=== PATIENT | female | born 1940 | race Caucasian/White ===

== ENCOUNTER → 2016-07-09 | Outpatient (CLI) | payer MEDICARE, BC ==
--- NOTE | 2016-07-09 15:18 | US ---
EXAMINATION TYPE: US kidneys/renal and bladder DATE OF EXAM: 07/09/2016 2:23 PM COMPARISON: Bladder US 08/21/2014 CLINICAL HISTORY: 76 year-old female recurrent UTIs. TECHNIQUE: Multiple sonographic images of the kidneys and bladder were obtained. FINDINGS: Right Kidney: 11.6 x 6.3 x 4.3cm without hydronephrosis. Left Kidney: 10.7 x 4.8 x 5.5cm without hydronephrosis. Initial partial distention of the bladder limits its evaluation. Both ureteral jets are visualized. Post Void Residual Volume: 9.3ml, within normal limits. Multiple shadowing calculi are incidentally noted within the gallbladder. IMPRESSION: 1. No hydronephrosis. 2. Both ureteral jets are visualized. No sonographic evidence for urinary retention. 3. Incidental cholelithiasis.
== END | disposition home or self-care (01) ==
LOC: RADUSWWP 13:23
PROVIDERS: ATTEND Urology
DX: K80.20 Calculus of gallbladder without cholecystitis without obstruction (principal); N39.0 Urinary tract infection, site not specified
CPT/HCPCS: 76770

== ENCOUNTER → 2016-07-13 | Outpatient (CLI) | payer MEDICARE, BC ==
--- NOTE | 2016-07-13 14:25 | MM ---
Reason for exam: additional evaluation requested from prior study. Last mammogram was performed 1 year ago. History: Patient is postmenopausal. Family history of breast cancer in 2 paternal cousins. Took estrogen for 17 years 4 months beginning at age 49. Physical Findings: Nurse did not find any significant physical abnormalities on exam. MG 3D Diag Mammo W/Cad AZEB Bilateral CC and MLO view(s) were taken. Prior study comparison: July 09, 2015, bilateral MG 3d screening mammo w/cad. June 24, 2010, bilateral digital screening mammogram. Finding: There are typically benign round, diffuse/scattered calcifications in both breasts. No significant changes in finding since July 09, 2015 and June 24, 2010. These results were verbally communicated with the patient and result sheet given to the patient on 07/13/16. ASSESSMENT: Benign, BI-RAD 2 RECOMMENDATION: Routine screening mammogram of both breasts in 1 year.
== END | disposition home or self-care (01) ==
LOC: RADMAMWWP 13:32
PROVIDERS: ATTEND Obstetrics & Gynecology
DX: R92.8 Other abnormal and inconclusive findings on diagnostic imaging of breast (principal)
CPT/HCPCS: G0204; G0279

== ENCOUNTER → 2017-08-04 | Outpatient (CLI) | payer MEDICARE, BC ==
--- NOTE | 2017-08-05 10:21 | CT ---
EXAMINATION TYPE: CT abdomen pelvis wo/w con DATE OF EXAM: 08/04/2017 COMPARISON: Generalized abdominal pain INDICATION: Patient complains of bilateral flank pain. DLP: 2084.6 mGycm, Automated exposure control for dose reduction was used. CONTRAST: 80 mL of Visipaque 320. Study performed with Oral Contrast TECHNIQUE: Axial images were obtained from above the diaphragm to the pubic rami in the axial plane a t 5 mm thick sections. Reconstructed images are reviewed on the computer in the coronal plane. FINDINGS: Limited CT sections are obtained the lung bases. The lung bases are clear. Coronary artery calcific ation is present. Vascular calcification in the descending thoracic aorta is present. CT ABDOMEN: Liver: Normal Spleen: Normal Pancreas: Normal Adrenal glands: The adrenal glands are normal. Gallbladder: Cholelithiasis is present. Kidneys: No masses are evident. No hydronephrosis is present. No cysts are present. Delayed images were obtained through the kidneys, which remain unremarkable. Aorta: Vascular calcification is within the aorta. Inferior vena cava: Normal. CT PELVIS: Multiple phleboliths are within the pelvis. Suspicious distal ureteral stones are not iden tified. Loops of bowel within the abdomen and pelvis are normal. There are loops of bowel which are incom pletely distended or lack oral contrast limiting their evaluation. Appendix: Normal as visualized. Visualization is somewhat limited. No suspicious inflammatory changes are identified. No suspicious dilated tubular structures are evident. Urinary bladder: Normal. Genitourinary structures: Uterus and ovaries are not identified. Osseous structures: No suspicious lytic or sclerotic lesions. Sacroiliac joint degenerative changes a re present. Some scoliosis within the lumbar spine. Degenerative disc changes are present L5-S1 and T 12-L1. IMPRESSIONS: 1. Cholelithiasis.
== END | disposition home or self-care (01) ==
LOC: RADCTMAIN 15:22
PROVIDERS: ATTEND Urology
DX: K80.20 Calculus of gallbladder without cholecystitis without obstruction (principal)
CPT/HCPCS: 82565; 84520; 74178; 36415; Q9967

== ENCOUNTER → 2018-05-03 | Outpatient (CLI) | payer MEDICARE, BC ==
--- NOTE | 2018-05-03 12:09 | FL ---
EXAMINATION TYPE: FL barium swallow w video DATE OF EXAM: 05/03/2018 MODIFIED SWALLOW / DEGLUTITION STUDY CLINICAL HISTORY: Dysphagia. Difficulty swallowing liquids.T17.928A food ins resp tract per order. TECHNIQUE: Deglutition study is performed utilizing thin liquid barium, honey and nectar thick liqui d barium, barium thick applesauce, and barium coated cracker. A total of 1.19 minutes of fluoroscopic time was utilized during procedure. Serial spot images are saved to PACS. COMPARISON: None. FINDINGS: The oral and pharyngeal phases show satisfactory initiation and propagation with all modali ties tested. Normal mastication is seen with solid modalities tested. There is straightening of cerv ical spine with grade 1 retrolisthesis of C4 on C5. There is mild to moderate disc space narrowing an d spurring C4-C5 and C5-C6 levels incidentally seen. There is no evidence of penetration or aspiratio n with any modality tested. No significant pharyngeal residue was appreciated. IMPRESSION: No penetration or aspiration. Please refer to speech therapist notes for further details if necessary.
== END | disposition home or self-care (01) ==
LOC: RADFLMAIN 11:27
PROVIDERS: ATTEND Family Medicine
DX: T17.928A Food in respiratory tract, part unspecified causing other injury, initial encounter (principal)
CPT/HCPCS: 74230

== ENCOUNTER → 2018-05-06 | Outpatient (CLI) | payer MEDICARE, BC ==
--- NOTE | 2018-05-06 15:04 | US ---
EXAMINATION TYPE: US kidneys/renal and bladder DATE OF EXAM: 05/06/2018 COMPARISON: 07/09/2016 CLINICAL HISTORY: R33.9 Retention of Urine. EXAM MEASUREMENTS: Right Kidney: 10.9 x 4.4 x 6.0 cm Left Kidney: 10.8 x 5.3 x 6.3 cm Post Void Residual Volume: empties bladder Right Kidney: No hydronephrosis or masses seen Left Kidney: No hydronephrosis or masses seen Bladder: 169 ml Bilateral Jets seen: no Normal Post Void Residual: yes IMPRESSION: 1. Normal renal ultrasound.
== END | disposition home or self-care (01) ==
LOC: RADUSWWP 14:28
PROVIDERS: ATTEND Internal Medicine Cardiovascular Disease
DX: R33.9 Retention of urine, unspecified (principal)
CPT/HCPCS: 76770

== ENCOUNTER → 2018-06-02 | Outpatient (CLI) | payer MEDICARE, BC ==
--- NOTE | 2018-06-02 18:31 | BD ---
EXAMINATION TYPE: Axial Bone Density DATE OF EXAM: 06/02/2018 COMPARISON:2004 CLINICAL HISTORY: 78-year-old female post menopausal symptoms Height: 4'11 Weight: 189 FRAX RISK QUESTIONS: History of Fracture in Adulthood: y Secondary Osteoporosis: RISK FACTORS HISTORY OF: Postmenopausal woman: y MEDICATIONS: Thyroid Medications: Which medication: Levothyroxine How Lon years Additional Medications: blood pressure, cholesterol, heart Additional History: EXAM MEASUREMENTS: Bone mineral densitometry was performed using the [facility]. Bone mineral density as measured about the Lumbar spine is: ----- L1-L4(G/cm2): 1.343 T Score Values are as follows: ----- L2: 1.2 ----- L3: 1.5 ----- L4: 1.3 ----- L1-L4: 1.4 Bone mineral density has: Decreased -5.2% since study of: 06/25/2005 Bone mineral density about the R hip (g/cm2): 0.999 Bone mineral density about the L hip (g/cm2): 0.984 T Score values are as follows: -----R Neck: -0.3 -----L Neck: -0.4 -----R Total: 0.6 -----L Total: 0.1 Bone mineral density has: Decreased -7.0% since study of: 06/25/2005 IMPRESSION: Normal (Values between +1 and -1 indicate normal bone mass). Consider repeating this study in 5 year s or sooner if there is some new clinical indication. NOTE: T-SCORE=SD OF THE YOUNG ADULT MEAN.
--- NOTE | 2018-06-03 14:28 | MM ---
Reason for exam: screening (asymptomatic). Last mammogram was performed 1 year and 11 months ago. History: Patient is postmenopausal. Family history of breast cancer in 2 paternal cousins. Took estrogen for 17 years 4 months beginning at age 49. Physical Findings: A clinical breast exam by your physician is recommended on an annual basis and results should be correlated with mammographic findings. MG 3D Screening Mammo W/Cad Bilateral CC and MLO view(s) were taken. Prior study comparison: July 13, 2016, bilateral MG 3d diag mammo w/cad AZEB. July 09, 2015, bilateral MG 3d screening mammo w/cad. Finding: There are heterogeneous, grouped/clustered calcifications in the upper outer quadrant, middle position of the left breast, increased in heterogeneity. New finding since July 13, 2016 and July 09, 2015. ASSESSMENT: Incomplete: need additional imaging evaluation, BI-RAD 0 RECOMMENDATION: Special view mammogram of the left breast. [facility] will attempt to contact patient to return for supplemental views.
== END | disposition home or self-care (01) ==
LOC: RADMAMWWP 14:57
PROVIDERS: ATTEND Obstetrics & Gynecology
DX: Z12.31 Encounter for screening mammogram for malignant neoplasm of breast (principal); Z13.820 Encounter for screening for osteoporosis; Z80.3 Family history of malignant neoplasm of breast; N95.1 Menopausal and female climacteric states
CPT/HCPCS: 77063; 77067; 77080

== ENCOUNTER → 2018-06-24 | Outpatient (CLI) | payer MEDICARE, BC ==
--- NOTE | 2018-06-24 14:03 | MM ---
Reason for exam: additional evaluation requested from abnormal screening. Last mammogram was performed 1 month ago. History: Patient is postmenopausal. Family history of breast cancer in 2 paternal cousins. Took estrogen for 17 years 4 months beginning at age 49. Physical Findings: Nurse did not find any significant physical abnormalities on exam. MG 3D Work Up W/Cad LT CC with magnification, ML with magnification, and ML view(s) were taken of the left breast. Prior study comparison: June 02, 2018, bilateral MG 3d screening mammo w/cad. July 13, 2016, bilateral MG 3d diag mammo w/cad AZEB. There are increased number of grouped, round calcifications in the left upper outer quadrant 5cm from nipple. This finding is changed when compared with previous exams. These results were verbally communicated with the patient and result sheet given to the patient on 06/24/18. ASSESSMENT: Suspicious, BI-RAD 4 RECOMMENDATION: Stereotactic core biopsy of the left breast. Called Dr. Brady with mammographic findings and has scheduled an appointment for the patient for 07/07/17 at 11:[address] Lindo. Biopsy scheduled for 07/12/17 at 8:00. PRELIMINARY REPORT CALLED AND FAXED TO DR. LINDO ON 06/24/18.
== END | disposition home or self-care (01) ==
LOC: RADMAMWWP 09:32
PROVIDERS: ATTEND Obstetrics & Gynecology
DX: R92.8 Other abnormal and inconclusive findings on diagnostic imaging of breast (principal)
CPT/HCPCS: 77065; G0279; 77061

== ENCOUNTER → 2018-07-07 | Outpatient (CLI) | payer MEDICARE, BC ==
[2018-07-07 11:32] VITALS: BP 133/77; PULSE 90; RESP 18; TEMP 96.2; BMI 37.0
--- NOTE | 2018-07-07 11:51 | P.GSHP ---
History of Present Illness H&P Date: 07/07/18 Chief Complaint: abnormal mammogram of the left breast Cecy is a 78 year old white female who had a recent mammogram on 06-02-18 after which a left breast diagnostic mammogram was performed. This mammogram revealed that there were increased number of groups round calcifications in the upper outer quadrant 5 cm from the nipple. A stereotactic core biopsy was recommended. The patient is soft does not feel anything in her breast. She is not complaining of any nipple discharge or skin changes. She states that she had open heart surgery approximately 8 years ago and since that time the left breast has been larger in size than the right breast. Additionally she has had some soreness in the area of the left breast since that time. The patient does not give any history of trauma to her breast or any history of infection in the breast. Family history: 1. 2 paternal cousins with breast cancer 2. Mother colon, ovarian, and melanoma Hormonal History: menarche: 13 : 3, 3 children, breast fed: none, first child at 21 Menopause: hysterectomy in 's, did not take ovaries at that time, they were removed at 52 BCP: none hormones: 15 years Past Surgical History 1. 3 C-Sections 2. hysterctomy and appy 3. oophrectomy 4. diverticulitis/colon resection 5. CABG 6. cardiac cath Past Medical History: 1. high cholesterol 2. aspirin and plavix 3. CAD 4. HTN 5. sleep apnea 6. thyroid disorder 7. high lipids 8. diverticulitis 9. arthritis 10. DDD Social History: smoke: none alcohol: wine/twice a month drugs: none - Constitutional Constitutional: Denies chills, Denies fever - EENT Eyes: denies blurred vision, denies pain Ears: deny: decreased hearing, tinnitus Ears, nose, mouth and throat: Denies headache, Denies sore throat - Breasts Breasts: bilateral: as per HPI - Cardiovascular Comment: CABG Cardiovascular: Reports high blood pressure - Respiratory Respiratory: Denies cough, Denies 7 - Gastrointestinal Comment: diverticular disease - Genitourinary (Female) Comment: UTI Genitourinary: Reports kidney stones, Reports urge incontinence - Menstruation Menstruation: Reports post hysterectomy, Reports postmenopausal - Musculoskeletal Comment: arthritis - Integumentary Integumentary: Denies pruritus, Denies rash - Neurological Neurological: Denies numbness, Denies weakness - Psychiatric Psychiatric: Denies anxiety, Denies depression - Endocrine Comment: hypothyroid - Hematologic/Lymphatic Comment: aspirin/plavix - Allergic/Immunologic Allergic/Immunologic: Reports seasonal allergies Past Medical History Past Medical History: Coronary Artery Disease (CAD), Hyperlipidemia, Hypertension, Mitral Valve Prolapse (MVP), Sleep Apnea/CPAP/BIPAP, Thyroid Disorder Additional Past Medical History / Comment(s): diverticulitis, ddd, arthritis, UTI'S, KIDNEY STONES,INCONT OF URINE, ARTHIRITS,MIGRAINEs. History of Any Multi-Drug Resistant Organisms: None Reported Past Surgical History: Appendectomy, Bowel Resection, Section, Coronary Bypass/CABG, Heart Catheterization, Hysterectomy Additional Past Surgical History / Comment(s): .BOWEL RESECTION D/T DIVERTICULITIS, QUAD BYPASS Past Psychological History: No Psychological Hx Reported Smoking Status: Never smoker Past Alcohol Use History: Occasional Past Drug Use History: None Reported Medications and Allergies Home Medications Medication Instructions Recorded Confirmed Type Clopidogrel [Plavix] 75 mg PO DIRECTED 01/16/14 07/04/18 History Levothyroxine Sodium [Synthroid] 112 mcg PO DAILY 01/16/14 07/04/18 History Metoprolol Tartrate [Lopressor] 25 mg PO BID 01/16/14 07/04/18 History Rosuvastatin [Crestor] 5 - 10 mg PO DIRECTED 01/16/14 07/04/18 History Aspirin 81 mg PO DAILY 08/02/15 07/04/18 History Ciprofloxacin HCl [Cipro] 500 mg PO BID 07/04/18 07/04/18 History Ergocalciferol [Vitamin D2 1 each PO WEEKLY 07/04/18 07/04/18 History (DRISDOL)] Lisinopril [Zestril] 10 mg PO DAILY 07/04/18 07/04/18 History Trimethoprim 100 mg PO DAILY 07/04/18 07/04/18 History Allergies Allergy/AdvReac Type Severity Reaction Status Date / Time Sulfa (Sulfonamide Allergy Unknown Verified 08/02/15 14:50 Antibiotics) amoxicillin [From Augmentin] AdvReac Nausea Verified 07/04/18 12:34 clavulanic acid AdvReac Nausea Verified 07/04/18 12:34 [From Augmentin] Surgical - Exam BMI 37.1 - General well developed, well nourished, no distress - Eyes normal ocular movement - ENT normal pinna, normal nares, no hearing loss - Neck no masses, trachea midline - Respiratory normal respiratory effort, clear to auscultation - Cardiovascular Rhythm: regular Heart Sounds: normal: S1, S2 - Abdomen Abdomen: soft - Integumentary normal turger - Neurologic no disoriented, no combative - Musculoskeletal normal gait, normal posture - Psychiatric oriented to time, oriented to person, oriented to place, speech is normal, memory intact Rest examination: Right breast: Multi-positional exam no dominant masses or nodules of concern Right axilla: No adenopathy of concern Left breast: Multi-positional exam no dominant masses or nodules of concern Left axilla: No adenopathy of concern Results mammogram results reviewed Assessment and Plan Assessment: Impression: 1. high cholesterol 2. aspirin and plavix 3. CAD 4. HTN 5. sleep apnea 6. thyroid disorder 7. high lipids 8. diverticulitis 9. arthritis 10. DDD 11. Mammographic abnormality left breast Plan: 1. Stereotactic core biopsy left breast after stopping aspirin and Plavix for 1 week 2. Medical management of medical conditions Benefits of the procedure reviewed. The patient is scheduled for stereotactic core biopsy in the near future. CC: Olnea Brady Dr. Dre Plan: . Plan: 1. Stereotactic core biopsy left breast after stopping aspirin and Plavix for 1 week 2. Medical management of medical conditions
== END ==
LOC: WWCWWP 11:07
PROVIDERS: ATTEND Surgery
DX: Z53.9 Procedure and treatment not carried out, unspecified reason (principal)

== ENCOUNTER → 2018-07-22 | Day surgery (SDC) | payer MEDICARE, BC ==
[2018-07-22 07:28] VITALS: RESP 16
--- NOTE | 2018-07-22 09:04 | P.OP ---
Date of Procedure: 07/22/18 Preoperative Diagnosis: Mammographic abnormality left breast, increasing group calcifications left upper outer quadrant 5 cm from the nipple Postoperative Diagnosis: same Procedure(s) Performed: Left breast stereotactic core biopsy Anesthesia: local Surgeon: Shayy Lindo Estimated Blood Loss (ml): 1 Pathology: other (Breast tissue) Condition: stable Disposition: same day Indications for Procedure: Cecy is a 78-year-old white female who presented with a mammographic abnormality in her left breast for stereotactic core biopsy Operative Findings: Microcalcifications left breast Description of Procedure: Cecy is a 78-year-old white female who was noted to have an increasing number of grouped, round calcifications in the upper outer quadrant of the left breast 5 cm from the nipple on a May 2018 mammogram. She was recommended to undergo stereotactic core biopsy. Risk and benefits of the procedure were discussed with the patient. The patient chose to undergo the procedure. The patient was brought into the stereotactic core room. She was positioned on the low rad table and radiograph of the breast was obtained. The approach to target the lesion was a lateral to medial approach. The area of concern was identified. Stereo pairs were obtained and the lesion was clearly visualized. The breast was prepped using Betadine. 20 mL of 1% lidocaine were used to anesthetize the breast. A 9-gauge vacuum assisted rotating needle was inserted to the correct target. Pre-and postfire stereo images were obtained. The needle was noted to be in the correct location. 12 core biopsies were obtained. Radiograph of the specimen revealed the area of concern had been sampled as evidenced by microcalcifications noted in the specimen. A top hat secure jeronimo marker was placed. This was noted to be in the correct location. The specimen was sent to pathology. The patient tolerated the procedure in stable condition with no immediate post procedure complications.
[2018-07-22 09:17] VITALS: BP 124/82; PULSE 94; TEMP 98.1
--- NOTE | 2018-07-25 07:41 | MM ---
Stereotactic core biopsy left breast. HISTORY: Microcalcifications. The calcifications in question within the left breast were targeted by the undersigned. The examination was performed by the surgeon. Specimen radiograph demonstrates numerous calcifications within the specimen submitted. Post procedural mammogram demonstrates appropriate deployment of radiopaque clip marker. The patient tolerated the procedure well and left the department in stable condition. Pathology results are pending. IMPRESSION: Successful stereotactic core biopsy left breast with pathology results pending. Pathology Results: Benign LEFT BREAST, STEREOTACTIC CORE BIOPSY: Proliferative fibrocystic changes including florid usual type ductal hyperplasia, columnar cell hyperplasia, calcifications and fibrosis. Recommendation Follow up mammogram of the left breast in 6 months. LEONIED
== END ==
LOC: RADMAMWWP 07:02
PROVIDERS: ATTEND Surgery
DX: N60.92 Unspecified benign mammary dysplasia of left breast (principal); N60.32 Fibrosclerosis of left breast; R92.1 Mammographic calcification found on diagnostic imaging of breast; Z88.0 Allergy status to penicillin; Z88.2 Allergy status to sulfonamides
CPT/HCPCS: 88305; 19081; A4648; J2001

== ENCOUNTER → 2018-07-28 | Outpatient (CLI) | payer MEDICARE, BC ==
--- NOTE | 2018-07-28 12:59 | P.PN ---
Progress Note - Text Progress Note Date: 07/28/18 Cecy is a 78-year-old white female status post left breast stereotactic core biopsy on 120 [id number]. Pathology was benign. It revealed proliferative fibrocystic changes including florid usual type ductal hyperplasia, columnar cell hyperplasia, and calcifications and fibrosis. The patient has no complaints at this time. She did develop some mild ecchymosis following the procedure. Physical exam: Examination of the left breast reveals mild ecchymosis at the site of the core biopsy No evidence of infection or hematoma Impression: 1. Fibrocystic changes of the breast 2. Benign stereotactic core biopsy, this was concordant with the radiographic findings Plan: 1. Left breast mammogram in 6 months time with physician exam at that time CC: Dre
[2018-07-28 13:14] VITALS: BP 109/71; PULSE 100; RESP 20; TEMP 98.3; BMI 38.3
== END | disposition home or self-care (01) ==
LOC: WWCWWP 12:43
PROVIDERS: ATTEND Surgery
DX: Z53.9 Procedure and treatment not carried out, unspecified reason (principal)

== ENCOUNTER 2018-11-24 13:48 | Inpatient (IN) | payer MEDICARE, BC ==
[2018-11-24] MEDS ORDERED: SODIUM CHLORIDE 0.9% 1,000 ML IV STA (15:29)
[2018-11-24 16:14] LABS: Basophils % (A) 0 %; Eosinophils # (A) 0.1 k/uL (0-0.7); Eosinophils % (A) 1 %; HCT 43.7 % (34.0-46.0); HGB 13.9 gm/dL (11.4-16.0); Lymphocytes # (A) 2.4 k/uL (1.0-4.8); Lymphocytes % (A) 24 %; MCH 29.7 pg (25.0-35.0); MCHC 31.9 g/dL (31.0-37.0); MCV 93.3 fL (80.0-100.0); Mean Platelet Volume 7.1; Monocytes # (A) 0.6 k/uL (0-1.0); Monocytes % (A) 6 %; Neutrophils # (A) 6.7 k/uL (1.3-7.7); Neutrophils % (A) 66 %; Platelet Count 267 k/uL (150-450); RBC 4.69 m/uL (3.80-5.40); RDW 13.6 % (11.5-15.5); WBC 10.1 k/uL (3.8-10.6)
[2018-11-24 16:17] LABS: Appearance,Urine Clear (Clear); Bilirubin,Urine Negative (Negative); Blood,Urine Negative (Negative); Color,Urine Yellow; Glucose,Urine (UA) Negative (Negative); Ketones,Urine Negative (Negative); Leukocyte Esterase,Urine Negative (Negative); Nitrite,Urine Negative (Negative); Protein,Urine Negative (Negative); Specific Gravity,Urine 1.015 (1.001-1.035); Urobilinogen,Urine <2.0 mg/dL (<2.0)
[2018-11-24 16:22] LABS: Albumin 4.1 g/dL (3.5-5.0); Calcium 9.5 mg/dL (8.4-10.2); Potassium 4.6 mmol/L (3.5-5.1); Total Bilirubin 0.6 mg/dL (0.2-1.3); Total Protein 6.6 g/dL (6.3-8.2)
--- NOTE | 2018-11-24 16:31 | ED ---
Abdominal Pain HPI - General Source: patient, RN notes reviewed Mode of arrival: ambulatory Limitations: no limitations <Felix Santiago - Last Filed: 11/24/18 17:59> <Rodrigue Colmenares - Last Filed: 11/24/18 18:13> - General Chief Complaint: Abdominal Pain Stated Complaint: R lower abd pain Time Seen by Provider: 11/24/18 15:28 - History of Present Illness Initial Comments: This a 78-year-old female presented emergency Department with chief complaint of right lower quadrant abdominal pain. Patient states that she's been having some worsening pain last week or so. Patient states that she was seen at urgent care and was placed on antibiotics for possible diverticulitis. She has had a resection from diverticulitis. Patient states that she is on day 5 of medication in symptoms or worsening along with diarrhea. Patient reports no fevers or chills denies any dysuria hematuria urinalysis has been clear at [facility]. Patient denies any rectal bleeding and denies any melena. Patient denies chest pain, shortness breath, headache or dizziness. (Felix Santiago) - Related Data Home Medications Medication Instructions Recorded Confirmed Levothyroxine Sodium [Synthroid] 112 mcg PO DAILY 01/16/14 11/24/18 Metoprolol Tartrate [Lopressor] 25 mg PO BID 01/16/14 11/24/18 Aspirin 81 mg PO DAILY 08/02/15 11/24/18 Ergocalciferol [Vitamin D2 1 each PO TU 07/04/18 07/28/18 (DRISDOL)] Lisinopril [Zestril] 10 mg PO DAILY 07/04/18 11/24/18 Trimethoprim 100 mg PO DAILY 07/04/18 11/24/18 Ciprofloxacin HCl [Cipro] 500 mg PO DAILY 11/24/18 11/24/18 Clopidogrel [Plavix] 75 mg PO Q48H 11/24/18 11/24/18 Estradiol Cream [Estrace Cream 1 applic TOPICAL MOWEFR 11/24/18 11/24/18 0.01%] Nystatin/Triamcin Cream [Mycolog 1 applic TOPICAL TUTH PRN 11/24/18 11/24/18 100,000-0.1 Unit/gm-% Cream] Rosuvastatin [Crestor] 10 mg PO DAILY 11/24/18 11/24/18 metroNIDAZOLE [Flagyl] 500 mg PO DAILY 11/24/18 11/24/18 Allergies Allergy/AdvReac Type Severity Reaction Status Date / Time Sulfa (Sulfonamide Allergy Unknown Verified 11/24/18 16:06 Antibiotics) amoxicillin [From Augmentin] AdvReac Nausea Verified 11/24/18 16:06 clavulanic acid AdvReac Nausea Verified 11/24/18 16:06 [From Augmentin] Review of Systems ROS Other: All systems not noted in ROS Statement are negative. <Felix Santiago - Last Filed: 11/24/18 17:59> ROS Other: All systems not noted in ROS Statement are negative. <Rodrigue Colmenares - Last Filed: 11/24/18 18:13> ROS Statement: Those systems with pertinent positive or pertinent negative responses have been documented in the HPI. Past Medical History Past Medical History: Coronary Artery Disease (CAD), Hyperlipidemia, Hypertension, Mitral Valve Prolapse (MVP), Sleep Apnea/CPAP/BIPAP, Thyroid Disorder Additional Past Medical History / Comment(s): diverticulitis, ddd, arthritis, U TI'S, KIDNEY STONES,INCONT OF URINE, ARTHIRITS,MIGRAINEs. History of Any Multi-Drug Resistant Organisms: None Reported Past Surgical History: Appendectomy, Bowel Resection, Breast Surgery, Section, Coronary Bypass/CABG, Heart Catheterization, Hysterectomy Additional Past Surgical History / Comment(s): BOWEL RESECTION D/T DIVERTICULITIS, QUAD BYPASS Past Anesthesia/Blood Transfusion Reactions: No Reported Reaction Past Psychological History: No Psychological Hx Reported Smoking Status: Never smoker Past Alcohol Use History: Occasional Past Drug Use History: None Reported <Felix Santiago - Last Filed: 11/24/18 17:59> General Exam Limitations: no limitations General appearance: alert, in no apparent distress Head exam: Present: atraumatic, normocephalic, normal inspection Neck exam: Present: normal inspection. Absent: tenderness, meningismus, lymphadenopathy Respiratory exam: Present: normal lung sounds bilaterally. Absent: respiratory distress, wheezes, rales, rhonchi, stridor Cardiovascular Exam: Present: regular rate, normal rhythm, normal heart sounds. Absent: systolic murmur, diastolic murmur, rubs, gallop, clicks GI/Abdominal exam: Present: soft, tenderness (Mild to moderate right lower quadrant), normal bowel sounds. Absent: distended, guarding, rebound, rigid Back exam: Absent: CVA tenderness (R), CVA tenderness (L) Skin exam: Present: warm, dry, intact, normal color. Absent: rash <Felix Santiago - Last Filed: 11/24/18 17:59> Course Vital Signs 11/24/18 14:57 Temperature 98.1 F Pulse Rate 86 Respiratory 18 Rate Blood Pressure 129/82 O2 Sat by Pulse 96 Oximetry Medical Decision Making - Lab Data Result diagrams: 11/24/18 15:55 11/24/18 15:55 <Felix Santiago - Last Filed: 11/24/18 17:59> - Lab Data Result diagrams: 11/24/18 15:55 11/24/18 15:55 <Rodrigue Colmenares - Last Filed: 11/24/18 18:13> - Medical Decision Making 78-year-old female presented for lower abdominal pain CT shows evidence of diver ticulitis. Patient has been on treatment for last 5 days and discussed outpatient treatment and not tolerating intake at this time. Patient will be admitted for IV antibiotics. Patient we started on Zosyn. Patient has a listed ALLERGY to Augmentin but only causes nausea. (Felix Santiago) Patient reevaluated and reexamined by myself, Dr. Colmenares. I do agree with the findings. This includes diagnostic interpretation and treatment plan. Case was discussed in detail with Dr. Miguel, who will admit for Dr. Erickson. (Rodrigue Colmenares) - Lab Data Lab Results 11/24/18 11/24/18 11/24/18 Range/Units 15:55 15:55 15:55 WBC 10.1 (3.8-10.6) k/uL RBC 4.69 (3.80-5.40) m/uL Hgb 13.9 (11.4-16.0) gm/dL Hct 43.7 (34.0-46.0) % MCV 93.3 (80.0-100.0) fL MCH 29.7 (25.0-35.0) pg MCHC 31.9 (31.0-37.0) g/dL RDW 13.6 (11.5-15.5) % Plt Count 267 (150-450) k/uL Neutrophils % 66 % Lymphocytes % 24 % Monocytes % 6 % Eosinophils % 1 % Basophils % 0 % Neutrophils # 6.7 (1.3-7.7) k/uL Lymphocytes # 2.4 (1.0-4.8) k/uL Monocytes # 0.6 (0-1.0) k/uL Eosinophils # 0.1 (0-0.7) k/uL Basophils # 0.0 (0-0.2) k/uL Sodium 139 (137-145) mmol/L Potassium 4.6 (3.5-5.1) mmol/L Chloride 105 (98-107) mmol/L Carbon Dioxide 28 (22-30) mmol/L Anion Gap 6 mmol/L BUN 18 H (7-17) mg/dL Creatinine 0.81 (0.52-1.04) mg/dL Est GFR (CKD-EPI)AfAm 82 (>60 ml/min/1.73 sqM) Est GFR (CKD-EPI)NonAf 71 (>60 ml/min/1.73 sqM) Glucose 101 H (74-99) mg/dL Plasma Lactic Acid Vasyl 0.9 (0.7-2.0) mmol/L Calcium 9.5 (8.4-10.2) mg/dL Total Bilirubin 0.6 (0.2-1.3) mg/dL AST 71 H (14-36) U/L ALT 57 H (9-52) U/L Alkaline Phosphatase 52 (38-126) U/L Total Protein 6.6 (6.3-8.2) g/dL Albumin 4.1 (3.5-5.0) g/dL Amylase 37 (30-110) U/L Lipase 125 (23-300) U/L Urine Color Urine Appearance (Clear) Urine pH (5.0-8.0) Ur Specific Buford (1.001-1.035) Urine Protein (Negative) Urine Glucose (UA) (Negative) Urine Ketones (Negative) Urine Blood (Negative) Urine Nitrite (Negative) Urine Bilirubin (Negative) Urine Urobilinogen (<2.0) mg/dL Ur Leukocyte Esterase (Negative) 11/24/18 Range/Units 15:55 WBC (3.8-10.6) k/uL RBC (3.80-5.40) m/uL Hgb (11.4-16.0) gm/dL Hct (34.0-46.0) % MCV (80.0-100.0) fL MCH (25.0-35.0) pg MCHC (31.0-37.0) g/dL RDW (11.5-15.5) % Plt Count (150-450) k/uL Neutrophils % % Lymphocytes % % Monocytes % % Eosinophils % % Basophils % % Neutrophils # (1.3-7.7) k/uL Lymphocytes # (1.0-4.8) k/uL Monocytes # (0-1.0) k/uL Eosinophils # (0-0.7) k/uL Basophils # (0-0.2) k/uL Sodium (137-145) mmol/L Potassium (3.5-5.1) mmol/L Chloride (98-107) mmol/L Carbon Dioxide (22-30) mmol/L Anion Gap mmol/L BUN (7-17) mg/dL Creatinine (0.52-1.04) mg/dL Est GFR (CKD-EPI)AfAm (>60 ml/min/1.73 sqM) Est GFR (CKD-EPI)NonAf (>60 ml/min/1.73 sqM) Glucose (74-99) mg/dL Plasma Lactic Acid Vasyl (0.7-2.0) mmol/L Calcium (8.4-10.2) mg/dL Total Bilirubin (0.2-1.3) mg/dL AST (14-36) U/L ALT (9-52) U/L Alkaline Phosphatase (38-126) U/L Total Protein (6.3-8.2) g/dL Albumin (3.5-5.0) g/dL Amylase (30-110) U/L Lipase (23-300) U/L Urine Color Yellow Urine Appearance Clear (Clear) Urine pH 6.0 (5.0-8.0) Ur Specific Buford 1.015 (1.001-1.035) Urine Protein Negative (Negative) Urine Glucose (UA) Negative (Negative) Urine Ketones Negative (Negative) Urine Blood Negative (Negative) Urine Nitrite Negative (Negative) Urine Bilirubin Negative (Negative) Urine Urobilinogen <2.0 (<2.0) mg/dL Ur Leukocyte Esterase Negative (Negative) Disposition <Felix Santiago - Last Filed: 11/24/18 17:59> <Rodrigue Colmenares - Last Filed: 11/24/18 18:13> Clinical Impression: Diverticulitis, Failure of outpatient treatment Disposition: ADMITTED IP TO THIS [facility] Condition: Fair Referrals: Vidal Erickson MD [Primary Care Provider] - 1-2 days
--- NOTE | 2018-11-24 17:29 | CT ---
EXAMINATION TYPE: CT abdomen pelvis w con DATE OF EXAM: 11/24/2018 COMPARISON: August 04, 2017 HISTORY: RLQ pain with nausea CT DLP: 1170.7 mGycm Automated exposure control for dose reduction was used. TECHNIQUE: Helical acquisition of images was performed from the lung bases through the pelvis. CONTRAST: Performed without Oral Contrast and with IV Contrast, patient injected with 100 mL of Isovue 370. FINDINGS: Lung bases are clear. There is no pleural effusion. Heart size is normal. There is no pericardial eff usion. Abdominal aorta is atheromatous. Lung bases are clear of consolidation. Liver spleen stomach appear normal. There is no evidence of pancreatic mass. The bile ducts are not d ilated. There are numerous calcified gallstones. Gallbladder size is normal. There is no adrenal mass. Kidneys show satisfactory contrast opacification. There is no hydronephrosi s. Ureters are not dilated. There is no retroperitoneal adenopathy. Abdominal aorta is atheromatous. There is small umbilical hernia that contains fat. There are numerous phleboliths in the pelvis. Blad arturo distends smoothly. There is no inguinal hernia. There is no sign of a pelvic mass. There is a mild degenerative first-degree L5-S1 spondylolisthesis. There is no lumbar compression fra cture. I see no bony destructive process. There is hysterectomy. There is 2 mm calculus lower pole le ft kidney. There is no ascites. There is no sign of free air. There are a few sigmoid diverticula. There is very minimal fat stranding around the mid sigmoid colon. IMPRESSION: MINIMAL INFLAMMATORY CHANGES IN THE MID SIGMOID COLON ARE CONSISTENT WITH MILD DIVERTICULITIS THAT IS A CHANGE COMPARED TO OLD EXAM. NONOBSTRUCTING LEFT RENAL CALCULUS. GALLSTONES.
[2018-11-24] MEDS ORDERED: PIPERACILLIN-TAZOBACTAM 3.375 GM in SODIUM CHLORIDE 0.9% 100 ML IVPB STA (17:58)
[2018-11-24] MEDS ORDERED: NALOXONE 0.4 MG/ML 1 ML VIAL IV PRN (18:00)
[2018-11-24] MEDS ORDERED: HYDROcodone/APAP 5-325MG 1 EACH TAB PO PRN (18:00)
[2018-11-24] MEDS ORDERED: ONDANSETRON 4 MG/2 ML VIAL IVP PRN (18:00)
[2018-11-24] MEDS ORDERED: MORPHINE SULFATE 4 MG/ML SYRINGE IV PRN (18:00)
[2018-11-24 20:07] VITALS: BMI 38.5
[2018-11-24] MEDS: ACETAMINOPHEN TAB 325 MG TAB PO PRN (20:38)
[2018-11-24] MEDS: LISINOPRIL 10 MG TAB PO SCH (21:42)
[2018-11-24] MEDS: ATORVASTATIN 10 MG TAB PO SCH (21:42)
[2018-11-24] MEDS: METOPROLOL TARTRATE 25 MG TAB PO SCH (21:42)
[2018-11-24] MEDS: SODIUM CHLORIDE 0.9% 1,000 ML IV SCH (21:50)
[2018-11-25] MEDS: PIPERACILLIN-TAZOBACTAM 3.375 GM in SODIUM CHLORIDE 0.9% 100 ML IVPB SCH ×3 (02:08→16:10)
[2018-11-25] MEDS: LEVOTHYROXINE 100 MCG TAB PO SCH (06:26)
[2018-11-25] MEDS: METOPROLOL TARTRATE 25 MG TAB PO SCH ×2 (08:56→20:42)
[2018-11-25] MEDS ORDERED: ASPIRIN 81 MG PO SCH ×2 (09:00→21:00)
[2018-11-25] MEDS ORDERED: LEVOTHYROXINE 50 MCG TAB PO SCH (09:00)
[2018-11-25] MEDS ORDERED: CLOPIDOGREL 75 MG TAB PO SCH (09:00)
[2018-11-25] MEDS: SODIUM CHLORIDE 0.9% 1,000 ML IV SCH ×2 (11:13→20:45)
--- NOTE | 2018-11-25 11:38 | P.GSCN ---
<Tamica Doe - Last Filed: 11/25/18 11:36> History of Present Illness Consult date: 11/25/18 Reason for Consult: Diverticulitis Requesting physician: Felix Santiago History of present illness: CHIEF COMPLAINT: Diverticulitis HISTORY OF PRESENT ILLNESS: 78-year-old female was admitted to hospital secondary to diverticulitis. General surgery was consulted for further evaluation. Patient reports she has been having right lower quadrant abdominal pain for a couple weeks. She went to urgent care on , 11/17/2018 and was prescribed Flagyl and Cipro for possible diverticulitis. Patient states she took about 4 or 5 days of the medication but she ended up with severe diarrhea and stopped taking it. She reports last dose of antibiotics was on Wednesday morning. She continued to have abdominal pain and presented to the ER for further evaluation. Patient states her last colonoscopy was in November [address] Seay at [facility]. Patient does not remember the results but believes it was negative. Her pain has improved this morning. She continues to right mild right lower quadrant/suprapubic pain. She denies nausea or vomiting. Tolerating clear liquid diet. Reports soft bowel movement last night. PAST MEDICAL HISTORY: See list. PAST SURGICAL HISTORY: See list. SOCIAL HISTORY: No illicit drug use. REVIEW OF SYSTEMS: CONSTITUTIONAL: Denies fever or chills. HEENT: Denies blurred vision, vision changes, or eye pain. Denies hemoptysis CARDIOVASCULAR: Denies chest pain or pressure. RESPIRATORY: No shortness of breath. GASTROINTESTINAL: Refer to HPI for pertinent findings HEMATOLOGIC: Denies bleeding disorders. GENITOURINARY: Denies any blood in urine. SKIN: Denies pruitis. Denies rash. PHYSICAL EXAM: VITAL SIGNS: Reviewed. GENERAL: Well-developed in no acute distress. HEENT: No sclera icterus. Extraocular movements grossly intact. Moist buccal mucosa. Head is atraumatic, normocephalic. ABDOMEN: Soft. Nondistended. Tenderness to right lower quadrant extending into pubic region. NEUROLOGIC: Alert and oriented. Cranial nerves II through XII grossly intact. LABORATORY DATA: WBC 10.1 on admission. Hemoglobin 13.9. AST 71. ALT 57. IMAGING: CT abdomen and pelvis: Minimal inflammatory changes and intermittent sigmoid colon are consistent with mild diverticulitis is a change compared to old exam. Nonobstructing left renal cultures. Gallstones. ASSESSMENT: 1. Diverticulitis 2. History of bowel resection secondary to diverticulitis PLAN: 1. Advance diet to full liquid 2. Continue antibiotics 3. Further recommendations pending evaluation by Dr. Seay Nurse practitioner note has been reviewed by physician. Signing provider agrees with the documented findings, assessment, and plan of care. Past Medical History Past Medical History: Coronary Artery Disease (CAD), Hyperlipidemia, Hypertension, Mitral Valve Prolapse (MVP), Sleep Apnea/CPAP/BIPAP, Thyroid Disorder Additional Past Medical History / Comment(s): diverticulitis, ddd, arthritis, UTI'S, KIDNEY STONES,INCONT OF URINE, ARTHIRITS,MIGRAINEs. History of Any Multi-Drug Resistant Organisms: None Reported Past Surgical History: Appendectomy, Bowel Resection, Breast Surgery, Section, Coronary Bypass/CABG, Heart Catheterization, Hysterectomy Additional Past Surgical History / Comment(s): BOWEL RESECTION D/T DIVERTICULITIS, QUAD BYPASS, Breast biopsy Past Anesthesia/Blood Transfusion Reactions: No Reported Reaction Past Psychological History: No Psychological Hx Reported Smoking Status: Never smoker Past Alcohol Use History: Occasional Past Drug Use History: None Reported - Past Family History Father Family Medical History: Hypertension Additional Family Medical History / Comment(s): Atherosclerosis Mother Family Medical History: Cancer Additional Family Medical History / Comment(s): ovarian cancer Medications and Allergies Home Medications Medication Instructions Recorded Confirmed Type Levothyroxine Sodium [Synthroid] 110 mcg PO DAILY 01/16/14 11/24/18 History Metoprolol Tartrate [Lopressor] 25 mg PO BID 01/16/14 11/24/18 History Aspirin 81 mg PO DAILY 08/02/15 11/24/18 History Ergocalciferol [Vitamin D2 1 each PO TU 07/04/18 11/24/18 History (EUFEMIA)] Lisinopril [Zestril] 10 mg PO DAILY 07/04/18 11/24/18 History Trimethoprim 100 mg PO DAILY 07/04/18 11/24/18 History Ciprofloxacin HCl [Cipro] 500 mg PO DAILY 11/24/18 11/24/18 History Clopidogrel [Plavix] 75 mg PO Q48H 11/24/18 11/24/18 History Estradiol Cream [Estrace Cream 1 applic TOPICAL MOWEFR 11/24/18 11/24/18 History 0.01%] Nystatin/Triamcin Cream [Mycolog 1 applic TOPICAL TUTH PRN 11/24/18 11/24/18 History 100,000-0.1 Unit/gm-% Cream] Rosuvastatin [Crestor] 5 mg PO DAILY 11/24/18 11/24/18 History metroNIDAZOLE [Flagyl] 500 mg PO DAILY 11/24/18 11/24/18 History Allergies Allergy/AdvReac Type Severity Reaction Status Date / Time Sulfa (Sulfonamide Allergy Unknown Verified 11/24/18 16:06 Antibiotics) amoxicillin [From Augmentin] AdvReac Nausea Verified 11/24/18 16:06 clavulanic acid AdvReac Nausea Verified 11/24/18 16:06 [From Augmentin] Surgical - Exam Vital Signs Temp Pulse Resp BP Pulse Ox 98.1 F 86 18 129/82 96 11/24/18 14:57 11/24/18 14:57 11/24/18 14:57 11/24/18 14:57 11/24/18 14:57 Results - Labs 11/24/18 15:55 11/24/18 15:55 Abnormal Lab Results - Last 24 Hours (Table) 11/24/18 Range/Units 15:55 BUN 18 H (7-17) mg/dL Glucose 101 H (74-99) mg/dL AST 71 H (14-36) U/L ALT 57 H (9-52) U/L Diabetes panel 11/24/18 Range/Units 15:55 Sodium 139 (137-145) mmol/L Potassium 4.6 (3.5-5.1) mmol/L Chloride 105 (98-107) mmol/L Carbon Dioxide 28 (22-30) mmol/L BUN 18 H (7-17) mg/dL Creatinine 0.81 (0.52-1.04) mg/dL Glucose 101 H (74-99) mg/dL Calcium 9.5 (8.4-10.2) mg/dL AST 71 H (14-36) U/L ALT 57 H (9-52) U/L Alkaline Phosphatase 52 (38-126) U/L Total Protein 6.6 (6.3-8.2) g/dL Albumin 4.1 (3.5-5.0) g/dL Calcium panel 11/24/18 Range/Units 15:55 Calcium 9.5 (8.4-10.2) mg/dL Albumin 4.1 (3.5-5.0) g/dL Pituitary panel 11/24/18 Range/Units 15:55 Sodium 139 (137-145) mmol/L Potassium 4.6 (3.5-5.1) mmol/L Chloride 105 (98-107) mmol/L Carbon Dioxide 28 (22-30) mmol/L BUN 18 H (7-17) mg/dL Creatinine 0.81 (0.52-1.04) mg/dL Glucose 101 H (74-99) mg/dL Calcium 9.5 (8.4-10.2) mg/dL Adrenal panel 11/24/18 Range/Units 15:55 Sodium 139 (137-145) mmol/L Potassium 4.6 (3.5-5.1) mmol/L Chloride 105 (98-107) mmol/L Carbon Dioxide 28 (22-30) mmol/L BUN 18 H (7-17) mg/dL Creatinine 0.81 (0.52-1.04) mg/dL Glucose 101 H (74-99) mg/dL Calcium 9.5 (8.4-10.2) mg/dL Total Bilirubin 0.6 (0.2-1.3) mg/dL AST 71 H (14-36) U/L ALT 57 H (9-52) U/L Alkaline Phosphatase 52 (38-126) U/L Total Protein 6.6 (6.3-8.2) g/dL Albumin 4.1 (3.5-5.0) g/dL <Josh Seay - Last Filed: 11/25/18 14:03> History of Present Illness History of present illness: As above. Patient with right lower quadrant pain. Some left lower quadrant pain as well however. Was being treated as an outpatient for possible diverticulitis with Cipro and Flagyl. Doing better currently. CAT scan reviewed. Will advance diet for breakfast tomorrow. Prescription for Augmentin left upon discharge. Patient states she had an upset stomach with Augmentin in the past however is tolerating Zosyn fine. If she develops recurrent GI complaints with Augmentin post-discharge she will resume her Cipro. Surgical - Exam Vital Signs Temp Pulse Resp BP Pulse Ox 98.1 F 86 18 129/82 96 05/30/19 14:57 11/24/18 14:57 11/24/18 14:57 11/24/18 14:57 11/24/18 14:57 Results - Labs 11/24/18 15:55 11/24/18 15:55 Abnormal Lab Results - Last 24 Hours (Table) 11/24/18 Range/Units 15:55 BUN 18 H (7-17) mg/dL Glucose 101 H (74-99) mg/dL AST 71 H (14-36) U/L ALT 57 H (9-52) U/L Diabetes panel 11/24/18 Range/Units 15:55 Sodium 139 (137-145) mmol/L Potassium 4.6 (3.5-5.1) mmol/L Chloride 105 (98-107) mmol/L Carbon Dioxide 28 (22-30) mmol/L BUN 18 H (7-17) mg/dL Creatinine 0.81 (0.52-1.04) mg/dL Glucose 101 H (74-99) mg/dL Calcium 9.5 (8.4-10.2) mg/dL AST 71 H (14-36) U/L ALT 57 H (9-52) U/L Alkaline Phosphatase 52 (38-126) U/L Total Protein 6.6 (6.3-8.2) g/dL Albumin 4.1 (3.5-5.0) g/dL Calcium panel 11/24/18 Range/Units 15:55 Calcium 9.5 (8.4-10.2) mg/dL Albumin 4.1 (3.5-5.0) g/dL Pituitary panel 11/24/18 Range/Units 15:55 Sodium 139 (137-145) mmol/L Potassium 4.6 (3.5-5.1) mmol/L Chloride 105 (98-107) mmol/L Carbon Dioxide 28 (22-30) mmol/L BUN 18 H (7-17) mg/dL Creatinine 0.81 (0.52-1.04) mg/dL Glucose 101 H (74-99) mg/dL Calcium 9.5 (8.4-10.2) mg/dL Adrenal panel 11/24/18 Range/Units 15:55 Sodium 139 (137-145) mmol/L Potassium 4.6 (3.5-5.1) mmol/L Chloride 105 (98-107) mmol/L Carbon Dioxide 28 (22-30) mmol/L BUN 18 H (7-17) mg/dL Creatinine 0.81 (0.52-1.04) mg/dL Glucose 101 H (74-99) mg/dL Calcium 9.5 (8.4-10.2) mg/dL Total Bilirubin 0.6 (0.2-1.3) mg/dL AST 71 H (14-36) U/L ALT 57 H (9-52) U/L Alkaline Phosphatase 52 (38-126) U/L Total Protein 6.6 (6.3-8.2) g/dL Albumin 4.1 (3.5-5.0) g/dL
--- NOTE | 2018-11-25 12:36 | HP ---
HISTORY AND PHYSICAL DATE OF ADMISSION: 11/24/2018. DATE OF SERVICE: 11/25/2018. PRESENTING COMPLAINT: Abdominal pain. HISTORY OF PRESENTING COMPLAINT: A very pleasant 78-year-old patient who follows with Dr. Erickson. Chronic stable medical conditions include coronary artery disease, hypertension, hyperlipidemia, obstructive sleep apnea, hypothyroid, kidney stones, incontinence of urine, arthritis. The patient for close to 6 weeks has been having slight right lower abdominal pain present on and off and often she will forget about it. About 1 week ago she had an increased bout of right lower quadrant pain, rather severe. Could not even sleep and had a bout of diarrhea, that actually got better. She did go and see her family doctor. She was put on Flagyl and ciprofloxacin. Now for last 6 day, patient has been having 2 or 3 bowel movements a day, somewhat mushy, no blood. Patient has had some cold sweats. Hence patient presented to the ER. CT scan showed some sigmoid diverticulitis. Patient was then put on antibiotics and admitted for the same. It may be noted that the patient had some bowel resection for diverticulitis at [facility] in the past. REVIEW OF SYSTEMS: CONSTITUTIONAL: Tired. HEENT: None. RESPIRATORY: None. CARDIOVASCULAR: None. GASTROINTESTINAL: As above. GENITOURINARY: None. MUSCULOSKELETAL: Arthritic pain in joints. DERMATOLOGICAL; None. HEMATOLOGICAL: None. LYMPHATIC: None. PSYCHIATRY: None. NEUROLOGICAL; None. PAST MEDICAL HISTORY: Coronary artery disease with bypass, hypertension hyperlipidemia, mitral valve prolapse, obstructive sleep apnea uses CPAP, hypothyroid, diverticulitis, arthritis, kidney stones, urine incontinence. PAST SURGICAL HISTORY: Appendectomy, coronary bypass, bowel resection due to diverticulitis, quadruple bypass, breast biopsy. SOCIAL HISTORY: No smoking, alcohol occasionally, . FAMILY HISTORY: Hypertension, atherosclerosis. HOME MEDICATIONS: 1. Synthroid 110 mcg a day. 2. Crestor 5 mg p.o. daily. 3. Vitamin D2 on Tuesdays. 4. Flagyl 500 mg p.o. daily. 5. Bactrim 100 mg p.o. daily. 6. Trimethoprim. 7. Nystatin. 8. Triamcinolone cream. 9. Mycolog. 10.Lopressor 25 b.i.d. 11.Zestril 10 mg p.o. daily. 12.Estrace cream topical Wednesday, Wednesday, and Wednesday. 13.Plavix 75 mg every 48 hours. 14.Cipro 500 mg p.o. daily. 15.Aspirin 81 mg p.o. daily. ALLERGIES: To SULFUR, AUGMENTIN. No true allergies. PHYSICAL EXAMINATION: Temperature 98, pulse 80, respiratory 18, blood pressure 137/84, pulse ox 98% on room air. GENERAL APPEARANCE: Well-built, BMI 38.6. Lying in bed, not in distress. EYES: Pupils equal, conjunctivae normal. HEENT: External appearance of nose and ears normal, oral cavity normal. NECK: JVD not raised. Mass not palpable. RESPIRATORY: Effort normal. LUNGS: Clear. CARDIOVASCULAR: First and second sounds are normal, no edema. ABDOMEN: Right lower quadrant tenderness. No guarding or rigidity. Liver and spleen not palpable. LYMPHATIC: No lymph nodes palpable in the neck or axilla. PSYCHIATRY: Alert and oriented x3. Mood and affect normal. NEUROLOGICAL: Pupils equal. Cranial nerves grossly intact. Power and sensation grossly intact. INVESTIGATIONS: White count 10.1, hemoglobin 13.9, potassium 4.6, BUN 18, creatinine 0.81. UA negative. CT scan of the abdomen and pelvis, numerous calcified gallstones, calculi in the left upper pole of the left kidney. Some inflammatory changes in the big sigmoid colon suggestive of mild diverticulitis. ASSESSMENT: 1. This is a patient who presented with acute diverticulitis as evidenced by the CT scan finding and clinical history, though no other history. Patient had the cold sweats at home. He probably needs a more dedicated antibiotic regimen. Patient has had a prior surgery done for diverticulitis at [facility]. 2. Coronary artery disease with prior history of bypass. 3. Hyperlipidemia. 4. Essential hypertension. 5. Obstructive sleep apnea, uses CPAP. 6. Hypothyroidism. 7. Primary osteoarthritis. 8. Chronic urinary stress incontinence. 9. Left kidney stone asymptomatic. PLAN: The patient is currently on IV Zosyn, IV fluids. Home medications are resumed. Will give Lovenox for DVT prophylaxis. Await input from Surgery. Care was discussed with the patient in detail. Questions were answered. The patient will need a colonoscopy down the road. The patient is started on clear liquids. MMODL / IJN: [id number] /
[2018-11-25] MEDS: ENOXAPARIN 40 MG/0.4 ML SYRINGE SQ SCH (14:44)
[2018-11-25] MEDS: LISINOPRIL 10 MG TAB PO SCH (20:41)
[2018-11-25] MEDS: ATORVASTATIN 10 MG TAB PO SCH (20:41)
[2018-11-25] MEDS: ACETAMINOPHEN TAB 325 MG TAB PO PRN (20:59)
[2018-11-25] MEDS ORDERED: ATORVASTATIN 10 MG TAB PO SCH (21:00)
[2018-11-26] MEDS: PIPERACILLIN-TAZOBACTAM 3.375 GM in SODIUM CHLORIDE 0.9% 100 ML IVPB SCH ×2 (00:12→07:59)
[2018-11-26] MEDS ORDERED: ASPIRIN 81 MG PO SCH ×3 (07:13→21:00)
[2018-11-26] MEDS: LEVOTHYROXINE 100 MCG TAB PO SCH (07:19)
[2018-11-26] MEDS: METOPROLOL TARTRATE 25 MG TAB PO SCH (08:00)
[2018-11-26] MEDS: ENOXAPARIN 40 MG/0.4 ML SYRINGE SQ SCH (08:03)
[2018-11-26] MEDS: ACETAMINOPHEN TAB 325 MG TAB PO PRN (08:11)
[2018-11-26 09:45] VITALS: TEMP 98.1
--- NOTE | 2018-11-26 11:48 | P.PN ---
Subjective Progress Note Date: 11/26/18 CHIEF COMPLAINT: Subacute diverticulitis HISTORY OF PRESENT ILLNESS: The patient is a 78-year-old female admitted yesterday for failed outpatient sigmoid diverticulitis. CT of the abdomen and pelvis demonstrated mild sigmoid diverticulitis including additional findings of gallstones and kidney stones. She reports feeling much better today. She reports pre-existing right groin discomfort. She is tolerating diet and once attending a sandwich. ROS: No reports of nausea and vomiting. No fevers or chills. No new chest pain. No productive sputum PHYSICAL EXAM: VITAL SIGNS: Reviewed CONSTITUTIONAL: Well developed and in no acute distress. EYES: Conjuctivae without sclera icterus. Extraocular movements grossly intact. HEAD, EARS, NOSE, THROAT: Moist buccal mucosa. Head is atraumatic, normocephalic. Hears conversational speech. No nasal drainage. NECK: Supple. No thyroidomegaly. RESPIRATORY: Non-labored respirations and equal bilateral excursions. CARDIOVASCULAR: Palpable 2+ radial pulses. Regular rate. Regular rhythm. ABDOMEN: No peritonitis. Soft. Protuberant MUSCULOSKELETAL: No gross deformity of the lower extremities noted. No clubbing. No cyanosis. SKIN: Good skin turgor. Well perfused. NEUROLOGIC: Cranial nerves I through XII grossly intact. No focal or l ateralizing signs. PSYCH: Appropriate affect. Alert and oriented to person, place and time. CLINCAL LABS: White blood cell count normal STUDIES: CT of the abdomen and pelvis independent review demonstrated independent gallstones. Separately pockets of diverticulitis and mild inflammation confirmed along the sigmoid colon. REPORTS: Radiology reports also reviewed demonstrating a left kidney stone. ASSESSMENT: 1. Failed outpatient sigmoid diverticulitis PLAN: 1. AItold her to continue with a liquid diet as she had failed outpatient sigmoid diverticulitis at least for 2 days. 2. Follow-up with Dr. Seay as outpatient. 3. She has concerns for colonic malignancy at which point outpatient colonoscopy may be performed 4. She has met with the dietitian regarding diverticulitis diet 5. Patient cleared from a surgical standpoint for discharge Objective - Vital Signs Vital signs: Vital Signs Temp 98.1 F 11/26/18 08:46 Pulse 87 11/26/18 08:03 Resp 18 11/26/18 08:03 BP 144/79 11/26/18 08:03 Pulse Ox 94 L 11/26/18 08:03 Intake & Output 11/25/18 11/26/18 11/26/18 18:59 06:59 18:59 Intake Total 480 1200 Balance 480 1200 Intake: Oral 480 1200 Other: # Voids 3 3 # Bowel Movements 1 - Labs CBC & Chem 7: 11/24/18 15:55 11/24/18 15:55 Labs: Microbiology - Last 24 Hours (Table) 11/24/18 18:40 Blood Culture - Preliminary Blood No Growth after 24 hours Assessment and Plan (1) Gallstones Current Visit: Yes Status: Acute Code(s): K80.20 - CALCULUS OF GALLBLADDER W/O CHOLECYSTITIS W/O OBSTRUCTION SNOMED Code(s): 239435441 (2) Kidney stones Current Visit: Yes Status: Acute Code(s): N20.0 - CALCULUS OF KIDNEY SNOMED Code(s): 78219445 (3) Morbid obesity due to excess calories Current Visit: Yes Status: Acute Code(s): E66.01 - MORBID (SEVERE) OBESITY DUE TO EXCESS CALORIES SNOMED Code(s): 392072125 (4) BMI 38.0-38.9,adult Current Visit: Yes Status: Acute Code(s): Z68.38 - BODY MASS INDEX (BMI) 38.0-38.9, ADULT SNOMED Code(s): 927683830 (5) Diverticulitis Current Visit: Yes Status: Acute Code(s): K57.92 - DVTRCLI OF INTEST, PART UNSP, W/O PERF OR ABSCESS W/O BLEED SNOMED Code(s): 833438244 (6) Failure of outpatient treatment Current Visit: Yes Status: Acute Code(s): Z78.9 - OTHER SPECIFIED HEALTH STATUS SNOMED Code(s): 064741485
[2018-11-26 12:25] VITALS: BP 148/82; PULSE 81; RESP 16
[2018-11-26] MEDS: SODIUM CHLORIDE 0.9% 1,000 ML IV SCH (12:28)
--- NOTE | 2018-11-26 23:43 | DS ---
DISCHARGE SUMMARY DATE OF ADMISSION: 11/24/2018 DATE OF DISCHARGE: November 26, 2018. FINAL DIAGNOSES: 1. Acute sigmoid diverticulitis. Having failed outpatient treatment. 2. Coronary artery disease, prior history of coronary artery bypass. 3. Hyperlipidemia. 4. Essential hypertension. 5. Obstructive sleep apnea uses CPAP. 6. Hypothyroidism. 7. Primary osteoarthritis. 8. Chronic urinary stress incontinence. 9. Left kidney stone, asymptomatic. CONSULTATION: Dr. Seay/Dr. Herzog from General Surgery. HOSPITAL COURSE: This patient had prior history of diverticulitis with bowel resection at the [facility], presented with having failed outpatient treatment for diverticulitis. CT scan of the abdomen and pelvis did not show any abscess. The patient is treated with antibiotics, some bowel rest, doing much better by the time of discharge. The patient being sent home on antibiotics. The patient has no true allergy to Augmentin. Care was discussed at length with the patient. Also discussed the diet. PHYSICAL EXAMINATION: Temperature 98.1. Pulse 81. Respiratory rate 16, blood pressure 140/82, pulse ox 97% on room air. ABDOMEN: Soft, nontender. INVESTIGATIONS: White count 10.1. DISCHARGE MEDICATIONS: 1. Synthroid 110 mcg a day. 2. Lopressor 25 mg b.i.d. 3. Aspirin 81 mg a day. 4. Vitamin D2 1 tab on Wednesday. 5. Zestril 10 mg a day. 6. Plavix 75 mg every 48 hours. 7. Estrace cream 0.01% topical Wednesday, Wednesday and Wednesday. 8. Mycolog topical Wednesday and p.r.n. 9. Crestor 5 mg a day. 10.Tylenol 650 mg q.6h p.r.n. 11.Augmentin 875 1 tablet p.o. q.12 hours 20 tablets. DIET: Soft, bland. FOLLOWUP: Dr. Seay in 1 week, follow up with Dr. Erickson in 3 days. Discussion and discharge planning more than [address] Erickson. ITZEL / PRABHU: [id number] /
== END 2018-11-26 13:51 | disposition home or self-care (01) | DRG 392 ==
LOC: EC 13:48 → 6PED 18:12
PROVIDERS: ADMIT Hospitalist; ATTEND Hospitalist
DX: K57.32 Diverticulitis of large intestine without perforation or abscess without bleeding (principal); E66.01 Morbid (severe) obesity due to excess calories; I34.1 Nonrheumatic mitral (valve) prolapse; E03.9 Hypothyroidism, unspecified; E78.5 Hyperlipidemia, unspecified; G47.33 Obstructive sleep apnea (adult) (pediatric); I10 Essential (primary) hypertension; I25.10 Atherosclerotic heart disease of native coronary artery without angina pectoris; K80.20 Calculus of gallbladder without cholecystitis without obstruction; M19.91 Primary osteoarthritis, unspecified site; N20.0 Calculus of kidney; N39.3 Stress incontinence (female) (male); G43.909 Migraine, unspecified, not intractable, without status migrainosus; Z68.38 Body mass index [BMI] 38.0-38.9, adult; Z79.82 Long term (current) use of aspirin; Z79.890 Hormone replacement therapy; Z79.899 Other long term (current) drug therapy; Z79.02 Long term (current) use of antithrombotics/antiplatelets; Z88.0 Allergy status to penicillin; Z88.2 Allergy status to sulfonamides; Z87.442 Personal history of urinary calculi; Z90.49 Acquired absence of other specified parts of digestive tract; Z90.710 Acquired absence of both cervix and uterus; Z95.1 Presence of aortocoronary bypass graft; Z87.440 Personal history of urinary (tract) infections; Z80.41 Family history of malignant neoplasm of ovary; Z82.49 Family history of ischemic heart disease and other diseases of the circulatory system
CPT/HCPCS: 36415; 74177; 80053; 81003; 82150; 83605; 83690; 85025; 87040; 96360; 99285

== ENCOUNTER → 2019-01-24 | Outpatient (CLI) | payer MEDICARE, BC ==
--- NOTE | 2019-01-25 10:21 | MM ---
Reason for exam: additional evaluation requested from prior study. Last mammogram was performed 7 months ago. History: Patient is postmenopausal. Family history of breast cancer in 2 paternal cousins. Benign MG stereo VAD BX LT of the left breast, July 22, 2018. Took estrogen for 17 years 4 months beginning at age 49. Physical Findings: Nurse did not find any significant physical abnormalities on exam. (nurse mj). MG 3D Diag Mammo W/Cad LT CC and MLO view(s) were taken of the left breast. Prior study comparison: June 24, 2018, left breast MG 3d work up w/cad LT. June 02, 2018, bilateral MG 3d screening mammo w/cad. The breast tissue is heterogeneously dense. This may lower the sensitivity of mammography. There are benign-appearing calcification in the left breast. No suspicious abnormality. There is a left breast biopsy marker noted. No significant new finding when compared with prior studies. ASSESSMENT: Benign, BI-RAD 2 RECOMMENDATION: Routine screening mammogram of the left breast in 1 year. Patient was given the results on 01/24/19.
== END | disposition home or self-care (01) ==
LOC: RADMAMWWP 13:00
PROVIDERS: ATTEND Surgery
DX: R92.8 Other abnormal and inconclusive findings on diagnostic imaging of breast (principal)
CPT/HCPCS: 77065; G0279; 77061

== ENCOUNTER → 2019-03-16 | Outpatient (CLI) | payer MEDICARE, BC ==
[2019-03-16 13:42] VITALS: BP 151/78; PULSE 65; RESP 18; TEMP 97.7; BMI 37.5
--- NOTE | 2019-03-16 14:11 | P.PN ---
Dena Sam is a 79 year old white female status post a stero tactic left breast biopsy on 07 22 18. Pathology was benign. Her last bilateral mammogram was on 06-02-18, nolesion of concern was noted in the right breast. She had a repeat left breast mammogram on 01-24-19, this was BI-RAD 2. The patient does not feel any masses or lumps in her breasts. She does however fill of the left breast is more swollen than the right breast. She first noted asymmetry of her breast about 8 years ago following open heart surgery. She does have discomfort of the left breast. The pain is not cyclical. She drinks diet Pepsi at least 24 oz. She eats chocolate on occasion. She does not smoke and is not exposed to secondhand smoke. Family history: 1. 2 paternal cousins with breast cancer 2. Mother colon, ovarian, and melanoma Hormonal History: menarche: 13 : 3, 3 children, breast fed: none, first child at 21 Menopause: hysterectomy in 's, did not take ovaries at that time, they were removed at 52 BCP: none hormones: 15 years Past Surgical History 1. 3 C-Sections 2. hysterctomy and appy 3. oophrectomy 4. diverticulitis/colon resection 5. CABG 6. cardiac cath Past Medical History: 1. high cholesterol 2. aspirin and plavix 3. CAD 4. HTN 5. sleep apnea 6. thyroid disorder 7. high lipids 8. diverticulitis 9. arthritis 10. DDD Social History: smoke: none alcohol: wine/twice a month drugs: none - Constitutional Constitutional: Denies chills, Denies fever - EENT Eyes: denies blurred vision, denies pain Ears: deny: decreased hearing, tinnitus Ears, nose, mouth and throat: Denies headache, Denies sore throat - Breasts Breasts: bilateral: as per HPI - Cardiovascular Comment: CABG Cardiovascular: Reports high blood pressure - Respiratory Respiratory: Denies cough, Denies 7 - Gastrointestinal Comment: diverticular disease - Genitourinary (Female) Comment: UTI Genitourinary: Reports kidney stones, Reports urge incontinence - Menstruation Menstruation: Reports post hysterectomy, Reports postmenopausal - Musculoskeletal Comment: arthritis - Integumentary Integumentary: Denies pruritus, Denies rash - Neurological Neurological: Denies numbness, Denies weakness - Psychiatric Psychiatric: Denies anxiety, Denies depression - Endocrine Comment: hypothyroid - Hematologic/Lymphatic Comment: aspirin/plavix - Allergic/Immunologic Allergic/Immunologic: Reports seasonal allergies Past Medical History Past Medical History: Coronary Artery Disease (CAD), Hyperlipidemia, Hypertension, Mitral Valve Prolapse (MVP), Sleep Apnea/CPAP/BIPAP, Thyroid Disorder Additional Past Medical History / Comment(s): diverticulitis, ddd, arthritis, UTI'S, KIDNEY STONES,INCONT OF URINE, ARTHIRITS,MIGRAINEs. History of Any Multi-Drug Resistant Organisms: None Reported Past Surgical History: Appendectomy, Bowel Resection, Section, Coronary Bypass/CABG, Heart Catheterization, Hysterectomy Additional Past Surgical History / Comment(s): .BOWEL RESECTION D/T DIVERTICULITIS, QUAD BYPASS Past Psychological History: No Psychological Hx Reported Smoking Status: Never smoker Past Alcohol Use History: Occasional Past Drug Use History: None Reported Objective - Vital Signs Vital signs: Vital Signs Temp 97.7 F 03/16/19 13:36 Pulse 65 03/16/19 13:36 Resp 18 03/16/19 13:36 BP 151/78 03/16/19 13:36 Pulse Ox 94 L 03/16/19 13:36 Intake & Output 03/15/19 03/16/19 03/16/19 18:59 06:59 18:59 Weight 87.09 kg - Exam BMI 37.5 - Constitutional General appearance: Present: obese - EENT Eyes: Present: EOMI ENT: Present: hearing grossly normal - Neck Neck: Present: normal ROM - Respiratory Respiratory: bilateral: CTA - Cardiovascular Rhythm: regular Heart sounds: normal: S1, S2 - Gastrointestinal General gastrointestinal: Present: soft - Integumentary Integumentary: Present: normal turgor - Musculoskeletal Musculoskeletal: Present: gait normal - Psychiatric Psychiatric: Present: A&O x's 3, appropriate affect, intact judgment & insight - Additional findings Additional findings: breast exam: Right breast: Multi-positional exam fibrocystic changes, no dominant masses or nodules of concern, slightly smaller than left side, mild tender to palpation Right axilla: No adenopathy of concern Left breast: Multi-positional exam the cystic breast changes, no dominant masses or nodules of concern, mild tender to palpation throughout the breast Left axilla: No adenopathy of concern Assessment and Plan Assessment: Impression: 1. high cholesterol 2. aspirin and plavix 3. CAD 4. HTN 5. sleep apnea 6. thyroid disorder 7. high lipids 8. diverticulitis 9. arthritis 10. 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 Stop caffiene 2. medical managment of medical problems 3. bilateral mammogram May 2019 I do not find anything of concern regarding the possible malignancy in either breast. I would recommend that the patient stop her caffeine intake secondary to the mastodynia. She understands this and she will attempt to do so. Patient will follow-up in May for bilateral mammogram back on schedule. I will see her at that time. CC: Dre, DR. Brady, Dr. Campoverde
== END | disposition home or self-care (01) ==
LOC: WWCWWP 13:17
PROVIDERS: ATTEND Surgery
DX: Z53.9 Procedure and treatment not carried out, unspecified reason (principal)

== ENCOUNTER → 2019-06-06 | Outpatient (CLI) | payer MEDICARE, BC ==
--- NOTE | 2019-06-07 12:37 | MM ---
Reason for exam: additional evaluation requested from prior study. Last mammogram was performed 4 months ago. History: Patient is postmenopausal. Family history of breast cancer in 2 paternal cousins. Benign MG stereo VAD BX LT of the left breast, July 22, 2018. Took estrogen for 17 years 4 months beginning at age 49. Physical Findings: Nurse did not find any significant physical abnormalities on exam. MG 3D Diag Mammo W/Cad AZEB Bilateral CC and MLO view(s) were taken. Prior study comparison: January 24, 2019, left breast MG 3d diag mammo w/cad LT. June 24, 2018, left breast MG 3d work up w/cad LT. There are scattered fibroglandular densities. Benign appearing bilateral calcifications. Previous mammotome biopsy in the left breast. No significant new findings when compared with previous films. These results were verbally communicated with the patient and result sheet given to the patient on 06/06/19. ASSESSMENT: Benign, BI-RAD 2 RECOMMENDATION: Routine screening mammogram of both breasts in 1 year.
== END | disposition home or self-care (01) ==
LOC: RADMAMWWP 10:49
PROVIDERS: ATTEND Surgery
DX: R92.8 Other abnormal and inconclusive findings on diagnostic imaging of breast (principal)
CPT/HCPCS: 77066; G0279; 77062

== ENCOUNTER → 2019-06-08 | Outpatient (CLI) | payer MEDICARE, BC ==
--- NOTE | 2019-06-08 15:26 | CONS ---
CONSULTATION DATE OF SERVICE: 06/08/2019 A 79-year-old lady who has been [facility] for obstructive sleep apnea-hypopnea syndrome. HISTORY OF PRESENT ILLNESS/SLEEP-WAKE EVALUATION: Patient has history of obstructive sleep apnea for more than 10 years. Last titration done in 2016. She continued to use her CPAP equipment every night. Her sleep schedule from 9:10 pm until 8 - 9:00 am. She still may wake up several times with nocturia at night, but according to patient, it may be related to the amount of water which she drinks before going to bed. If she used machine she does not snore. She does have problem with falling asleep, although she has TV set in bedroom. No history of hypnagogic hallucinations, sleep paralysis or cataplexy. Lafe Sleepiness Scale in increased to 11. The patient may take up to 4 naps a day. I checked CPAP unit. CPAP pressure is 10 cm of water. The machine does not have information about apnea-hypopnea index. PAST MEDICAL HISTORY: Positive for coronary artery disease, hyperlipidemia, hypertension, hypothyroidism, sinusitis. PAST SURGICAL HISTORY: CABG, resection of the colon for diverticulitis. MEDICATIONS: Levothyroxine, Plavix, metoprolol, Crestor, lisinopril, baby aspirin, metoprolol. FAMILY HISTORY: Hypertension, heart problems, hyperlipidemia, stroke, snoring, cancer. REVIEW OF SYSTEMS: Some awakenings from sleep with nocturia, sometimes sleepiness during the day. PHYSICAL EXAM: Patient in no distress. BP 126/73, HR 83, RR 20, height 4, 11, weight 195.2, body mass index 39.3, temperature 98.5, oxygen saturation at room air 95%. OROPHARYNX: Extremely low soft palate, Mallampati 4. Some restriction of nasal breathing. HEART: S1, S2. Extrasystoles. ABDOMEN: Obese. NECK: Supple, no JVD. Thyroid is not palpable. LUNGS: Clear to percussion and to auscultation. Good air exchange. No wheezing or rhonchi. EXTREMITIES: No clubbing or cyanosis. 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 Cranial nerves 2 to 7 intact. There is no fasciculation or atrophy. noted. No focal deficits observed. SOCIAL HISTORY: Negative for smoking. Alcohol consumption, 1 glass of wine up to 3 times per week. IMPRESSION: 1. Obstructive sleep apnea-hypopnea syndrome for many years, extremely low position of soft palate wide neck 18 inches in circumference. Obstructive sleep apnea-hypopnea syndrome. The patient continued to use her CPAP equipment, CPAP unit does not have information about apnea-hypopnea index. 2. Obesity, body mass index 39.3. 3. Coronary artery disease, status post coronary artery bypass grafting. 4. Asthma. 5. Hypertension. 6. Hyperlipidemia. 7. Hypothyroidism. 8. History of sinusitis. 9. Status post colon resection for diverticulitis. PLAN: 1. Prescription for new CPAP unit. The patient's unit is old and creates some noise during the night. 2. Patient will continue to use CPAP equipment every night for the whole night. 3. Followup visit to check apnea-hypopnea index while the patient is using her CPAP. 4. Losing weight. 5. No driving if feeling sleepiness. Thank you very much for allowing me to participate in the management of your patient. Sincerely, Jose Campbell MD, PhD, FAASM Diplomat of [place] [employer] [place] [employer] [facility] [place] MMODL / IJN: [id number] /
== END | disposition home or self-care (01) ==
LOC: SLEEP 13:32
PROVIDERS: ATTEND Internal Medicine
DX: G47.33 Obstructive sleep apnea (adult) (pediatric) (principal); I10 Essential (primary) hypertension; E78.5 Hyperlipidemia, unspecified; E03.9 Hypothyroidism, unspecified; E66.9 Obesity, unspecified; J45.909 Unspecified asthma, uncomplicated; Z68.39 Body mass index [BMI] 39.0-39.9, adult; Z90.49 Acquired absence of other specified parts of digestive tract; Z99.89 Dependence on other enabling machines and devices; Z95.1 Presence of aortocoronary bypass graft; Z79.01 Long term (current) use of anticoagulants; Z79.82 Long term (current) use of aspirin; Z79.890 Hormone replacement therapy

== ENCOUNTER 2019-07-13 13:47 | Observation (INO) | payer MEDICARE, BC ==
[2019-07-13] MEDS ORDERED: SODIUM CHLORIDE 0.9% 500 ML 500 ML IV STA (14:09)
[2019-07-13 14:27] LABS: Basophils # (A) 0.1 k/uL (0-0.2); Basophils % (A) 1 %; Eosinophils # (A) 0.2 k/uL (0-0.7); Eosinophils % (A) 2 %; HCT 46.4 % (34.0-46.0); HGB 15.3 gm/dL (11.4-16.0); Lymphocytes # (A) 2.1 k/uL (1.0-4.8); Lymphocytes % (A) 25 %; MCHC 32.9 g/dL (31.0-37.0); MCV 94.3 fL (80.0-100.0); Mean Platelet Volume 7.7; Monocytes # (A) 0.6 k/uL (0-1.0); Monocytes % (A) 7 %; Neutrophils # (A) 5.2 k/uL (1.3-7.7); Neutrophils % (A) 62 %; Platelet Count 254 k/uL (150-450); RBC 4.92 m/uL (3.80-5.40); RDW 13.3 % (11.5-15.5); WBC 8.4 k/uL (3.8-10.6)
[2019-07-13 14:40] LABS: INR 0.9 (<1.2); Prothrombin Time 9.7 sec (9.0-12.0)
--- NOTE | 2019-07-13 14:42 | XR ---
EXAMINATION TYPE: XR chest 2V DATE OF EXAM: 07/13/2019 COMPARISON: 11/29/2014 HISTORY: 79-year-old female with confusion, altered mental status, chest pain TECHNIQUE: PA and lateral views FINDINGS: Median sternotomy wires. Heart upper limits of normal in size. Similar elongation/ectasia of the thor acic aorta and mild interstitial prominence has a chronic appearance. No consolidation or pleural eff usion. IMPRESSION: 1. Stable ectasia/tortuosity of the thoracic aorta. 2. Chronic changes. No acute process seen.
[2019-07-13 14:48] LABS: Albumin 4.2 g/dL (3.5-5.0); Calcium 9.6 mg/dL (8.4-10.2); Potassium 4.7 mmol/L (3.5-5.1); Total Bilirubin 0.6 mg/dL (0.2-1.3); Total Protein 7.1 g/dL (6.3-8.2)
--- NOTE | 2019-07-13 14:50 | ED ---
General Adult HPI - General Chief complaint: Neuro Symptoms/Deficit Stated complaint: Chest pain, shoulder pain Time Seen by Provider: 07/13/19 14:03 Source: patient, RN notes reviewed, old records reviewed Mode of arrival: wheelchair Limitations: no limitations - History of Present Illness Initial comments: 79-year-old female presenting for evaluation of right shoulder pain and arm pain, mild headache. And right leg numbness. Patient's numbness in her right leg began at approximately 9 PM yesterday evening. This lasted for 3 hours. She did not seek medical attention at this time. Approximately one hour prior to arrival today she developed right shoulder pain and right arm pain and a mild right-sided headache. She denies numbness or tingling or weakness to the right arm. Denies central chest pain. Denies dyspnea. She has some nausea. No abdominal pain. Patient has history of coronary artery disease status post CABG she is currently on aspirin and Plavix. No history of TIA or CVA - Related Data Home Medications Medication Instructions Recorded Confirmed Metoprolol Tartrate [Lopressor] 25 mg PO BID 01/16/14 07/13/19 Aspirin 81 mg PO HS 08/02/15 07/13/19 Ergocalciferol [Vitamin D2 1 cap PO TU 07/04/18 07/13/19 (DRISDOL)] Lisinopril [Zestril] 5 mg PO HS 07/04/18 07/13/19 Clopidogrel [Plavix] 75 mg PO Q48H 11/24/18 07/13/19 Rosuvastatin [Crestor] 5 mg PO Q48H 11/24/18 07/13/19 Levothyroxine Sodium [Synthroid] 100 mcg PO DAILY 07/13/19 07/13/19 Rosuvastatin [Crestor] 10 mg PO Q48H 07/13/19 07/13/19 Trimethoprim 100 mg PO HS 07/13/19 07/13/19 Allergies Allergy/AdvReac Type Severity Reaction Status Date / Time Sulfa (Sulfonamide Allergy Unknown Verified 07/13/19 14:31 Antibiotics) amoxicillin [From Augmentin] AdvReac Nausea Verified 07/13/19 14:31 clavulanic acid AdvReac Nausea Verified 07/13/19 14:31 [From Augmentin] Review of Systems ROS Statement: Those systems with pertinent positive or pertinent negative responses have been documented in the HPI. ROS Other: All systems not noted in ROS Statement are negative. Past Medical History Past Medical History: Coronary Artery Disease (CAD), Hyperlipidemia, Hypertension, Mitral Valve Prolapse (MVP), Sleep Apnea/CPAP/BIPAP, Thyroid Disorder Additional Past Medical History / Comment(s): diverticulitis, ddd, arthritis, UTI'S, KIDNEY STONES,INCONT OF URINE, ARTHIRITS,MIGRAINEs. History of Any Multi-Drug Resistant Organisms: None Reported Past Surgical History: Appendectomy, Bowel Resection, Breast Surgery, Section, Coronary Bypass/CABG, Heart Catheterization, Hysterectomy Additional Past Surgical History / Comment(s): BOWEL RESECTION D/T DIVERTICULITIS, QUAD BYPASS, Breast biopsy Past Anesthesia/Blood Transfusion Reactions: No Reported Reaction Past Psychological History: No Psychological Hx Reported Smoking Status: Never smoker Past Alcohol Use History: Occasional Past Drug Use History: None Reported - Past Family History Father Family Medical History: Hypertension Additional Family Medical History / Comment(s): Atherosclerosis Mother Family Medical History: Cancer Additional Family Medical History / Comment(s): ovarian cancer General Exam Limitations: no limitations General appearance: alert, in no apparent distress Head exam: Present: atraumatic, normocephalic Eye exam: Present: normal appearance, PERRL ENT exam: Present: normal exam Neck exam: Present: normal inspection. Absent: tenderness, meningismus Respiratory exam: Present: normal lung sounds bilaterally. Absent: respiratory distress, wheezes, rales Cardiovascular Exam: Present: regular rate, irregular rhythm GI/Abdominal exam: Present: soft. Absent: distended, tenderness, guarding, rebound Extremities exam: Present: other (Bilateral radial pulses are 2+ and symmetric) Neurological exam: Present: alert, oriented X3, CN II-XII intact. Absent: motor sensory deficit (NIH of 0) Psychiatric exam: Present: normal affect, normal mood Skin exam: Present: warm, dry, intact. Absent: cyanosis, diaphoretic Course Vital Signs 07/13/19 13:48 Temperature 98.3 F Pulse Rate 71 Respiratory 16 Rate Blood Pressure 179/79 O2 Sat by Pulse 95 Oximetry EKG Findings - EKG Comments: EKG Findings:: EKG: Sinus rhythm with occasional PVC, T-wave inversion in the inferior leads as well as the precordial leads V3, and V4. No ST segment elevation. Rate of 75, TX interval 190, QRS duration 100, QTC 453. T-wave inversion is new compared to previous EKG in 2015 in the precordial leads. Medical Decision Making - Medical Decision Making 79-year-old female presenting with right shoulder pain, nontraumatic. Second complaint of right leg numbness which was yesterday and resolved. Patient is presenting with concern for right shoulder pain and right arm pain as her previous [place] years ago was associated with shoulder pain and arm pain. No central chest pain. She is on aspirin and Plavix. Her right leg numbness had resolved prior to arrival. She receives a workup both for chest pain and for TIA. Head CT is performed which is negative for intracranial hemorrhage or mass effect. Chest x-ray shows a stable ectasia of the aorta, no acute process. She has normal CBC, normal CMP, initial troponin is negative. Her EKG shows some T- wave inversion which appears new compared to old EKG. Patient will be kept for both evaluation of an anginal equivalent, serial troponins and telemetry and for TIA with right lower extremity numbness which is resolved. Both cardiology and neurology will be placed on consult. Case discussed with Dr. Brown - Lab Data Result diagrams: 07/13/19 14:07 07/13/19 14:07 Lab Results 07/13/19 07/13/19 07/13/19 Range/Units 14:07 14:07 14:07 WBC 8.4 (3.8-10.6) k/uL RBC 4.92 (3.80-5.40) m/uL Hgb 15.3 (11.4-16.0) gm/dL Hct 46.4 H (34.0-46.0) % MCV 94.3 (80.0-100.0) fL MCH 31.0 (25.0-35.0) pg MCHC 32.9 (31.0-37.0) g/dL RDW 13.3 (11.5-15.5) % Plt Count 254 (150-450) k/uL Neutrophils % 62 % Lymphocytes % 25 % Monocytes % 7 % Eosinophils % 2 % Basophils % 1 % Neutrophils # 5.2 (1.3-7.7) k/uL Lymphocytes # 2.1 (1.0-4.8) k/uL Monocytes # 0.6 (0-1.0) k/uL Eosinophils # 0.2 (0-0.7) k/uL Basophils # 0.1 (0-0.2) k/uL PT 9.7 (9.0-12.0) sec INR 0.9 (<1.2) APTT 23.0 (22.0-30.0) sec Sodium 139 (137-145) mmol/L Potassium 4.7 (3.5-5.1) mmol/L Chloride 108 H (98-107) mmol/L Carbon Dioxide 24 (22-30) mmol/L Anion Gap 7 mmol/L BUN 18 H (7-17) mg/dL Creatinine 1.01 (0.52-1.04) mg/dL Est GFR (CKD-EPI)AfAm 62 (>60 ml/min/1.73 sqM) Est GFR (CKD-EPI)NonAf 54 (>60 ml/min/1.73 sqM) Glucose 105 H (74-99) mg/dL Calcium 9.6 (8.4-10.2) mg/dL Total Bilirubin 0.6 (0.2-1.3) mg/dL AST 29 (14-36) U/L ALT 22 (4-34) U/L Alkaline Phosphatase 62 (38-126) U/L Troponin I (0.000-0.034) ng/mL Total Protein 7.1 (6.3-8.2) g/dL Albumin 4.2 (3.5-5.0) g/dL 07/13/19 Range/Units 14:07 WBC (3.8-10.6) k/uL RBC (3.80-5.40) m/uL Hgb (11.4-16.0) gm/dL Hct (34.0-46.0) % MCV (80.0-100.0) fL MCH (25.0-35.0) pg MCHC (31.0-37.0) g/dL RDW (11.5-15.5) % Plt Count (150-450) k/uL Neutrophils % % Lymphocytes % % Monocytes % % Eosinophils % % Basophils % % Neutrophils # (1.3-7.7) k/uL Lymphocytes # (1.0-4.8) k/uL Monocytes # (0-1.0) k/uL Eosinophils # (0-0.7) k/uL Basophils # (0-0.2) k/uL PT (9.0-12.0) sec INR (<1.2) APTT (22.0-30.0) sec Sodium (137-145) mmol/L Potassium (3.5-5.1) mmol/L Chloride (98-107) mmol/L Carbon Dioxide (22-30) mmol/L Anion Gap mmol/L BUN (7-17) mg/dL Creatinine (0.52-1.04) mg/dL Est GFR (CKD-EPI)AfAm (>60 ml/min/1.73 sqM) Est GFR (CKD-EPI)NonAf (>60 ml/min/1.73 sqM) Glucose (74-99) mg/dL Calcium (8.4-10.2) mg/dL Total Bilirubin (0.2-1.3) mg/dL AST (14-36) U/L ALT (4-34) U/L Alkaline Phosphatase (38-126) U/L Troponin I <0.012 (0.000-0.034) ng/mL Total Protein (6.3-8.2) g/dL Albumin (3.5-5.0) g/dL Disposition Clinical Impression: Transient cerebral ischemia Disposition: ADMITTED IP TO THIS [facility] Condition: Stable Is patient prescribed a controlled substance at d/c from ED?: No Referrals: Vidal Erickson MD [Primary Care Provider] - 1-2 days Decision to Admit Reason: Admit from EC Decision Date: 07/13/19 Decision Time: 16:15
--- NOTE | 2019-07-13 15:43 | CT ---
EXAMINATION TYPE: CT brain wo con DATE OF EXAM: 07/13/2019 COMPARISON: None HISTORY: right upper extremity weakness and pain, headache, nausea CT DLP: 995.8 mGycm Automated exposure control for dose reduction was used. FINDINGS: Extensive intracranial atherosclerotic changes . No midline shift mass effect or acute hemorrhage. Intraorbital structures are symmetric. Craniocervical junction maintained. Ventricular system is compatible with the patient's age. Calvarium intact. IMPRESSION: NO EVIDENCE OF ACUTE HEMORRHAGE OR MASS EFFECT. IF THERE IS CONCERN FOR ACUTE ISCHEMIA CORRELATE WITH MRI.
[2019-07-13] MEDS ORDERED: ASPIRIN 325 MG TAB PO STA (15:53)
[2019-07-13] MEDS: SODIUM CHLORIDE 0.9% 1,000 ML IV SCH (17:01)
[2019-07-13 19:01] VITALS: RESP 18
--- NOTE | 2019-07-13 19:53 | US ---
EXAMINATION TYPE: US carotid duplex BILAT DATE OF EXAM: 07/13/2019 COMPARISON: NONE CLINICAL HISTORY: Stenosis. Chest pain EXAM MEASUREMENTS: RIGHT: Peak Systolic Velocity (PSV) cm/sec ----- Right CCA: 75.1 ----- Right ICA: 75.1 ----- Right ECA: 52.7 ICA/CCA ratio: 1.0 RIGHT: End Diastole cm/sec ----- Right CCA: 21.0 ----- Right ICA: 19.9 ----- Right ECA: 0.0 LEFT: Peak Systolic Velocity (PSV) cm/sec ----- Left CCA: 58.7 ----- Left ICA: 71.5 ----- Left ECA: 75.1 ICA/CCA ratio: 1.2 LEFT: End Diastole cm/sec ----- Left CCA: 12.4 ----- Left ICA: 22.7 ----- Left ECA: 5.6 VERTEBRALS (direction of flow): Right Vertebral: Antegrade Left Vertebral: Antegrade Rhythm: Normal IMPRESSION: NO ELEVATED VELOCITIES; NO SIGNIFICANT STENOSIS.
[2019-07-13] MEDS ORDERED: ATORVASTATIN 20 MG TAB PO SCH (20:45)
[2019-07-13] MEDS ORDERED: LISINOPRIL 10 MG TAB PO SCH (21:00)
[2019-07-13] MEDS ORDERED: ASPIRIN 81 MG PO SCH (21:00)
[2019-07-13] MEDS ORDERED: TRIMETHOPRIM 100 MG TAB PO SCH (21:00)
[2019-07-13] MEDS: METOPROLOL TARTRATE 25 MG TAB PO SCH (22:07)
[2019-07-14 03:30] LABS: Cholesterol 153 mg/dL (<200); HDL Cholesterol 36 mg/dL (40-60); LDL Cholesterol,Calculated 76 mg/dL (0-99); Triglycerides 207 mg/dL (<150)
[2019-07-14] MEDS ORDERED: LEVOTHYROXINE 100 MCG TAB PO SCH (06:30)
[2019-07-14] MEDS: SODIUM CHLORIDE 0.9% 1,000 ML IV SCH (07:10)
[2019-07-14] MEDS: METOPROLOL TARTRATE 25 MG TAB PO SCH (08:21)
[2019-07-14] MEDS ORDERED: CLOPIDOGREL 75 MG TAB PO SCH (09:00)
--- NOTE | 2019-07-14 12:01 | ECHOF ---
Referral Reason:Thrombus MEASUREMENTS -------- HEIGHT: 149.9 cm WEIGHT: 86.2 kg BP: 149/75 RVIDd: 2.6 cm (< 3.3) IVSd: 1.6 cm (0.6 - 1.1) LVIDd: 4.1 cm (3.9 - 5.3) LVPWd: 1.7 cm (0.6 - 1.1) IVSs: 2.4 cm LVIDs: 2.2 cm LVPWs: 2.1 cm LAESV Index (A-L): 19.91 ml/m Ao Diam: 3.4 cm (2.0 - 3.7) AV Cusp: 1.5 cm (1.5 - 2.6) MV E Deep: 0.48 m/s MV DecT: 245 ms MV A Deep: 0.89 m/s MV E/A Ratio: 0.54 AR PHT: 696 ms RAP: 5.00 mmHg RVSP: 21.94 mmHg FINDINGS -------- Sinus rhythm with extra systolic beats. This was a technically adequate study. The left ventricular size is normal. There is moderate concentric left ventricular hypertrophy. O verall left ventricular systolic function is normal with, an EF between 55 - 60 %. The diastolic fi lling pattern is normal for the age of the patient 10.77. Septal wall motion is delayed and consist ent with prior cardiac surgery. The right ventricle is normal in size. Normal LA size by volume 22+/-6 ml/m2. The right atrial size is normal. Interatrial and interventricular septum intact. There is mild aortic valve sclerosis. There is [id number] aortic regurgitation. There is no evidence of aortic stenosis. Mild mitral annular calcification present. Mild mitral regurgitation is present. Mild tricuspid regurgitation present. There is no evidence of pulmonary hypertension. The right v entricular systolic pressure, as measured by Doppler, is 21.94mmHg. There is no pulmonic regurgitation present. The aortic root size is normal. IVC Not well visulized. There is no pericardial effusion. CONCLUSIONS -------- 1. Sinus rhythm with extra systolic beats. 2. This was a technically adequate study. 3. The left ventricular size is normal. 4. There is moderate concentric left ventricular hypertrophy. 5. Overall left ventricular systolic function is normal with, an EF between 55 - 60 %. 6. The diastolic filling pattern is normal for the age of the patient 10.77 7. Septal wall motion is delayed and consistent with prior cardiac surgery. 8. The right ventricle is normal in size. 9. Normal LA size by volume 22+/-6 ml/m2. 10. The right atrial size is normal. 11. Interatrial and interventricular septum intact. 12. There is mild aortic valve sclerosis. 13. There is [id number] aortic regurgitation. 14. There is no evidence of aortic stenosis. 15. Mild mitral annular calcification present. 16. Mild mitral regurgitation is present. 17. Mild tricuspid regurgitation present. 18. There is no evidence of pulmonary hypertension. 19. The right ventricular systolic pressure, as measured by Doppler, is 21.94mmHg. 20. There is no pulmonic regurgitation present. 21. The aortic root size is normal. 22. IVC Not well visulized. 23. There is no pericardial effusion. ZONE MANAGER: Stephanie Sanchez RDCS
--- NOTE | 2019-07-14 13:20 | CONS ---
CONSULTATION Cecy Hurd is a 79-year-old lady with a history of hypertension, CAD, status post bypass surgery and hyperlipidemia. She came into the hospital with very nondescript symptoms. She apparently on June 07 had a stress test through her PCP and was told that her stress test was completely normal. She is scheduled to see Dr. Ching whom she sees on a regular basis, but apparently she had to cancel her appointment. She has history of prior bypass surgery. Recent stress test that was negative within the last 5 weeks. She came in with right shoulder pain and then she had a left arm pain and then she had pain from the right hip to the right ankle. Quality of pain seems musculoskeletal, not suggestive of angina. Her troponin levels are unremarkable. She is resting comfortably without symptoms. On the chart, there is a mention about a TIA, but patient's symptoms or clinical picture does not suggest TIA at all. She has no focal symptoms. She has no tingling or numbness. She has no weakness on any side. She has no visual issues. Her symptoms are musculoskeletal with arm pain, shoulder discomfort, right lower extremity discomfort. Her carotid Doppler is unremarkable. She also had an echocardiogram that was performed yesterday, which revealed normal left ventricular size and systolic function with some atypical septal motion. No significant abnormality on the Doppler exam and no pulmonary hypertension. Her laboratory data are also unremarkable and troponins are normal. Cholesterol is good. PAST MEDICAL HISTORY: 1. History of CAD prior bypass surgery performed in [facility] several years ago. She sees Dr. Ching here as an outpatient. 2. Hypertension. 3. Hyperlipidemia. PHYSICAL EXAMINATION: On examination, blood pressure is 130/70, pulse rate is 68 per minute regular. HEENT: Unremarkable. Fundus was not examined by me. NECK: Supple. No JVD. I do not hear a carotid bruit. There is no thyromegaly. HEART: Exam reveals S1, S2 heard normally in all areas without a rub, murmur or gallop. LUNGS: Are clear. ABDOMEN: Is soft, nontender. LOWER EXTREMITIES: Reveal normal pulses. No edema. CENTRAL NERVOUS SYSTEM: Is normal. EKG revealed a sinus mechanism, precordial, nonspecific ST-T changes and isolated PVCs. LABORATORY DATA: Laboratory data revealed unremarkable electrolytes and unremarkable troponins. IMPRESSION: 1. Atypical chest pain in a patient with known stable coronary artery disease. 2. Hypertension. 3. Hyperlipidemia. 4. No evidence clinically to suggest transient ischemic attack or cerebrovascular accident. RECOMMENDATIONS: I am recommending that we increase activity and she can be discharged from a cardiac standpoint and follow up with her primary care physician and also more importantly an appointment with Dr. Ching within the next 7 to 10 days. I discussed my thoughts in detail with the patient. Thank you very much for the consult. ITZEL / PRABHU: [id number] /
--- NOTE | 2019-07-14 15:03 | P.CNNES ---
History of Present Illness Consult date: 07/14/19 Requesting physician: Vineet Mack Reason for Consult: TIA History of Present Illness: Patient is a 79-year-old female with history of hypertension, CAD, came with very non-specific symptomatology. Patient states that 2 days ago she was feeling funny sensation in her shoulder shoulders bilaterally, almost like how she was feeling before she underwent bypass surgery 8-9 years ago. She ignored it. 2 nights ago, she noticed pain in the right leg from foot all the way to the buttock was hurting really bad, couldn't sleep and was tossing and turning. It lasted for 4 hours and then went away. Yesterday in the morning she was feeling better and doing regular work. At night she noticed some pain in the right frontal parietal region that extended to the right side of her neck shoulder and right arm. The pain lasted for only "a few seconds" and then went away. She had some mild dull headache on the right frontal parietal region, that lasted for some time. She got concerned and decided to come to the ER. Patient denies any slurred speech facial droop focal weakness, focal numbness tingling. She did feel slightly nauseous but no vomiting. When she arrived, her blood pressure was 179/79 with pulse rate 71 and patient was afebrile. Her blood pressure is now normal. She feels fine at this time. Patient states she has history of hypertension but no diabetes. She denies tobacco use. Drinks alcohol very occasionally. Patient does take aspirin 81 mg daily and Plavix 75 mg every other day. 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 Chest x-ray showed stable ectasia/tortuosity of the thoracic aorta. Chronic changes. No acute process. CT head showed no acute process. No hemorrhage or mass effect. Carotid Doppler showed no significant stenosis. Antegrade flow in both vertebral arteries. 2-D echo showed sinus rhythm with extra systolic beat. Moderate concentric LVH. EF 55-60%. Septal wall motion is delayed inconsistent with her cardiac surgery. Normal left atrial size. Interatrial and interventricular septum intact. Patient's cholesterol is 153, LDL 76, HDL 36 and triglycerides 207. Liver panel normal Review of Systems As above, otherwise completely unremarkable. Past Medical History Past Medical History: Coronary Artery Disease (CAD), Hyperlipidemia, Hypertension, Mitral Valve Prolapse (MVP), Sleep Apnea/CPAP/BIPAP, Thyroid Disorder Additional Past Medical History / Comment(s): diverticulitis, ddd, arthritis, UTI'S, KIDNEY STONES,INCONT OF URINE, ARTHIRITS,MIGRAINEs. History of Any Multi-Drug Resistant Organisms: None Reported Past Surgical History: Appendectomy, Bowel Resection, Breast Surgery, Section, Coronary Bypass/CABG, Heart Catheterization, Hysterectomy Additional Past Surgical History / Comment(s): BOWEL RESECTION D/T DIVERTICULITIS, QUAD BYPASS, Breast biopsy Past Anesthesia/Blood Transfusion Reactions: No Reported Reaction Past Psychological History: No Psychological Hx Reported Smoking Status: Never smoker Past Alcohol Use History: Occasional Past Drug Use History: None Reported - Past Family History Father Family Medical History: Hypertension Additional Family Medical History / Comment(s): Atherosclerosis Mother Family Medical History: Cancer Additional Family Medical History / Comment(s): ovarian cancer Medications and Allergies Home Medications Medication Instructions Recorded Confirmed Type Metoprolol Tartrate [Lopressor] 25 mg PO BID 01/16/14 07/13/19 History Aspirin 81 mg PO HS 08/02/15 07/13/19 History Ergocalciferol [Vitamin D2 1 cap PO TU 07/04/18 07/13/19 History (DRISDOL)] Lisinopril [Zestril] 5 mg PO HS 07/04/18 07/13/19 History Clopidogrel [Plavix] 75 mg PO Q48H 11/24/18 07/13/19 History Rosuvastatin [Crestor] 5 mg PO Q48H 11/24/18 07/13/19 History Levothyroxine Sodium [Synthroid] 100 mcg PO DAILY 07/13/19 07/13/19 History Rosuvastatin [Crestor] 10 mg PO Q48H 07/13/19 07/13/19 History Trimethoprim 100 mg PO HS 07/13/19 07/13/19 History Allergies Allergy/AdvReac Type Severity Reaction Status Date / Time Sulfa (Sulfonamide Allergy Unknown Verified 07/13/19 14:31 Antibiotics) amoxicillin [From Augmentin] AdvReac Nausea Verified 07/13/19 14:31 clavulanic acid AdvReac Nausea Verified 07/13/19 14:31 [From Augmentin] Physical Examination - Vital Signs Vital Signs: Vital Signs Temp Pulse Pulse Resp BP BP Pulse Ox 07/14/19 11:30 97.7 F 69 18 147/78 94 L 07/14/19 08:10 98.1 F 73 18 120/71 92 L 07/14/19 04:00 98.1 F 68 18 131/59 95 07/14/19 00:00 98.2 F 74 18 149/67 96 07/13/19 20:00 97.4 F L 75 18 124/68 94 L 07/13/19 17:50 97.7 F 74 18 174/77 96 07/13/19 17:15 98.2 F 70 16 168/70 98 07/13/19 16:16 98.2 F 70 16 178/78 98 Intake and Output 07/13/19 07/14/19 07/14/19 22:59 06:59 14:59 Intake Total 1680 Balance 1680 Intake: Intake, IV Titration 600 Amount Sodium Chloride 0.9% 1, 600 000 ml @ 75 mls/hr IV . [id number] [facility] Rx#:[id number] Oral 1080 Other: Voiding Method Toilet Toilet # Voids 2 1 Weight 89.267 kg 88.5 kg On examination patient is an elderly female, in no distress. Patient is alert and awake oriented to time place and person. Speech and language fu nctions are normal. Attention and concentration fund of knowledge is adequate. On cranial nerve examination pupils are round and reactive to light, visual quinteros are full on confrontation, extraocular muscles are intact with no nystagmus. Face is symmetric and tongue protrudes the midline. Palatal elevation and sensation normal. Hearing normal. On muscle strength testing there is no pronator drift and strength is completely normal in arms and legs distally and proximally. Reflexes are 2+ and plantars downgoing. Sensory to touch is equal with no neglect. No ataxia for [id number] testing. Tone and bulk of muscles normal. Gait normal. There is no carotid bruit or murmur peripheral pulses present. No peripheral edema. Results - Laboratory Findings CBC and BMP: 07/13/19 14:07 07/13/19 14:07 Abnormal Lab Findings: Abnormal Labs 07/13/19 07/13/19 07/14/19 14:07 14:07 02:41 Hct 46.4 H Chloride 108 H BUN 18 H Glucose 105 H Triglycerides 207 H HDL Cholesterol 36 L Assessment and Plan Assessment: * 79-year-old female admitted with transient pains involving different parts of the body. She had pain in the right leg that lasted for 4 hours and then resolved. She had transient pain involving right side of her head, neck and the right arm, that lasted for "few seconds" and then resolved. She did have some residual headache in the right frontal parietal region afterwards. Her computed tomography scan of the head and current neurological examination is normal. Her symptoms do not suggest TIA with lack of any numbness tingling or focal weakness. She had significantly elevated blood pressure on arrival, which may be the cause of headache. All workup is negative including carotid Doppler and 2-D echo. Patient does not have any atrial fibrillation. * Hypertension * Coronary artery disease. Plan: * No further workup indicated. * Optimize control of blood pressure. * Continue aspirin, Plavix and statins, as per her product lister/shrimp pond laborer. * Neurologically clear for discharge. * Cardiology also has seen the patient and cleared for discharge.
[2019-07-14 16:10] VITALS: BP 148/78; PULSE 71; TEMP 98.1
[2019-07-14] MEDS ORDERED: ATORVASTATIN 10 MG TAB PO SCH (21:00)
--- NOTE | 2019-07-15 23:57 | P.HPIM ---
History of Present Illness H&P Date: 07/14/19 Chief Complaint: Pain in different sites History of presenting complaint: This is a pleasant 79-year-old patient of Dr. Erickson. Chronic stable medical conditions include hypertension, hyperlipidemia, obstructive sleep apnea uses CPAP, hypothyroid, osteoarthritis, stress incontinence, kidney stones, coronary artery disease with bypass. Patient been having problems with her renters to home. Rents out property. 4 patient not been feeling too well. Sometimes achiness in both the shoulders sometimes pain in the right leg at different points. No precordial pain. Minimal shortness of breath. Patient has put on about 4 or 5 pounds during the holidays. Feeling rather stressed out with all the things happening with her renters. Does get neck pain. Admitted to rule out a cardiac cause. Review of systems: GEN.: None EYES: None HEENT: None NECK: None RESPIRATORY: None CARDIOVASCULAR: Has above GASTROINTESTINAL: None GENITOURINARY: Incontinence MUSCULOSKELETAL: Joint pains LYMPHATICS: None HEMATOLOGICAL: None PSYCHIATRY: Anxious NEUROLOGICAL: None Past medical history to include: Coronary artery disease with bypass, hypertension, hyperlipidemia, obstructive sleep apnea uses CPAP, hypothyroid, diverticulitis, arthritis, kidney stones, urinary incontinence Social history: Does not smoke. Alcohol occasionally. . Physical examination: VITAL SIGNS: 96.3, 71, 16, 179/79, 95% room air upon presentation GENERAL: BMI 39.4, sitting up slightly anxious. EYES: Pupils equal. Conjunctiva normal. HEENT: External appearance of nose and ears normal, oral cavity grossly normal. NECK: JVD not raised; masses not palpable. HEART: First and second heart sounds are normal; no edema. LUNGS: Respiratory rate normal; clear to auscultation. ABDOMEN: Soft, nontender, liver spleen not palpable, no masses palpable. PSYCH: [Alert and oriented x3; mood and affect anxious. NEUROLOGICAL: Cranial nerves grossly intact; no facial asymmetry, power and sensation grossly intact. LYMPHATICS: No lymph nodes palpable in the axilla and neck INVESTIGATIONS, reviewed in the clinical context: White count 8.4 hemoglobin 50.3 kg to 54 progression 4.7 creatinine 1.01 Troponin I 3 negative LDL 76 EKG tracing-sinus rhythm, PVC some T-wave changes Checks x-ray film personally reviewed by me-some unfolding of the aorta, lung quinteros clear 2-D echo-EF 55-60%, moderate concentric LVH Assessment: -Patient been having problems with her renters somewhat anxious with pains in different places. Pain some does of the shoulders sometimes of the legs at different places at different times. Not a very cardiac sounding pattern though the patient has underlying coronary artery disease -Essential hypertension uncontrolled on presentation -Hyperlipidemia -Obstructive sleep apnea uses CPAP -Hypothyroid -Primary osteoarthritis -Urinary stress incontinence -Asymptomatic kidney stone -Coronary artery disease and history of bypass Plan: Neurology and cardiology consulted. Home medications resumed. Care was discussed with the patient. Doubt this to be cardiac presentation though given history to rule out the same. Could be psychosomatic. Past Medical History Past Medical History: Coronary Artery Disease (CAD), Hyperlipidemia, Hypertension, Mitral Valve Prolapse (MVP), Sleep Apnea/CPAP/BIPAP, Thyroid Disorder Additional Past Medical History / Comment(s): diverticulitis, ddd, arthritis, UTI'S, KIDNEY STONES,INCONT OF URINE, ARTHIRITS,MIGRAINEs. History of Any Multi-Drug Resistant Organisms: None Reported Past Surgical History: Appendectomy, Bowel Resection, Breast Surgery, Section, Coronary Bypass/CABG, Heart Catheterization, Hysterectomy Additional Past Surgical History / Comment(s): BOWEL RESECTION D/T DIVERTICULITIS, QUAD BYPASS, Breast biopsy Past Anesthesia/Blood Transfusion Reactions: No Reported Reaction Past Psychological History: No Psychological Hx Reported Smoking Status: Never smoker Past Alcohol Use History: Occasional Past Drug Use History: None Reported - Past Family History Father Family Medical History: Hypertension Additional Family Medical History / Comment(s): Atherosclerosis Mother Family Medical History: Cancer Additional Family Medical History / Comment(s): ovarian cancer Medications and Allergies Home Medications Medication Instructions Recorded Confirmed Type Metoprolol Tartrate [Lopressor] 25 mg PO BID 01/16/14 07/13/19 History Aspirin 81 mg PO HS 08/02/15 07/13/19 History Ergocalciferol [Vitamin D2 1 cap PO TU 07/04/18 07/13/19 History (DRISDOL)] Lisinopril [Zestril] 5 mg PO HS 07/04/18 07/13/19 History Clopidogrel [Plavix] 75 mg PO Q48H 11/24/18 07/13/19 History Rosuvastatin [Crestor] 5 mg PO Q48H 11/24/18 07/13/19 History Levothyroxine Sodium [Synthroid] 100 mcg PO DAILY 07/13/19 07/13/19 History Rosuvastatin [Crestor] 10 mg PO Q48H 07/13/19 07/13/19 History Trimethoprim 100 mg PO HS 07/13/19 07/13/19 History Allergies Allergy/AdvReac Type Severity Reaction Status Date / Time Sulfa (Sulfonamide Allergy Unknown Verified 07/13/19 14:31 Antibiotics) amoxicillin [From Augmentin] AdvReac Nausea Verified 07/13/19 14:31 clavulanic acid AdvReac Nausea Verified 07/13/19 14:31 [From Augmentin] Physical Exam Vitals: Vital Signs Temp Pulse Pulse Resp BP BP Pulse Ox 07/14/19 08:10 98.1 F 73 18 120/71 92 L 07/14/19 04:00 98.1 F 68 18 131/59 95 07/14/19 00:00 98.2 F 74 18 149/67 96 07/13/19 20:00 97.4 F L 75 18 124/68 94 L 07/13/19 17:50 97.7 F 74 18 174/77 96 07/13/19 17:15 98.2 F 70 16 168/70 98 07/13/19 16:16 98.2 F 70 16 178/78 98 07/13/19 13:48 98.3 F 71 16 179/79 95 Intake and Output 07/13/19 07/14/19 07/14/19 22:59 06:59 14:59 Intake Total 1440 Balance 1440 Intake: Intake, IV Titration 600 Amount Sodium Chloride 0.9% 1, 600 000 ml @ 75 mls/hr IV . [id number] [facility] Rx#:[id number] Oral 840 Other: Voiding Method Toilet Toilet # Voids 2 1 Weight 89.267 kg 88.5 kg Results CBC & Chem 7: 07/13/19 14:07 07/14/19 17:43 Labs: Abnormal Lab Results - Last 24 Hours (Table) 07/13/19 07/13/19 07/14/19 Range/Units 14:07 14:07 02:41 Hct 46.4 H (34.0-46.0) % Chloride 108 H (98-107) mmol/L BUN 18 H (7-17) mg/dL Glucose 105 H (74-99) mg/dL Triglycerides 207 H (<150) mg/dL HDL Cholesterol 36 L (40-60) mg/dL Thrombosis Risk Factor Assmnt - Choose All That Apply Any of the Below Risk Factors Present?: No Other Risk Factors: Yes Each Risk Factor Represents 3 Points: Age 75 years or older Other congenital or acquired thrombophilia - If yes, enter type in comment: No Thrombosis Risk Factor Assessment Total Risk Factor Score: 3 Thrombosis Risk Factor Assessment Level: Moderate Risk
--- NOTE | 2019-07-16 | P.DS ---
Providers Date of admission: 07/13/19 16:09 Expected date of discharge: 07/14/19 Attending physician: Anselmo Brown Consults: 07/13/19 16:09 Consult Physician Routine Consulting Provider: Eddie Fenton Consult Reason/Comments: TIA Do you want consulting provider notified?: Yes Consult Physician Routine Consulting Provider: Luis Mcdonald Consult Reason/Comments: CP Do you want consulting provider notified?: Yes Primary care physician: Vidal Erickson [facility] Course: Chief Complaint: Pain in different sites History of presenting complaint: This is a pleasant 79-year-old patient of Dr. Erickson. Chronic stable medical conditions include hypertension, hyperlipidemia, obstructive sleep apnea uses CPAP, hypothyroid, osteoarthritis, stress incontinence, kidney stones, coronary artery disease with bypass. Patient been having problems with her renters to home. Rents out property. 4 patient not been feeling too well. Sometimes achiness in both the shoulders sometimes pain in the right leg at different points. No precordial pain. Minimal shortness of breath. Patient has put on about 4 or 5 pounds during the holidays. Feeling rather stressed out with all the things happening with her renters. Does get neck pain. Admitted to rule out a cardiac cause. Seen by both neurology and oncology. Not felt to be cardiac. Possibly psychosomatic from undergoing social stressors. Care was discussed length with the patient. Also discussed weight loss. Consultation: Dr. Tiffanie Vizcarra from neurology Dr. RHONDA Butler from cardiology Physical examination: VITAL SIGNS: 98.1, 71, 18, 148/78, 95% room air GENERAL: Slightly anxious. EYES: Pupils equal. Conjunctiva normal. HEENT: External appearance of nose and ears normal, oral cavity grossly normal. NECK: JVD not raised; masses not palpable. HEART: First and second heart sounds are normal; no edema. LUNGS: Respiratory rate normal; clear to auscultation. ABDOMEN: Soft, nontender, liver spleen not palpable, no masses palpable. PSYCH: [Alert and oriented x3; mood and affect anxious. INVESTIGATIONS, reviewed in the clinical context: White count 8.4 hemoglobin 50.3 kg to 54 progression 4.7 creatinine 1.01 Troponin I 3 negative LDL 76 EKG tracing-sinus rhythm, PVC some T-wave changes Checks x-ray film personally reviewed by me-some unfolding of the aorta, lung quinteros clear 2-D echo-EF 55-60%, moderate concentric LVH Carotid Doppler-unremarkable Assessment: -Probably musculoskeletal pain and/or psychosomatic pain. -Essential hypertension -Hyperlipidemia -Obstructive sleep apnea uses CPAP -Hypothyroid -Primary osteoarthritis -Urinary stress incontinence -Asymptomatic kidney stone -Coronary artery disease and history of bypass Disposition: Home Patient Condition at Discharge: Stable Plan - Discharge Summary Discharge Rx Participant: Yes New Discharge Prescriptions: Continue Metoprolol Tartrate [Lopressor] 25 mg PO BID Aspirin 81 mg PO HS Lisinopril [Zestril] 5 mg PO HS Ergocalciferol [Vitamin D2 (DRISDOL)] 1 cap PO TU Rosuvastatin [Crestor] 5 mg PO Q48H Clopidogrel [Plavix] 75 mg PO Q48H Rosuvastatin [Crestor] 10 mg PO Q48H Levothyroxine Sodium [Synthroid] 100 mcg PO DAILY Trimethoprim 100 mg PO HS Discharge Medication List Metoprolol Tartrate [Lopressor] 25 mg PO BID 01/16/14 [History] Aspirin 81 mg PO HS 08/02/15 [History] Ergocalciferol [Vitamin D2 (DRISDOL)] 1 cap PO TU 07/04/18 [History] Lisinopril [Zestril] 5 mg PO HS 07/04/18 [History] Clopidogrel [Plavix] 75 mg PO Q48H 11/24/18 [History] Rosuvastatin [Crestor] 5 mg PO Q48H 11/24/18 [History] Levothyroxine Sodium [Synthroid] 100 mcg PO DAILY 07/13/19 [History] Rosuvastatin [Crestor] 10 mg PO Q48H 07/13/19 [History] Trimethoprim 100 mg PO HS 07/13/19 [History] Follow up Appointment(s)/Referral(s): Vidal Erickson MD [Primary Care Provider] - 1-2 days (Please call and make a follow up appointment during normal business hours.) Christo Ching MD [STAFF PHYSICIAN] - 1 Week (Please make appointment in the week of the .) Discharge Disposition: HOME SELF-CARE
[2019-07-18] MEDS ORDERED: ERGOCALCIFEROL 50,000 UNIT CAP PO SCH (09:00)
== END 2019-07-14 18:43 | disposition home or self-care (01) ==
LOC: EC 13:47 → 3SCARD 16:09
PROVIDERS: ADMIT Hospitalist; ATTEND Hospitalist
DX: R07.89 Other chest pain (principal); R51 Headache; M79.601 Pain in right arm; M25.511 Pain in right shoulder; R20.0 Anesthesia of skin; I25.10 Atherosclerotic heart disease of native coronary artery without angina pectoris; Z95.1 Presence of aortocoronary bypass graft; E78.5 Hyperlipidemia, unspecified; I10 Essential (primary) hypertension; I34.1 Nonrheumatic mitral (valve) prolapse; G47.33 Obstructive sleep apnea (adult) (pediatric); Z99.89 Dependence on other enabling machines and devices; E03.9 Hypothyroidism, unspecified; Z87.19 Personal history of other diseases of the digestive system; M19.90 Unspecified osteoarthritis, unspecified site; N39.3 Stress incontinence (female) (male); Z87.442 Personal history of urinary calculi; Z90.49 Acquired absence of other specified parts of digestive tract; Z90.710 Acquired absence of both cervix and uterus; Z79.82 Long term (current) use of aspirin; Z79.02 Long term (current) use of antithrombotics/antiplatelets; Z79.890 Hormone replacement therapy; Z79.899 Other long term (current) drug therapy; Z88.0 Allergy status to penicillin; Z88.2 Allergy status to sulfonamides; Z88.8 Allergy status to other drugs, medicaments and biological substances; Z80.41 Family history of malignant neoplasm of ovary; Z82.49 Family history of ischemic heart disease and other diseases of the circulatory system
CPT/HCPCS: 96361 ×2; 93005 ×2; 96360; 99285; 36415; 93306; 97162; 97166; 92523; 80061; 80053; 84132; 84484 ×2; 85025; 85610; 85730; 71046; 93880; 70450; G0378 ×2

== ENCOUNTER 2020-03-24 03:37 | Observation (INO) | payer MEDICARE, BC ==
[2020-03-24] MEDS ORDERED: RX INFO: IV CONTRAST WAS GIVEN 1 EACH MISC MISCELLANE PRN (03:47)
--- NOTE | 2020-03-24 03:54 | ED ---
General Adult HPI - General Chief complaint: Chest Pain Stated complaint: CHEST PAIN Time Seen by Provider: 03/24/20 03:45 Source: patient Mode of arrival: ambulatory Limitations: no limitations - History of Present Illness Initial comments: Cecy is a pleasant 80-year-old female known history of CAD, status post CABG in the past. Patient presents the ER today for evaluation of chest pain. Patient reports she began having pain in her upper back and then pain radiating throughout her chest. She denies any diaphoresis, lightheadedness or shortness of breath. She reports that this is similar to previous cardiac etiology of chest pain as when she presented needing a CABG she had only actually pain in her back. Patient denies any recent illness, fevers, chills, nausea, vomiting. She's had no cough or shortness of breath. No known contacts with anyone his, 19. - Related Data Home Medications Medication Instructions Recorded Confirmed Metoprolol Tartrate [Lopressor] 25 mg PO BID 01/16/14 07/13/19 Aspirin 81 mg PO HS 08/02/15 07/13/19 Ergocalciferol [Vitamin D2 1 cap PO TU 07/04/18 07/13/19 (DRISDOL)] lisinopriL [Zestril] 5 mg PO HS 07/04/18 07/13/19 Clopidogrel [Plavix] 75 mg PO Q48H 11/24/18 07/13/19 Rosuvastatin [Crestor] 5 mg PO Q48H 11/24/18 07/13/19 Levothyroxine Sodium [Synthroid] 100 mcg PO DAILY 07/13/19 07/13/19 Rosuvastatin [Crestor] 10 mg PO Q48H 07/13/19 07/13/19 Trimethoprim 100 mg PO HS 07/13/19 07/13/19 Allergies Allergy/AdvReac Type Severity Reaction Status Date / Time Sulfa (Sulfonamide Allergy Unknown Verified 03/24/20 03:42 Antibiotics) amoxicillin [From Augmentin] AdvReac Nausea Verified 03/24/20 03:42 clavulanic acid AdvReac Nausea Verified 03/24/20 03:42 [From Augmentin] Review of Systems ROS Statement: Those systems with pertinent positive or pertinent negative responses have been documented in the HPI. ROS Other: All systems not noted in ROS Statement are negative. Past Medical History Past Medical History: Coronary Artery Disease (CAD), Hyperlipidemia, Hypertension, Mitral Valve Prolapse (MVP), Sleep Apnea/CPAP/BIPAP, Thyroid Disorder Additional Past Medical History / Comment(s): diverticulitis, ddd, arthritis, UTI'S, KIDNEY STONES,INCONT OF URINE, ARTHIRITS,MIGRAINEs. History of Any Multi-Drug Resistant Organisms: None Reported Past Surgical History: Appendectomy, Bowel Resection, Breast Surgery, Section, Coronary Bypass/CABG, Heart Catheterization, Hysterectomy Additional Past Surgical History / Comment(s): BOWEL RESECTION D/T DIVERTICULITIS, QUAD BYPASS, Breast biopsy Past Anesthesia/Blood Transfusion Reactions: No Reported Reaction Past Psychological History: No Psychological Hx Reported Smoking Status: Never smoker Past Alcohol Use History: Occasional Past Drug Use History: None Reported - Past Family History Father Family Medical History: Hypertension Additional Family Medical History / Comment(s): Atherosclerosis Mother Family Medical History: Cancer Additional Family Medical History / Comment(s): ovarian cancer General Exam - General Exam Comments Initial Comments: Physical Exam GENERAL: Patient is well-developed and well-nourished. Patient is nontoxic and well- hydrated and is in no distress. HENT: Normocephalic, Atraumatic. EYES: PERRL, EOMI PULMONARY: Unlabored respirations. No audible rales rhonchi or wheezing was noted. CARDIOVASCULAR: There is a regular rate and rhythm without any murmurs gallops or rubs. Well healed midsternal scar ABDOMEN: Soft and nontender with normal bowel sounds. SKIN: Skin is clear with no lesions or rashes and otherwise unremarkable. : Deferred NEUROLOGIC: Patient is alert and oriented x3. Moving all extremities spontaneously MUSCULOSKELETAL: Normal extremities with adequate strength and full range of motion. No lower extremity swelling or edema. No calf tenderness. PSYCHIATRIC: Normal psychiatric evaluation. Limitations: no limitations Course Vital Signs 03/24/20 03/24/20 03/24/20 03:39 04:55 06:34 Temperature 97.6 F Pulse Rate 82 79 75 Respiratory 18 18 18 Rate Blood Pressure 156/89 129/65 127/70 O2 Sat by Pulse 98 96 97 Oximetry Medical Decision Making - Medical Decision Making Patient was seen and evaluated history is obtained from the patient and at bedside 80-year-old female known coronary artery disease presenting with chest pain which she reports is similar to previous episodes of acute coronary syndrome Labs and imaging were ordered Patient's chest pain improved significantly with nitro Labs are relatively unremarkable other some evidence of dehydration troponin is not elevated however patient's history is concerning for acute coronary syndrome given that she has chest pain relieved by nitro Computed tomography scan incidentally identifies the 4cm ascending aortic aneurysm Results were discussed with the patient who reports her chest pain is returning, nitro paste was ordered Patient will be admitted for evaluation by cardiology and routine consult to cardiothoracic surgery for discuss singed of management of her aortic aneurysm She was chest pain-free at time of admission - Lab Data Result diagrams: 03/24/20 03:59 03/24/20 03:59 Lab Results 03/24/20 03/24/20 03/24/20 Range/Units 03:59 03:59 03:59 WBC 7.7 (3.8-10.6) k/uL RBC 4.78 (3.80-5.40) m/uL Hgb 14.6 (11.4-16.0) gm/dL Hct 44.6 (34.0-46.0) % MCV 93.3 (80.0-100.0) fL MCH 30.4 (25.0-35.0) pg MCHC 32.6 (31.0-37.0) g/dL RDW 13.0 (11.5-15.5) % Plt Count 245 (150-450) k/uL Neutrophils % 51 % Lymphocytes % 34 % Monocytes % 9 % Eosinophils % 2 % Basophils % 1 % Neutrophils # 3.9 (1.3-7.7) k/uL Lymphocytes # 2.7 (1.0-4.8) k/uL Monocytes # 0.7 (0-1.0) k/uL Eosinophils # 0.2 (0-0.7) k/uL Basophils # 0.1 (0-0.2) k/uL PT 9.6 (9.0-12.0) sec INR 0.9 (<1.2) APTT 22.7 (22.0-30.0) sec Sodium 139 (137-145) mmol/L Potassium 4.2 (3.5-5.1) mmol/L Chloride 107 (98-107) mmol/L Carbon Dioxide 25 (22-30) mmol/L Anion Gap 7 mmol/L BUN 24 H (7-17) mg/dL Creatinine 1.05 H (0.52-1.04) mg/dL Est GFR (CKD-EPI)AfAm 59 (>60 ml/min/1.73 sqM) Est GFR (CKD-EPI)NonAf 51 (>60 ml/min/1.73 sqM) Glucose 113 H (74-99) mg/dL Calcium 9.4 (8.4-10.2) mg/dL Magnesium 2.2 (1.6-2.3) mg/dL Total Bilirubin 0.4 (0.2-1.3) mg/dL AST 34 (14-36) U/L ALT 30 (4-34) U/L Alkaline Phosphatase 50 (38-126) U/L Troponin I (0.000-0.034) ng/mL Total Protein 6.6 (6.3-8.2) g/dL Albumin 4.2 (3.5-5.0) g/dL Lipase 183 (23-300) U/L 03/24/20 Range/Units 03:59 WBC (3.8-10.6) k/uL RBC (3.80-5.40) m/uL Hgb (11.4-16.0) gm/dL Hct (34.0-46.0) % MCV (80.0-100.0) fL MCH (25.0-35.0) pg MCHC (31.0-37.0) g/dL RDW (11.5-15.5) % Plt Count (150-450) k/uL Neutrophils % % Lymphocytes % % Monocytes % % Eosinophils % % Basophils % % Neutrophils # (1.3-7.7) k/uL Lymphocytes # (1.0-4.8) k/uL Monocytes # (0-1.0) k/uL Eosinophils # (0-0.7) k/uL Basophils # (0-0.2) k/uL PT (9.0-12.0) sec INR (<1.2) APTT (22.0-30.0) sec Sodium (137-145) mmol/L Potassium (3.5-5.1) mmol/L Chloride (98-107) mmol/L Carbon Dioxide (22-30) mmol/L Anion Gap mmol/L BUN (7-17) mg/dL Creatinine (0.52-1.04) mg/dL Est GFR (CKD-EPI)AfAm (>60 ml/min/1.73 sqM) Est GFR (CKD-EPI)NonAf (>60 ml/min/1.73 sqM) Glucose (74-99) mg/dL Calcium (8.4-10.2) mg/dL Magnesium (1.6-2.3) mg/dL Total Bilirubin (0.2-1.3) mg/dL AST (14-36) U/L ALT (4-34) U/L Alkaline Phosphatase (38-126) U/L Troponin I <0.012 (0.000-0.034) ng/mL Total Protein (6.3-8.2) g/dL Albumin (3.5-5.0) g/dL Lipase (23-300) U/L - EKG Data EKG Comments: EKG was obtained due to complaint of chest pain, EKG was obtained at 3:40 AM, rate is 86 rhythm is sinus with frequent PVCs, normal axis, normal intervals, MO 190, QRS 92, QTc is [address] elevations or depressions no evidence of acute ischemia or infarction. Disposition Clinical Impression: Chest pain, Ascending aortic aneurysm Disposition: ADMITTED IP TO THIS HOSP Condition: Stable Is patient prescribed a controlled substance at d/c from ED?: No
[2020-03-24] MEDS ORDERED: NITROGLYCERIN SL TABS 0.4 MG TAB SUBLINGUAL PRN ×3 (04:02→05:15)
[2020-03-24 04:08] LABS: Basophils # (A) 0.1 k/uL (0-0.2); Basophils % (A) 1 %; Eosinophils # (A) 0.2 k/uL (0-0.7); Eosinophils % (A) 2 %; HCT 44.6 % (34.0-46.0); HGB 14.6 gm/dL (11.4-16.0); Lymphocytes # (A) 2.7 k/uL (1.0-4.8); Lymphocytes % (A) 34 %; MCH 30.4 pg (25.0-35.0); MCHC 32.6 g/dL (31.0-37.0); MCV 93.3 fL (80.0-100.0); Mean Platelet Volume 7.8; Monocytes # (A) 0.7 k/uL (0-1.0); Monocytes % (A) 9 %; Neutrophils # (A) 3.9 k/uL (1.3-7.7); Neutrophils % (A) 51 %; Platelet Count 245 k/uL (150-450); RBC 4.78 m/uL (3.80-5.40); WBC 7.7 k/uL (3.8-10.6)
[2020-03-24 04:20] LABS: Albumin 4.2 g/dL (3.5-5.0); Calcium 9.4 mg/dL (8.4-10.2); INR 0.9 (<1.2); Magnesium 2.2 mg/dL (1.6-2.3); Partial Thromboplastin Time 22.7 sec (22.0-30.0); Potassium 4.2 mmol/L (3.5-5.1); Prothrombin Time 9.6 sec (9.0-12.0); Total Bilirubin 0.4 mg/dL (0.2-1.3); Total Protein 6.6 g/dL (6.3-8.2)
[2020-03-24] MEDS ORDERED: SODIUM CHLORIDE 0.9% 1,000 ML IV STA (04:55)
--- NOTE | 2020-03-24 05:00 | CT ---
EXAMINATION TYPE: CT angio thor/abd pel aorta DATE OF EXAM: 03/24/2020 COMPARISON: None HISTORY: pain CT DLP: 1478.2 mGycm Automated exposure control for dose reduction was used. CONTRAST: Performed with IV Contrast, patient injected with 80 mL of Isovue 370. Images were obtained from the thoracic inlet to the floor the pelvis without and subsequently with IV contrast. There are 3-D post processed images. The lungs are clear of consolidation. There is minimal scarring and subsegmental atelectasis at the [place] bases. There is no pleural effusion. Heart is normal. There is no pericardial effusion. There is dense coronary artery calcification. There is 4 cm aneurysm of the ascending aorta. There is no dissection. There is some mild plaque form ation on the posterior wall of the descending thoracic aorta. There are no hilar masses. There is no mediastinal adenopathy. There is patency of the celiac artery and superior mesenteric artery. There is bilateral patency of t he renal arteries. There is bilateral arterial flow in the iliac and femoral arteries. There are calc ified gallstones. Liver spleen stomach pancreas both kidneys adrenal glands appear normal. The bile ducts are not dilat ed. There is no hydronephrosis. There is no retroperitoneal adenopathy. There is hysterectomy. There is no pelvic mass. There are sigmoid diverticula. There is apparent prev ious surgery at the sigmoid colon. I see no sign of diverticulitis. There is no mesenteric edema. There is no ascites or free air. There is no bowel obstruction. Thoracic and lumbar spine appear intact. There are sternal wires. The bony pelvis appears intact. Hip joints appear normal. Appendix is not seen. There is no sign of thickened appendix. There is variable plaque formation in the abdominal aorta without hemodynamic stenosis. There is no a bdominal aortic aneurysm or dissection. There is 2 mm calculus lower pole left kidney. IMPRESSION: 4 cm aneurysm of the ascending aorta. No evidence of arterial dissection. Atherosclerotic vascular di sease. No evidence of hemodynamic stenosis. Cholelithiasis. Nonobstructing left renal calculus.
[2020-03-24] MEDS ORDERED: NITROGLYCERIN OINT 1 INCH/GM PACKET TOPICAL STA (06:02)
--- NOTE | 2020-03-24 09:35 | P.CRDCN ---
History of Present Illness Consult date: 03/24/20 Chief complaint: Chest pain History of present illness: This is a very pleasant 80-year-old female patient who sees Dr. 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 The patient was in her usual state of health until last night when she was at home and started experiencing discomfort mainly in the mid back. She took aspirin with improvement of the pain. About half an hour later she developed another episode of pain in the back as well. It was associated with nausea and sweating and because of that she decided to come to the emergency department. Now she stated have very mild pain in her back but no pain in the chest or the neck or the arms or the shoulders. The first set of troponin came in to be unremarkable. The EKG showed sinus rhythm without any significant ST or T-wave abnormalities. She underwent a computed tomography scan of the chest and that showed evidence off aortic aneurysm only at 4 cm but no evidence of dissection seen. The patient did not have any stress test within the last year according to her. No heart catheterization also within the last year or so. When she was seen and examined this morning she seems very comfortable. Examined the back did not reveal any reproducible pain in the back. Past Medical History Past Medical History: Coronary Artery Disease (CAD), Hyperlipidemia, Hypertension, Mitral Valve Prolapse (MVP), Sleep Apnea/CPAP/BIPAP, Thyroid Disorder Additional Past Medical History / Comment(s): diverticulitis, ddd, arthritis, UTI'S, KIDNEY STONES,INCONT OF URINE, arthritis,MIGRAINEs. History of Any Multi-Drug Resistant Organisms: None Reported Past Surgical History: Appendectomy, Bowel Resection, Breast Surgery, Section, Coronary Bypass/CABG, Heart Catheterization, Hysterectomy Additional Past Surgical History / Comment(s): BOWEL RESECTION D/T DIVERTICULITIS, QUAD BYPASS, Breast biopsy, 7 exploratory abd sx. Past Anesthesia/Blood Transfusion Reactions: No Reported Reaction Past Psychological History: Depression Smoking Status: Never smoker Past Alcohol Use History: Occasional Past Drug Use History: None Reported - Past Family History Father Family Medical History: Hypertension Additional Family Medical History / Comment(s): Atherosclerosis Mother Family Medical History: Cancer Additional Family Medical History / Comment(s): ovarian cancer Medications and Allergies Home Medications Medication Instructions Recorded Confirmed Type Metoprolol Tartrate [Lopressor] 25 mg PO BID 01/16/14 07/13/19 History Aspirin 81 mg PO 08/02/15 07/13/19 History Ergocalciferol [Vitamin D2 1 cap PO TU 07/04/18 07/13/19 History (DRISDOL)] lisinopriL [Zestril] 5 mg PO 07/04/18 07/13/19 History Clopidogrel [Plavix] 75 mg PO Q48H 11/24/18 07/13/19 History Rosuvastatin [Crestor] 5 mg PO Q48H 11/24/18 07/13/19 History Levothyroxine Sodium [Synthroid] 100 mcg PO DAILY 07/13/19 07/13/19 History Rosuvastatin [Crestor] 10 mg PO Q48H 07/13/19 07/13/19 History Trimethoprim 100 mg PO 07/13/19 07/13/19 History Allergies Allergy/AdvReac Type Severity Reaction Status Date / Time Sulfa (Sulfonamide Allergy Unknown Verified 03/24/20 03:42 Antibiotics) amoxicillin [From Augmentin] AdvReac Nausea Verified 03/24/20 03:42 clavulanic acid AdvReac Nausea Verified 03/24/20 03:42 [From Augmentin] Physical Exam Vitals: Vital Signs Temp Pulse Pulse Resp BP BP Pulse Ox 03/24/20 08:42 77 18 03/24/20 07:05 98.1 F 77 18 150/73 99 03/24/20 06:34 75 18 127/70 97 03/24/20 04:55 79 18 129/65 96 03/24/20 03:39 97.6 F 82 18 156/89 98 Intake and Output 03/23/20 03/24/20 03/24/20 22:59 06:59 14:59 Other: Voiding Method Toilet # Voids 1 Weight 87.543 kg 87.543 kg - Constitutional General appearance: no acute distress - Respiratory Respiratory: bilateral: CTA - Cardiovascular Rhythm: regular Heart sounds: normal: S1, S2 Results 03/24/20 03:59 03/24/20 03:59 Cardiac Enzymes 03/24/20 03/24/20 Range/Units 03:59 03:59 AST 34 (14-36) U/L Troponin I <0.012 (0.000-0.034) ng/mL Coagulation 03/24/20 Range/Units 03:59 PT 9.6 (9.0-12.0) sec APTT 22.7 (22.0-30.0) sec CBC 03/24/20 Range/Units 03:59 WBC 7.7 (3.8-10.6) k/uL RBC 4.78 (3.80-5.40) m/uL Hgb 14.6 (11.4-16.0) gm/dL Hct 44.6 (34.0-46.0) % Plt Count 245 (150-450) k/uL Comprehensive Metabolic Panel 03/24/20 Range/Units 03:59 Sodium 139 (137-145) mmol/L Potassium 4.2 (3.5-5.1) mmol/L Chloride 107 (98-107) mmol/L Carbon Dioxide 25 (22-30) mmol/L BUN 24 H (7-17) mg/dL Creatinine 1.05 H (0.52-1.04) mg/dL Glucose 113 H (74-99) mg/dL Calcium 9.4 (8.4-10.2) mg/dL AST 34 (14-36) U/L ALT 30 (4-34) U/L Alkaline Phosphatase 50 (38-126) U/L Total Protein 6.6 (6.3-8.2) g/dL Albumin 4.2 (3.5-5.0) g/dL Current Medications Generic Name Dose Route Start Last Admin Trade Name Freq PRN Reason Stop Dose Admin Aspirin 325 mg 03/25/20 09:00 Aspirin 325 Mg Tab PO DAILY GEORGES Miscellaneous Information 1 each 03/24/20 03:47 Rx Info: Iv Contrast Was Given 1 Each Misc MISCELLANE 03/26/20 03:47 DAILY PRN Per Protocol Intake and Output 03/23/20 03/24/20 03/24/20 22:59 06:59 14:59 Other: Voiding Method Toilet # Voids 1 Weight 87.543 kg 87.543 kg Patient Weight 03/25/20 06:59 Weight 87.543 kg 03/24/20 03:59 03/24/20 03:59 Assessment and Plan Assessment: Assessment #1 back pain #2 coronary artery disease and status post CABG #3 hypertension #4 dyslipidemia Plan #1 rule out acute coronary event. #2 follow-up on the serial cardiac enzymes #3 obtain the previous medical records from the office including the last stress test or echocardiogram #4 further recommendation to follow that
--- NOTE | 2020-03-24 10:55 | P.GSCN ---
History of Present Illness Consult date: 03/24/20 Reason for Consult: Ascending aneurysm measured 4 cm by radiology Requesting physician: Evelia Zavala History of present illness: This is a 80-year-old female patient who follows on an outpatient basis with Dr. Erickson for primary care and Dr. Ching for cardiology. She has a previous medical history of coronary artery disease status post four-vessel CABG in 2008 at the [facility], hypertension, hyperlipidemia, mitral valve prolapse, obstructive sleep apnea with home CPAP use, hypothyroid, never smoker, and significant family history of coronary artery disease with multiple family members having had open heart surgery. Last night she began having back pain between her shoulder blades which she attributed to muscle ache from sitting on the couch watching TV. She got up and went to bed, however her pain persisted and eventually radiated around to the front associated with nausea. She does state it was partially relieved with sublingual nitroglycerin and aspirin. She does state that she has had this type of pain before and was concerned and subsequently reported to [facility] emergency room. Her vital signs were and have remained stable, and she is oxygenating well on room air. White blood cell count 7.7, hemoglobin 14.6, BUN 24, creatinine 1.05, troponins negative 2. EKG demonstrated normal sinus rhythm with heart rate 86 bpm without ischemic changes. CTA of the thorax, abdomen, pelvis was completed which demonstrated a 4 cm ascending aortic aneurysm without dissection per radiologist read. Due to these findings the patient was admitted for evaluation and treatment with consultation placed to cardiology as well as cardiothoracic surgery or treatment recommendations. Of note the patient was admitted here in June of this year, transthoracic echocardiogram was completed at that time demonstrating normal left ventricular size and function with EF 55-60%, mild to moderate aortic regurgitation, no aortic stenosis, mild mitral regurgitation with mild MAC, mild tricuspid regurgitation with no pulmonary hypertension, and normal aortic root size. Review of Systems Review systems was completed and was negative except as noted - Cardiovascular Reports as per HPI, Reports chest pain - Gastrointestinal Reports as per HPI, Reports nausea Past Medical History Past Medical History: Coronary Artery Disease (CAD), Chest Pain / Angina, Hyp erlipidemia, Hypertension, Mitral Valve Prolapse (MVP), Sleep Apnea/CPAP/BIPAP, Thyroid Disorder Additional Past Medical History / Comment(s): diverticulitis, ddd, arthritis, UTI'S, KIDNEY STONES,INCONT OF URINE, arthritis,MIGRAINEs. History of Any Multi-Drug Resistant Organisms: None Reported Past Surgical History: Appendectomy, Bowel Resection, Breast Surgery, Section, Coronary Bypass/CABG, Heart Catheterization, Hysterectomy Additional Past Surgical History / Comment(s): BOWEL RESECTION D/T DIVERTICULITIS, QUAD BYPASS in 2009 at [facility], Breast biopsy, 7 exploratory abd sx. Past Anesthesia/Blood Transfusion Reactions: No Reported Reaction Past Psychological History: Depression Smoking Status: Never smoker Past Alcohol Use History: Occasional Past Drug Use History: None Reported - Past Family History Father Family Medical History: Coronary Artery Disease (CAD), Hyperlipidemia, Hyp ertension Additional Family Medical History / Comment(s): Atherosclerosis Mother Family Medical History: Cancer, Coronary Artery Disease (CAD), Myocardial Infarction (HI) Additional Family Medical History / Comment(s): ovarian cancer Brother(s) Family Medical History: Coronary Artery Disease (CAD) Additional Family Medical History / Comment(s): Brother had CABG; grandmother had ascending aortic aneurysm Medications and Allergies Home Medications Medication Instructions Recorded Confirmed Type Metoprolol Tartrate [Lopressor] 25 mg PO BID 01/16/14 03/24/20 History Aspirin 81 mg PO BID 08/02/15 03/24/20 History Ergocalciferol [Vitamin D2 1 cap PO 07/04/18 03/24/20 History (DRISDOL)] lisinopriL [Zestril] 5 mg PO HS 07/04/18 03/24/20 History Rosuvastatin [Crestor] 5 mg PO Q48H 11/24/18 03/24/20 History Levothyroxine Sodium [Synth[facility]] [facility] 07/13/19 03/24/20 History Rosuvastatin [Crestor] 10 mg PO Q48H 07/13/19 03/24/20 History Acetaminophen [Tylenol] 325 mg PO DAILY PRN 03/24/20 03/24/20 History Fenofibrate Nanocrystallized 145 mg PO 03/24/20 03/24/20 History [Fenofibrate] Levothyroxine Sodium [Synthroid] 50 mcg PO TU 03/24/20 03/24/20 History Methenamine Hippurate [Hiprex] 1 tab PO DAILY 03/24/20 03/24/20 History Multivitamins, Thera [Multivitamin 1 tab PO DAILY 03/24/20 03/24/20 History (formulary)] Allergies Allergy/AdvReac Type Severity Reaction Status Date / Time Sulfa (Sulfonamide Allergy Unknown Verified 03/24/20 10:05 Antibiotics) amoxicillin [From Augmentin] AdvReac Nausea Verified 03/24/20 10:05 clavulanic acid AdvReac Nausea Verified 03/24/20 10:05 [From Augmentin] Surgical - Exam Vital Signs Temp Pulse Resp BP Pulse Ox 97.6 F 82 18 156/89 98 03/24/20 03:39 03/24/20 03:39 03/24/20 03:39 03/24/20 03:39 03/24/20 03:39 - General well developed, well nourished, no distress, no pain - Eyes PERRL, normal ocular movement - ENT no hearing loss - Neck no masses, no bruits, trachea midline - Respiratory Lungs sounds diminished bilaterally. Respirations even, nonlabored. Currently on room air with oxygen saturation in the high 90s. No chest wall deformities. No clubbing or cyanosis present. - Cardiovascular S1, S2 present. Regular rate and rhythm, sinus rhythm on telemetry. Sternum stable. Palpable peripheral pulses bilaterally. No edema present. No calf pain or tenderness noted. - Abdomen Abdomen: soft, non tender, bowel sounds - Genitourinary Deferred - Rectum Deferred - Integumentary Well-healed anterior chest wall surgical incision no rash, no growths - Neurologic normal coordination, normal sensation - Musculoskeletal normal posture - Psychiatric oriented to time, oriented to person, oriented to place, speech is normal, memory intact Results - Labs 03/24/20 03:59 03/24/20 03:59 Abnormal Lab Results - Last 24 Hours (Table) 03/24/20 Range/Units 03:59 BUN 24 H (7-17) mg/dL Creatinine 1.05 H (0.52-1.04) mg/dL Glucose 113 H (74-99) mg/dL Diabetes panel 03/24/20 Range/Units 03:59 Sodium 139 (137-145) mmol/L Potassium 4.2 (3.5-5.1) mmol/L Chloride 107 (98-107) mmol/L Carbon Dioxide 25 (22-30) mmol/L BUN 24 H (7-17) mg/dL Creatinine 1.05 H (0.52-1.04) mg/dL Glucose 113 H (74-99) mg/dL Calcium 9.4 (8.4-10.2) mg/dL AST 34 (14-36) U/L ALT 30 (4-34) U/L Alkaline Phosphatase 50 (38-126) U/L Total Protein 6.6 (6.3-8.2) g/dL Albumin 4.2 (3.5-5.0) g/dL Calcium panel 03/24/20 Range/Units 03:59 Calcium 9.4 (8.4-10.2) mg/dL Albumin 4.2 (3.5-5.0) g/dL Pituitary panel 03/24/20 Range/Units 03:59 Sodium 139 (137-145) mmol/L Potassium 4.2 (3.5-5.1) mmol/L Chloride 107 (98-107) mmol/L Carbon Dioxide 25 (22-30) mmol/L BUN 24 H (7-17) mg/dL Creatinine 1.05 H (0.52-1.04) mg/dL Glucose 113 H (74-99) mg/dL Calcium 9.4 (8.4-10.2) mg/dL Adrenal panel 03/24/20 Range/Units 03:59 Sodium 139 (137-145) mmol/L Potassium 4.2 (3.5-5.1) mmol/L Chloride 107 (98-107) mmol/L Carbon Dioxide 25 (22-30) mmol/L BUN 24 H (7-17) mg/dL Creatinine 1.05 H (0.52-1.04) mg/dL Glucose 113 H (74-99) mg/dL Calcium 9.4 (8.4-10.2) mg/dL Total Bilirubin 0.4 (0.2-1.3) mg/dL AST 34 (14-36) U/L ALT 30 (4-34) U/L Alkaline Phosphatase 50 (38-126) U/L Total Protein 6.6 (6.3-8.2) g/dL Albumin 4.2 (3.5-5.0) g/dL - Imaging CT scan - chest: report reviewed, image reviewed EKG: image reviewed Assessment and Plan Assessment: 1. Back/chest pain, 4 cm ascending aortic aneurysm without dissection per radiology read on thoracic CT 2. History of coronary artery disease status post four-vessel CABG in 2000 and [facility] 3. Hypertension 4. Hyperlipidemia 5. Obstructive sleep apnea with home CPAP use 6. Hypothyroid 7. Never smoker 8. Significant family history of coronary artery disease Plan: The patient was seen and examined at the bedside. A chart/diagnostics were reviewed. The patient appears quite comfortable at this time. The case was reviewed in detail with Dr. Morrison. No surgical intervention is warranted at this time. Recommend tight blood pressure control. Continue to follow with serial echocardiograms and CAT scans to monitor for increase in size in the thoracic aorta and/or signs of dissection. Medical management of other comorbidities per primary care service, cardiology. Thank you for this consult. Please call us with any further questions Time with Patient: Greater than 30
[2020-03-24] MEDS: SODIUM CHLORIDE 0.9% 1,000 ML IV SCH (11:00)
[2020-03-24] MEDS ORDERED: REGADENOSON 0.4 MG/5 ML SYRINGE IV ONE (12:46)
[2020-03-24] MEDS ORDERED: AMINOPHYLLINE 500 MG/20 ML VIAL IV PRN (12:46)
[2020-03-24] MEDS ORDERED: CAFFEINE CITRATE 60 MG/3 ML VIAL IV PRN (12:46)
--- NOTE | 2020-03-24 13:21 | XR ---
EXAMINATION TYPE: XR chest 1V portable DATE OF EXAM: 03/24/2020 COMPARISON: 07/13/2019 INDICATION: Chest pain TECHNIQUE: Single frontal view of the chest is obtained. FINDINGS: The heart size is normal. The pulmonary vasculature is normal. The lungs are clear. IMPRESSION: 1. No acute pulmonary process.
[2020-03-24] MEDS ORDERED: ACETAMINOPHEN TAB 325 MG TAB PO PRN (13:36)
[2020-03-24] MEDS ORDERED: TEMAZEPAM 15 MG CAP PO PRN (13:37)
[2020-03-24] MEDS ORDERED: HYDROcodone/APAP 5-325MG 1 EACH TAB PO PRN (13:37)
[2020-03-24] MEDS ORDERED: ALPRAZolam 0.25 MG TAB PO PRN (13:37)
[2020-03-24] MEDS ORDERED: HYDROmorphone 0.5 MG/0.5 ML SYRINGE IVP PRN (13:37)
[2020-03-24 14:23] LABS: Appearance,Urine Clear (Clear); Bilirubin,Urine Negative (Negative); Blood,Urine Negative (Negative); Color,Urine Light Yellow; Glucose,Urine (UA) Negative (Negative); Ketones,Urine Negative (Negative); Leukocyte Esterase,Urine Trace (Negative); Nitrite,Urine Negative (Negative); Protein,Urine Negative (Negative); RBC,Urine 3 /hpf (0-5); Squamous Epithelial Cell,Urine <1 /hpf (0-4); Urobilinogen,Urine <2.0 mg/dL (<2.0); WBC,Urine 2 /hpf (0-5)
[2020-03-24] MEDS: METHENAMINE HIPPURATE 1 GM PO SCH (14:32)
[2020-03-24] MEDS: PANTOPRAZOLE 40 MG/10 ML VIAL IVP SCH ×2 (14:39→21:27)
[2020-03-24] MEDS: LEVOTHYROXINE 100 MCG TAB PO SCH (14:40)
[2020-03-24 14:50] VITALS: RESP 16
--- NOTE | 2020-03-24 15:44 | HP ---
HISTORY AND PHYSICAL DATE OF SERVICE: 03/24/2020 CHIEF COMPLAINT: Chest and back pain. HISTORY OF PRESENT ILLNESS: This is a 80-year-old woman with a past history of CAD, CABG done at the [facility], history of hypertension, hyperlipidemia, mitral valve prolapse, history of sleep apnea, hypothyroidism, being followed by Dr. Erickson in the outpatient setting. She had chest pain that started while the patient was sleeping. The pain initially started in the upper back which is radiating to the front of the chest and was sharp in character, mild to moderate intensity, which was persisting, not associated with any shortness of breath, any palpitations, diaphoresis. No other radiation of the pain. Patient came to [facility] and initial EKG was normal. Troponins are normal. CT scan of the chest showed a 4 cm aneurysm of the ascending aorta and some cholelithiasis and nonobstructing renal calculus also noted. Cardiology and cardiothoracic surgery evaluation is in progress. Medical Office Professional Instructor is monitoring with serial troponins. Cardiothoracic surgery recommended no other intervention at this time. There is no history of fever, rigors, chills at this time. PAST MEDICAL: History of coronary artery disease, CABG, hypertension, hyperlipidemia, mitral valve prolapse, history of appendectomy, bowel resection, breast surgery. MEDICATIONS PRIOR TO ADMISSION: Multivitamins 1 p.o. daily, Tylenol, Hiprex, Synthroid, fenofibrate, Crestor, Zestril, Lopressor, vitamin D2, aspirin. Doses reviewed. ALLERGIES: SULFA, AMOXICILLIN, FAMILY HISTORY: History of CAD, hypertension, hyperlipidemia, atherosclerosis. SOCIAL HISTORY: No history of smoking. No history of alcohol. REVIEW OF SYSTEMS: ENT: No diminished vision or hearing. CARDIOVASCULAR: As mentioned earlier. RESPIRATORY: As mentioned earlier. GI: No nausea or vomiting. : No dysuria. NERVOUS SYSTEM: No numbness or weakness. ALLERGY/IMMUNOLOGY: No asthma or hayfever. MUSCULOSKELETAL: As mentioned earlier. HEMATOLOGY: No history of anemia. ENDOCRINE: No history of diabetes or hypothyroidism. CONSTITUTIONAL: As mentioned earlier. DERMATOLOGY: Negative. RHEUMATOLOGY: Negative. PSYCHIATRY: As mentioned earlier. PHYSICAL EXAMINATION: GENERAL: Patient is alert and oriented times three. VITAL SIGNS: Pulse 77, blood pressure 150/73, respirations 18, temperature 98.1, pulse ox 99% on room air HEENT: Conjunctivae normal. Oral mucosa moist. NECK: No jugular venous distention. No carotid bruits. No lymph node enlargement. RESPIRATORY: Breath sounds diminished at the bases. No rhonchi, no crackles. HEART: S1 and S2, muffled. ABDOMEN: Soft, no tenderness. No masses palpable. EXTREMITIES: No edema, no swelling. NERVOUS: Higher functions as mentioned earlier. Moves all four limbs. No focal motor or sensory deficits. LYMPHATICS: No lymph nodes in the neck or axillae. SKIN: No rashes. JOINTS: No active deforming arthropathy. LABS: CBC within normal limits. Sodium 139, potassium 4.2, creatinine is 1.05, glucose 113. ASSESSMENT: 1. Chest pain, possible unstable angina. 2. A 4 cm ascending aortic aneurysm without any dissection. 3. Increased creatinine with possible mild acute renal failure. 4. Increased random blood sugar. 5. History of coronary artery disease and coronary artery bypass graft. 6. Hypertension. 7. Hyperlipidemia. 8. History of mitral valve prolapse. 9. History of sleep apnea. 10.Hypothyroidism. 11.History of degenerative joint disease. 12.History of nephrolithiasis. 13.History of migraine. 14.History of bowel resection. 15.History of depression. 16.Obesity with body mass index of 39. RECOMMENDATIONS AND DISCUSSION: In this 80-year-old woman who presented with multiple complex medical issues, we will monitor the patient closely. Continue the current management, continue symptomatic treatment. Rule out myocardial infarction. As mentioned earlier, ascending aortic aneurysm to be followed up in the outpatient setting per Cardiothoracic Surgery. We will closely follow with Cardiology. Resume the home medications. Prognosis guarded because of multiple medical problems. A stress test, as well as echocardiogram and stress echo has been ordered. Further recommendations to follow. MMODL / IJN: [id number] / MTDD
[2020-03-24] MEDS ORDERED: ATORVASTATIN 20 MG TAB PO SCH (21:00)
[2020-03-24] MEDS ORDERED: lisinopriL 5 MG TAB PO SCH (21:00)
[2020-03-24] MEDS ORDERED: FENOFIBRATE 160 MG TAB PO SCH (21:00)
[2020-03-24] MEDS: METOPROLOL TARTRATE 25 MG TAB PO SCH (21:22)
[2020-03-24 21:23] LABS: Glucose,Whole Blood 148 mg/dL (75-99)
[2020-03-25] MEDS: SODIUM CHLORIDE 0.9% 1,000 ML IV SCH (01:06)
[2020-03-25] MEDS: LEVOTHYROXINE 100 MCG TAB PO SCH (06:13)
[2020-03-25 06:24] LABS: Appearance,Urine Clear (Clear); Bilirubin,Urine Negative (Negative); Blood,Urine Negative (Negative); Color,Urine Light Yellow; Glucose,Urine (UA) Negative (Negative); Ketones,Urine Negative (Negative); Leukocyte Esterase,Urine Negative (Negative); Nitrite,Urine Negative (Negative); Protein,Urine Negative (Negative); Specific Gravity,Urine 1.007 (1.001-1.035); Urobilinogen,Urine <2.0 mg/dL (<2.0)
[2020-03-25] MEDS ORDERED: CAFFEINE CITRATE 60 MG/3 ML VIAL IV PRN (07:00)
[2020-03-25] MEDS ORDERED: REGADENOSON 0.4 MG/5 ML SYRINGE IV ONE (07:00)
[2020-03-25] MEDS ORDERED: AMINOPHYLLINE 500 MG/20 ML VIAL IV PRN (07:00)
[2020-03-25 08:05] VITALS: BP 159/78; PULSE 77; TEMP 97.7
[2020-03-25] MEDS: PANTOPRAZOLE 40 MG/10 ML VIAL IVP SCH (08:27)
[2020-03-25] MEDS: METOPROLOL TARTRATE 25 MG TAB PO SCH (08:27)
[2020-03-25 08:38] LABS: Basophils # (A) 0.1 k/uL (0-0.2); Basophils % (A) 1 %; Eosinophils # (A) 0.1 k/uL (0-0.7); Eosinophils % (A) 2 %; HGB 13.7 gm/dL (11.4-16.0); Lymphocytes % (A) 32 %; MCH 29.5 pg (25.0-35.0); MCHC 31.3 g/dL (31.0-37.0); MCV 94.5 fL (80.0-100.0); Mean Platelet Volume 8.3; Monocytes # (A) 0.5 k/uL (0-1.0); Monocytes % (A) 8 %; Neutrophils # (A) 3.4 k/uL (1.3-7.7); Neutrophils % (A) 55 %; Platelet Count 224 k/uL (150-450); RBC 4.65 m/uL (3.80-5.40); RDW 13.3 % (11.5-15.5); WBC 6.2 k/uL (3.8-10.6)
[2020-03-25 09:00] LABS: Calcium 9.2 mg/dL (8.4-10.2); Potassium 4.4 mmol/L (3.5-5.1)
[2020-03-25] MEDS ORDERED: ASPIRIN 325 MG TAB PO SCH (09:00)
[2020-03-25] MEDS ORDERED: MULTIVITAMINS, THERA 1 EACH TAB PO SCH (09:00)
--- NOTE | 2020-03-25 10:13 | NM ---
EXAMINATION TYPE: NM stress lexiscan cardiolite DATE OF EXAM: 03/25/2020 COMPARISON: Prior nuclear medicine cardiac stress study January 17, 2014 HISTORY: History of hypertension, hypercholesterolemia, and family history of heart attack along with prior 4 vessel CABG procedure presents with chest pressure and pain. TECHNIQUE: After the intravenous administration of 10.6 mCi Tc 99m Sestamibi - Cardiolite resting SP ECT images acquired 55 minutes post injection. The patient received 0.4mg Lexiscan, 26.6 mCi Tc 99m Sestamibi - Stress images obtained [address] injection FINDINGS: Review of stress and rest SPECT images demonstrates no distinct perfusion abnormality. Gated analysi s shows normal wall motion with an estimated left ventricular ejection fraction of 62 %. IMPRESSION: No scintigraphic evidence for reversible ischemia. No significant change from prior.
--- NOTE | 2020-03-25 10:44 | P.PN ---
Subjective This is a pleasant 80-year-old female past medical history significant for coronary artery disease status post bypass grafting, hypertension and dyslipidemia. She follows in the office with Dr. Ching. She is seen and examined resting comfortably in no acute distress. She has no further symptoms of chest discomfort. She denies shortness of breath, dizziness or palpitations. Blood pressure 159/78 heart rate 77 afebrile maintaining oxygen saturation on room air. Laboratory data reviewed, CBC unremarkable, cardiac enzymes negative 3, sodium 139, potassium 4.4, creatinine 1.01, LDL 81 and HDL 41. Currently maintained on aspirin 325 mg daily, atorvastatin 20 mg every other day and 10 mg every other day, fenofibrate 160 mg at bedtime, lisinopril 5 mg daily and Lopressor 25 mg twice a day. GENERAL: Well-appearing, well-nourished and in no acute distress. NECK: Supple without JVD or thyromegaly. LUNGS: Breath sounds clear to auscultation bilaterally. Respiration equal and unlabored. No wheezes, rales or rhonchi. HEART: Regular rate and rhythm without murmurs, rubs or gallops. S1 and S2 heard. EXTREMITIES: Normal range of motion, no edema. No clubbing or cyanosis. Peripheral pulses intact. ASSESSMENT Back pain, atypical for angina. History of coronary artery disease status post bypass grafting Hypertension Dyslipidemia PLAN Lexiscan stress test this morning that was negative for reversibility. Decrease aspirin to 81 mg daily. Stable for discharge from a cardiac perspective, follow-up with Dr. Dr. Johanna luis in the office in 2 weeks. Nurse Practitioner note has been reviewed, I agree with a documented findings and plan of care. Patient was seen and examined. Objective - Vital Signs Vital signs: Vital Signs Temp 97.7 F 03/25/20 08:05 Pulse 77 03/25/20 08:05 Resp 16 03/25/20 08:05 BP 159/78 03/25/20 08:05 Pulse Ox 96 03/25/20 08:05 Intake & Output 03/24/20 03/25/20 03/25/20 18:59 06:59 18:59 Intake Total 422 275 Output Total 450 Balance 422 -175 Weight 87.543 kg 87.54 kg Intake: Oral 422 275 Output: Urine 450 Other: Voiding Method Toilet Toilet # Voids 4 1 - Labs CBC & Chem 7: 03/25/20 08:07 03/25/20 08:07 Labs: Abnormal Lab Results - Last 24 Hours (Table) 03/24/20 03/24/20 03/25/20 Range/Units 13:48 21:21 08:07 Chloride 109 H (98-107) mmol/L BUN 18 H (7-17) mg/dL Glucose 123 H (74-99) mg/dL POC Glucose (mg/dL) 148 H (75-99) mg/dL Ur Leukocyte Esterase Trace H (Negative)
--- NOTE | 2020-03-25 11:35 | EST ---
EXERCISE STRESS AGE: 80 SEX: F HT: 4 ft. 11 in. WT: 192 PROTOCOL: Lexiscan STAGE: N/A DURATION OF EXERCISE: N/A HEART RATE REST: 77 BLOOD PRESSURE REST: 170/86 MAXIMUM HEART RATE ACHIEVED: 97 MAXIMUM BLOOD PRESSURE: 170/86 85% MPHR: 121 100% MPHR: 142 METS: N/A INDICATIONS: Chest pain. CLINICAL INFORMATION: INDICATION: Coronary artery disease. Baseline EKG shows sinus rhythm, normal axis, normal intervals. Patient was given intravenous Lexiscan as per protocol. Did not have chest pain or diagnostic ST-segment depression. CONCLUSION: 1. Negative stress test by EKG criteria. 2. Cardiolite portion of the stress test will be reported separately. MMODL / IJN: [id number] /
[2020-03-25] MEDS: METHENAMINE HIPPURATE 1 GM PO SCH (11:45)
[2020-03-25] MEDS ORDERED: PANTOPRAZOLE 40 MG TABLET PO SCH (17:30)
--- NOTE | 2020-03-25 18:00 | ECHOF ---
Referral Reason:chest pain MEASUREMENTS -------- HEIGHT: 129.5 cm WEIGHT: 87.5 kg BP: IVSd: 1.3 cm (0.6 - 1.1) LVIDd: 3.7 cm (3.9 - 5.3) LVPWd: 1.4 cm (0.6 - 1.1) IVSs: 2.4 cm LVIDs: 2.0 cm LVPWs: 1.6 cm Ao Diam: 2.8 cm (2.0 - 3.7) AV Cusp: 1.6 cm (1.5 - 2.6) LA Diam: 2.9 cm (2.7 - 3.8) MV EXCURSION: 13.189 mm (> 18.000) MV EF SLOPE: 88 mm/s (70 - 150) EPSS: 0.5 cm MV E Deep: 0.69 m/s MV DecT: 203 ms MV A Deep: 0.72 m/s MV E/A Ratio: 0.96 AR PHT: 720 ms RAP: 5.00 mmHg RVSP: 9.84 mmHg FINDINGS -------- This was a technically adequate study. The left ventricular size is normal. There is moderate concentric left ventricular hypertrophy. O verall left ventricular systolic function is normal with, an EF between 55 - 60 %. The right ventricle is normal in size. The left atrial size is normal. The right atrial size is normal. Aortic valve is trileaflet and is mildly thickened. There is mild aortic regurgitation. The mitral valve is normal. The mitral valve leaflets are mildly thickened. There is trace mitral regurgitation. The tricuspid valve appears structurally normal. Trace tricuspid regurgitation present. Right mary tricular systolic pressure is normal at < 35 mmHg. There is no pulmonic regurgitation present. The aortic root size is normal. Normal inferior vena cava with normal inspiratory collapse consistent with estimated right atrial pre ssure of 5 mmHg. There is no pericardial effusion. CONCLUSIONS -------- 1. The left ventricular size is normal. 2. There is moderate concentric left ventricular hypertrophy. 3. Overall left ventricular systolic function is normal with, an EF between 55 - 60 %. 4. Aortic valve is trileaflet and is mildly thickened. 5. There is mild aortic regurgitation. 6. The mitral valve leaflets are mildly thickened. 7. There is trace mitral regurgitation. 8. Trace tricuspid regurgitation present. 9. There is no pericardial effusion. CNC MECHANIC: Kate Ayala RDCS
[2020-03-25] MEDS ORDERED: ATORVASTATIN 10 MG TAB PO SCH (21:00)
[2020-03-26] MEDS ORDERED: LEVOTHYROXINE 50 MCG TAB PO SCH (06:30)
[2020-03-26] MEDS ORDERED: ERGOCALCIFEROL 50,000 UNIT CAP PO SCH (09:00)
[2020-03-26] MEDS ORDERED: ASPIRIN 81 MG PO SCH (09:00)
--- NOTE | 2020-03-26 09:44 | DS ---
DISCHARGE SUMMARY DATE OF SERVICE: 03/25/2020 FINAL DIAGNOSES: 1. Back and chest pain possibly musculoskeletal with negative stress test. 2. 4 cm ascending aortic aneurysm without any dissection. 3. Increased creatinine with possible mild acute renal failure, improved. 4. Increased random blood sugar. 5. History of coronary artery disease, coronary artery bypass grafting. 6. Hypertension. 7. Hyperlipidemia. 8. History of mitral valve prolapse. 9. History of sleep apnea. 10.History of hypothyroidism. 11.History of degenerative joint disease. 12.History of nephrolithiasis. 13.History of migraine. 14.History of bowel resection. 15.History of depression. 16.Obesity with body mass index of 39. DISCHARGE DISPOSITION: The patient being discharged in stable condition with guarded prognosis. HISTORY OF PRESENT ILLNESS: This 80-year-old woman with past medical history of multiple medical problems being followed by Dr. Erickson in the outpatient setting, was admitted with chest pain. Myocardial infarction ruled out. CT scan showed 4 cm ascending aortic aneurysm with no dissection. Seen by Cardiothoracic Surgery. Recommend outpatient followup. Otherwise the patient also had a Lexiscan stress test per Cardiology, which was negative. The patient is being discharged in stable condition. Guarded prognosis. On exam, vitals are stable. Cardiovascular S1, S2. Abdomen soft. Nervous system: No focal deficits. Hemoglobin stable at 13.7. DISCHARGE ADVICE AND MEDICATION: 1. Diet is cardiac diet. 2. Activity limited until followup. 3. Follow up with Dr. Erickson in 2-3 days. 4. Follow up with Cardiology as recommended. DISCHARGE MEDICATIONS: 1. Aspirin 81 mg p.o. b.i.d. 2. Crestor 5 mg q.48 hours. 3. Crestor 10 mg q.48 hours. 4. Fenofibrate 140 mg q.h.s. 5. Hiprex 1 tablet p.o. daily. 6. Lopressor 25 mg p.o. b.i.d. 7. Multivitamins 1 p.o. daily. 8. Synthroid 100 mcg p.o. and 50 mcg as before. 9. Tylenol p.r.n. 10.Vitamin D2 1 capsule Wednesday. 11.Zestril 5 mg q.h.s. Once again the patient discharged in stable condition. Guarded prognosis. MMODL / IJN: [id number] /
== END 2020-03-25 15:30 ==
LOC: EC 03:37 → 3NCARDOBS 05:23
PROVIDERS: ADMIT Internal Medicine; ATTEND Internal Medicine
DX: R07.89 Other chest pain (principal); M54.6 Pain in thoracic spine; I71.2 Thoracic aortic aneurysm, without rupture; I25.10 Atherosclerotic heart disease of native coronary artery without angina pectoris; E86.0 Dehydration; I10 Essential (primary) hypertension; E78.5 Hyperlipidemia, unspecified; I49.3 Ventricular premature depolarization; I08.3 Combined rheumatic disorders of mitral, aortic and tricuspid valves; R61 Generalized hyperhidrosis; R11.0 Nausea; R79.89 Other specified abnormal findings of blood chemistry; R73.09 Other abnormal glucose; K80.20 Calculus of gallbladder without cholecystitis without obstruction; N20.0 Calculus of kidney; M19.90 Unspecified osteoarthritis, unspecified site; G43.909 Migraine, unspecified, not intractable, without status migrainosus; F32.9 Major depressive disorder, single episode, unspecified; G47.33 Obstructive sleep apnea (adult) (pediatric); Z99.89 Dependence on other enabling machines and devices; E03.9 Hypothyroidism, unspecified; Z68.39 Body mass index [BMI] 39.0-39.9, adult; E66.9 Obesity, unspecified; Z95.1 Presence of aortocoronary bypass graft; Z79.82 Long term (current) use of aspirin; Z79.890 Hormone replacement therapy; Z79.02 Long term (current) use of antithrombotics/antiplatelets; Z79.899 Other long term (current) drug therapy; Z88.0 Allergy status to penicillin; Z88.2 Allergy status to sulfonamides; Z87.442 Personal history of urinary calculi; Z87.440 Personal history of urinary (tract) infections; Z87.19 Personal history of other diseases of the digestive system; Z90.710 Acquired absence of both cervix and uterus; Z90.49 Acquired absence of other specified parts of digestive tract; Z82.49 Family history of ischemic heart disease and other diseases of the circulatory system; Z80.41 Family history of malignant neoplasm of ovary
CPT/HCPCS: 93005 ×2; 96361; 96374; 96376 ×2; 99285; 36415; 93017; 93306; 85379; 80061; 80053; 80048; 82150; 83690; 83735; 84484; 85025 ×2; 85610; 85730; 81003; 81001; 71045; 71275; 74174; 78452; G0378 ×2; A9500; J2785; C9113 ×2; Q9967

== ENCOUNTER → 2020-05-15 | Outpatient (CLI) | payer MEDICARE, BC ==
--- NOTE | 2020-05-15 11:05 | SFUN ---
SLEEP CENTER FOLLOW UP NOTE DATE OF SERVICE: 05/15/2020 A 80-year-old lady who has been followed in the Sleep Center for treatment of obstructive sleep apnea-hypopnea syndrome. Patient continues to use her CPAP equipment every night. Sometimes feel sleepiness during the day. [place] Sleepiness Scale is 4. I checked her CPAP unit, pressure is 10 cm of water and this is a new unit since I saw patient last time 1 year ago. Usage is 30/30 nights and 24/30 nights for more than 4 hours with average usage 5.8 hours per night. Leak is 24 L/minute. Apnea-hypopnea index only 0.7, which is absolutely perfect. MEDICATIONS: Metoprolol 25 mg twice a day, levothyroxine 100 mcg once a day, lisinopril 5 mg once a day, Tricor 145 mg once a day, a baby aspirin 81 mg once a day, Crestor, patient does not remember the dose. PHYSICAL EXAM: Patient in no distress, BP 133/82, HR 98, RR 16, height 4, 11-1/2, weight 192, BMI 38.7, temperature 98.0, oxygen saturation at room air 95%. OROPHARYNX: Extremely low position of soft palate. Mallampati 4. ABDOMEN: Obese. NECK: Supple, no JVD. Thyroid is not palpable. LUNGS: Clear to percussion and to auscultation. Good air exchange. No wheezing or rhonchi. HEART: S1, S2 regular. No murmurs, gallops, or rubs. EXTREMITIES: No clubbing or cyanosis. WIRER HELPER: Awake, alert, and oriented X3. Cranial nerves 2 to 7 intact. There is no fasciculation or atrophy. noted. No focal deficits observed. IMPRESSION: 1. Obstructive sleep apnea-hypopnea syndrome. Patient demonstrated great compliance with treatment benefitting from treatment. 2. Obesity, BMI 38.7. 3. Coronary artery disease, status post coronary artery bypass grafting. 4. Asthma. 5. Hypertension. 6. Hyperlipidemia. 7. Hypothyroidism. 8. History of sinusitis. 9. Status post colon resection for diverticulitis. PLAN: 1. Patient will continue to use PAP equipment every night for the whole night. 2. Sleep hygiene with regular time in bed for at least 7-1/2 to 8 hours. 3. Precautions related to driving. No driving if feeling sleepiness. 4. I will maintain all necessary prescription for PAP supplies including mask, tube, filters. 5. Watching weight. 6. No driving if feeling sleepiness. 7. Follow-up visit in 6 months or earlier if patient has any problems. Thank you very much for allowing me to participate in management of your patient. Sincerely, Jose Campbell MD, PhD, FAASM Diplomat of [employer] [employer] [facility] [place] MMODL / ROSEMARIEN: [id number] /
== END | disposition home or self-care (01) ==
LOC: SLEEP 10:09
PROVIDERS: ATTEND Internal Medicine
DX: G47.33 Obstructive sleep apnea (adult) (pediatric) (principal); I10 Essential (primary) hypertension; E78.5 Hyperlipidemia, unspecified; E03.9 Hypothyroidism, unspecified; J45.909 Unspecified asthma, uncomplicated; I25.10 Atherosclerotic heart disease of native coronary artery without angina pectoris; E66.9 Obesity, unspecified; Z68.38 Body mass index [BMI] 38.0-38.9, adult; Z99.89 Dependence on other enabling machines and devices; Z87.19 Personal history of other diseases of the digestive system; Z87.898 Personal history of other specified conditions; Z98.890 Other specified postprocedural states; Z79.890 Hormone replacement therapy; Z79.899 Other long term (current) drug therapy; Z79.82 Long term (current) use of aspirin; Z95.1 Presence of aortocoronary bypass graft

== ENCOUNTER → 2021-03-01 | Outpatient (CLI) | payer MEDICARE, BC ==
--- NOTE | 2021-03-03 09:10 | US ---
EXAMINATION TYPE: US duplex aorta DATE OF EXAM: 03/01/2021 COMPARISON: CTA 03/24/20 CLINICAL HISTORY: R09.89 Abdominal bruit. EXAM MEASUREMENTS: Abdominal Aorta: Proximal: 2.6 x 2.4 cm Mid: 2.2 x 2.0 cm Distal: 1.9 x 1.6 cm Bifurcation: rt = 1.2 x 0.7 cm lt = 1.0 x 0.7 cm Atherosclerotic changes seen. No evidence of AAA IMPRESSION: 1. Aorta tapers normally throughout its visualized course. Plaquing is present. No aneurysmal dilatat ion is evident
== END | disposition home or self-care (01) ==
LOC: RADUSWWP 08:23
PROVIDERS: ATTEND Internal Medicine Cardiovascular Disease
DX: I70.0 Atherosclerosis of aorta (principal)
CPT/HCPCS: 93979

== ENCOUNTER → 2021-03-10 | Outpatient (CLI) | payer MEDICARE, BC ==
--- NOTE | 2021-03-12 09:29 | MM ---
Reason for exam: screening (asymptomatic). Last mammogram was performed 1 year and 9 months ago. History: Patient is postmenopausal. Family history of breast cancer in 2 paternal cousins. Benign MG stereo VAD BX LT of the left breast, July 22, 2018. Took hormonal contraceptives for 5 years. Took estrogen for 17 years 4 months beginning at age 49. Physical Findings: A clinical breast exam by your physician is recommended on an annual basis and results should be correlated with mammographic findings. MG 3D Screening Mammo W/Cad Bilateral CC and MLO view(s) were taken. Prior study comparison: June 06, 2019, bilateral MG 3d diag mammo w/cad AZEB. January 24, 2019, left breast MG 3d diag mammo w/cad LT. June 02, 2018, bilateral MG 3d screening mammo w/cad. July 13, 2016, bilateral MG 3d diag mammo w/cad AZEB. There are scattered fibroglandular densities. Benign secretory calcifications. No significant changes when compared with prior studies. ASSESSMENT: Benign, BI-RAD 2 RECOMMENDATION: Routine screening mammogram of both breasts in 1 year.
== END | disposition home or self-care (01) ==
LOC: RADMAMWWP 15:42
PROVIDERS: ATTEND Obstetrics & Gynecology
DX: Z12.31 Encounter for screening mammogram for malignant neoplasm of breast (principal); Z78.0 Asymptomatic menopausal state; Z80.3 Family history of malignant neoplasm of breast
CPT/HCPCS: 77063; 77067

== ENCOUNTER → 2021-04-11 | Outpatient (CLI) | payer MEDICARE, BC ==
[2021-04-11 15:25] LABS: Appearance,Urine Clear (Clear); Bilirubin,Urine Negative (Negative); Blood,Urine Negative (Negative); Color,Urine Yellow; Glucose,Urine (UA) Negative (Negative); Ketones,Urine Negative (Negative); Leukocyte Esterase,Urine Moderate (Negative); Mucus,Urine Rare /hpf; Nitrite,Urine Negative (Negative); PH, Urine 5.5 (5.0-8.0); Protein,Urine Negative (Negative); RBC,Urine 1 /hpf (0-5); Specific Gravity,Urine 1.027 (1.001-1.035); Squamous Epithelial Cell,Urine 1 /hpf (0-4); Urobilinogen,Urine <2.0 mg/dL (<2.0); WBC,Urine 8 /hpf (0-5)
[2021-04-11 19:36] LABS: Basophils # (A) 0.04 X 10*3/uL (0.00-0.10); Basophils % (A) 0.6 %; Eosinophils # (A) 0.09 X 10*3/uL (0.04-0.35); Eosinophils % (A) 1.3 %; HCT 43.1 % (37.2-46.3); HGB 13.8 g/dL (12.0-15.0); Lymphocytes # (A) 2.37 X 10*3/uL (0.90-5.00); Lymphocytes % (A) 33.1 %; MCH 30.5 pg (27.0-32.0); MCV 95.4 fL (80.0-97.0); Mean Platelet Volume 10.9 fL (9.5-12.2); Monocytes # (A) 0.82 X 10*3/uL (0.20-1.00); Monocytes % (A) 11.5 %; Neutrophils # (A) 3.83 X 10*3/uL (1.80-7.70); Neutrophils % (A) 53.4 %; Platelet Count 297 X 10*3/uL (140-440); RBC 4.52 X 10*6/uL (4.10-5.20); RDW 13.9 % (11.5-14.5); WBC 7.16 X 10*3/uL (4.50-10.00)
[2021-04-11 20:27] LABS: African American GFR (CKD) 49.8 (60.0-200.0); Albumin 4.3 g/dL (3.8-4.9); Albumin/Globulin Ratio 1.95 (1.60-3.17); Anion Gap 12.3 mmol/L (4.00-12.00); BUN/Creat Ratio 23.17 Ratio (12.00-20.00); Blood Urea Nitrogen 27.8 mg/dL (9.0-27.0); Calcium 9.8 mg/dL (8.7-10.3); Carbon Dioxide 23.7 mmol/L (21.6-31.8); Globulin 2.2 g/dL (1.6-3.3); Magnesium 2.1 mg/dL (1.5-2.4); Non-African American GFR(CKD) 42.9 (60.0-200.0); Phosphorus 3.7 mg/dL (2.4-5.1); Potassium 4.3 mmol/L (3.5-5.5); Total Bilirubin 0.3 mg/dL (0.30-1.20); Total Protein 6.5 g/dL (6.2-8.2); Uric Acid 4.1 mg/dL (2.9-7.7)
== END | disposition home or self-care (01) ==
LOC: LABWHC1 14:11
PROVIDERS: ATTEND Internal Medicine
DX: N18.30 Chronic kidney disease, stage 3 unspecified (principal); D64.9 Anemia, unspecified; N39.0 Urinary tract infection, site not specified; N25.81 Secondary hyperparathyroidism of renal origin; E55.9 Vitamin D deficiency, unspecified; M10.9 Gout, unspecified
CPT/HCPCS: 36415; 80053; 81001; 82306; 83735; 83970; 84100; 84550; 85025

== ENCOUNTER → 2021-04-15 | Outpatient (CLI) | payer MEDICARE, BC ==
[2021-04-15 14:10] LABS: HCT 43.2 % (34.0-46.0); HGB 13.9 gm/dL (11.4-16.0); MCH 31.6 pg (25.0-35.0); MCHC 32.1 g/dL (31.0-37.0); MCV 98.5 fL (80.0-100.0); Mean Platelet Volume 7.9; Platelet Count 302 k/uL (150-450); RBC 4.39 m/uL (3.80-5.40); RDW 13.3 % (11.5-15.5); WBC 8.4 k/uL (3.8-10.6)
[2021-04-15 14:48] LABS: Appearance,Urine Clear (Clear); Bilirubin,Urine Negative (Negative); Blood,Urine Negative (Negative); Color,Urine Light Yellow; Glucose,Urine (UA) Negative (Negative); Ketones,Urine Negative (Negative); Leukocyte Esterase,Urine Negative (Negative); Nitrite,Urine Negative (Negative); Protein,Urine Negative (Negative); Specific Gravity,Urine 1.007 (1.001-1.035); Urobilinogen,Urine <2.0 mg/dL (<2.0)
--- NOTE | 2021-04-15 15:53 | US ---
EXAMINATION TYPE: US kidneys/renal and bladder DATE OF EXAM: 04/15/2021 COMPARISON: None CLINICAL HISTORY: 81-year-old female N18.30 Chronic kidney disease, stage 3 unspecified. TECHNIQUE: Multiple sonographic images of the kidneys and bladder are obtained. FINDINGS: EXAM MEASUREMENTS: Right Kidney: 11.8 x 4.5 x 6.0 cm Left Kidney: 10.5 x 5.4 x 5.2 cm No hydronephrosis on either side. Bladder: wnl Bilateral Jets seen: Yes IMPRESSION: No hydronephrosis.
== END | disposition home or self-care (01) ==
LOC: RADUSWWP 12:57
PROVIDERS: ATTEND Family Medicine
DX: N18.30 Chronic kidney disease, stage 3 unspecified (principal)
CPT/HCPCS: 76770; 81003; 84100; 85027

== ENCOUNTER 2021-07-09 14:42 | Inpatient (IN) | payer MEDICARE, BC ==
[2021-07-09 16:24] LABS: Basophils % (A) 0 %; Eosinophils # (A) 0.1 k/uL (0-0.7); Eosinophils % (A) 2 %; HCT 42.7 % (34.0-46.0); HGB 14.2 gm/dL (11.4-16.0); Lymphocytes # (A) 2.2 k/uL (1.0-4.8); Lymphocytes % (A) 29 %; MCH 31.9 pg (25.0-35.0); MCHC 33.3 g/dL (31.0-37.0); Monocytes # (A) 0.5 k/uL (0-1.0); Monocytes % (A) 7 %; Neutrophils # (A) 4.6 k/uL (1.3-7.7); Neutrophils % (A) 60 %; Platelet Count 254 k/uL (150-450); RBC 4.45 m/uL (3.80-5.40); RDW 14.1 % (11.5-15.5); WBC 7.6 k/uL (3.8-10.6)
[2021-07-09 16:35] LABS: Albumin 4.1 g/dL (3.5-5.0); Calcium 9.9 mg/dL (8.4-10.2); Magnesium 2.1 mg/dL (1.6-2.3); Potassium 4.6 mmol/L (3.5-5.1); Total Bilirubin 0.9 mg/dL (0.2-1.3)
[2021-07-09 16:46] LABS: Partial Thromboplastin Time 22.5 sec (22.0-30.0); Prothrombin Time 10.2 sec (9.0-12.0)
--- NOTE | 2021-07-09 17:19 | ED ---
SOB HPI - General Chief Complaint: Shortness of Breath Stated Complaint: possible blood clot Time Seen by Provider: 07/09/21 14:55 Source: patient Mode of arrival: wheelchair Limitations: no limitations - History of Present Illness Initial Comments: Patient is a 81-year-old female past history of coronary artery disease status post bypass, hypertension, hyperlipidemia who presents to the emergency department with reported shortness of breath. States that she has been short of breath with exertion for the past several days. She saw Dr. Erickson on Wednesday and had some laboratory tests completed. He placed her on several inhalers. She come to the pick him up from the pharmacy however they cost close to $400. Today she went to Dr. Small office who is her resort keeper out of [facility]. She had a nuclear stress test performed. They did receive a call while she was in the office that her d-dimer came back elevated. She wanted to come to our facility. Dr. Ochoa did call and inform us that she was on her way. Stated her d-dimer from Wednesday was 2500. He provides his phone number as [phone]. The patients denies chest pain. No fevers, chills or cough. Does admit to cold exposure around [facility] however her testing was negative. She is vaccinated. She does feel as if she has some right lower extremity swelling. No history of DVT or PE. She is not on any blood thinners. Denies any recent travel, recent surgeries. No history of peptic ulcer disease or hemorrhagic stroke. No other alleviating, precipitating or modifying factors - Related Data Home Medications Medication Instructions Recorded Confirmed Aspirin 81 mg PO BID 08/02/15 07/09/21 Rosuvastatin [Crestor] 5 mg PO Q48H 11/24/18 07/09/21 Levothyroxine Sodium [Synthroid] 100 mcg PO DAILY 07/13/19 07/09/21 Rosuvastatin [Crestor] 10 mg PO Q48H 07/13/19 07/09/21 Fenofibrate Nanocrystallized 145 mg PO DAILY 03/24/20 07/09/21 [Fenofibrate] Ergocalciferol (Vitamin D2) 1,250 mcg PO TU 07/09/21 07/09/21 [Drisdol (50,000 Iu)] Metoprolol Succinate (ER) [Toprol 50 mg PO DAILY 07/09/21 07/09/21 Xl] lisinopriL [Zestril] 5 mg PO HS 07/09/21 07/09/21 Previous Rx's Medication Instructions Recorded Apixaban [Eliquis Starter Pack 5 - 10 mg PO DIRECTED 30 Days 07/11/21 (for VTE)] #1 each Allergies Allergy/AdvReac Type Severity Reaction Status Date / Time Sulfa (Sulfonamide Allergy Unknown Verified 07/09/21 16:42 Antibiotics) amoxicillin [From Augmentin] AdvReac Nausea Verified 07/09/21 16:42 clavulanic acid AdvReac Nausea Verified 07/09/21 16:42 [From Augmentin] Review of Systems ROS Statement: Those systems with pertinent positive or pertinent negative responses have been documented in the HPI. ROS Other: All systems not noted in ROS Statement are negative. Past Medical History Past Medical History: Coronary Artery Disease (CAD), Chest Pain / Angina, Hyperlipidemia, Hypertension, Mitral Valve Prolapse (MVP), Sleep Apnea/CPAP/BIPAP, Thyroid Disorder Additional Past Medical History / Comment(s): diverticulitis, ddd, arthritis, UTI'S, KIDNEY STONES,INCONT OF URINE, arthritis,MIGRAINEs. History of Any Multi-Drug Resistant Organisms: None Reported Past Surgical History: Appendectomy, Bowel Resection, Breast Surgery, Section, Coronary Bypass/CABG, Heart Catheterization, Hysterectomy Additional Past Surgical History / Comment(s): BOWEL RESECTION D/T DIVERTICULITIS, QUAD BYPASS in 2008 at [facility], Breast biopsy, 7 exploratory abd sx. Past Anesthesia/Blood Transfusion Reactions: No Reported Reaction Past Psychological History: Depression Smoking Status: Never smoker Past Alcohol Use History: Occasional Past Drug Use History: None Reported - Past Family History Father Family Medical History: Coronary Artery Disease (CAD), Hyperlipidemia, Hypertension Additional Family Medical History / Comment(s): Atherosclerosis Mother Family Medical History: Cancer, Coronary Artery Disease (CAD), Myocardial Infarction (ND) Additional Family Medical History / Comment(s): ovarian cancer Brother(s) Family Medical History: Coronary Artery Disease (CAD) Additional Family Medical History / Comment(s): Brother had CABG; grandmother had ascending aortic aneurysm General Exam Limitations: no limitations General appearance: alert, in no apparent distress Head exam: Present: atraumatic, normocephalic, normal inspection Eye exam: Present: normal appearance, PERRL, EOMI. Absent: scleral icterus, conjunctival injection, periorbital swelling ENT exam: Present: normal exam, mucous membranes moist Neck exam: Present: normal inspection. Absent: tenderness, meningismus, lymphadenopathy Respiratory exam: Present: normal lung sounds bilaterally. Absent: respiratory distress, wheezes, rales, rhonchi, stridor Cardiovascular Exam: Present: regular rate, normal rhythm, normal heart sounds. Absent: systolic murmur, diastolic murmur, rubs, gallop, clicks GI/Abdominal exam: Present: soft, normal bowel sounds. Absent: distended, tenderness, guarding, rebound, rigid Extremities exam: Present: normal inspection, full ROM, normal capillary refill. Absent: tenderness, pedal edema, joint swelling, calf tenderness Back exam: Present: normal inspection Neurological exam: Present: alert, oriented X3, CN II-XII intact Psychiatric exam: Present: normal affect, normal mood Skin exam: Present: warm, dry, intact, normal color. Absent: rash Course Vital Signs 07/09/21 07/09/21 07/09/21 14:54 16:23 17:21 Temperature 97.6 F Pulse Rate 90 82 Respiratory 8 L 19 20 Rate Blood Pressure 152/77 O2 Sat by Pulse 92 L 93 L Oximetry 07/09/21 07/09/21 19:03 22:00 Temperature Pulse Rate 76 81 Respiratory 19 20 Rate Blood Pressure 150/79 155/92 O2 Sat by Pulse 92 L 94 L Oximetry - Reevaluation(s) Reevaluation #1: Spoke with Dr. Delcid who is on for PERT team 07/09/21 17:44 Medical Decision Making - Medical Decision Making Arrival patient is placed into room 2. A thorough history and physical exam was performed. 12-lead EKG is obtained. Laboratory studies were conducted. Patient does saturate 94% without increased work of breathing on room air. There and heart rate are stable. Laboratory studies are conducted and I did receive the laboratory studies are completed on Wednesday. D-dimer elevated at 4.4. Troponin is negative. BNP 306. Covid not detected. Patient sent for CT of the chest which demonstrates acute bilateral PE with moderate to large clot burden. Concern for right heart strain. No pleural effusion. Diffuse mild to moderate opacity with mosaic attenuation. Findings may relate small airway disease or evolving pulmonary infarcts. Superimposed infiltrate cannot be excluded. Patient has no contra indications to heparinization. I did seek with Dr. Rodriguez who admits the patient. Echo and lower extremity Dopplers are ordered. I did call and speak with Dr. Delcid who agrees with the treatment plan. Patient remained in hemodynamically stable condition awaiting a bed on the floor - Lab Data Result diagrams: 07/11/21 08:16 07/11/21 08:16 Lab Results 07/09/21 07/09/21 07/09/21 Range/Units 16:19 16:19 16:19 WBC 7.6 (3.8-10.6) k/uL RBC 4.45 (3.80-5.40) m/uL Hgb 14.2 (11.4-16.0) gm/dL Hct 42.7 (34.0-46.0) % MCV 96.0 (80.0-100.0) fL MCH 31.9 (25.0-35.0) pg MCHC 33.3 (31.0-37.0) g/dL RDW 14.1 (11.5-15.5) % Plt Count 254 (150-450) k/uL MPV 8.0 Neutrophils % 60 % Lymphocytes % 29 % Monocytes % 7 % Eosinophils % 2 % Basophils % 0 % Neutrophils # 4.6 (1.3-7.7) k/uL Lymphocytes # 2.2 (1.0-4.8) k/uL Monocytes # 0.5 (0-1.0) k/uL Eosinophils # 0.1 (0-0.7) k/uL Basophils # 0.0 (0-0.2) k/uL PT 10.2 (9.0-12.0) sec INR 1.0 (<1.2) APTT 22.5 (22.0-30.0) sec D-Dimer 4.41 H (<0.60) mg/L FEU Sodium 139 (137-145) mmol/L Potassium 4.6 (3.5-5.1) mmol/L Chloride 107 (98-107) mmol/L Carbon Dioxide 22 (22-30) mmol/L Anion Gap 10 mmol/L BUN 27 H (7-17) mg/dL Creatinine 0.94 (0.52-1.04) mg/dL Est GFR (CKD-EPI)AfAm 67 (>60 ml/min/1.73 sqM) Est GFR (CKD-EPI)NonAf 58 (>60 ml/min/1.73 sqM) Glucose 155 H (74-99) mg/dL Plasma Lactic Acid Vasyl (0.7-2.0) mmol/L Calcium 9.9 (8.4-10.2) mg/dL Magnesium 2.1 (1.6-2.3) mg/dL Total Bilirubin 0.9 (0.2-1.3) mg/dL AST 36 (14-36) U/L ALT 18 (4-34) U/L Alkaline Phosphatase 26 L (38-126) U/L Troponin I (0.000-0.034) ng/mL NT-Pro-B Natriuret Pep pg/mL Total Protein 7.0 (6.3-8.2) g/dL Albumin 4.1 (3.5-5.0) g/dL Coronavirus (PCR) (Not Detectd) 07/09/21 07/09/21 07/09/21 Range/Units 16:19 16:19 16:19 WBC (3.8-10.6) k/uL RBC (3.80-5.40) m/uL Hgb (11.4-16.0) gm/dL Hct (34.0-46.0) % MCV (80.0-100.0) fL MCH (25.0-35.0) pg MCHC (31.0-37.0) g/dL RDW (11.5-15.5) % Plt Count (150-450) k/uL MPV Neutrophils % % Lymphocytes % % Monocytes % % Eosinophils % % Basophils % % Neutrophils # (1.3-7.7) k/uL Lymphocytes # (1.0-4.8) k/uL Monocytes # (0-1.0) k/uL Eosinophils # (0-0.7) k/uL Basophils # (0-0.2) k/uL PT (9.0-12.0) sec INR (<1.2) APTT (22.0-30.0) sec D-Dimer (<0.60) mg/L FEU Sodium (137-145) mmol/L Potassium (3.5-5.1) mmol/L Chloride (98-107) mmol/L Carbon Dioxide (22-30) mmol/L Anion Gap mmol/L BUN (7-17) mg/dL Creatinine (0.52-1.04) mg/dL Est GFR (CKD-EPI)AfAm (>60 ml/min/1.73 sqM) Est GFR (CKD-EPI)NonAf (>60 ml/min/1.73 sqM) Glucose (74-99) mg/dL Plasma Lactic Acid Vasyl 1.0 (0.7-2.0) mmol/L Calcium (8.4-10.2) mg/dL Magnesium (1.6-2.3) mg/dL Total Bilirubin (0.2-1.3) mg/dL AST (14-36) U/L ALT (4-34) U/L Alkaline Phosphatase (38-126) U/L Troponin I <0.012 (0.000-0.034) ng/mL NT-Pro-B Natriuret Pep 306 pg/mL Total Protein (6.3-8.2) g/dL Albumin (3.5-5.0) g/dL Coronavirus (PCR) (Not Detectd) 07/09/21 Range/Units 16:47 WBC (3.8-10.6) k/uL RBC (3.80-5.40) m/uL Hgb (11.4-16.0) gm/dL Hct (34.0-46.0) % MCV (80.0-100.0) fL MCH (25.0-35.0) pg MCHC (31.0-37.0) g/dL RDW (11.5-15.5) % Plt Count (150-450) k/uL MPV Neutrophils % % Lymphocytes % % Monocytes % % Eosinophils % % Basophils % % Neutrophils # (1.3-7.7) k/uL Lymphocytes # (1.0-4.8) k/uL Monocytes # (0-1.0) k/uL Eosinophils # (0-0.7) k/uL Basophils # (0-0.2) k/uL PT (9.0-12.0) sec INR (<1.2) APTT (22.0-30.0) sec D-Dimer (<0.60) mg/L FEU Sodium (137-145) mmol/L Potassium (3.5-5.1) mmol/L Chloride (98-107) mmol/L Carbon Dioxide (22-30) mmol/L Anion Gap mmol/L BUN (7-17) mg/dL Creatinine (0.52-1.04) mg/dL Est GFR (CKD-EPI)AfAm (>60 ml/min/1.73 sqM) Est GFR (CKD-EPI)NonAf (>60 ml/min/1.73 sqM) Glucose (74-99) mg/dL Plasma Lactic Acid Vasyl (0.7-2.0) mmol/L Calcium (8.4-10.2) mg/dL Magnesium (1.6-2.3) mg/dL Total Bilirubin (0.2-1.3) mg/dL AST (14-36) U/L ALT (4-34) U/L Alkaline Phosphatase (38-126) U/L Troponin I (0.000-0.034) ng/mL NT-Pro-B Natriuret Pep pg/mL Total Protein (6.3-8.2) g/dL Albumin (3.5-5.0) g/dL Coronavirus (PCR) Not Detected (Not Detectd) - EKG Data EKG Comments: EKG demonstrates a sinus rhythm with frequent PVCs. Rate of 88. WI interval 200. QRS 90. QTC of 496. No acute ST segment elevations or depressions Critical Care Time Critical Care Time: Yes Critical Care Time: 35 minutes Disposition Clinical Impression: Acute respiratory insufficiency, Bilateral pulmonary embolism Disposition: ADMITTED IP TO THIS [facility] Condition: Stable Is patient prescribed a controlled substance at d/c from ED?: No Decision to Admit Reason: Admit from EC Decision Date: 07/09/21 Decision Time: 17:45
[2021-07-09] MEDS ORDERED: HEPARIN SODIUM 1,000 UN/ML (10ML VL) IV ONE (17:21)
[2021-07-09] MEDS ORDERED: HEPARIN SODIUM 1,000 UN/ML (10ML VL) IV PRN (17:21)
--- NOTE | 2021-07-09 17:22 | CT ---
EXAMINATION TYPE: CT chest angio for PE DATE OF EXAM: 07/09/2021 COMPARISON: 03/24/2020. HISTORY: Shortness of breath and elevated d-dimer. CT DLP: 432.3 mGycm Automated exposure control for dose reduction was used. CONTRAST: CT Chest for pulmonary embolism performed with with IV Contrast, patient injected with 80 mL of Isovu e 370. FINDINGS: LUNGS: There is bilateral diffuse mild hazy opacity with mosaic attenuation pattern. There is no pl eural effusion or pneumothorax seen. The tracheobronchial tree is patent. MEDIASTINUM: There is satisfactory enhancement of the pulmonary artery and its branches. There are se veral filling defects within the pulmonary arteries throughout the lungs bilaterally consistent with emboli. The emboli are most pronounced of the right greater than left lower lobe lobar, segmental and subsegmental branches with less pronounced mild to moderate involvement elsewhere. There are no grea ter than 1 cm hilar or mediastinal lymph nodes. No pericardial effusion is seen. There is moderate thoracic aorta and coronary atherosclerotic disease. There is mild flattening of the heart interven tricular septum. OTHER: No additional significant abnormality is seen. Cholelithiasis without acute cholecystitis. IMPRESSION: Acute bilateral PE with moderate to large clot burden and concern for right heart strain. Diffuse mild to moderate opacity with mosaic attenuation pattern. Findings may relate to small airway or vessel disease or evolving pulmonary infarcts. Superimposed infiltrates cannot be excluded. Findings were reported to caring ED physician by me at time of dictation.
[2021-07-09] MEDS ORDERED: NALOXONE 0.4 MG/ML 1 ML VIAL IV PRN (17:45)
[2021-07-09] MEDS: HEPARIN SOD,PORK IN 0.45% NACL 25,000 UNIT in 0.45% NACL 1 250ML.BAG IV SCH (17:48)
--- NOTE | 2021-07-09 18:34 | US ---
EXAMINATION TYPE: US venous doppler duplex LE DATE OF EXAM: 07/09/2021 6:21 PM COMPARISON: NONE CLINICAL HISTORY: pe. PE. Patient on heparin. SIDE PERFORMED: Bilateral TECHNIQUE: The lower extremity deep venous system is examined utilizing real time linear array sonog ponce with graded compression, doppler sonography and color-flow sonography. VESSELS IMAGED: Common Femoral Vein Deep Femoral Vein Greater Saphenous Vein * Femoral Vein Popliteal Vein Small Saphenous Vein * Proximal Calf Veins (* superficial vessels) Right Leg: No evidence of DVT in veins imaged at this time. Left Leg: No evidence of DVT in veins imaged at this time. IMPRESSION: No DVT of the bilateral lower extremity.
--- NOTE | 2021-07-09 18:56 | HP ---
HISTORY AND PHYSICAL CHIEF COMPLAINTS: Shortness of breath and pulmonary embolism. HISTORY OF PRESENT ILLNESS: The 81-year-old woman with a past medical history of multiple medical problems, including CAD, history of hypertension, hyperlipidemia, history of mitral valve prolapse, history of sleep apnea, history of appendectomy, history of bowel resection, history of breast surgery, history of CAD, CABG, being followed by Dr. Erickson in the outpatient setting, apparently had a stress test done today this morning as part of the cardiac workup by a compressor operator adjuster elsewhere. The patient also had evaluation in the ER in the outpatient setting, and D-dimer was elevated. Patient was asked to come to the hospital and the patient was found to have D-of dimer 4.41. CT angio showed bilateral acute pulmonary embolism. Patient was admitted for further evaluation and treatment. Patient was complaining of right leg pain. The patient apparently had taken two doses of Pfizer vaccine as well as a booster, but patient was exposed to some COVID-19 before . There is no history of recent exposure. There is no history of any fever, rigor or chills at this time. The CT angio of the chest, reviewed personally by me, showed evidence of bilateral PE with moderate to large clot burden with concern of right heart strain. Vascular Surgery has been consulted. Two-D echo has been ordered. Diffuse mild to moderate opacity was also noted, suggestive of pulmonary infarct or super added infiltrates and pneumonia. COVID-19 is also a possibility. PAST MEDICAL HISTORY: History of recent stress test showing CAD, chest pain, hypertension, hyperlipidemia, mitral valve prolapse, sleep apnea. HOME MEDICATIONS: Reviewed. They include Zestril, vitamin D2, Crestor, aspirin, Toprol-XL, Synthroid, fenofibrate. Doses are reviewed. ALLERGIES: SULFA, AMOXICILLIN, CLAVI_ FAMILY HISTORY: History of CAD, history of hypertension, hyperlipidemia, history of atherosclerosis. SOCIAL HISTORY: No history of smoking. Occasional alcohol intake. REVIEW OF SYSTEMS: ENT: Diminished hearing. Diminished vision. CARDIOVASCULAR SYSTEM: As mentioned earlier. RESPIRATORY SYSTEM: As mentioned earlier. GI: No nausea, vomiting, diarrhea. : No dysuria. NERVOUS SYSTEM: No numbness, weakness. ALLERGY/IMMUNOLOGY: No asthma or hay fever. MUSCULOSKELETAL: As mentioned earlier. HEMATOLOGY/ONCOLOGY: No history of anemia. ENDOCRINE: No history of diabetes or hypothyroidism. CONSTITUTIONAL: As mentioned earlier. DERMATOLOGY: As mentioned earlier. RHEUMATOLOGY: As mentioned earlier. PSYCHIATRY: As mentioned earlier. PHYSICAL EXAMINATION: Patient is alert, oriented x3. Pulse is 90, blood pressure 152/77, respiration 10, temperature 97.6, pulse ox 93% on room air. HEENT: Conjunctivae normal. NECK: No jugular venous distention. CARDIOVASCULAR: S1, S2 muffled. RESPIRATION: Breath sounds diminished at the bases. No rhonchi. No crackles. ABDOMEN: Soft, nontender. No mass palpable. LEGS: Minimal pain and tenderness of the right ankle present. NERVOUS SYSTEM: Higher functions as mentioned earlier. Moves all 4 limbs. No focal motor or sensory deficit. LYMPHATICS: No lymph node palpable in neck, axillae or groin. SKIN: No ulcer, rash, bleeding. JOINTS: No active deforming arthropathy. LABS: CBC within normal limits. D-dimer is 4.41. BUN is 27. COVID rapid test is negative. ASSESSMENT: 1. Acute bilateral pulmonary embolism with possible mild right heart strain. 2. Rule out super added infiltrates, pneumonia, COVID-19 or pulmonary infarcts. 3. Elevated D-dimer is 4.4. 4. Elevated random glucose. 5. History of coronary artery disease. 6. Hypertension. 7. Hyperlipidemia. 8. History of mitral valve prolapse. 9. Sleep apnea. 10.Hypothyroid. 11.Appendectomy. 12.History of bowel resection. 13.History of coronary artery disease, coronary artery bypass grafting. 14.History of depression. 15.FULL CODE. 16.Shortness of breath for evaluation. RECOMMENDATIONS AND DISCUSSION: In this 81-year-old woman who presented with multiple complex medical issues, we will monitor the patient closely. Recommend to continue current medications, continue symptomatic treatment. Continue IV heparin. Pulmonology and Vascular Surgery have been consulted. I would also recommend ultrasound of the legs. I would also recommend hematology/oncology evaluation. COVID-19 PCR also will be sent. Home medications to be resumed when they are reconciled in the computer. Otherwise, prognosis is guarded because of multiple complex medical issues, which I discussed at length with the patient and her at the bedside. A copy of this dictation is being forwarded to Dr. Erickson, who is the primary physician. MMMARIOLAL / ROSEMARIEN: [id number] / [facility]
[2021-07-09 19:30] LABS: Appearance,Urine Clear (Clear); Bilirubin,Urine Negative (Negative); Blood,Urine Negative (Negative); Color,Urine Yellow; Glucose,Urine (UA) Negative (Negative); Ketones,Urine Negative (Negative); Leukocyte Esterase,Urine Trace (Negative); Nitrite,Urine Negative (Negative); Protein,Urine Negative (Negative); RBC,Urine 1 /hpf (0-5); Squamous Epithelial Cell,Urine <1 /hpf (0-4); Urobilinogen,Urine <2.0 mg/dL (<2.0); WBC,Urine 2 /hpf (0-5)
[2021-07-09] MEDS: ASPIRIN 81 MG PO SCH (22:18)
[2021-07-09] MEDS: lisinopriL 5 MG TAB PO SCH (22:19)
[2021-07-09] MEDS: ATORVASTATIN 20 MG TAB PO SCH (22:19)
[2021-07-10 00:37] LABS: Prothrombin Time 10.8 sec (9.0-12.0)
[2021-07-10 00:40] LABS: Partial Thromboplastin Time >200.0 sec (22.0-30.0)
[2021-07-10] MEDS: LEVOTHYROXINE 100 MCG TAB PO SCH (06:17)
[2021-07-10 08:22] LABS: Basophils % (A) 1 %; Eosinophils # (A) 0.2 k/uL (0-0.7); Eosinophils % (A) 3 %; Lymphocytes # (A) 2.6 k/uL (1.0-4.8); Lymphocytes % (A) 38 %; MCH 31.4 pg (25.0-35.0); MCHC 31.1 g/dL (31.0-37.0); MCV 100.9 fL (80.0-100.0); Macrocytosis Slight; Monocytes # (A) 0.5 k/uL (0-1.0); Monocytes % (A) 8 %; Neutrophils # (A) 3.1 k/uL (1.3-7.7); Neutrophils % (A) 47 %; Platelet Count 256 k/uL (150-450); RBC 4.46 m/uL (3.80-5.40); RDW 14.1 % (11.5-15.5); WBC 6.7 k/uL (3.8-10.6)
[2021-07-10] MEDS: METOPROLOL SUCCINATE (ER) 50 MG TAB.ER.24H PO SCH (08:53)
[2021-07-10] MEDS: FENOFIBRATE 160 MG TAB PO SCH (08:53)
[2021-07-10] MEDS: ASPIRIN 81 MG PO SCH ×2 (08:53→19:26)
[2021-07-10 09:45] LABS: Calcium 9.1 mg/dL (8.4-10.2); Potassium 4.1 mmol/L (3.5-5.1)
--- NOTE | 2021-07-10 10:43 | ECHOF ---
Referral Reason:bilateral pe, heart strain MEASUREMENTS -------- HEIGHT: 149.9 cm WEIGHT: 85.7 kg BP: IVSd: 1.5 cm (0.6 - 1.1) LVIDd: 3.8 cm (3.9 - 5.3) LVPWd: 1.3 cm (0.6 - 1.1) IVSs: 1.6 cm LVIDs: 2.4 cm LVPWs: 1.9 cm LAESV Index (A-L): 26.48 ml/m Ao Diam: 3.2 cm (2.0 - 3.7) AV Cusp: 1.4 cm (1.5 - 2.6) LA Diam: 3.8 cm (2.7 - 3.8) MV E Deep: 0.67 m/s MV DecT: 144 ms MV A Deep: 0.92 m/s MV E/A Ratio: 0.73 AR PHT: 491 ms RAP: 5.00 mmHg RVSP: 32.66 mmHg FINDINGS -------- Sinus rhythm. This was a technically adequate study. The left ventricular size is normal. There is moderate concentric left ventricular hypertrophy. O verall left ventricular systolic function is normal with, an EF between 55 - 60 %. The right ventricle is normal in size. Normal LA size by volume 22+/-6 ml/m2. The right atrial size is normal. Interatrial and interventricular septum intact. The aortic valve is trileaflet and appears structurally normal. There is mild aortic regurgitation. There is no evidence of aortic stenosis. Mild mitral regurgitation is present. Mild tricuspid regurgitation present. There is no evidence of pulmonary hypertension. The right v entricular systolic pressure, as measured by Doppler, is 32.66mmHg. The aortic root size is normal. IVC Not well visulized. There is no pericardial effusion. CONCLUSIONS -------- 1. The left ventricular size is normal. 2. There is moderate concentric left ventricular hypertrophy. 3. Overall left ventricular systolic function is normal with, an EF between 55 - 60 %. 4. There is mild aortic regurgitation. 5. Mild mitral regurgitation is present. 6. Mild tricuspid regurgitation present. SHIPPING LEAD PERSON: Stephanie Sanchez [facility]
[2021-07-10] MEDS: HEPARIN SOD,PORK IN 0.45% NACL 25,000 UNIT in 0.45% NACL 1 250ML.BAG IV SCH ×2 (10:47→14:29)
--- NOTE | 2021-07-10 11:57 | P.GSCN ---
History of Present Illness Consult date: 07/10/21 Reason for Consult: Bilateral pulmonary emboli Requesting physician: Mya Reyes History of present illness: This is 81-year-old female who presented to the emergency department with complaints of shortness of breath and apparently the patient a bit short of breath for the last several days and had seen her primary care physician who had put her on inhalers. Yesterday she went to Dr. Campoverde community development aide office [facility] where she had a nuclear stress test performed. While in the office should get a call back that her d-dimer was elevated. Patient however did not want to be admitted in that area and the patient requested to [facility] ER. Patient had a CT angiogram of the chest showing acute bilateral pulmonary emboli with moderate to large clot burden and concern for right heart strain. Vascular surgery was consulted for the above- mentioned. She also had a venous duplex of the bilateral lower extremities which was negative for DVT. She denies any previous history of VT or pulmonary embolism. Denies any recent travel. CTA also showed diffuse mild to moderate obesity with mosaic attenuation pattern. Needs may relate to small airway or vessel disease or evolving pulmonary infarcts. Superimposed infiltrates cannot be excluded. Her Jones virus PCR was negative. Troponins were normal. States she's feeling about the same she is on 2 L of nasal cannula saturations are between 91 and 94%. Review of Systems A 14 point review systems was completed all pertinent positives and negatives as stated in the HPI. Past Medical History Past Medical History: Coronary Artery Disease (CAD), Chest Pain / Angina, Hyperlipidemia, Hypertension, Mitral Valve Prolapse (MVP), Sleep Apnea/CPAP/BIPAP, Thyroid Disorder Additional Past Medical History / Comment(s): diverticulitis, ddd, arthritis, UTI'S, KIDNEY STONES,INCONT OF URINE, arthritis,MIGRAINEs. History of Any Multi-Drug Resistant Organisms: None Reported Past Surgical History: Appendectomy, Bowel Resection, Breast Surgery, Section, Coronary Bypass/CABG, Heart Catheterization, Hysterectomy Additional Past Surgical History / Comment(s): BOWEL RESECTION D/T DIVERTICULITIS, QUAD BYPASS in 2008 at [facility], Breast biopsy, 7 exploratory abd sx. Past Anesthesia/Blood Transfusion Reactions: No Reported Reaction Past Psychological History: Depression Smoking Status: Never smoker Past Alcohol Use History: Occasional Past Drug Use History: None Reported - Past Family History Father Family Medical History: Coronary Artery Disease (CAD), Hyperlipidemia, Hypertension Additional Family Medical History / Comment(s): Atherosclerosis Mother Family Medical History: Cancer, Coronary Artery Disease (CAD), Myocardial Infarction (DC) Additional Family Medical History / Comment(s): ovarian cancer Brother(s) Family Medical History: Coronary Artery Disease (CAD) Additional Family Medical History / Comment(s): Brother had CABG; grandmother had ascending aortic aneurysm Medications and Allergies Home Medications Medication Instructions Recorded Confirmed Type Aspirin 81 mg PO BID 08/02/15 07/09/21 History Rosuvastatin [Crestor] 5 mg PO Q48H 11/24/18 07/09/21 History Levothyroxine Sodium [Synthroid] 100 mcg PO DAILY 07/13/19 07/09/21 History Rosuvastatin [Crestor] 10 mg PO Q48H 07/13/19 07/09/21 History Fenofibrate Nanocrystallized 145 mg PO DAILY 03/24/20 07/09/21 History [Fenofibrate] Ergocalciferol (Vitamin D2) 1,250 mcg PO TU 07/09/21 07/09/21 History [Drisdol (50,000 Iu)] Metoprolol Succinate (ER) [Toprol 50 mg PO DAILY 07/09/21 07/09/21 History Xl] lisinopriL [Zestril] 5 mg PO HS 07/09/21 07/09/21 History Allergies Allergy/AdvReac Type Severity Reaction Status Date / Time Sulfa (Sulfonamide Allergy Unknown Verified 07/09/21 16:42 Antibiotics) amoxicillin [From Augmentin] AdvReac Nausea Verified 07/09/21 16:42 clavulanic acid AdvReac Nausea Verified 07/09/21 16:42 [From Augmentin] Surgical - Exam Vital Signs Temp Pulse Resp BP Pulse Ox 97.6 F 90 8 L 152/77 92 L 07/09/21 14:54 07/09/21 14:54 07/09/21 14:54 07/09/21 14:54 07/09/21 14:54 General appearance: The patient is alert, oriented, appears in no acute distress. Obese. HET: Head is normocephalic and atraumatic. Neck: Supple without lymphadenopathy. Trachea midline. Heart: S1 S2. Regular rate and rhythm. Lungs: Normal chest expansion, with equal airway entry. No crackles or wheezes are heard. Abdomen: Soft, obese, nontender, nondistended. Extremities: Normal skin color and turgor. No cyanosis, rash, ulceration, clubbing, or edema. Neurological: No focal deficits. Alert and oriented 3. Results - Labs 07/10/21 07:43 07/10/21 07:43 Abnormal Lab Results - Last 24 Hours (Table) 07/09/21 07/09/21 07/09/21 Range/Units 16:19 16:19 19:14 MCV (80.0-100.0) fL APTT (22.0-30.0) sec D-Dimer 4.41 H (<0.60) mg/L FEU BUN 27 H (7-17) mg/dL Glucose 155 H (74-99) mg/dL Alkaline Phosphatase 26 L (38-126) U/L Ur Specific [place] 1.050 H (1.001-1.035) Ur Leukocyte Esterase Trace H (Negative) 07/09/21 07/10/21 Range/Units 23:41 07:43 MCV 100.9 H (80.0-100.0) fL APTT >200.0 H* (22.0-30.0) sec D-Dimer (<0.60) mg/L FEU BUN (7-17) mg/dL Glucose (74-99) mg/dL Alkaline Phosphatase (38-126) U/L Ur Specific [place] (1.001-1.035) Ur Leukocyte Esterase (Negative) Diabetes panel 07/09/21 Range/Units 16:19 Sodium 139 (137-145) mmol/L Potassium 4.6 (3.5-5.1) mmol/L Chloride 107 (98-107) mmol/L Carbon Dioxide 22 (22-30) mmol/L BUN 27 H (7-17) mg/dL Creatinine 0.94 (0.52-1.04) mg/dL Glucose 155 H (74-99) mg/dL Calcium 9.9 (8.4-10.2) mg/dL AST 36 (14-36) U/L ALT 18 (4-34) U/L Alkaline Phosphatase 26 L (38-126) U/L Total Protein 7.0 (6.3-8.2) g/dL Albumin 4.1 (3.5-5.0) g/dL Calcium panel 07/09/21 Range/Units 16:19 Calcium 9.9 (8.4-10.2) mg/dL Albumin 4.1 (3.5-5.0) g/dL Pituitary panel 07/09/21 Range/Units 16:19 Sodium 139 (137-145) mmol/L Potassium 4.6 (3.5-5.1) mmol/L Chloride 107 (98-107) mmol/L Carbon Dioxide 22 (22-30) mmol/L BUN 27 H (7-17) mg/dL Creatinine 0.94 (0.52-1.04) mg/dL Glucose 155 H (74-99) mg/dL Calcium 9.9 (8.4-10.2) mg/dL Adrenal panel 07/09/21 Range/Units 16:19 Sodium 139 (137-145) mmol/L Potassium 4.6 (3.5-5.1) mmol/L Chloride 107 (98-107) mmol/L Carbon Dioxide 22 (22-30) mmol/L BUN 27 H (7-17) mg/dL Creatinine 0.94 (0.52-1.04) mg/dL Glucose 155 H (74-99) mg/dL Calcium 9.9 (8.4-10.2) mg/dL Total Bilirubin 0.9 (0.2-1.3) mg/dL AST 36 (14-36) U/L ALT 18 (4-34) U/L Alkaline Phosphatase 26 L (38-126) U/L Total Protein 7.0 (6.3-8.2) g/dL Albumin 4.1 (3.5-5.0) g/dL - Imaging Comments: Echo cardiogram 1 left ventricle size normal moderate concentric left ventricular hypertrophy, EF between 55 and 60%, mild aortic regurgitation, mild mitral regurgitation, mild tricuspid regurgitation, right ventricle normal in size. RVSP 32.66 CT scan - chest: report reviewed Assessment and Plan Assessment: 1. Bilateral pulmonary emboli no evidence of right heart strain 2. History of coronary artery disease status post bypass 3. History of hypertension 4. History of hyperlipidemia Plan: 1. CT angiogram reviewed by vascular surgeon which appear to have no signs of right heart strain 2. Echocardiogram confirms normal rate ventricle size, no evidence of right heart strain 3. Patient may be transitioned to oral anticoagulation agent of your choice 4. There is no indication for any vascular surgical intervention Thank you for this consultation, and allowing us take part in the plan of care of your patient during his hospital stay. The impression and plan of care has been dictated as directed. Dr. Heller I performed a history and examination of this patient, discussed the same with the dictator. I agree with the dictator's note ,documented as a scribe. Any additional findings or plans will be noted.
--- NOTE | 2021-07-10 12:11 | P.CONS ---
History of Present Illness - Reason for Consult Consult date: 07/10/21 PE Requesting physician: Radha Rodriguez - Chief Complaint SOB - History of Present Illness Mr. Hurd is a very pleasant lady we have been asked to see for recommendations for acute PE. She denies personal or family history of blood disorders or clotting, no recent surgery, Hx of miscarriage, recent hospitalizations, hormonal therapy. She did have shingles about 6-8 weeks ago, she had a 3-4 [address] ride about 2 weeks ago. She has been following with Dr. Lamb for fr equent, recurrent UTI. She has noted increase in fatigue for about 6mo. No sweats, unintentional wt loss, new pain, acute changes in bowel habits. She has Hx of CVD, stents, frequent ER visits for chest/extremity pains. She is on asa and plavix. She has CKD stage III. HTN, hyperlipidemia, diverticulosis-no recent episodes of diverticulitis. Review of Systems 10 point ROS is neg except as stated in HPI Past Medical History Past Medical History: Coronary Artery Disease (CAD), Chest Pain / Angina, Hyperlipidemia, Hypertension, Mitral Valve Prolapse (MVP), Sleep Apnea/CPAP/BIPAP, Thyroid Disorder Additional Past Medical History / Comment(s): diverticulitis, ddd, arthritis, UTI'S, KIDNEY STONES,INCONT OF URINE, arthritis,MIGRAINEs. History of Any Multi-Drug Resistant Organisms: None Reported Past Surgical History: Appendectomy, Bowel Resection, Breast Surgery, Section, Coronary Bypass/CABG, Heart Catheterization, Hysterectomy Additional Past Surgical History / Comment(s): BOWEL RESECTION D/T DIVERTICULITIS, QUAD BYPASS in 2008 at [facility], Breast biopsy, 7 exploratory abd sx. Past Anesthesia/Blood Transfusion Reactions: No Reported Reaction Past Psychological History: Depression Smoking Status: Never smoker Past Alcohol Use History: Occasional Past Drug Use History: None Reported - Past Family History Father Family Medical History: Coronary Artery Disease (CAD), Hyperlipidemia, Hypertension Additional Family Medical History / Comment(s): Atherosclerosis Mother Family Medical History: Cancer, Coronary Artery Disease (CAD), Myocardial Infarction (OR) Additional Family Medical History / Comment(s): ovarian cancer Brother(s) Family Medical History: Coronary Artery Disease (CAD) Additional Family Medical History / Comment(s): Brother had CABG; grandmother had ascending aortic aneurysm Medications and Allergies Home Medications Medication Instructions Recorded Confirmed Type Aspirin 81 mg PO BID 08/02/15 07/09/21 History Rosuvastatin [Crestor] 5 mg PO Q48H 11/24/18 07/09/21 History Levothyroxine Sodium [Synthroid] 100 mcg PO DAILY 07/13/19 07/09/21 History Rosuvastatin [Crestor] 10 mg PO Q48H 07/13/19 07/09/21 History Fenofibrate Nanocrystallized 145 mg PO DAILY 03/24/20 07/09/21 History [Fenofibrate] Ergocalciferol (Vitamin D2) 1,250 mcg PO TU 07/09/21 07/09/21 History [Drisdol (50,000 Iu)] Metoprolol Succinate (ER) [Toprol 50 mg PO DAILY 07/09/21 07/09/21 History Xl] lisinopriL [Zestril] 5 mg PO HS 07/09/21 07/09/21 History Allergies Allergy/AdvReac Type Severity Reaction Status Date / Time Sulfa (Sulfonamide Allergy Unknown Verified 07/09/21 16:42 Antibiotics) amoxicillin [From Augmentin] AdvReac Nausea Verified 07/09/21 16:42 clavulanic acid AdvReac Nausea Verified 07/09/21 16:42 [From Augmentin] Physical Exam Vitals: Vital Signs Temp Pulse Pulse Resp BP BP Pulse Ox 07/10/21 11:32 64 16 106/64 94 L 07/10/21 08:46 98.1 F 77 16 123/79 91 L 07/10/21 04:00 97.6 F 93 18 137/78 93 L 07/09/21 22:00 81 20 155/92 94 L 07/09/21 19:03 76 19 150/79 92 L 07/09/21 17:21 20 07/09/21 16:23 82 19 93 L 07/09/21 14:54 97.6 F 90 8 L 152/77 92 L Intake and Output 07/09/21 07/10/21 07/10/21 22:59 06:59 14:59 Intake Total 108.017 83.369 Output Total 300 Balance 108.017 -216.631 Intake: Intake, IV Titration 108.017 83.369 Amount Heparin Sod,Pork in 0.45% 108.017 83.369 NaCl 25,000 unit In 0.45 % NaCl 1 250ml.bag @ 18 UNITS/KG/HR 15.431 mls/hr IV .[id number] [facility] Rx#: [id number] Output: Urine 300 Other: Voiding Method Bedside Commode Bedside Commode # Voids 1 Weight 85.729 kg - Constitutional General appearance: cooperative, no acute distress, obese - EENT Eyes: anicteric sclerae, EOMI ENT: hearing grossly normal, normal oropharynx - Neck Neck: no lymphadenopathy - Respiratory Respiratory: bilateral: CTA - Cardiovascular Rhythm: regular Heart sounds: normal: S1, S2 Abnormal Heart Sounds: no systolic murmur, no diastolic murmur, no rub, no S3 Gallop, no S4 Gallop, no click, no other foot Peripheral Edema: bilateral: Trace - Gastrointestinal General gastrointestinal: no absent bowel sounds, no decreased bowel sounds, no distended, no hepatomegaly, no hyperactive bowel sounds, normal bowel sounds, no organomegaly, no rigid, no scaphoid, soft, no splenomegaly, no tenderness, no umbilical hernia, no ventral hernia - Integumentary Integumentary: normal - Neurologic Neurologic: CNII-XII intact - Musculoskeletal Musculoskeletal: strength equal bilaterally - Psychiatric Psychiatric: A&O x's 3, appropriate affect, intact judgment & insight Results CBC & Chem 7: 07/10/21 07:43 07/10/21 07:43 Labs: Abnormal Lab Results - Last 24 Hours (Table) 07/09/21 07/09/21 07/09/21 Range/Units 16:19 16:19 19:14 MCV (80.0-100.0) fL APTT (22.0-30.0) sec D-Dimer 4.41 H (<0.60) mg/L FEU Chloride (98-107) mmol/L BUN 27 H (7-17) mg/dL Glucose 155 H (74-99) mg/dL Alkaline Phosphatase 26 L (38-126) U/L Ur Specific [place] 1.050 H (1.001-1.035) Ur Leukocyte Esterase Trace H (Negative) 07/09/21 07/10/21 07/10/21 Range/Units 23:41 07:43 07:43 MCV 100.9 H (80.0-100.0) fL APTT >200.0 H* (22.0-30.0) sec D-Dimer (<0.60) mg/L FEU Chloride 110 H (98-107) mmol/L BUN 22 H (7-17) mg/dL Glucose 124 H (74-99) mg/dL Alkaline Phosphatase (38-126) U/L Ur Specific [place] (1.001-1.035) Ur Leukocyte Esterase (Negative) 07/10/21 Range/Units 07:43 MCV (80.0-100.0) fL APTT 92.8 H (22.0-30.0) sec D-Dimer (<0.60) mg/L FEU Chloride (98-107) mmol/L BUN (7-17) mg/dL Glucose (74-99) mg/dL Alkaline Phosphatase (38-126) U/L Ur Specific [place] (1.001-1.035) Ur Leukocyte Esterase (Negative) CT scan - chest: report reviewed Venous US: report reviewed Assessment and Plan (1) Bilateral pulmonary embolism Narrative/Plan: Acute PE, weak pre-existing/provoking factors so, will qualify as an unprovoked PE. Baseline doppler of BLE neg for DVT. Pt is current on age related cancer screens-colonoscopy in the last 5 years, mammogram in the last year. DOAC ok for anticoagulation. Will send RX and Case Mgmt will verify copay. Please keep on heparin drip for today. Will order hypercoaguable work up outpt Based on pt PMH-diverticulosis, apnea, CAD lifetime anticoagulation would be reasonable as long as pt does have any significant SE. Reviewed pt med list on admit-do not see plavix, only aspirin. Will ask Nursing to verify. Current Visit: Yes Status: Acute Priority: High Code(s): I26.99 - OTHER PULMONARY EMBOLISM WITHOUT ACUTE COR PULMONALE SNOMED Code(s): 32903281 Plan: attests: I have seen and examined pt, performed H&P, developed impression and plan of care. Discussed with dictator. Agree with dictation, documented as a scribe.
--- NOTE | 2021-07-10 15:22 | PN ---
PROGRESS NOTE DATE OF SERVICE: 07/10/2021 This 81-year-old woman who was admitted with acute pulmonary embolism and possible is being closely monitored at this time. The patient has significant shortness of breath. Multiple consultants are following the patient closely including vascular surgery and as well as Hematology/Oncology. A 2D echo with Doppler showed in the left ventricle with ejection fraction about 55 to 60% and mild valvular abnormalities also noted. 32.66. Dimensions are not available. The patient is on IV heparin. Past medical history reviewed. REVIEW OF SYSTEMS: Cardiovascular: No angina or palpitations. Respiration: As mentioned earlier. GI as mentioned earlier. : No dysuria. Nervous system: No numbness. No weakness. CURRENT MEDICATIONS: Are reviewed and include: Aspirin. Lipitor, vitamin D2, Lofibra, heparin. Dose and other medications reviewed. PHYSICAL EXAMINATION: Alert and oriented times. Pulse 93, blood pressure 137/78, respiration 18, temperature 97.2, pulse ox 98% on 3 L. HEENT: Conjunctivae normal. Neck: No JVD. Cardiovascular: S1, S2, muffled. RESPIRATORY: Diminished breath sounds at the bases. A few scattered rhonchi and crackles. Abdomen: Soft, nontender. Nervous system: No focal deficits. LABS: D-dimer is 4.41. Other labs are noted. Venous Doppler evidence of DVT. ASSESSMENT: 1. Acute bilateral pulmonary embolism with no evidence of any right heart strain per 2D echo. 2. Rule out supra added infiltrates and pneumonia of Covid 19 or pulmonary infarcts. 3. Elevated D-dimer 4.4. 4. Elevated random glucose. 5. History of coronary artery disease. 6. Hypertension. 7. Hyperlipidemia. 8. History of mitral valve prolapse. 9. History of sleep apnea. 10.Hypothyroidism. 11.Appendectomy. 12.History of bowel resection. 13.History of coronary artery disease, coronary artery bypass grafting. 14.History of depression. 15.Shortness of breath for evaluation. 16.FULL CODE. RECOMMENDATIONS AND DISCUSSION: Recommend to continue current medications, management and symptomatic treatment. Continue the IV heparin. Continue the rest of medications. Otherwise, closely follow with multiple consultants. Prognosis guarded because of multiple complex medical issues. Covid 19 [place] system PCR is negative. Further recommendations to follow. MMODL / IJN: [id number] / [facility]
[2021-07-10] MEDS: lisinopriL 5 MG TAB PO SCH (19:26)
[2021-07-10] MEDS: ATORVASTATIN 10 MG TAB PO SCH (19:26)
[2021-07-11] MEDS: MELATONIN 5 MG TABLET PO SCH ×2 (00:38→19:24)
[2021-07-11] MEDS: LEVOTHYROXINE 100 MCG TAB PO SCH (06:17)
[2021-07-11 08:28] LABS: Basophils # (A) 0.1 k/uL (0-0.2); Basophils % (A) 1 %; Eosinophils # (A) 0.3 k/uL (0-0.7); Eosinophils % (A) 3 %; HGB 14.9 gm/dL (11.4-16.0); Lymphocytes % (A) 40 %; MCH 31.6 pg (25.0-35.0); MCHC 31.8 g/dL (31.0-37.0); MCV 99.5 fL (80.0-100.0); Mean Platelet Volume 8.1; Monocytes # (A) 0.4 k/uL (0-1.0); Monocytes % (A) 5 %; Neutrophils # (A) 3.5 k/uL (1.3-7.7); Neutrophils % (A) 47 %; Platelet Count 273 k/uL (150-450); RBC 4.72 m/uL (3.80-5.40); RDW 14.2 % (11.5-15.5); WBC 7.5 k/uL (3.8-10.6)
[2021-07-11 08:41] LABS: Calcium 9.5 mg/dL (8.4-10.2); Potassium 4.3 mmol/L (3.5-5.1)
[2021-07-11] MEDS: METOPROLOL SUCCINATE (ER) 50 MG TAB.ER.24H PO SCH (08:49)
[2021-07-11] MEDS: ASPIRIN 81 MG PO SCH ×2 (08:49→19:24)
[2021-07-11] MEDS: FENOFIBRATE 160 MG TAB PO SCH (08:50)
--- NOTE | 2021-07-11 11:27 | P.PN ---
Subjective Progress Note Date: 07/11/21 Patient is seen and examined sitting up in bed. She states her breathing has improved. She's no longer requiring any oxygen. Hematology is on consult and recommended keeping heparin drip until today and will transition to oral DOAC. Patient denies any chest pain no acute changes through the night. She did state that she had her Pfizer COVID-19 booster 05/25/2021. Objective - Vital Signs Vital signs: Vital Signs Temp 98.1 F 07/11/21 04:00 Pulse 82 07/11/21 04:00 Resp 16 07/11/21 04:00 BP 146/76 07/11/21 04:00 Pulse Ox 92 L 07/11/21 04:00 Intake & Output 07/10/21 07/11/21 07/11/21 18:59 06:59 18:59 Intake Total 126.746 240 240 Output Total 540 Balance -413.254 240 240 Intake: Intake, IV Titration 126.746 Amount Heparin Sod,Pork in 0.45% 126.746 NaCl 25,000 unit In 0.45 % NaCl 1 250ml.bag @ 18 UNITS/KG/HR 15.431 mls/hr IV .[id number] [facility] Rx#: [id number] Oral 240 240 Output: Urine 540 Other: Voiding Method Bedside Commode Bedside Commode - Exam General appearance: The patient is alert, oriented, appears in no acute distress. HET: Head is normocephalic and atraumatic. Neck: Supple without lymphadenopathy. Trachea midline. Heart: S1 S2. Regular rate and rhythm. Lungs: Clear to auscultation. No crackles or wheezes are heard. Abdomen: Soft, nontender, nondistended. Extremities: Normal skin color and turgor. No cyanosis, rash, ulceration, clubbing, or edema. Neurological: No focal deficits. Alert and oriented 3. - Labs CBC & Chem 7: 07/11/21 08:16 07/11/21 08:16 Labs: Abnormal Lab Results - Last 24 Hours (Table) 07/10/21 07/11/21 07/11/21 Range/Units 16:32 08:16 08:16 Hct 47.0 H (34.0-46.0) % APTT 50.5 H (22.0-30.0) sec BUN 23 H (7-17) mg/dL Creatinine 1.10 H (0.52-1.04) mg/dL Glucose 154 H (74-99) mg/dL Assessment and Plan Assessment: 1. Bilateral pulmonary emboli no evidence of right heart strain 2. History of coronary artery disease status post bypass 3. History of hypertension 4. History of hyperlipidemia Plan: 1. CT angiogram reviewed by vascular surgeon which appear to have no signs of right heart strain 2. Echocardiogram confirms normal right ventricle size, no evidence of right heart strain 3. Patient may be transitioned to oral anticoagulation agent of your choice 4. There is no indication for any vascular surgical intervention Thank you for this consultation, vascular surgery will sign off. The impression and plan of care has been dictated as directed. Dr. Delcid I performed a history and examination of this patient, discussed the same with the dictator. I agree with the dictator's note ,documented as a scribe. Any additional findings or plans will be noted.
[2021-07-11] MEDS: HEPARIN SOD,PORK IN 0.45% NACL 25,000 UNIT in 0.45% NACL 1 250ML.BAG IV SCH (14:43)
--- NOTE | 2021-07-11 14:48 | P.PN ---
Subjective Progress Note Date: 07/11/21 Principal diagnosis: Acute PE DOAC at discharge. Discussed plan with patient and her questions have been answered. Objective - Vital Signs Vital signs: Vital Signs Temp 97.8 F 07/11/21 11:15 Pulse 78 07/11/21 11:15 Resp 14 07/11/21 11:15 BP 122/69 07/11/21 11:15 Pulse Ox 94 L 07/11/21 11:15 Intake & Output 07/10/21 07/11/21 07/11/21 18:59 06:59 18:59 Intake Total 126.746 240 720 Output Total 540 Balance -413.254 240 720 Intake: Intake, IV Titration 126.746 Amount Heparin Sod,Pork in 0.45% 126.746 NaCl 25,000 unit In 0.45 % NaCl 1 250ml.bag @ 18 UNITS/KG/HR 15.431 mls/hr IV .[id number] [facility] Rx#: [id number] Oral 240 720 Output: Urine 540 Other: Voiding Method Bedside Commode Bedside Commode Bedside Commode - Exam - Constitutional General appearance: cooperative, no acute distress, obese - EENT Eyes: anicteric sclerae, EOMI ENT: hearing grossly normal, normal oropharynx - Neck Neck: no lymphadenopathy - Respiratory Respiratory: bilateral: CTA - Cardiovascular Rhythm: regular Heart sounds: normal: S1, S2 Abnormal Heart Sounds: no systolic murmur, no diastolic murmur, no rub, no S3 Gallop, no S4 Gallop, no click, no other foot Peripheral Edema: bilateral: Trace - Gastrointestinal General gastrointestinal: no absent bowel sounds, no decreased bowel sounds, no distended, no hepatomegaly, no hyperactive bowel sounds, normal bowel sounds, no organomegaly, no rigid, no scaphoid, soft, no splenomegaly, no tenderness, no umbilical hernia, no ventral hernia - Integumentary Integumentary: normal - Neurologic Neurologic: CNII-XII intact - Musculoskeletal Musculoskeletal: strength equal bilaterally - Psychiatric Psychiatric: A&O x's 3, appropriate affect, intact judgment & i - Labs CBC & Chem 7: 07/11/21 08:16 07/11/21 08:16 Labs: Abnormal Lab Results - Last 24 Hours (Table) 07/10/21 07/11/21 07/11/21 Range/Units 16:32 08:16 08:16 Hct 47.0 H (34.0-46.0) % APTT 50.5 H (22.0-30.0) sec BUN 23 H (7-17) mg/dL Creatinine 1.10 H (0.52-1.04) mg/dL Glucose 154 H (74-99) mg/dL 07/11/21 Range/Units 10:16 Hct (34.0-46.0) % APTT 50.9 H (22.0-30.0) sec BUN (7-17) mg/dL Creatinine (0.52-1.04) mg/dL Glucose (74-99) mg/dL Assessment and Plan Plan: T scan - chest: report reviewed Venous US: report reviewed Assessment and Plan (1) Bilateral pulmonary embolism Narrative/Plan: - Acute PE, weak pre-existing/provoking factors so, will qualify as an unprovo ked PE. - Baseline doppler of BLE neg for DVT. - Pt is current on age related cancer screens-colonoscopy in the last 5 years, mammogram in the last year. Plan DOAC ok for anticoagulation. Will order hypercoaguable work up outpt Based on pt's risk factors: PMH-diverticulosis, apnea, CAD lifetime anticoagulation would be reasonable as long as pt does have any significant SE. Current Visit: Yes Status: Acute Priority: High Code(s): I26.99 - OTHER PULMONARY EMBOLISM WITHOUT ACUTE COR PULMONALE SNOMED Code(s): 80373768 Plan: attests: I have seen and examined pt, performed H&P, developed impression and plan of care. Discussed with dictator. Agree with dictation, documented as a scribe.
[2021-07-11] MEDS: lisinopriL 5 MG TAB PO SCH (19:24)
[2021-07-11] MEDS: ATORVASTATIN 20 MG TAB PO SCH (19:24)
[2021-07-12] MEDS: LEVOTHYROXINE 100 MCG TAB PO SCH (06:14)
--- NOTE | 2021-07-12 06:31 | P.PN ---
Subjective Progress Note Date: 07/11/21 This is a 81 year old female who was recently admitted for acute pulmonary embolism and is being closely monitored. Pulmonary and hematology along with vascular surgery following. Patient is continued on IV heparin and will continue given the extent of the PE. Will consult case management to verify coverage of oral anticoagulant as patient will need to transition to oral on discharge. Patient having some weakness and encouraged increased activity and will have PT evaluate the patient. Patient denies any chest pain and patient is afebrile at this time. Labs: WBC is 7.5, hemoglobin is 14.9, platelets are 273, sodium is 139, potassium is 4.3 BUN is 23, creatinine is 1.10, calcium is 9.5 Review of systems: Constitutional: No reports of fatigue, fever, or chills Cardiovascular: No reports of chest pain or palpitations Respiratory: No reports of worsening shortness of breath GI: No reports of nausea, vomiting, or diarrhea : No reports of dysuria or retention Neurovascular: no reports of generalized weakness All medications have been reviewed Active Medications Aspirin (Aspirin 81 Mg) 81 mg PO BID [facility] Last Admin: 07/11/21 19:24 Dose: 81 mg Documented by: Atorvastatin Calcium (Atorvastatin 20 Mg Tab) 20 mg PO Q48H [facility] Last Admin: 07/11/21 19:24 Dose: 20 mg Documented by: Atorvastatin Calcium (Atorvastatin 10 Mg Tab) 10 mg PO Q48H [facility] Last Admin: 07/10/21 19:26 Dose: 10 mg Documented by: Ergocalciferol (Ergocalciferol 1,250 Mcg (50,000 Iu) Capsule) 1,250 mcg PO [facility] Fenofibrate (Fenofibrate 160 Mg Tab) 160 mg PO DAILY [facility] Last Admin: 07/11/21 08:50 Dose: 160 mg Documented by: Heparin Sodium (Porcine) (Heparin Sodium 1,000 Un/Ml (10ml Vl)) 0 unit IV PER PROTOCOL PRN; Protocol PRN Reason: Low PTT Heparin Sodium/Sodium Chloride (25,000 unit/ Sodium Chloride) 250 mls @ 15.431 mls/hr IV .[id number] [facility]; Protocol Last Admin: 07/11/21 14:43 Dose: 12 units/kg/hr, 10.287 mls/hr Documented by: Levothyroxine Sodium (Levothyroxine 100 Mcg Tab) 100 mcg PO 0630 [facility] Last Admin: 07/11/21 06:17 Dose: 100 mcg Documented by: Lisinopril (Lisinopril 5 Mg Tab) 5 mg PO HS [facility] Last Admin: 07/11/21 19:24 Dose: 5 mg Documented by: Melatonin (Melatonin 5 Mg Tablet) 5 mg PO HS [facility] Last Admin: 07/11/21 19:24 Dose: 5 mg Documented by: Metoprolol Succinate (Metoprolol Succinate (Er) 50 Mg Tab.Er.24h) 50 mg PO DAILY [facility] Last Admin: 07/11/21 08:49 Dose: 50 mg Documented by: Naloxone HCl (Naloxone 0.4 Mg/Ml 1 Ml Vial) 0.2 mg IV Q2M PRN PRN Reason: Opioid Reversal Physical Exam: Gen: This is a 81-year-old female who is awake, alert and oriented 3, well- developed, well-nourished, obese. Temp is 97.8 F, pulse is 78, respirations are 14, blood pressure is 122/69 oxygen saturation is 94% on room air HEENT: Head is atraumatic, normocephalic. Pupils equal, round. Sclerae is anicteric. NECK: Supple. No JVD. No lymphadenopathy. No thyromegaly. LUNGS: Breath sounds diminished with some mild scattered rhonchi noted . No intercostal retractions. HEART: S1, S2 are muffled ABDOMEN: Soft. obese. Bowel sounds are present. No masses. No tenderness. EXTREMITIES: No pedal edema. No calf tenderness. NEUROLOGICAL: Patient is awake, alert and oriented 3, no focal deficits . Assessment: Acute bilateral pulmonary embolism with no evidence of any right heart strain per 2D echo rule out supra added infiltrates and pneumonia of Covid 19 or pulmonary infarcts HIstory of coronary artery disease, cabg Elevated d dimer of 4.4 Elevated random glucose hypertension hyperlipidemia history of mitral valve prolapse History of sleep apnea hypothyroidism Appendectomy History of bowel resection History of depression Shortness of breath for evaluation Full code Plan: Recommend to continue with current medications, management and symptomatic treatment. Cardiology and pulmonary following. Patient is continued on IV heparin and will continue. Patient is covered for Eliquis and will initiate on discharge. Encouraged increased activity as tolerated. Patient states she feels weak and will have PT evaluate the patient. Will repeat am labs and continue to monitor closely. Due to multiple complex medical issues, prognosis is guarded. Objective - Vital Signs Vital signs: Vital Signs Temp 97.8 F 07/11/21 11:15 Pulse 78 07/11/21 11:15 Resp 14 07/11/21 11:15 BP 122/69 07/11/21 11:15 Pulse Ox 94 L 07/11/21 11:15 Intake & Output 07/10/21 07/11/21 07/11/21 18:59 06:59 18:59 Intake Total 126.746 240 720 Output Total 540 Balance -413.254 240 720 Intake: Intake, IV Titration 126.746 Amount Heparin Sod,Pork in 0.45% 126.746 NaCl 25,000 unit In 0.45 % NaCl 1 250ml.bag @ 18 UNITS/KG/HR 15.431 mls/hr IV .[id number] [facility] Rx#: [id number] Oral 240 720 Output: Urine 540 Other: Voiding Method Bedside Commode Bedside Commode Bedside Commode - Labs CBC & Chem 7: 07/11/21 08:16 07/11/21 08:16 Labs: Abnormal Lab Results - Last 24 Hours (Table) 07/10/21 07/11/21 07/11/21 Range/Units 16:32 08:16 08:16 Hct 47.0 H (34.0-46.0) % APTT 50.5 H (22.0-30.0) sec BUN 23 H (7-17) mg/dL Creatinine 1.10 H (0.52-1.04) mg/dL Glucose 154 H (74-99) mg/dL 07/11/21 Range/Units 10:16 Hct (34.0-46.0) % APTT 50.9 H (22.0-30.0) sec BUN (7-17) mg/dL Creatinine (0.52-1.04) mg/dL Glucose (74-99) mg/dL
[2021-07-12] MEDS: ASPIRIN 81 MG PO SCH ×2 (07:51→20:16)
[2021-07-12] MEDS: FENOFIBRATE 160 MG TAB PO SCH (07:51)
[2021-07-12] MEDS: METOPROLOL SUCCINATE (ER) 50 MG TAB.ER.24H PO SCH (07:51)
[2021-07-12 08:17] LABS: Basophils # (A) 0.1 k/uL (0-0.2); Basophils % (A) 1 %; Eosinophils # (A) 0.3 k/uL (0-0.7); Eosinophils % (A) 3 %; HCT 48.6 % (34.0-46.0); HGB 15.2 gm/dL (11.4-16.0); Lymphocytes # (A) 3.2 k/uL (1.0-4.8); Lymphocytes % (A) 38 %; MCH 31.7 pg (25.0-35.0); MCHC 31.3 g/dL (31.0-37.0); MCV 101.3 fL (80.0-100.0); Macrocytosis Slight; Mean Platelet Volume 7.9; Monocytes # (A) 0.5 k/uL (0-1.0); Monocytes % (A) 6 %; Neutrophils % (A) 49 %; Platelet Count 258 k/uL (150-450); WBC 8.2 k/uL (3.8-10.6)
[2021-07-12 08:44] LABS: Calcium 9.9 mg/dL (8.4-10.2); Potassium 4.1 mmol/L (3.5-5.1)
[2021-07-12] MEDS: HEPARIN SOD,PORK IN 0.45% NACL 25,000 UNIT in 0.45% NACL 1 250ML.BAG IV SCH (15:30)
--- NOTE | 2021-07-12 18:39 | PN ---
PROGRESS NOTE DATE OF SERVICE: 07/12/2021 This 81-year-old woman was admitted with acute bilateral pulmonary embolisms, is being closely monitored. The patient is on IV heparin. No chest pain. No palpitations. No fever. PHYSICAL EXAMINATION: Alert and oriented. Pulse 85, blood pressure 151/56, respirations 16, temperature 98.1, pulse ox 98% on room air. HEENT: Conjunctivae normal. Oral mucosa moist. NECK: No jugular venous distention. No lymph node enlargement. CARDIOVASCULAR: S1, S2, muffled. No S3, no S4, RESPIRATORY: Diminished breath sounds at the bases. A few scattered rhonchi. ABDOMEN: Soft, nontender. LEGS: No edema, no swelling. NERVOUS SYSTEM: No focal deficits. LABS: BUN and creatinine are 21 and ( ). Other labs are noted. Covid-19 is negative. ASSESSMENT: 1. Acute bilateral pulmonary embolism with possibility of ( ). No evidence of any right heart strain per 2D echo, on IV heparin. 2. Superadded infiltrate or pneumonia or Covid-19 pulmonary infarcts. 3. History of CAD/CABG. 4. Elevated D-dimer at 4.4. 5. Elevated random glucose. 6. Hypertension. 7. Hyperlipidemia. 8. History of mitral valve prolapse. 9. History of sleep apnea. 10.Hypothyroidism. 11.Appendectomy. 12.History of bowel resection. 13.History of depression. 14.Shortness of breath for evaluation. 15.FULL CODE. RECOMMENDATIONS: Recommend to continue current medications, continue to monitor, continue symptomatic treatment. Otherwise, at this time recommend repeat D-dimer and repeat labs in the morning and also a repeat chest x-ray. Prognosis guarded because of multiple complex medical issues. Further recommendations to follow. MMODL / IJN: [id number] /
[2021-07-12] MEDS: MELATONIN 5 MG TABLET PO SCH (20:16)
[2021-07-12] MEDS: lisinopriL 5 MG TAB PO SCH (20:16)
[2021-07-12] MEDS: ATORVASTATIN 10 MG TAB PO SCH (20:16)
[2021-07-13] MEDS: LEVOTHYROXINE 100 MCG TAB PO SCH (05:35)
[2021-07-13] MEDS: HEPARIN SOD,PORK IN 0.45% NACL 25,000 UNIT in 0.45% NACL 1 250ML.BAG IV SCH ×2 (05:36→20:05)
--- NOTE | 2021-07-13 08:03 | XR ---
EXAMINATION TYPE: XR chest 1V portable DATE OF EXAM: 07/13/2021 COMPARISON: 03/24/2020 HISTORY: Difficulty breathing TECHNIQUE: Single frontal view of the chest is obtained. FINDINGS: There is no focal air space opacity, pleural effusion, or pneumothorax seen. The cardiac silhouette size is within normal limits. The osseous structures are intact. Prior CABG surgery. IMPRESSION: No acute process. Postsurgical changes of CABG surgery.
[2021-07-13] MEDS: FENOFIBRATE 160 MG TAB PO SCH (08:15)
[2021-07-13] MEDS: METOPROLOL SUCCINATE (ER) 50 MG TAB.ER.24H PO SCH (08:15)
[2021-07-13] MEDS: ASPIRIN 81 MG PO SCH ×2 (08:16→20:03)
[2021-07-13 09:24] LABS: Calcium 9.5 mg/dL (8.4-10.2); Potassium 4.4 mmol/L (3.5-5.1)
[2021-07-13 09:35] LABS: Partial Thromboplastin Time 48.5 sec (22.0-30.0)
[2021-07-13 09:43] LABS: Basophils % (A) 1 %; Eosinophils # (A) 0.2 k/uL (0-0.7); Eosinophils % (A) 3 %; HCT 45.9 % (34.0-46.0); HGB 14.4 gm/dL (11.4-16.0); Hypochromasia Moderate; Lymphocytes # (A) 2.3 k/uL (1.0-4.8); Lymphocytes % (A) 34 %; MCH 32.2 pg (25.0-35.0); MCHC 31.3 g/dL (31.0-37.0); MCV 102.7 fL (80.0-100.0); Macrocytosis Slight; Mean Platelet Volume 8.1; Monocytes # (A) 0.3 k/uL (0-1.0); Monocytes % (A) 5 %; Neutrophils # (A) 3.7 k/uL (1.3-7.7); Neutrophils % (A) 54 %; Platelet Count 227 k/uL (150-450); RBC 4.48 m/uL (3.80-5.40); RDW 14.2 % (11.5-15.5); WBC 6.7 k/uL (3.8-10.6)
--- NOTE | 2021-07-13 17:43 | PN ---
PROGRESS NOTE DATE OF SERVICE: 07/13/2021 This 81-year-old woman who was admitted with acute bilateral pulmonary embolism is being closely monitored. Patient is on IV heparin. Patient is able to ambulate without much hypoxia at this time. No chest pain. No palpitations. No fever. PHYSICAL EXAMINATION: Alert and oriented x3. Pulse 75, blood pressure 117/49, respirations 16, temperature 97.6, pulse ox 98% on room air. HEENT: Conjunctivae normal. NECK: No jugular venous distention. CARDIOVASCULAR: S1, S2 muffled. RESPIRATION: Breath sounds diminished at the bases. A few scattered rhonchi. ABDOMEN: Soft. NERVOUS SYSTEM: No focal deficit. LAB STUDIES: D-dimer 3.87. COVID-19 testing was negative twice ASSESSMENT: 1. _with acute bilateral pulmonary embolism. No evidence of any right ventricular strain per 2D echo on IV heparin. 2. Heparin monitoring. 3. Superadded infiltrative pneumonia COVID-19 with possible pulmonary infarcts. 4. History of coronary artery disease, coronary artery bypass grafting. 5. Elevated D-dimer at 4.4. 6. Elevated random glucose. 7. COVID-19 test negative x2. 8. Hypertension. 9. Hyperlipidemia. 10.History of mitral valve prolapse. 11.Sleep apnea. 12.Hypothyroidism. 13.History of appendectomy. 14.History of bowel resection. 15.History of depression. 16.Shortness of breath for evaluation. 17.FULL CODE. RECOMMENDATIONS AND DISCUSSION: In this 81-year-old woman who presented with multiple complex medical issues, we will monitor the patient closely, continue the IV heparin. I would also recommend room-air pulse ox after ambulation to evaluate for hypoxia. Otherwise, COVID-19 is negative twice; very unlikely to be any interstitial process associated with COVID-19. Possibility of pulmonary infarct to be considered. The patient had a chest x-ray which showed no acute process. Will continue to monitor. Repeat labs will be ordered tomorrow. The patient is stable. Patient could be going home on [facility] outpatient. As mentioned earlier, we will perform room-air pulse ox after ambulation tomorrow morning. MMODL / IJN: [id number] / MTDD
[2021-07-13] MEDS: ATORVASTATIN 20 MG TAB PO SCH (20:03)
[2021-07-13] MEDS: lisinopriL 5 MG TAB PO SCH (20:03)
[2021-07-13] MEDS: MELATONIN 5 MG TABLET PO SCH (20:04)
[2021-07-14] MEDS: HEPARIN SOD,PORK IN 0.45% NACL 25,000 UNIT in 0.45% NACL 1 250ML.BAG IV SCH (05:04)
[2021-07-14] MEDS: LEVOTHYROXINE 100 MCG TAB PO SCH (06:02)
[2021-07-14] MEDS: ASPIRIN 81 MG PO SCH (09:27)
[2021-07-14] MEDS: FENOFIBRATE 160 MG TAB PO SCH (09:27)
[2021-07-14] MEDS: METOPROLOL SUCCINATE (ER) 50 MG TAB.ER.24H PO SCH (09:27)
[2021-07-14 10:01] LABS: Basophils % (A) 1 %; Eosinophils # (A) 0.1 k/uL (0-0.7); Eosinophils % (A) 2 %; HCT 43.8 % (34.0-46.0); HGB 13.8 gm/dL (11.4-16.0); Lymphocytes # (A) 2.1 k/uL (1.0-4.8); Lymphocytes % (A) 28 %; MCH 31.6 pg (25.0-35.0); MCHC 31.6 g/dL (31.0-37.0); Macrocytosis Slight; Monocytes # (A) 0.5 k/uL (0-1.0); Monocytes % (A) 6 %; Neutrophils # (A) 4.6 k/uL (1.3-7.7); Neutrophils % (A) 61 %; Platelet Count 276 k/uL (150-450); RBC 4.38 m/uL (3.80-5.40); RDW 14.3 % (11.5-15.5); WBC 7.6 k/uL (3.8-10.6)
[2021-07-14 10:22] LABS: Calcium 9.6 mg/dL (8.4-10.2)
[2021-07-14 10:47] VITALS: RESP 16; TEMP 96.8
[2021-07-14] MEDS ORDERED: APIXABAN 5 MG TAB PO SCH (12:30)
[2021-07-14 14:39] VITALS: BP 122/56; PULSE 85
--- NOTE | 2021-07-14 16:09 | P.PN ---
Subjective Progress Note Date: 07/14/21 Principal diagnosis: PE In f/u no c/o, cont on heparin, no bleeding, she is going to be getting up with PT today and see how her breathing is doing, no swelling in the legs. She is going to start eliquis Objective - Vital Signs Vital signs: Vital Signs Temp 96.8 F L 07/14/21 08:00 Pulse 85 07/14/21 14:00 Resp 16 07/14/21 14:00 BP 122/56 07/14/21 12:00 Pulse Ox 96 07/14/21 12:00 Intake & Output 07/13/21 07/14/21 07/14/21 18:59 06:59 18:59 Intake Total 840 241.402 580 Balance 840 241.402 580 Intake: Intake, IV Titration 241.402 Amount Heparin Sod,Pork in 0.45% 241.402 NaCl 25,000 unit In 0.45 % NaCl 1 250ml.bag @ 18 UNITS/KG/HR 15.431 mls/hr IV .[id number] [facility] Rx#: [id number] Oral 840 580 Other: Voiding Method Toilet Toilet Toilet # Voids 2 2 1 # Bowel Movements 0 - Constitutional General appearance: Present: average body habitus, cooperative, no acute distress - EENT Eyes: Present: anicteric sclerae, EOMI ENT: Present: hearing grossly normal, normal oropharynx - Respiratory Details: resp even and unlabored - Peripheral edema foot Peripheral Edema: bilateral: Trace - Neurologic Neurologic: Present: CNII-XII intact - Musculoskeletal Musculoskeletal: Present: strength equal bilaterally - Psychiatric Psychiatric: Present: A&O x's 3, appropriate affect, intact judgment & insight - Labs CBC & Chem 7: 07/14/21 09:39 07/14/21 09:39 Labs: Abnormal Lab Results - Last 24 Hours (Table) 07/14/21 07/14/21 Range/Units 09:39 09:39 APTT 47.3 H (22.0-30.0) sec Sodium 135 L (137-145) mmol/L BUN 29 H (7-17) mg/dL Creatinine 1.07 H (0.52-1.04) mg/dL Glucose 205 H (74-99) mg/dL Assessment and Plan (1) Bilateral pulmonary embolism Narrative/Plan: Acute PE, weak pre-existing/provoking factors so, will qualify as an unprovoked PE. Baseline doppler of BLE neg for DVT. Pt is current on age related cancer screens-colonoscopy in the last 5 years, mammogram in the last year. DOAC ok for anticoagulation. Pt starting eliquis. Hypercoaguable work up outpt. Pt states she is leaving for [place] soon after DC. She gave me her zip code. Will refer her to a Hemoatologist down there, send notes. They will call her for appt. She can f/u here when she returns in November- appt in chart. Based on pt PMH-diverticulosis, apnea, CAD lifetime anticoagulation would be reasonable as long as pt does have any significant SE. Status: Acute Priority: High Code(s): I26.99 - OTHER PULMONARY EMBOLISM WITHOUT ACUTE COR PULMONALE SNOMED Code(s): 78515983
[2021-07-15] MEDS ORDERED: ERGOCALCIFEROL 1,250 MCG (50,000 IU) CAPSULE PO SCH (09:00)
--- NOTE | 2021-07-16 06:19 | P.DS ---
Providers Date of admission: 07/09/21 17:48 Expected date of discharge: 07/14/21 Attending physician: Radha Rodriguez Consults: 07/09/21 17:47 Consult Physician Urgent Consulting Provider: Vel Delcid Consult Reason/Comments: acute bilateral pe Do you want consulting provider notified?: Yes 07/09/21 17:55 Consult Physician Routine Consulting Provider: Darrion Finn Consult Reason/Comments: pe Do you want consulting provider notified?: Yes Primary care physician: Vidal Erickson Hospital Course: Final Diagnosis Acute bilateral pulmonary embolism with no evidence of any right heart strain per 2D echo rule out supra added infiltrates and pneumonia of Covid 19 or pulmonary infarcts History of coronary artery disease, cabg Elevated d dimer of 4.4 Elevated random glucose hypertension hyperlipidemia history of mitral valve prolapse History of sleep apnea hypothyroidism Appendectomy History of bowel resection History of depression Shortness of breath for evaluation Full code Discharge disposition Patient is being discharged in a stable condition with guarded prognosis to home. Patient will follow-up with Dr. Erickson in the outpatient setting upon discharge. Patient is to follow up with hematology outpatient. Recommend repeat labs in 2-3 days. Patient to continue with eliquis 10mg bid for one week and then 5mg bid thereafter. Total time taken is greater than 35 minutes. Hospital Course This is a 81 year old female who was recently admitted for acute pulmonary embolism and is being closely monitored. Pulmonary and hematology along with vascular surgery following. Patient is continued on IV heparin and will continue given the extent of the PE. Will consult case management to verify coverage of oral anticoagulant as patient will need to transition to oral on discharge. Patient having some weakness and encouraged increased activity and will have PT evaluate the patient. Patient denies any chest pain and patient is afebrile at this time. 07/14/2021 Patient being arranged for eliquis in the outpatient setting. Verification of coverage done and patient has some deductible to meet and then will be less than 50$ per month which patient is agreeable. Patient will follow with hematology in 3-6 months outpatient. Currently no reports of chest pain, shortness of breath, or palpitations. Patient is afebrile. No reports of nausea or vomiting and patient is tolerating diet. Patient will be discharged home today. Physical Exam: Gen: This is a 81-year-old female, alert and oriented 3. HEENT: Head is atraumatic, normocephalic. Pupils equal, round. Sclerae is anicteric. NECK: Supple. No JVD. No lymphadenopathy. No thyromegaly. LUNGS: Diminished breath sounds bilaterally with no wheezing or rhonchi noted. No intercostal retractions. HEART: S1, S2 are muffled ABDOMEN: Soft. Bowel sounds are present. No masses. No tenderness. EXTREMITIES: No pedal edema. No calf tenderness. NEUROLOGICAL: Patient is awake, alert and oriented 3, no focal deficit noted Please refer to medication reconciliation sheet for a list of medications. Patient Condition at Discharge: Stable Plan - Discharge Summary Discharge Rx Participant: Yes New Discharge Prescriptions: New Apixaban [Eliquis Starter Pack (for VTE)] 5 - 10 mg PO DIRECTED 30 Days #1 each Continue Aspirin 81 mg PO BID Rosuvastatin [Crestor] 5 mg PO Q48H Rosuvastatin [Crestor] 10 mg PO Q48H Levothyroxine Sodium [Synthroid] 100 mcg PO DAILY Fenofibrate Nanocrystallized [Fenofibrate] 145 mg PO DAILY lisinopriL [Zestril] 5 mg PO HS Metoprolol Succinate (ER) [Toprol XL] 50 mg PO DAILY Ergocalciferol (Vitamin D2) [Drisdol (50,000 Iu)] 1,250 mcg PO Discharge Medication List Aspirin 81 mg PO BID 08/02/15 [History] Rosuvastatin [Crestor] 5 mg PO Q48H 11/24/18 [History] Levothyroxine Sodium [Synthroid] 100 mcg PO DAILY 07/13/19 [History] Rosuvastatin [Crestor] 10 mg PO Q48H 07/13/19 [History] Fenofibrate Nanocrystallized [Fenofibrate] 145 mg PO DAILY 03/24/20 [History] Ergocalciferol (Vitamin D2) [Drisdol (50,000 Iu)] 1,250 mcg PO TU 07/09/21 [History] Metoprolol Succinate (ER) [Toprol XL] 50 mg PO DAILY 07/09/21 [History] lisinopriL [Zestril] 5 mg PO HS 07/09/21 [History] Apixaban [Eliquis Starter Pack (for VTE)] 5 - 10 mg PO DIRECTED 30 Days #1 each 07/11/21 [Rx] Follow up Appointment(s)/Referral(s): Darrion Finn MD [STAFF PHYSICIAN] - 12/18/21 11:15 am (Pt going to [facility]. Will refer her to Call Center Coordinator there. They will call her for appt) Vidal Erickson MD [Primary Care Provider] - 1-2 days Ambulatory/Diagnostic Orders: Complete Blood Count w/diff [LAB.AMB] Time Frame: 3 Days, Location: None Selected Patient Instructions/Handouts: Pulmonary Embolism (DC), Safe Use of Anticoagulants (DC) Activity/Diet/Wound Care/Special Instructions: Eliquis filled at [facility] - free 30day coupon applied. Activity Limited until follow-up Follow-up with primary care provider on discharge Follow-up with your welder assistant outpatient on discharge Follow-up with pulmonary outpatient Continue taking medications as prescribed Recommend repeat labs of CBC and BMP in 2-3 days Continue current diet Continue with Eliquis 10 grams twice daily for 1 week and then titrate the dose down to 5 mg twice daily thereafter Discharge Disposition: HOME SELF-CARE
== END 2021-07-14 15:21 | disposition home or self-care (01) | DRG 176 ==
LOC: EC 14:42 → 3SCARD 17:48
PROVIDERS: ADMIT Hospitalist; ATTEND Hospitalist
DX: I26.99 Other pulmonary embolism without acute cor pulmonale (principal); E03.9 Hypothyroidism, unspecified; E78.5 Hyperlipidemia, unspecified; I12.9 Hypertensive chronic kidney disease with stage 1 through stage 4 chronic kidney disease, or unspecified chronic kidney disease; I25.10 Atherosclerotic heart disease of native coronary artery without angina pectoris; I34.1 Nonrheumatic mitral (valve) prolapse; K57.90 Diverticulosis of intestine, part unspecified, without perforation or abscess without bleeding; N18.30 Chronic kidney disease, stage 3 unspecified; G47.30 Sleep apnea, unspecified; Z20.822 Contact with and (suspected) exposure to COVID-19; Z95.1 Presence of aortocoronary bypass graft; Z79.02 Long term (current) use of antithrombotics/antiplatelets; Z79.82 Long term (current) use of aspirin; Z79.890 Hormone replacement therapy; Z87.440 Personal history of urinary (tract) infections; Z87.442 Personal history of urinary calculi; Z90.49 Acquired absence of other specified parts of digestive tract; Z90.710 Acquired absence of both cervix and uterus; Z80.41 Family history of malignant neoplasm of ovary; Z82.49 Family history of ischemic heart disease and other diseases of the circulatory system
CPT/HCPCS: 36415; 71045; 71275; 80048; 80053; 81001; 83605; 83735; 83880; 84484; 85025; 85379; 85610; 85730; 87635; 93005; 93306; 93970; 96374; 99291

== ENCOUNTER → 2022-03-11 | Outpatient (CLI) | payer MEDICARE, BC ==
--- NOTE | 2022-03-13 18:51 | MM ---
Reason for Exam: Screening (asymptomatic). Last screening mammogram was performed 12 month(s) ago. Patient History: Menarche at age 13. First Full-Term at age 21. Left ovary removed at age 56. Right ovary removed at age 56. Hysterectomy at age 38. Postmenopausal. Estrogen, starting at age 49 for 17 years, 4 months. Patient used Hormonal Contraceptives for 5 years. 07/22/2018, Benign Core Biopsy on the left side. Paternal cousin had breast cancer. Paternal cousin had breast cancer. Risk Values: Amy 5 year model risk: 1.5%. NCI Lifetime model risk: 2.4%. Prior Study Comparison: 01/24/2019 Left Diagnostic Mammogram, [facility]. 06/06/2019 Bilateral Diagnostic Mammogram, [facility]. 03/10/2021 Bilateral Screening Mammogram, [facility]. Tissue Density: There are scattered fibroglandular densities. Findings: Analyzed By CAD. There is no suspicious group of microcalcifications or new suspicious mass in either breast. Overall Assessment: Negative, BI-RAD 1 Management: Screening Mammogram of both breasts in 1 year. A clinical breast exam by your physician is recommended on an annual basis and results should be correlated with mammographic findings. Electronically signed and approved by: Vineet Zhou DO
== END | disposition home or self-care (01) ==
LOC: RADMAMWWP 13:42
PROVIDERS: ATTEND Obstetrics & Gynecology
DX: Z12.31 Encounter for screening mammogram for malignant neoplasm of breast (principal); Z78.0 Asymptomatic menopausal state; Z80.3 Family history of malignant neoplasm of breast
CPT/HCPCS: 77063; 77067

== ENCOUNTER → 2022-04-03 | Outpatient (CLI) | payer MEDICARE, BC ==
--- NOTE | 2022-04-06 11:29 | CT ---
CT CHEST FOR PULMONARY EMBOLISM. EXAMINATION TYPE: CT angio chest DATE OF EXAM: 04/06/2022 INDICATION: PE, known thoracic aneurysm CT DLP: 944 mGycm, Automated exposure control for dose reduction was used. CONTRAST: Patient injected with 80ml mL of Isovue 370. COMPARISON: 07/09/2021 TECHNIQUE: CT of the chest is performed on a spiral scan at 2 mm thick sections. Study is performed with intravenous contrast timed for evaluation for pulmonary embolism. This will limit additional po rtions of the evaluation. 3-D MIP images reconstructed by the technologist are reviewed on the compu ter in the coronal and sagittal planes. 3-D reconstructed images through the aorta are performed by t he technologist on a separate computer. FINDINGS: No persistent filling defects are evident to suggest an acute pulmonary embolism. No residual pulmona ry emboli are identified. No mediastinal or hilar adenopathy enlarged by CT criteria is evident. The ascending aorta diameter at the level of the main pulmonary artery is 4.0 cm. The main pulmonary artery diameter at the bifur cation is 2.6 cm. Coronary artery calcification is present. There is a 1.1 cm pleural plaque in the posterior right midlung. Series 9 image 71. There is a puncta te nodule measuring 0.4 cm in the posterior right midlung. Series 9 image 86. Additional nodules in t he posterior lateral right lung measuring 0.3 cm. Series 9 image 90. Medial left lung base nodule is present measuring 0.4 cm. Series 9 image 95. Others better aeration of the lung quinteros compared to th e prior study. This may make visualization of these nodules more apparent than on the comparison. Limited CT section through the upper abdomen are unremarkable. IMPRESSIONS: 1. Scattered small nodules follow-up exam in 6 months is recommended. 2. Ascending thoracic aortic aneurysm 4.0 cm, stable from comparison.
== END | disposition home or self-care (01) ==
LOC: RADCTMAIN 10:35
PROVIDERS: ATTEND Internal Medicine Cardiovascular Disease
DX: Z53.9 Procedure and treatment not carried out, unspecified reason (principal)

== ENCOUNTER → 2022-04-08 | Outpatient (CLI) | payer MEDICARE, BC ==
--- NOTE | 2022-04-09 07:13 | CA ---
Transthoracic Echo Report Name: Cecy Hurd Age: 82 Gender: F : 1940 Exam Date: 04/08/2022 13:57 Exam Location: [facility] Ht (in): 52 Wt (lb): 182 Ordering Physician: Christopher Campoverde DO Attending/Referring Phys: [id number], Gilles Kitchen Helper Alexandria Villalobos, RD Procedure CPT: Indications: I25.10 heart disease Cardiac Hx: Technical Quality: Contrast 1: Total Dose (mL): Contrast 2: Total Dose (mL): MEASUREMENTS (Male / Female) Normal Values 2D ECHO LV Diastolic Diameter PLAX 4.5 cm 4.2 - 5.9 / 3.9 - 5.3 cm LV Systolic Diameter PLAX 2.7 cm IVS Diastolic Thickness 1.1 cm 0.6 - 1.0 / 0.6 - 0.9 cm LVPW Diastolic Thickness 1.5 cm 0.6 - 1.0 / 0.6 - 0.9 cm LV Relative Wall Thickness 0.6 LA Systolic Diameter LX 3.8 cm 3.0 - 4.0 / 2.7 - 3.8 cm LA Volume 39.2 cm??? 18 - 58 / 22 - 52 cm??? M-MODE Aortic Root Diameter MM 3.2 cm LA Systolic Diameter MM 3.1 cm LA Ao Ratio MM 1.0 MV E Point Septal Separation 0.5 cm AV Cusp Separation MM 1.0 cm DOPPLER MV Area PHT 4.7 cm??? Mitral E Point Velocity 67.8 cm/s Mitral A Point Velocity 70.9 cm/s Mitral E to A Ratio 1.0 MV Deceleration Time 161.1 ms FINDINGS Left Ventricle Left ventricular ejection fraction is estimated at 50-55 %. Mildly increased left ventricular wall thickness. Right Ventricle Normal right ventricular size and function. Right Atrium Normal right atrial size. Left Atrium Normal left atrial size. Mitral Valve Structurally normal mitral valve. Mild mitral regurgitation. Aortic Valve Trileaflet aortic valve. Mild aortic sclerosis Tricuspid Valve Structurally normal tricuspid valve. Pulmonic Valve Structurally normal pulmonic valve. Pericardium Normal pericardium. Aorta Normal size aortic root and proximal ascending aorta. CONCLUSIONS Left ventricular ejection fraction 50-55% Mild increased left ventricular wall thickness Mild mitral regurgitation Mild aortic sclerosis No pericardial effusion Previewed by: Dr. Sid Ogden DO (Electronically Signed) Final Date: 09 April 2022 07:12
== END | disposition home or self-care (01) ==
LOC: RADECHMAIN 13:34
PROVIDERS: ATTEND Internal Medicine Cardiovascular Disease
DX: I08.0 Rheumatic disorders of both mitral and aortic valves (principal); I25.10 Atherosclerotic heart disease of native coronary artery without angina pectoris
CPT/HCPCS: 93306

== ENCOUNTER → 2023-03-16 | Outpatient (CLI) | payer MEDICARE, BC ==
--- NOTE | 2023-03-17 19:19 | BD ---
EXAMINATION TYPE: Axial Bone Density DATE OF EXAM: 03/16/2023 CLINICAL HISTORY: 83 years old Female. ICD-10 CODE: N95.1 POST MENOPAUSAL SYMPTOMS Height: 59" Weight: 175.5lbs FRAX RISK QUESTIONS: Alcohol (3 or more units per day): No Family History (Parent hip fracture): No Glucocorticoids (More than 3mos): No (Ex: prednisone, prednisolone, methylprednisolone, dexamethasone, and hydrocortisone). History of Fracture in Adulthood: Yes, toes Secondary Osteoporosis: 1. Type 1 Diabetes: No 2. Hyperthyroidism: No 3. Menopause before 45: Yes, hysterectomy at 38 4. Malnutrition: No 5. Chronic liver disease: No Rheumatoid Arthritis: No Current Tobacco Use: No RISK FACTORS HISTORY OF: Hip Fracture (Right/Left): No Spine Fracture: No History of Wrist Fracture: No Surgery to Spine/Hip(right/left)/Wrist (right/left): No Family History of Osteoporosis: No Active: Yes Diet low in dairy products/other sources of calcium: No Postmenopausal woman: Yes Lost more than 2 inches in height since high school: No Frequent falls: No Poor Health: NO Hyperparathyroidism: No Adrenal Insufficiency: Stage 1 kidney disease MEDICATIONS: Prednisone or other steroids: No Thyroid Medications: Yes Which medication: Levothyroxine How Lon-10 years Osteoporosis Medications: No Additional Medications: Metformin, blood pressure meds, heart meds, cholesterol meds, levothyroxine, baby aspirin Additional History: None EXAM MEASUREMENTS: Bone mineral densitometry was performed using the [employer]. Bone mineral density as measured about the Lumbar spine is: ----- L1-L4(G/cm2): 1.300 T Score Values are as follows: ----- L1: 0.8 ----- L2: 0.9 ----- L3: 1.0 ----- L4: 1.2 ----- L1-L4: 1.0 Z Score Values are as follows: ----- L1: 2.2 ----- L2: 2.3 ----- L3: 2.4 ----- L4: 2.6 ----- L1-L4: 2.4 Bone mineral density has: decreased -3.2% since study of: 06/02/2018 Bone mineral density about the R hip (g/cm2): 1.079 Bone mineral density about the L hip (g/cm2): 0.998 T Score values are as follows: -----R Neck: -0.2 -----L Neck: -0.5 -----R Total: 0.6 -----L Total: -0.1 Z Score values are as follows: -----R Neck: 1.7 -----L Neck: 1.4 -----R Total: 2.3 -----L Total: 1.6 Bone mineral density has: decreased -1.3% since study of: 06/02/2018 FRAX%s: The graph provided illustrates a 13.7% chance for a major osteoporotic fx and a 1.9% chance f or the hips probability for fx in 10 years time. IMPRESSION: Normal (Values between +1 and -1 indicate normal bone mass). Consider repeating this study in 5 year s or sooner if there is some new clinical indication. NOTE: T-SCORE=SD OF THE YOUNG ADULT MEAN.
== END | disposition home or self-care (01) ==
LOC: RADMAMWWP 12:47
PROVIDERS: ATTEND Obstetrics & Gynecology
DX: N95.1 Menopausal and female climacteric states (principal)
CPT/HCPCS: 77080

== ENCOUNTER → 2023-03-16 | Outpatient (CLI) | payer MEDICARE, BC ==
--- NOTE | 2023-03-18 08:52 | MM ---
Reason for Exam: Screening (asymptomatic). Last screening mammogram was performed 12 month(s) ago. Patient History: Menarche at age 13. First Full-Term at age 21. Left ovary removed at age 56. Right ovary removed at age 56. Hysterectomy at age 38. Postmenopausal. Estrogen, starting at age 49 for 17 years, 4 months. Patient used Hormonal Contraceptives for 5 years. 07/22/2018, Benign Core Biopsy on the left side. Paternal cousin had breast cancer. Paternal cousin had breast cancer. Risk Values: Amy 5 year model risk: 1.5%. NCI Lifetime model risk: 2.2%. Prior Study Comparison: 06/06/2019 Bilateral Diagnostic Mammogram, [facility]. 03/10/2021 Bilateral Screening Mammogram, [facility]. 03/11/2022 Bilateral MG 3D screening mammo w/cad, [facility]. Tissue Density: The breast tissue is heterogeneously dense. This may lower the sensitivity of mammography. Findings: Analyzed By CAD. There is no suspicious group of microcalcifications or new suspicious mass in either breast. Overall Assessment: Benign, BI-RAD 2 Management: Screening Mammogram of both breasts in 1 year. . Patient should continue monthly self-breast exams. A clinical breast exam by your physician is recommended on an annual basis. This exam should not preclude additional follow-up of suspicious palpable abnormalities. Note on Amy scores and lifetime risk: 1. A Amy score greater than 3% is considered moderate risk. If this is the case, consider specialist referral to assess eligibility for a risk reducing agent. 2. If overall lifetime risk for the development of breast cancer is 20% or higher, the patient may qualify for future screening with alternating mammogram and breast MRI. Electronically signed and approved by: Ameya Stephens M.D. Radiologis
== END | disposition home or self-care (01) ==
LOC: RADBDWWP 12:45
PROVIDERS: ATTEND Obstetrics & Gynecology
DX: Z12.31 Encounter for screening mammogram for malignant neoplasm of breast (principal); N95.1 Menopausal and female climacteric states; Z80.3 Family history of malignant neoplasm of breast
CPT/HCPCS: 77063; 77067

== ENCOUNTER → 2023-12-14 | Outpatient (CLI) | payer MEDICARE, BC ==
--- NOTE | 2023-12-15 10:29 | US ---
EXAMINATION TYPE: US kidneys/renal and bladder DATE OF EXAM: 12/14/2023 COMPARISON: 04/15/2021 CLINICAL INDICATION: Female, 83 years old with history of R10.33 PERIUMBILICAL PAIN; Recurrent UTI sy mptoms without infection EXAM MEASUREMENTS: Right Kidney: 11.8 x 4.4 x 5.7 cm Left Kidney: 11.3 x 5.3 x 4.8 cm Post Void Residual Volume: NA mL Right Kidney: wnl Left Kidney: wnl Bladder: Not fully distended Bilateral Jets seen: Not able to assess Normal Post Void Residual: NA There is no evidence for hydronephrosis at this point in time. No nephrolithiasis is seen. No kayla s are identified. IMPRESSION: Unremarkable renal ultrasound.
== END | disposition home or self-care (01) ==
LOC: RADUSWWP 16:04
PROVIDERS: ATTEND Family Medicine
DX: R10.33 Periumbilical pain (principal)
CPT/HCPCS: 76770

== ENCOUNTER → 2024-03-01 | Outpatient (CLI) | payer MEDICARE, BC ==
[2024-03-01 15:23] VITALS: BP 109/68; PULSE 71; RESP 20; TEMP 98.2
--- NOTE | 2024-03-01 16:12 | P.SLEEP ---
History of Present Illness DATE: 03/01/2024 CONSULTATION/NEW PATIENT EVALUATION HISTORY OF PRESENT ILLNESS/SLEEP-WAKE EVALUATION: 84-year-old lady had been ev aluated in the sleep center for obstructive sleep apnea hypopnea syndrome. Patient has history of obstructive sleep apnea for many years. She stopped using CPAP equipment about 2 years ago. SLEEP SCHEDULE: Usually sleep schedule from 10 PM to 77:30 AM, patient gets up from bed around 9. -10 AM. FALLING ASLEEP: Sometimes patient has difficulties with falling asleep. Patient used to read in bedroom DURING SLEEP: Patient snores and wakes up from sleep up to 6 times with up to 6 episodes of nocturia. No history of hypnogogical hallucinations, sleep paralysis, or cataplexy. DURING THE DAY/WAKE STATE: In the morning patient wake up tired. [place] sleepiness scale is increased to 12. Patient takes up to 4 naps or rest periods during the day. PAST MEDICAL HISTORY: Coronary artery disease, hyperlipidemia, hypothyroidism, sinusitis, diabetes. PAST SURGICAL HISTORY: CABG, colon resection for diverticulitis in the past, C- sections. MEDICATIONS: Please see below. SOCIAL HISTORY: Please see below. FAMILY HISTORY: Hypertension, heart problems, cancer. REVIEW OF SYSTEMS: Snoring, multiple awakenings from sleep, sleepiness during the day. No fevers. No double vision. No recent chest pain. No shortness of breath. No abdominal pain. No bleeding episodes. No blood in urine. No seizure episodes. PHYSICAL EXAMINATION: GENERAL: A pleasant patient without any distress. VITAL SIGNS: Please see below. HEENT: PERRLA, EOMI. Evaluation of oropharynx showed tongue protrudes midline, low position of soft palate Mallampati 4. NECK: Supple. No JVD. Thyroid is not palpable. 16-1/4 inches in circumference. LUNGS: Clear to percussion and to auscultation. Good air exchange. No wheezing or rhonchi. HEART: S1, S2 regular. No murmurs, gallops or rubs. ABDOMEN: Soft and nontender. Bowel sounds are present. No organomegaly appreciated. EXTREMITIES: No clubbing or cyanosis. SECOND TIME WORKER: Awake, alert, and oriented x3. Cranial nerves 2 to 7 intact. There is no fasciculation or atrophy noted. No focal deficits observed. ASSESSMENT: 1. Snoring, multiple awakenings from sleep, extremely low position of soft palate Mallampati 4, sleepiness with [place] Sleepiness Scale 12, history of obstructive sleep apnea before. Obstructive sleep apnea hypopnea syndrome. 2. Mild obesity BMI 36.9. 3. Coronary artery disease, status post CABG. 4. Status post colon resection for diverticulitis. 5 hypothyroidism. 6 . Hyperlipidemia. 7. History of sinusitis. PLAN: 1. Polysomnography for evaluation of patient's breathing during sleep. 2. Thank plan after reading sleep study. 3. Preferable position during sleep on the side. 4. No driving if patient feels any sleepiness. Patient is aware of civil and criminal liability for unsafe driving. 5. Sleep hygiene with regular sleep time for at least 7.5-8 hours. 6. Watching and losing weight. Thank you very much for referring this patient for consultation. Sincerely, Jose Campbell MD, PhD, FAASM. Diplomat of [place] [employer], Sleep Medicine Board by [place] [employer] [place] [employer] Wireless Sales Representative of [facility] [place] Past Medical History Past Medical History: Coronary Artery Disease (CAD), Chest Pain / Angina, Diabetes Mellitus, Hyperlipidemia, Hypertension, Mitral Valve Prolapse (MVP), Sleep Apnea/CPAP/BIPAP, Thyroid Disorder Additional Past Medical History / Comment(s): diverticulitis, ddd, arthritis, UTI'S, KIDNEY STONES,INCONT OF URINE, arthritis,MIGRAINEs, ANGINA, HEART PROBLEMS, ARTHRITIS, ABDOMINAL/AORTIC ANEURYSM. History of Any Multi-Drug Resistant Organisms: None Reported Past Surgical History: Appendectomy, Bowel Resection, Breast Surgery, Section, Coronary Bypass/CABG, Heart Catheterization, Hysterectomy Additional Past Surgical History / Comment(s): BOWEL RESECTION D/T DIVERTICULITIS, QUAD BYPASS in 2009 at [facility], Breast biopsy, 7 exploratory abd sx. Past Anesthesia/Blood Transfusion Reactions: No Reported Reaction Past Psychological History: Depression Smoking Status: Never smoker Past Alcohol Use History: Occasional Past Drug Use History: None Reported - Past Family History Father Family Medical History: Coronary Artery Disease (CAD), Hyperlipidemia, Hypertension Additional Family Medical History / Comment(s): Atherosclerosis Mother Family Medical History: Cancer, Coronary Artery Disease (CAD), Myocardial Infarction ([place]) Additional Family Medical History / Comment(s): ovarian cancer Brother(s) Family Medical History: Coronary Artery Disease (CAD) Additional Family Medical History / Comment(s): Brother had CABG; grandmother had ascending aortic aneurysm Medications and Allergies Home Medications Medication Instructions Recorded Confirmed Type Aspirin 81 mg PO BID 08/02/15 07/09/21 History Rosuvastatin [Crestor] 5 mg PO Q48H 11/24/18 07/09/21 History Levothyroxine Sodium [Synthroid] 100 mcg PO DAILY 07/13/19 07/09/21 History Rosuvastatin [Crestor] 10 mg PO Q48H 07/13/19 07/09/21 History Fenofibrate Nanocrystallized 145 mg PO DAILY 03/24/20 07/09/21 History [Fenofibrate] Ergocalciferol (Vitamin D2) 1,250 mcg PO TU 07/09/21 07/09/21 History [Drisdol (50,000 Iu)] Metoprolol Succinate (ER) [Toprol 50 mg PO DAILY 07/09/21 07/09/21 History XL] lisinopriL [Zestril] 5 mg PO HS 07/09/21 07/09/21 History Apixaban [Eliquis Starter Pack 5 - 10 mg PO DIRECTED 30 Days 07/11/21 Rx (for VTE)] #1 each Allergies Allergy/AdvReac Type Severity Reaction Status Date / Time Sulfa (Sulfonamide Allergy Unknown Verified 07/09/21 16:42 Antibiotics) amoxicillin [From Augmentin] AdvReac Nausea Verified 07/09/21 16:42 clavulanic acid AdvReac Nausea Verified 07/09/21 16:42 [From Augmentin] Physical Exam Vitals: Vital Signs Temp Pulse Resp BP Pulse Ox 03/01/24 15:22 98.2 F 71 20 109/68 98 Intake and Output 03/01/24 03/01/24 03/01/24 06:59 14:59 22:59 Other: Weight 81.703 kg Sleep Note - Sleep Data ESS Total: 12 - Sleep Note Sleep Note: Temperature: 98.2 F Pulse Rate: 71 Respiratory Rate: 20 Blood Pressure: 109/68 SpO2: 98 Height: 4 ft 10.5 in Weight: 81.703 kg BMI: Neck Circumference: 16.2
== END ==
LOC: 3 N SLEEP 14:31
PROVIDERS: ATTEND Internal Medicine
CPT/HCPCS: 99211

== ENCOUNTER 2024-03-28 19:27 | Outpatient (CLI) | payer MEDICARE, BC ==
--- NOTE | 2024-03-30 13:54 | P.PCN ---
Description of Procedure: POLYSOMNOGRAPHY REPORT PROCEDURE(S)/DATE(S): Polysomnography 03/28/2024 CLINICAL: Patient has been seen in the sleep center for evaluation of obstructive sleep apnea-hypopnea syndrome. Please see my consultation. Sleep study has been done for evaluation of patient breathing during the sleep. PROCEDURE: The standard montage for clinical polysomnography included the electroencephalogram, the electrooculogram, the mentalis surface electromyography and Lead II cardiography. The respiratory battery consisted of measurements of nasal/buccal air flow, pressure transducer measurements from nose, thoracic and/or abdominal effort and intercostal surface electromyography. Video monitoring has been done to check for any parasomnia events. Nocturnal oxyhemoglobin saturations were obtained by finger oximetry. Step-lang titration with positive airway pressure was utilized to control the respiratory events, if necessary. RESULTS: During the diagnostic sleep study sleep efficiency was extremely short 49.1%. Latency to sleep onset was significantly prolonged to 128.0 min. Sleep architecture showed stage NI was extremely high 44.0%, Delta sleep was absent 0%, REM sleep was decreased to 9.4%. Respiratory channel showed 1 obstructive apneas, 4 mixed apneas, 0 central apneas, 37 hypopneas with 4% oxygen desaturation and 87 hypopneas with 3% oxygen desaturation, lowest oxygen level was 60%. Total apnea hypopnea index was 11.9 with 4% oxygen desaturation and 26.0 with 3% oxygen desaturation. Oxygen level was below normal range for 19 minutes. Heart rate was in the range between 62 and 72, average 67. EMG showed 0 periodic limb movements per hour. IMPRESSIONS: 1. Obstructive sleep apnea hypopnea syndrome. 2. No significant periodic limb movements have been documented. Please see other impressions from consultation PLAN: 1. The patient will have PAP titration for correction of respiratory abnormalities during the sleep. 2. Losing weight program. 3. Sleep hygiene with regular time in bed for at least 7-1/2 hours. 4. No driving if feeling sleepiness. Thank you very much for allowing me to participate in the management of your patient. Sincerely, Jose Campbell MD, PhD, FAASM. Diplomat of [place] [employer], Sleep Medicine Board by [place] [employer] Honing Machine Try Out Setter of [facility] [place] cc: Vidal Erickson MD
== END 2024-03-29 05:38 | disposition home or self-care (01) ==
LOC: 3 N SLEEP 19:27
PROVIDERS: ATTEND Internal Medicine
CPT/HCPCS: 95810

== ENCOUNTER 2024-06-05 00:12 | Inpatient (IN) | payer MEDICARE, BC ==
[2024-06-05] MEDS ORDERED: NITROGLYCERIN SL TABS 0.4 MG TAB SUBLINGUAL PRN (00:17)
[2024-06-05] MEDS: MORPHINE SULFATE 4 MG/ML SYRINGE IV STA (00:18)
[2024-06-05 00:23] LABS: Glucose,Whole Blood 106 mg/dL (70-110)
[2024-06-05] MEDS ORDERED: HEPARIN SODIUM 1,000 UN/ML (10ML VL) IV PRN (00:25)
--- NOTE | 2024-06-05 00:25 | ED ---
Chest Pain HPI - General Stated Complaint: STEMI Source: patient, EMS Mode of arrival: EMS Limitations: no limitations - History of Present Illness Initial Comments: Patient is an 84-year-old woman who arrives by ambulance of evaluation of chest and back pain radiating to left arm. She states that the symptoms started probably around 1130 or little after that. When the pain intensified she called EMS. There was some associated shortness of breath. EMS arrived and when they placed patient on monitor transmitted an ECG with concern about STEMI. Patient has history of four-vessel bypass approximately 12 years ago. EMS did give aspirin and 1 nitroglycerin and transported patient here. MD Complaint: chest pain Onset/Timin -: minutes(s) Onset: during rest Pain Location: substernal Pain Radiation: back Severity: severe Quality: aching Consistency: constant Improves With: nitroglycerin Worsens With: nothing Anginal Symptoms: dyspnea Treatments Prior to Arrival: aspirin, nitroglycerin - Related Data Home Medications Medication Instructions Recorded Confirmed Levothyroxine Sodium [Synthroid] 100 mcg PO DAILY 07/13/19 06/05/24 Fenofibrate Nanocrystallized 145 mg PO HS 03/24/20 06/05/24 [Fenofibrate] Ergocalciferol (Vitamin D2) 1,250 mcg PO TU 07/09/21 06/05/24 [Drisdol (50,000 Iu)] lisinopriL [Zestril] 5 mg PO HS 07/09/21 06/05/24 Cranberry Fruit Extract [Cranberry] 500 mg PO DAILY 06/05/24 06/05/24 Docusate [Colace] 100 mg PO BID 06/05/24 06/05/24 Latanoprost [Latanoprost 0.005%] 1 drop BOTH EYES HS 06/05/24 06/05/24 diphenhydrAMINE HCL [Benadryl] 25 mg PO BID 06/05/24 06/05/24 metFORMIN HCL 500 mg PO DAILY 06/05/24 06/05/24 Previous Rx's Medication Instructions Recorded Acetaminophen Tab [Tylenol] 325 mg PO Q6HR PRN tab 06/07/24 Aspirin 81 mg PO DAILY #0 06/07/24 Atorvastatin [Lipitor] 80 mg PO HS #30 tab 06/07/24 Metoprolol Tartrate [Lopressor] 50 mg PO BID #60 tab 06/07/24 Nitroglycerin Sl Tabs [Nitrostat] 0.4 mg SUBLINGUAL Q5M PRN #20 tab 06/07/24 Ticagrelor [Brilinta] 90 mg PO BID #60 tab 06/07/24 Allergies Allergy/AdvReac Type Severity Reaction Status Date / Time Sulfa (Sulfonamide Allergy SWELLING Verified 06/05/24 09:57 Antibiotics) AND BAD HEADACHE amoxicillin [From Augmentin] AdvReac Nausea Verified 06/05/24 09:57 clavulanic acid AdvReac Nausea Verified 06/05/24 09:57 [From Augmentin] Review of Systems ROS Statement: Those systems with pertinent positive or pertinent negative responses have been documented in the HPI. ROS Other: All systems not noted in ROS Statement are negative. Constitutional: Denies: fever, chills, weakness Respiratory: Reports: as per HPI, dyspnea. Denies: cough, wheezes Cardiovascular: Reports: chest pain. Denies: palpitations, orthopnea, edema, syncope Gastrointestinal: Denies: abdominal pain, nausea, vomiting, diarrhea Genitourinary: Denies: dysuria, hematuria Musculoskeletal: Denies: back pain Skin: Denies: rash Neurological: Denies: headache, weakness EKG Findings - EKG Results: EKG: interpreted by ERMD, sinus rhythm, normal axis - MN, Pacemaker, Normal: Myocardial infarction: lateral MN (acute or recent) Past Medical History Past Medical History: Coronary Artery Disease (CAD), Chest Pain / Angina, Diabetes Mellitus, Hyperlipidemia, Hypertension, Mitral Valve Prolapse (MVP), Sleep Apnea/CPAP/BIPAP, Thyroid Disorder Additional Past Medical History / Comment(s): diverticulitis, ddd, arthritis, UTI'S, KIDNEY STONES,INCONT OF URINE, arthritis,MIGRAINEs, ANGINA, HEART PROBLEMS, ARTHRITIS, ABDOMINAL/AORTIC ANEURYSM. History of Any Multi-Drug Resistant Organisms: None Reported Past Surgical History: Appendectomy, Bowel Resection, Breast Surgery, Section, Coronary Bypass/CABG, Heart Catheterization, Hysterectomy Additional Past Surgical History / Comment(s): BOWEL RESECTION D/T DIVERTICULIT IS, QUAD BYPASS in 2008 at [facility], Breast biopsy, 7 exploratory abd sx. Past Anesthesia/Blood Transfusion Reactions: No Reported Reaction Past Psychological History: Depression Smoking Status: Never smoker Past Alcohol Use History: Occasional Past Drug Use History: None Reported - Past Family History Father Family Medical History: Coronary Artery Disease (CAD), Hyperlipidemia, Hypertension Additional Family Medical History / Comment(s): Atherosclerosis Mother Family Medical History: Cancer, Coronary Artery Disease (CAD), Myocardial Infarction ([place]) Additional Family Medical History / Comment(s): ovarian cancer Brother(s) Family Medical History: Coronary Artery Disease (CAD) Additional Family Medical History / Comment(s): Brother had CABG; grandmother had ascending aortic aneurysm Son(s) History Unknown: Yes Family Medical History: Myocardial Infarction ([place]) General Exam General appearance: alert, in no apparent distress Head exam: Present: atraumatic, normocephalic Eye exam: Present: normal appearance. Absent: scleral icterus, conjunctival injection ENT exam: Present: normal oropharynx Neck exam: Present: normal inspection Respiratory exam: Present: normal lung sounds bilaterally. Absent: respiratory distress, wheezes, rales, rhonchi, stridor, accessory muscle use Cardiovascular Exam: Present: regular rate, normal rhythm, normal heart sounds. Absent: systolic murmur, diastolic murmur, rubs, gallop GI/Abdominal exam: Present: soft. Absent: distended, tenderness, guarding, rebound, rigid, mass, pulsatile mass Extremities exam: Present: normal inspection, normal capillary refill. Absent: pedal edema, calf tenderness Back exam: Present: normal inspection. Absent: CVA tenderness (R), CVA tenderness (L) Neurological exam: Present: alert Skin exam: Present: warm, dry, intact, normal color. Absent: rash Course Vital Signs 06/05/24 06/05/24 06/05/24 00:16 00:24 00:27 Temperature 97.6 F Pulse Rate 69 66 67 Respiratory 18 18 18 Rate Blood Pressure 103/75 85/46 85/46 O2 Sat by Pulse 95 95 96 Oximetry Chest Pain MDM - MDM Had single view portable chest x-ray that I interpreted as showing mild cardiomegaly. No acute infiltrate, no pneumothorax. Was pt. sent in by a medical professional or institution (, PA, TEST LEAD, urgent care, hospital, or longterm...) When possible be specific @ -[No] Did you speak to anyone other than the patient for history (EMS, parent, family, police, friend...)? What history was obtained from this source @ -[EMS did give some history Did you review nursing and triage notes (agree or disagree)? Why? @ -[I reviewed and agree with nursing and triage notes] Were old charts reviewed (outside hosp., previous admission, EMS record, old EKG, old radiological studies, urgent care reports/EKG's, longterm records)? Report findings @ -[No old charts were reviewed] Differential Diagnosis (chest pain, altered mental status, abdominal pain women, abdominal pain men, vaginal bleeding, weakness, fever, dyspnea, syncope, headache, dizziness, GI bleed, back pain, seizure, CVA, palpatations, mental health, musculoskeletal)? @ -[Differential Chest Pain: Stable Angina, Unstable Angina, STEMI, NSTEMI Aortic Dissection, Pneumothorax, Musculoskeletal, Esophageal Spasm GERD, Cholecystitis, Pancreatitis, Zoster, this is not meant to be an all-inclusive list. EKG interpreted by me (3pts min.). @ -[I interpreted as above] X-rays interpreted by me (1pt min.). @ -[I interpreted as above CT interpreted by me (1pt min.). @ -[None done] U/S interpreted by me (1pt. min.). @ -[None done] What testing was considered but not performed or refused? (CT, X-rays, U/S, labs)? Why? @ -[None] What meds were considered but not given or refused? Why? @ -[None] Did you discuss the management of the patient with other professionals (professionals i.e. , PA, TEST LEAD, lab, RT, psych nurse, socially responsible investment adviser, office machine embossograph operator, teacher, marketing officer, case folder)? Give summary @ -Case discussed with the vocational case manager on-call and also with admitting physician Was smoking cessation discussed for >3mins.? @ -[No] Was critical care preformed (if so, how long)? @ -[Yes, 30 minutes Were there social determinants of health that impacted care today? How? (Homelessness, low income, unemployed, alcoholism, drug addiction, transportation, low edu. Level, literacy, decrease access to med. care, halfway, rehab)? @ -[No] Was there de-escalation of care discussed even if they declined (Discuss DNR or withdrawal of care, Hospice)? DNR status @ -[No] What co-morbidities impacted this encounter? (DM, HTN, Smoking, COPD, CAD, Cancer, CVA, ARF, Chemo, Hep., AIDS, mental health diagnosis, sleep apnea, morbid obesity)? @ -[Previous coronary artery disease/CABG Was patient admitted / discharged? Hospital course, mention meds given and route, prescriptions, significant lab abnormalities, going to OR and other pertinent info. @ -[Patient is an 84-year-old woman brought by ambulance to have evaluation of acute onset of chest pain suspicious for acute coronary syndrome. EMS did call report and sent a telemetry ECG consistent with STEMI. The Maintenance Controller was activated and I discussed with the vocational case manager who will see the patient. The patient is taken for Maintenance Controller Undiagnosed new problem with uncertain prognosis? @ -[No] Drug Therapy requiring intensive monitoring for toxicity (Heparin, Nitro, Insulin, Cardizem)? @ -[Heparin Were any procedures done? @ -[No] Diagnosis/symptom? @ -Acute STEMI Acute, or Chronic, or Acute on Chronic? @ -[Acute Uncomplicated (without systemic symptoms) or Complicated (systemic symptoms)? @ -[Uncomplicated Side effects of treatment? @ -[No] Exacerbation, Progression, or Severe Exacerbation? @ -[No] Poses a threat to life or bodily function? How? (Chest pain, [place], [place], pneumonia, PE, COPD, DKA, ARF, appy, cholecystitis, CVA, Diverticulitis, Homicidal, Suicidal, threat to staff... and all critical care pts) @ -[Yes Disposition Clinical Impression: STEMI (ST elevation myocardial infarction) Disposition: ADMITTED IP TO THIS HOSP Condition: Stable Is patient prescribed a controlled substance at d/c from ED?: No
[2024-06-05] MEDS: NITROGLYCERIN OINT 1 INCH/GM PACKET TOPICAL STA (00:26)
[2024-06-05] MEDS: HEPARIN SODIUM 1,000 UN/ML (10ML VL) IVP STA (00:26)
--- NOTE | 2024-06-05 00:38 | P.CRDCN ---
History of Present Illness Consult date: 06/05/24 History of present illness: HISTORY OF PRESENTING ILLNESS 84-year-old female with past medical history of CAD status post CABG x 4 vessel activated EMS because she started experiencing substernal chest pressure along with not feeling well 30 minutes prior to the arrival to the hospital. She reports that she was well in the morning when she woke up. Her symptoms started in the nighttime. By the time she was in the ER her pain was subsided after she received morphine. Admission ECG in the ECG by the EMS shows ST elevations in 1 and aVL with reciprocal ST changes in inferior lead, normal sinus rhythm. She denies any lightheadedness, dizziness palpitations or shortness of breath. She appears euvolemic. Hemodynamically stable. Bedside echocardiogram did not show any pericardial effusion, preserved LVEF, no obvious wall motion abnormality was appreciated. REVIEW OF SYSTEMS 14 point review of system is negative except what is mentioned above in HPI. PHYSICAL EXAMINATION Vital signs reviewed. Head: Normocephalic. Eyes: Sclerae nonicteric. Neck: Brisk carotid upstroke, no jugular venous distention. Lungs: Clear to auscultation. Heart: Regular rate and rhythm, S1-S2, no S3, no murmur or rub. Abdomen: Soft nontender, positive bowel sounds. Extremities: No edema, intact distal pulses. Neuro: Alert, oritented, no focal deficits. Detailed neuro exam was not performed. ASSESSMENT Lateral STEMI Prior history of CAD status post CABG 12 years ago, 4 vessels Morbid obesity PLAN Plan for cardiac catheterization. Verbal consent obtained 5000u OF IV heparin Further recommendations to follow Evan Mo MD, FACC, RPVI Thank you for allowing [facility] to participate in this patient's care. Feel free to reach out in case of any followup questions. Past Medical History Past Medical History: Coronary Artery Disease (CAD), Chest Pain / Angina, Diabetes Mellitus, Hyperlipidemia, Hypertension, Mitral Valve Prolapse (MVP), Sleep Apnea/CPAP/BIPAP, Thyroid Disorder Additional Past Medical History / Comment(s): diverticulitis, ddd, arthritis, UTI'S, KIDNEY STONES,INCONT OF URINE, arthritis,MIGRAINEs, ANGINA, HEART PROBLEMS, ARTHRITIS, ABDOMINAL/AORTIC ANEURYSM. History of Any Multi-Drug Resistant Organisms: None Reported Past Surgical History: Appendectomy, Bowel Resection, Breast Surgery, Section, Coronary Bypass/CABG, Heart Catheterization, Hysterectomy Additional Past Surgical History / Comment(s): BOWEL RESECTION D/T DIVERTICULITIS, QUAD BYPASS in 2009 at [facility], Breast biopsy, 7 exploratory abd sx. Past Anesthesia/Blood Transfusion Reactions: No Reported Reaction Past Psychological History: Depression Smoking Status: Never smoker Past Alcohol Use History: Occasional Past Drug Use History: None Reported - Past Family History Father Family Medical History: Coronary Artery Disease (CAD), Hyperlipidemia, Hypertension Additional Family Medical History / Comment(s): Atherosclerosis Mother Family Medical History: Cancer, Coronary Artery Disease (CAD), Myocardial Infarction ([place]) Additional Family Medical History / Comment(s): ovarian cancer Brother(s) Family Medical History: Coronary Artery Disease (CAD) Additional Family Medical History / Comment(s): Brother had CABG; grandmother had ascending aortic aneurysm Medications and Allergies Home Medications Medication Instructions Recorded Confirmed Type Aspirin 81 mg PO BID 08/02/15 07/09/21 History Rosuvastatin [Crestor] 5 mg PO Q48H 11/24/18 07/09/21 History Levothyroxine Sodium [Synthroid] 100 mcg PO DAILY 07/13/19 07/09/21 History Rosuvastatin [Crestor] 10 mg PO Q48H 07/13/19 07/09/21 History Fenofibrate Nanocrystallized 145 mg PO DAILY 03/24/20 07/09/21 History [Fenofibrate] Ergocalciferol (Vitamin D2) 1,250 mcg PO TU 07/09/21 07/09/21 History [Drisdol (50,000 Iu)] Metoprolol Succinate (ER) [Toprol 50 mg PO DAILY 07/09/21 07/09/21 History XL] lisinopriL [Zestril] 5 mg PO HS 07/09/21 07/09/21 History Apixaban [Eliquis Starter Pack 5 - 10 mg PO DIRECTED 30 Days 07/11/21 Rx (for VTE)] #1 each Allergies Allergy/AdvReac Type Severity Reaction Status Date / Time Sulfa (Sulfonamide Allergy Unknown Verified 07/09/21 16:42 Antibiotics) amoxicillin [From Augmentin] AdvReac Nausea Verified 07/09/21 16:42 clavulanic acid AdvReac Nausea Verified 07/09/21 16:42 [From Augmentin] Physical Exam Vitals: Vital Signs Temp Pulse Resp BP Pulse Ox 06/05/24 00:27 67 18 85/46 96 06/05/24 00:24 66 18 85/46 95 06/05/24 00:16 97.6 F 69 18 103/75 95 Intake and Output 06/04/24 06/04/24 06/05/24 14:59 22:59 06:59 Other: Weight 79.832 kg Results Current Medications Generic Name Dose Route Start Last Admin Trade Name Freq PRN Reason Stop Dose Admin Heparin Sodium (Porcine) 0 unit 06/05/24 00:25 Heparin Sodium 1,000 Un/Ml (10ml Vl) IV PER PROTOCOL PRN Low PTT Protocol Heparin Sodium/Sodium Chloride 250 mls @ 9.58 mls/hr 06/05/24 00:30 25,000 unit/ Sodium Chloride IV .Q24H GEORGES Protocol 12 UNITS/KG/HR Nitroglycerin 0.4 mg 06/05/24 00:17 Nitroglycerin Sl Tabs 0.4 Mg Tab SUBLINGUAL Q5M PRN Chest Pain Intake and Output 06/04/24 06/04/24 06/05/24 14:59 22:59 06:59 Other: Weight 79.832 kg Patient Weight 06/05/24 06:59 Weight 79.832 kg
[2024-06-05] MEDS: MIDAZOLAM 2 MG/2 ML VIAL IVP ONE (00:42)
[2024-06-05] MEDS: fentaNYL (PF) 50 MCG/ML 2 ML AMP IVP ONE (00:42)
[2024-06-05] MEDS: LIDOCAINE 1% INJ 10MG/ML (20 ML MDV) SQ ONE (00:43)
[2024-06-05] MEDS: IV FLUID CONTINUATION 1,000 ML IV ONE (00:50)
[2024-06-05 00:52] LABS: Partial Thromboplastin Time 22.9 sec (22.0-30.0); Prothrombin Time 10.8 sec (10.0-12.5)
[2024-06-05 00:54] LABS: ALT 17 U/L (4-34); AST 25 U/L (14-36); African American GFR (CKD) 64 (>60 ml/min/1.73 sqM); Albumin 3.6 g/dL (3.5-5.0); Alkaline Phosphatase 59 U/L (38-126); Anion Gap 4 mmol/L; Blood Urea Nitrogen 33 mg/dL (7-17); Carbon Dioxide 24 mmol/L (22-30); Chloride 109 mmol/L (98-107); Glucose 109 mg/dL (74-99); Magnesium 2.1 mg/dL (1.6-2.3); Non-African American GFR(CKD) 55 (>60 ml/min/1.73 sqM); Potassium 4.3 mmol/L (3.5-5.1); Sodium 137 mmol/L (137-145); Total Bilirubin 0.4 mg/dL (0.2-1.3); Total Protein 5.8 g/dL (6.3-8.2)
[2024-06-05 00:57] LABS: Basophils # (A) 0.1 k/uL (0-0.2); Basophils % (A) 1 %; Eosinophils # (A) 0.2 k/uL (0-0.7); Eosinophils % (A) 2 %; HCT 41.2 % (34.0-46.0); HGB 13.3 gm/dL (11.4-16.0); Lymphocytes # (A) 2.9 k/uL (1.0-4.8); Lymphocytes % (A) 34 %; MCH 30.8 pg (25.0-35.0); MCHC 32.3 g/dL (31.0-37.0); MCV 95.4 fL (80.0-100.0); Mean Platelet Volume 8.1; Monocytes # (A) 0.7 k/uL (0-1.0); Monocytes % (A) 8 %; Neutrophils # (A) 4.5 k/uL (1.3-7.7); Neutrophils % (A) 53 %; Platelet Count 273 k/uL (150-450); RBC 4.32 m/uL (3.80-5.40); RDW 13.6 % (11.5-15.5); WBC 8.6 k/uL (3.8-10.6)
[2024-06-05] MEDS: TICAGRELOR 90 MG TAB PO ONE (01:03)
[2024-06-05] MEDS: HEPARIN SODIUM 1,000 UN/ML (10ML VL) IVP ONE (01:04)
--- NOTE | 2024-06-05 01:22 | P.CARDCATH ---
Date of Procedure: 06/05/24 Description of Procedure: DIAGNOSTIC CORONARY ANGIOGRAPHY and LEFT HEART CATH REPORT PROCEDURES PERFORMED: Left heart catheterization Selective coronary angiography Moderate conscious sedation 22 mins Right common femoral access Right common femoral arteriogram INDICATION: Lateral STEMI 84-year-old female past medical history of CAD status post CABG x 4 in 2011 presented to the hospital because of substernal chest pressure which started around 30 minutes prior to the presentation to the hospital. Her admission ECG showed concerns of ST elevations in 1 and aVL with reciprocal changes in inferior lead. Due to this she was taken to the cardiac Adjunct Psychology Professor. CONSENT: I have discussed the risks, benefits and alternative therapies for the above-mentioned procedure, sedation/analgesia and necessary blood product administration (if indicated, as they pertain to this patient). The patient has indicated understanding and acceptance of the risks and procedures discussed. Conscious Sedation: Patient's ECG, heart rate, blood pressure, pulse oximetry was monitored throughout the duration of procedure under the direct supervision. 2 mg Versed and 50 mg Fentanyl were used for induction of moderate conscious sedation. Total duration of 22 minutes. PROCEDURE:After the risks, benefits and alternatives of the above mentioned procedure explained in detail with the patient, informed consent was obtained. Patient was taken to the catheterization lab and prepped and draped in usual sterile fashion. Ultrasound was used to identify the right common femoral artery. 1% lidocaine was infiltrated over the right common femoral artery. Using ultrasound arterial access was obtained using micropuncture needle. A 6-Turkmen sheath was placed in the right coomon femoral artery using modified Seldinger technique. J tipped wire was advanced under fluoroscopic guidance. Over the wire JL4 diagnostic catheter was advanced. Wire was removed, catheter was flushed and manipulated under fluoroscopy to selectively engaged the left coronary ostium. Left coronary angioplasty was performed in different angiographic projections. This catheter was exchanged for a JR4 diagnostic catheter over the wire. The catheter was flushed and manipulated to cross the aortic valve. LV pressures were obtained. Pullback was performed across aortic valve and catheter was manipulated to selectively engage the right coronary ostium under fluoroscopic guidance. Right coronary angiography was performed in different angiographic projections. The catheter was manipulated to selectively engage the SVG to OM1. SVG to OM1 angiogram was performed. The catheter was disengaged and manipulated to look for other SVG grafts. The catheter was manipulated to enter the left subclavian artery and perform the angiogram for GOMEZ graft. Decision was made to proceed with primary PCI of SVG to OM1 HEMODYNAMICS: Aortic Pressure: 139/55 mmHg. LV pressure: 140/7 mmHg. LVEDP 28 mmHg. SELECTIVE CORONARY ARTERIOGRAPHY: LEFT MAIN: The left main is a large caliber vessel which bifurcates into the LAD and circumflex. Left main appears angiographically normal. LEFT ANTERIOR DESCENDING CORONARY ARTERY: LAD has severe diffuse disease. It gives rise to a diagonal branch which has severe diffuse disease with competitive flow noticed. LEFT CIRCUMFLEX CORONARY ARTERY: It is nondominant vessel. Left circumflex artery has severe diffuse disease. It gives rise to a medium size OM1 branch which has severe diffuse disease. It does not have any cognitive flow. RIGHT CORONARY ARTERY: Dominant vessel. RCA is large caliber and has severe diffuse disease. It gives rise to PDA and PL branches. PDA is 100% occluded. PL branch has moderate diffuse disease Bypass graft GOMEZ to LAD: GOMEZ graft to LAD is patent. After GOMEZ anastomosis, LAD has moderate diffuse disease. SVG to OM1: 100% occluded in mid segment. IMPRESSION: 100% occluded SVG to OM1 Severe diffuse disease in [place] LAD, LCx, RCA PLAN: Plan for PCI of OM1 with Dr. Ogden Further angiogram to look for further vein grafts after the primary PCI. Performing Physician Evan Mo MD [facility]
[2024-06-05] MEDS: NITROGLYCERIN 1000MCG/10ML SYRINGE INTRACORON ONE (01:29)
[2024-06-05] MEDS: IOPAMIDOL-370 100ML BTL INJ ONE ×2 (01:33→01:52)
[2024-06-05] MEDS: TIROFIBAN 12.5MG-250ML NS 250 ML IV ONE (01:50)
[2024-06-05] MEDS ORDERED: RX INFO: IV CONTRAST WAS GIVEN 1 EACH MISC MISCELLANE PRN (02:05)
[2024-06-05] MEDS ORDERED: MAG HYDROX/AL HYDROX/SIMETH 30 ML CUP PO PRN (02:05)
[2024-06-05] MEDS ORDERED: ZOLPIDEM 5 MG TAB PO PRN (02:05)
[2024-06-05] MEDS ORDERED: ATROPINE SULFATE 0.1 MG/ML 10ML SYRINGE IV PRN (02:05)
--- NOTE | 2024-06-05 02:18 | XR ---
EXAM: XR Chest, 1 View CLINICAL HISTORY: ITS.REASON XR Reason: chest pain TECHNIQUE: Frontal view of the chest. COMPARISON: No relevant prior studies available. IMPRESSION: Cardiomegaly. Mild vascular congestion
[2024-06-05 02:26] LABS: Glucose,Whole Blood 125 mg/dL (70-110)
--- NOTE | 2024-06-05 02:27 | P.PRCINT ---
Percutaneous Coronary Int. - Percutaneous Coronary Intervention Percutaneous Coronary Intervention: PROCEDURES PERFORMED: SVG to OM, SVG to diagonal, SVG to PDA angiography, Penumbra aspiration thrombectomy of the SVG to OM, PCI SVG to OM with a 4.5 x 12mm Xience EDGAR INDICATION: STEMI PROCEDURE: After the risks, benefits and alternatives of the above mentioned procedure explained in detail with the patient, informed consent was obtained. Patient was taken to the catheterization lab and prepped and draped in usual fashion. A 6-Irish sheath had been placed in the right femoral artery previously for diagnostic portion. diagnostic images showed SVG to OM 100% stenosis with what appeared to be a heavy thrombus burden. Heparin was given. A 6-Irish FR5 guide catheter was used to engage the SVG to OM. 0.014 BMW wire and then 0.014 was per wire was advanced in the distal SVG to OM. Balloon angioplasty was initially performed with a 3.0 mm balloon however still significant amount of dye hanging up. balloon angioplasty was performed with 4.0 mm balloon however still with some degree of dye hang up. Therefore a Penumbra aspiration catheter was able to be advanced and aspiration thrombectomy was performed with 2 passes with significant amount of thrombus removed. there was still some hazy portion of the mid SVG to OM and this was treated with a 4.5 x 12 mm drug-eluting stent. There was high thrombus burden and therefore Aggrastat was given. Final angiograms were performed. Preintervention there was 100% stenosis with MEAGAN 0 flow and postintervention there was less than 10% stenosis with MEAGAN 2 flow. Patient's pain continued to improve and she was chest pain-free by the end of the procedure. Diagnostic procedure had not obtained images of the 2nd and 3rd SVG (assumed to be SVG to diagonal and SVG to PDA). During intervention and the SVG to diagonal was opacified and seen to be patent and giving contrast showed no further images of this were obtained. Using a 6-Irish FR5 catheter, images were obtained of the SVG to PDA and appeared to be occluded at the origin. The right femoral angiogram showed anatomy adequate for closure and therefore a 6Fr Angioseal was placed with small amount of oozing and a Femstop was placed. The patient tolerated the procedure well. Patient was transported back to the post catheterization holding area in stable condition. Conscious Sedation: Patient was monitored under the direct supervision of myself for conscious sedation using Versed and fentanyl for a total duration of 52 minutes HEMODYNAMICS: Ao: 144/71 SELECTIVE CORONARY ARTERIOGRAPHY: LEFT MAIN: Not imaged, see separate report LEFT ANTERIOR DESCENDING CORONARY ARTERY: Not imaged, see separate report LEFT CIRCUMFLEX CORONARY ARTERY: Not imaged, see separate report RIGHT CORONARY ARTERY: Not imaged, see separate report SVG to OM: 100% occluded with dye hangup SVG to (assumed diagonal): susbselective and patent SVG to PDA: appears 100% occluded however somewhat limited images secondary to contrast threshold GOMEZ to LAD: Not imaged, see separate report FINAL IMPRESSION: 1. CAD as described above including SVG to OM 100% stenosis 2. S/p Penumbras aspiration thrombectomy and PCI SVG to OM with a 4.5 x 12mm Xience EDGAR PLAN: 1. Aggressive risk factor modification per most recent ACC/AHA guidelines. 2. Continue Eliquis and Brillinta for 12 months. May consider changing to Plavix and Eliquis after 1 month 3. Goal LDL < 55 given multivessel CAD
[2024-06-05] MEDS: HEPARIN SOD,PORK IN 0.45% NACL 25,000 UNIT in 0.45% NACL 1 250ML.BAG IV SCH (02:43)
[2024-06-05] MEDS: SODIUM CHLORIDE 0.9% 1,000 ML in EMPTY BAG 1 BAG IV SCH (02:46)
[2024-06-05] MEDS: SODIUM CHLORIDE 0.9% 500 ML 500 ML IV ONE (02:49)
[2024-06-05] MEDS: NOREPINEPHRINE 4 MG in SODIUM CHLORIDE 0.9% 250 ML IV SCH (06:40)
[2024-06-05 06:55] LABS: Basophils % (A) 0 %; Eosinophils # (A) 0.1 k/uL (0-0.7); Eosinophils % (A) 1 %; HCT 35.3 % (34.0-46.0); HGB 11.6 gm/dL (11.4-16.0); Lymphocytes # (A) 1.8 k/uL (1.0-4.8); Lymphocytes % (A) 20 %; MCH 31.5 pg (25.0-35.0); MCHC 32.9 g/dL (31.0-37.0); MCV 95.7 fL (80.0-100.0); Mean Platelet Volume 8.8; Monocytes # (A) 0.5 k/uL (0-1.0); Monocytes % (A) 5 %; Neutrophils # (A) 6.3 k/uL (1.3-7.7); Neutrophils % (A) 71 %; Platelet Count 268 k/uL (150-450); RBC 3.69 m/uL (3.80-5.40); RDW 14.1 % (11.5-15.5); WBC 8.9 k/uL (3.8-10.6)
[2024-06-05] MEDS ORDERED: ACETAMINOPHEN TAB 325 MG TAB PO PRN (07:40)
[2024-06-05] MEDS ORDERED: DEXTROSE 50% SYRINGE 50 ML IVP PRN ×2 (09:01)
[2024-06-05] MEDS: ASPIRIN 81 MG PO SCH (09:32)
[2024-06-05] MEDS: TICAGRELOR 90 MG TAB PO SCH (09:32)
--- NOTE | 2024-06-05 09:40 | P.PN ---
Subjective Progress Note Date: 06/05/24 Patient is an 84-year-old female who presented to the emergency room with new onset of chest pain. She underwent coronary angiogram where she had arthrectomy and stenting of her SVG to OM1. Patient developed postoperative hematoma. Patient states she is feeling well currently resting in bed. No chest pain or chest pressure. No difficulty breathing. She does have tenderness in her right groin to palpation. GENERAL: Well-appearing, well-nourished and in no acute distress. NECK: Supple without JVD or thyromegaly. LUNGS: Breath sounds clear to auscultation bilaterally. Respiration equal and unlabored. No wheezes, rales or rhonchi. HEART: Regular rate and rhythm without murmurs, rubs or gallops. S1 and S2 heard. EXTREMITIES: Normal range of motion, no edema. No clubbing or cyanosis. Peripheral pulses intact and strong. Hematoma noted in right groin. TELEMETRY: Sinus rhythm LABS: WBC 8.9, hemoglobin 11.6, hematocrit 35.3, platelet 268, sodium 137, potassium 4.3, BUN 33, creatinine 0.96, magnesium 2.1, AST 25, ALT 17, troponin less than 0.012 IMPRESSION: Lateral ST elevated myocardial infarction Status post stenting and arthrectomy of SVG to OM1 History of multivessel coronary artery disease, status post CABG x 4 in 2012 PLAN: Resume low-dose beta-rose Continue antiplatelet therapy Trend hemoglobin, consider CT scan of the pelvis if there is a drop Echocardiogram and Doppler study to assess LV function Further recommendations to be based upon clinical course I am dictating on behalf of Dr Sean Hummel's history/physical and assessment/plan. Objective - Vital Signs Vital signs: Vital Signs Temp 97.6 F 06/05/24 08:00 Pulse 70 06/05/24 08:30 Resp 16 06/05/24 08:30 BP 122/59 06/05/24 08:30 Pulse Ox 100 06/05/24 08:30 FiO2 Intake & Output 06/04/24 06/05/24 06/05/24 18:59 06:59 18:59 Intake Total 1299.2 79.8 Output Total 0 0 Balance 1299.2 79.8 Weight 86.7 kg Intake: IV 1299.2 79.8 Sodium Chloride 0.9% 1, 319.2 79.8 000 ml In Empty Bag 1 bag @ 1 ML/KG/HR 79.832 mls/ hr IV .[id number] [facility] Rx#: [id number] Sodium Chloride 0.9% 500 500 ml 500 ml @ 999 mls/hr IV .Q31M ONE Rx#:[id number] Output: Urine 0 0 Other: Voiding Method External Catheter - Labs CBC & Chem 7: 06/05/24 05:41 06/05/24 00:18 Labs: Abnormal Lab Results - Last 24 Hours (Table) 06/05/24 06/05/24 06/05/24 Range/Units 00:18 02:25 05:41 RBC (3.80-5.40) m/uL APTT 37.5 H (22.0-30.0) sec Chloride 109 H (98-107) mmol/L BUN 33 H (7-17) mg/dL Glucose 109 H (74-99) mg/dL POC Glucose (mg/dL) 125 H (70-110) mg/dL Total Protein 5.8 L (6.3-8.2) g/dL 06/05/24 Range/Units 05:41 RBC 3.69 L (3.80-5.40) m/uL APTT (22.0-30.0) sec Chloride (98-107) mmol/L BUN (7-17) mg/dL Glucose (74-99) mg/dL POC Glucose (mg/dL) (70-110) mg/dL Total Protein (6.3-8.2) g/dL
[2024-06-05] MEDS ORDERED: CEFDINIR 300 MG CAP PO SCH (11:15)
[2024-06-05 11:21] LABS: Glucose,Whole Blood 125 mg/dL (70-110)
[2024-06-05] MEDS: INSULIN ASPART (NovoLOG) 100 UNIT/ML VIAL SQ SCH (12:25)
[2024-06-05] MEDS: METOPROLOL TARTRATE 12.5 MG TAB PO SCH (12:33)
--- NOTE | 2024-06-05 12:46 | P.HPIM ---
History of Present Illness H&P Date: 06/05/24 This is a very pleasant 84-year-old female who presented to the emergency department via EMS with chest pain that had been radiating from her back anteriorly up her shoulder and radiating down her left arm. Patient reports she was sitting watching TV when this started occurring and woke her up because she was concerned. Patient having worsening pain called 911 and was brought here for further evaluation. Patient follows with Dr. Erickson in the outpatient setting with a past medical history of coronary artery disease, angina, diabetes mellitus, hyperlipidemia, hypertension, mitral valve prolapse, sleep apnea, thyroid. Patient has had previous coronary artery bypass grafting. Patient reports she follows with Dr. Christine Campoverde cardiology outpatient. EKG did reveal an ST elevation and patient was brought to the [employer] for cardiac catheterization. Patient was noted to have 100% occlusion to the SVG to OM1 with severe diffuse disease in the [place] LAD, circumflex, and RCA and is status post PCI of the OM with Dr. Ogden. Patient is seen in follow-up this morning in the ICU status post stenting along with thrombectomy aspiration and reports to feeling well. Patient vital signs and labs within normal limits. Home medications reviewed and resumed as appropriate. Patient was also taking antibiotics cefuroxime for a recent urinary tract infection and had 2 days remaining. Will continue ceftriaxone for 2 days to complete the course. Patient to continue in the ICU for now with telemetry monitoring and likely transition to 3 S. later today or tomorrow once a bed becomes available. Patient did develop a hematoma postsurgical had pressure applied and bleeding has appeared to stop. Will monitor closely for any further bleeding and recommend lying flat for now. REVIEW OF SYSTEMS: CONSTITUTIONAL: No fever, no malaise, no fatigue. HEENT: No recent visual problems or hearing problems. Denied any sore throat. CARDIOVASCULAR: No further reports of chest pain, orthopnea, PND, no palpitations, no syncope. PULMONARY: No shortness of breath, no cough, no hemoptysis. GASTROINTESTINAL: No diarrhea, no nausea, no vomiting, no abdominal pain. NEUROLOGICAL: No headaches, no weakness, no numbness. HEMATOLOGICAL: Denies any bleeding or petechiae. GENITOURINARY: Denies any burning micturition, frequency, or urgency. MUSCULOSKELETAL/RHEUMATOLOGICAL: Denies any joint pain, swelling, or any muscle pain. ENDOCRINE: Denies any polyuria or polydipsia. The rest of the 14-point review of systems is negative. PHYSICAL EXAMINATION: GENERAL: The patient is alert and oriented x3, not in any acute distress. Well developed, well nourished. Elderly appearing, morbidly obese HEENT: Pupils are round and equally reacting to light. EOMI. No scleral icterus. No conjunctival pallor. Normocephalic, atraumatic. No pharyngeal erythema. No thyromegaly. CARDIOVASCULAR: S1 and S2 muffled PULMONARY: Diminished breath sounds bilaterally otherwise chest is clear to au scultation, no wheezing or crackles. ABDOMEN: Soft, obese, nontender, nondistended, normoactive bowel sounds. No palpable organomegaly. MUSCULOSKELETAL: No joint swelling or deformity. EXTREMITIES: No cyanosis, clubbing, or pedal edema. NEUROLOGICAL: Gross neurological examination did not reveal any focal deficits. SKIN: No rashes. Assessment: Chest pain, STEMI status post stenting of the SVG to OM1 Postoperative hematoma right groin at catheterization site History of coronary artery disease with previous CABG and quadruple bypass Recent urinary tract infection outpatient was being treated with cefuroxime by primary care provider History of diabetes mellitus Hyperlipidemia Hypertension History of mitral valve prolapse Sleep apnea Hypothyroidism History of depression Morbid obesity with a BMI of 41.4 GI prophylaxis DVT prophylaxis Full code Plan: Patient was admitted as a STEMI went to cardiac catheterization noted to have 100% occlusion and is status post PCI stenting of the SVG to OM1 Patient developed a right groin hematoma and bleeding has appeared to stop and hemoglobin is stable currently at 11.6. Will monitor closely and recommend bedrest for now Patient will likely transfer out of the ICU later today or tomorrow once a bed on 3 S. is available continue telemetry monitoring Home medications reviewed and resumed as appropriate. Patient will continue 2 days of ceftriaxone as patient was taking Ceftin outpatient for urinary tract infection by her primary care provider Follow-up on repeat labs Continue monitoring Accu-Cheks before meals and at bedtime and will add sliding scale and monitor closely. Continue heart healthy diabetic diet Will discuss with cardiology regarding discharge planning in the next few days. The impression and plan of care has been dictated by Evelia Mcmillan, Nurse Practitioner as directed. Dr. Kvng MD I have performed a history and examination and MDM of this patient, discussed the same with the dictator, and agree with the dictator's assessment and plan as written ,documented as a scribe. Based on total visit time, I have performed more than 50% of the visit. Past Medical History Past Medical History: Coronary Artery Disease (CAD), Chest Pain / Angina, Diabetes Mellitus, Hyperlipidemia, Hypertension, Mitral Valve Prolapse (MVP), Sleep Apnea/CPAP/BIPAP, Thyroid Disorder Additional Past Medical History / Comment(s): diverticulitis, ddd, arthritis, UTI'S, KIDNEY STONES,INCONT OF URINE, arthritis,MIGRAINEs, ANGINA, HEART PROBLEMS, ARTHRITIS, ABDOMINAL/AORTIC ANEURYSM. Last Myocardial Infarction Date:: 06/05/24 History of Any Multi-Drug Resistant Organisms: None Reported Past Surgical History: Appendectomy, Bowel Resection, Breast Surgery, Section, Coronary Bypass/CABG, Heart Catheterization, Hysterectomy Additional Past Surgical History / Comment(s): BOWEL RESECTION D/T DIVERTICULITIS, QUAD BYPASS in 2008 at [facility], Breast biopsy, 7 exploratory abd sx. Past Anesthesia/Blood Transfusion Reactions: No Reported Reaction Date of Last Stent Placement:: 06/05/24 Past Psychological History: Depression Smoking Status: Never smoker Past Alcohol Use History: Occasional Past Drug Use History: None Reported - Past Family History Father Family Medical History: Coronary Artery Disease (CAD), Hyperlipidemia, Hypertension Additional Family Medical History / Comment(s): Atherosclerosis Mother Family Medical History: Cancer, Coronary Artery Disease (CAD), Myocardial Infarction ([place]) Additional Family Medical History / Comment(s): ovarian cancer Brother(s) Family Medical History: Coronary Artery Disease (CAD) Additional Family Medical History / Comment(s): Brother had CABG; grandmother had ascending aortic aneurysm Son(s) History Unknown: Yes Family Medical History: Myocardial Infarction ([place]) Medications and Allergies Home Medications Medication Instructions Recorded Confirmed Type Aspirin 81 mg PO BID 08/02/15 06/05/24 History Rosuvastatin [Crestor] 5 mg PO Q2D@209911/24/18 06/05/24 History Levothyroxine Sodium [Synthroid] 100 mcg PO DAILY 07/13/19 06/05/24 History Rosuvastatin [Crestor] 10 mg PO Q2D@209907/13/19 06/05/24 History Fenofibrate Nanocrystallized 145 mg PO HS 03/24/20 06/05/24 History [Fenofibrate] Ergocalciferol (Vitamin D2) 1,250 mcg PO TU 07/09/21 06/05/24 History [Drisdol (50,000 Iu)] Metoprolol Succinate (ER) [Toprol 50 mg PO BID 07/09/21 06/05/24 History XL] lisinopriL [Zestril] 5 mg PO HS 07/09/21 06/05/24 History Cranberry Fruit Extract [Cranberry] 500 mg PO DAILY 06/05/24 06/05/24 History Docusate [Colace] 100 mg PO BID 06/05/24 06/05/24 History Latanoprost [Latanoprost 0.005%] 1 drop BOTH EYES HS 06/05/24 06/05/24 History cefuroxime axetiL [Ceftin] 500 mg PO BID 06/05/24 06/05/24 History diphenhydrAMINE HCL [Benadryl] 25 mg PO BID 06/05/24 06/05/24 History metFORMIN HCL 500 mg PO DAILY 06/05/24 06/05/24 History Allergies Allergy/AdvReac Type Severity Reaction Status Date / Time Sulfa (Sulfonamide Allergy SWELLING Verified 06/05/24 09:57 Antibiotics) AND BAD HEADACHE amoxicillin [From Augmentin] AdvReac Nausea Verified 06/05/24 09:57 clavulanic acid AdvReac Nausea Verified 06/05/24 09:57 [From Augmentin] Physical Exam Vitals: Vital Signs Temp Pulse Resp BP Pulse Ox 06/05/24 08:30 70 16 122/59 100 06/05/24 08:00 97.6 F 70 16 121/61 100 06/05/24 07:53 100 06/05/24 07:30 71 17 84/45 100 06/05/24 07:00 71 17 108/84 100 06/05/24 06:30 71 18 110/62 100 06/05/24 06:00 70 19 100 06/05/24 05:30 70 17 95/46 100 06/05/24 05:00 72 17 105/60 99 06/05/24 04:45 70 14 110/60 100 06/05/24 04:30 68 20 98/54 100 06/05/24 04:15 71 14 94/55 99 06/05/24 04:00 70 12 103/56 100 06/05/24 03:45 73 12 100/53 100 06/05/24 03:30 69 18 105/61 100 06/05/24 03:15 65 16 113/58 98 06/05/24 03:00 67 12 91/57 96 06/05/24 02:45 73 12 111/59 91 L 06/05/24 02:30 68 17 63/31 93 L 06/05/24 00:27 67 18 85/46 96 06/05/24 00:24 66 18 85/46 95 06/05/24 00:16 97.6 F 69 18 103/75 95 Intake and Output 06/04/24 06/05/24 06/05/24 22:59 06:59 14:59 Intake Total 1299.2 79.8 Output Total 0 0 Balance 1299.2 79.8 Intake: IV 1299.2 79.8 Sodium Chloride 0.9% 1, 319.2 79.8 000 ml In Empty Bag 1 bag @ 1 ML/KG/HR 79.832 mls/ hr IV .[id number] [facility] Rx#: [id number] Sodium Chloride 0.9% 500 500 ml 500 ml @ 999 mls/hr IV .Q31M ONE Rx#:[id number] Output: Urine 0 0 Other: Voiding Method External Catheter Weight 86.7 kg Results CBC & Chem 7: 06/05/24 05:41 06/05/24 00:18 Labs: Abnormal Lab Results - Last 24 Hours (Table) 06/05/24 06/05/24 06/05/24 Range/Units 00:18 02:25 05:41 RBC (3.80-5.40) m/uL APTT 37.5 H (22.0-30.0) sec Chloride 109 H (98-107) mmol/L BUN 33 H (7-17) mg/dL Glucose 109 H (74-99) mg/dL POC Glucose (mg/dL) 125 H (70-110) mg/dL Total Protein 5.8 L (6.3-8.2) g/dL 06/05/24 Range/Units 05:41 RBC 3.69 L (3.80-5.40) m/uL APTT (22.0-30.0) sec Chloride (98-107) mmol/L BUN (7-17) mg/dL Glucose (74-99) mg/dL POC Glucose (mg/dL) (70-110) mg/dL Total Protein (6.3-8.2) g/dL Thrombosis Risk Factor Assmnt - Choose All That Apply Any of the Below Risk Factors Present?: Yes Each Factor Represents 1 point: Acute [place], Hx of IBD, Medical pt on bed rest, Obesity (BMI >25) Other Risk Factors: Yes Each Risk Factor Represents 3 Points: Age 75 years or older Other congenital or acquired thrombophilia - If yes, enter type in comment: No Thrombosis Risk Factor Assessment Total Risk Factor Score: 7 Thrombosis Risk Factor Assessment Level: High Risk
[2024-06-05] MEDS: LEVOTHYROXINE 100 MCG TAB PO ONE (13:57)
[2024-06-05 14:24] LABS: HCT 32.8 % (34.0-46.0); HGB 10.8 gm/dL (11.4-16.0); MCHC 32.9 g/dL (31.0-37.0); MCV 97.2 fL (80.0-100.0); Mean Platelet Volume 9.1; Platelet Count 247 k/uL (150-450); RBC 3.37 m/uL (3.80-5.40); RDW 13.7 % (11.5-15.5); WBC 8.8 k/uL (3.8-10.6)
[2024-06-05 16:29] LABS: Glucose,Whole Blood 158 mg/dL (70-110)
[2024-06-05] MEDS: FENOFIBRATE 160 MG TAB PO SCH (20:24)
[2024-06-05] MEDS: DOCUSATE 100 MG CAP PO SCH (20:24)
[2024-06-05] MEDS: ATORVASTATIN 80 MG TAB PO SCH (20:24)
[2024-06-05] MEDS: LATANOPROST 0.005% OPHTH DROPS 2.5 ML BTL BOTH EYES SCH (20:25)
[2024-06-05 20:32] LABS: Glucose,Whole Blood 187 mg/dL (70-110)
[2024-06-06] MEDS: LEVOTHYROXINE 100 MCG TAB PO SCH (05:34)
[2024-06-06 06:18] LABS: Basophils % (A) 0 %; Eosinophils # (A) 0.1 k/uL (0-0.7); Eosinophils % (A) 1 %; HCT 34.7 % (34.0-46.0); HGB 11.4 gm/dL (11.4-16.0); Lymphocytes % (A) 20 %; MCH 31.6 pg (25.0-35.0); MCV 95.9 fL (80.0-100.0); Mean Platelet Volume 8.4; Monocytes # (A) 0.7 k/uL (0-1.0); Monocytes % (A) 7 %; Neutrophils % (A) 69 %; Platelet Count 258 k/uL (150-450); RBC 3.62 m/uL (3.80-5.40); RDW 14.1 % (11.5-15.5); WBC 10.1 k/uL (3.8-10.6)
[2024-06-06 06:24] LABS: African American GFR (CKD) 81 (>60 ml/min/1.73 sqM); Non-African American GFR(CKD) 71 (>60 ml/min/1.73 sqM)
[2024-06-06 06:59] LABS: Glucose,Whole Blood 133 mg/dL (70-110)
[2024-06-06 07:22] LABS: Prothrombin Time 10.8 sec (10.0-12.5)
[2024-06-06 11:22] VITALS: BMI 40.8
[2024-06-06] MEDS: diphenhydrAMINE 25 MG CAP PO PRN (11:40)
[2024-06-06 12:00] LABS: Glucose,Whole Blood 102 mg/dL (70-110)
--- NOTE | 2024-06-06 12:36 | CA ---
Transthoracic Echo Report Name: Cecy Hurd Age: 84 Gender: F : 1940 Exam Date: 06/05/2024 14:28 Exam Location: [place] [facility] Ht (in): 59 Wt (lb): 191 Ordering Physician: Lyudmila Hunt Attending/Referring Phys: [employer] Kaitlin Rivera RDCS Procedure CPT: Indications: stemi Cardiac Hx: Technical Quality: Fair Contrast 1: Total Dose (mL): Contrast 2: Total Dose (mL): MEASUREMENTS (Male / Female) Normal Values 2D ECHO LV Diastolic Diameter PLAX 4.8 cm 4.2 - 5.9 / 3.9 - 5.3 cm LV Systolic Diameter PLAX 2.4 cm IVS Diastolic Thickness 1.3 cm 0.6 - 1.0 / 0.6 - 0.9 cm LVPW Diastolic Thickness 1.2 cm 0.6 - 1.0 / 0.6 - 0.9 cm LV Relative Wall Thickness 0.5 RV Internal Dim ED PLAX 1.5 cm LA Systolic Diameter LX 3.8 cm 3.0 - 4.0 / 2.7 - 3.8 cm LV Diastolic Volume MOD BP 43.1 cm??? 67 - 155 / 56 - 104 cm??? LV Systolic Volume MOD BP 16.6 cm??? 22 - 58 / 19 - 49 cm??? LV Ejection Fraction MOD BP 61.4 % >= 55 % LV Cardiac Index MOD BP 950.4 cm???/min???m??? LV Diastolic Volume MOD 4C 56.2 cm??? LV Systolic Volume MOD 4C 12.3 cm??? LV Ejection Fraction MOD 4C 78.1 % LV Cardiac Index MOD 4C 1577.5 cm???/min???m??? LV Diastolic Length 4C 6.6 cm LV Systolic Length 4C 5.7 cm LV Diastolic Volume MOD 2C 29.1 cm??? LV Systolic Volume MOD 2C 22.2 cm??? LV Ejection Fraction MOD 2C 23.7 % LV Cardiac Index MOD 2C 247.8 cm???/min???m??? LV Diastolic Length 2C 5.8 cm LV Systolic Length 2C 5.9 cm LA Volume 96.0 cm??? 18 - 58 / 22 - 52 cm??? LA Volume Index 49.3 cm???/m??? 16 - 28 cm???/m??? M-MODE Aortic Root Diameter MM 3.5 cm LA Systolic Diameter MM 3.7 cm LA Ao Ratio MM 1.0 AV Cusp Separation MM 1.5 cm DOPPLER AV Peak Velocity 143.9 cm/s AV Peak Gradient 8.3 mmHg AV Mean Velocity 102.7 cm/s AV Mean Gradient 4.6 mmHg AV Velocity Time Integral 32.2 cm AI Peak Velocity 342.8 cm/s AI Peak Gradient 47.0 mmHg AI Pressure Half Time 545.0 ms LVOT Peak Velocity 94.5 cm/s LVOT Peak Gradient 3.6 mmHg LVOT Velocity Time Integral 22.2 cm MV Area PHT 3.2 cm??? Mitral E Point Velocity 99.7 cm/s Mitral A Point Velocity 95.2 cm/s Mitral E to A Ratio 1.0 MV Deceleration Time 237.5 ms FINDINGS Left Ventricle Left ventricular ejection fraction is estimated at 55-60%. Mildly increased septal wall thickness. Mildly increased posterior wall thickness. No obvious regional wall motion abnormalities. Right Ventricle Normal right ventricular size and function. Unable to estimate the right ventricular systolic pressure. Right Atrium Mild right atrial dilatation. Left Atrium Mildly increased left atrial area. Mitral Valve Structurally normal mitral valve. [id number] mitral regurgitation. No mitral stenosis. Aortic Valve Trileaflet aortic valve. Diffuse thickening (sclerosis) of the aortic valve cusps without reduced excursion. Mild aortic regurgitation. Tricuspid Valve Structurally normal tricuspid valve. Trace tricuspid regurgitation. No tricuspid stenosis. Pulmonic Valve Structurally normal pulmonic valve. Trace pulmonic regurgitation. No pulmonic stenosis. Pericardium No pericardial or pleural effusion. Aorta Normal size aortic root and proximal ascending aorta. CONCLUSIONS Normal LV size and systolic function with mild concentric LVH. Mild aortic insufficiency, mild to moderate mitral regurgitation. Mild tricuspid regurgitation no pericardial effusion Previewed by: Dr. Galdino Butler MD (Electronically Signed) Final Date: 06 June 2024 12:35
--- NOTE | 2024-06-06 15:00 | P.PN ---
Subjective Progress Note Date: 06/06/24 The patient is an 84-year-old female who presented to the emergency room with new onset of chest pain. She underwent coronary angiogram where she had arthrectomy and stenting of her SVG to OM1. Patient developed postoperative hematoma in her right groin, with stable hemoglobin over the last 24 hours. Ec hocardiogram reveals preserved LV function with mild to moderate mitral regurgitation Patient states she is feeling well currently resting in bed. She is yet to be up ambulating throughout the halls. No chest pain or chest pressure. No difficulty breathing. She does have tenderness in her right groin to palpation. GENERAL: Well-appearing, well-nourished and in no acute distress. NECK: Supple without JVD or thyromegaly. LUNGS: Breath sounds clear to auscultation bilaterally. Respiration equal and unlabored. No wheezes, rales or rhonchi. HEART: Regular rate and rhythm without murmurs, rubs or gallops. S1 and S2 heard. EXTREMITIES: Normal range of motion, no edema. No clubbing or cyanosis. Peripheral pulses intact and strong. Hematoma noted in right groin, extending into her pelvis. Moderate bruising. TELEMETRY: Sinus rhythm IMPRESSION: Lateral ST elevated myocardial infarction Status post stenting and arthrectomy of SVG to OM1 History of multivessel coronary artery disease, status post CABG x 4 in 2012 Mild to moderate mitral regurgitation PLAN: Increase beta-rose Resume lisinopril May be downgraded to 3 S. Further recommendations to be based upon clinical course I am dictating on behalf of Dr Sean Hummel's history/physical and assessment/plan. Objective - Vital Signs Vital signs: Vital Signs Temp 97.8 F 06/06/24 12:00 Pulse 74 06/06/24 14:00 Resp 15 06/06/24 12:00 BP 162/79 06/06/24 12:00 Pulse Ox 97 06/06/24 12:00 FiO2 Intake & Output 06/05/24 06/06/24 06/06/24 18:59 06:59 18:59 Intake Total 1509.8 150 850 Output Total 600 0 Balance 909.8 150 850 Weight 85.7 kg 85.7 kg Intake: IV 609.8 50 Sodium Chloride 0.9% 1, 559.8 000 ml In Empty Bag 1 bag @ 1 ML/KG/HR 79.832 mls/ hr IV .[id number] [facility] Rx#: [id number] cefTRIAXone 2 gm In 50 50 Sodium Chloride 0.9% 50 ml @ 100 mls/hr IVPB Q24HR [facility] Rx#:[id number] Oral 900 150 800 Output: Urine 600 0 Other: Voiding Method Toilet Toilet Toilet Bedside Commode Bedside Commode Bedside Commode # Voids 1 0 0 - Labs CBC & Chem 7: 06/06/24 05:38 06/06/24 05:38 Labs: Abnormal Lab Results - Last 24 Hours (Table) 06/05/24 06/05/24 06/06/24 Range/Units 16:27 20:30 05:38 RBC (3.80-5.40) m/uL POC Glucose (mg/dL) 158 H 187 H (70-110) mg/dL Hemoglobin A1c 6.7 H (<=6.0) % 06/06/24 06/06/24 Range/Units 05:38 06:57 RBC 3.62 L (3.80-5.40) m/uL POC Glucose (mg/dL) 133 H (70-110) mg/dL Hemoglobin A1c (<=6.0) %
[2024-06-06] MEDS: lisinopriL 5 MG TAB PO SCH (15:32)
[2024-06-06 16:15] LABS: Glucose,Whole Blood 117 mg/dL (70-110)
[2024-06-06 20:05] LABS: Glucose,Whole Blood 157 mg/dL (70-110)
[2024-06-06] MEDS: METOPROLOL TARTRATE 25 MG TAB PO SCH (20:33)
[2024-06-07 06:01] LABS: Basophils % (A) 0 %; Eosinophils # (A) 0.1 k/uL (0-0.7); Eosinophils % (A) 2 %; HCT 31.8 % (34.0-46.0); HGB 10.7 gm/dL (11.4-16.0); Lymphocytes # (A) 1.5 k/uL (1.0-4.8); Lymphocytes % (A) 21 %; MCH 32.2 pg (25.0-35.0); MCHC 33.5 g/dL (31.0-37.0); MCV 96.1 fL (80.0-100.0); Mean Platelet Volume 9.3; Monocytes # (A) 0.6 k/uL (0-1.0); Monocytes % (A) 9 %; Neutrophils # (A) 4.8 k/uL (1.3-7.7); Neutrophils % (A) 66 %; Platelet Count 213 k/uL (150-450); RBC 3.31 m/uL (3.80-5.40); RDW 14.3 % (11.5-15.5); WBC 7.2 k/uL (3.8-10.6)
--- NOTE | 2024-06-07 06:04 | P.PN ---
Subjective Progress Note Date: 06/07/24 This is a very pleasant 84-year-old female who presented to the emergency department via EMS with chest pain that had been radiating from her back anteriorly up her shoulder and radiating down her left arm. Patient reports she was sitting watching TV when this started occurring and woke her up because she was concerned. Patient having worsening pain called 911 and was brought here for further evaluation. Patient follows with Dr. Erickson in the outpatient setting with a past medical history of coronary artery disease, angina, diabetes mellitus, hyperlipidemia, hypertension, mitral valve prolapse, sleep apnea, thyroid. Patient has had previous coronary artery bypass grafting. Patient reports she follows with Dr. Christine Campoverde cardiology outpatient. EKG did reveal an ST elevation and patient was brought to the [facility] for cardiac catheterization. Patient was noted to have 100% occlusion to the SVG to OM1 with severe diffuse disease in the [place] LAD, circumflex, and RCA and is status post PCI of the OM with Dr. Ogden. Patient is seen in follow-up this morning in the ICU status post stenting along with thrombectomy aspiration and reports to feeling well. Patient vital signs and labs within normal limits. Home medications reviewed and resumed as appropriate. Patient was also taking antibiotics cefuroxime for a recent urinary tract infection and had 2 days remaining. Will continue ceftriaxone for 2 days to complete the course. Patient to continue in the ICU for now with telemetry monitoring and likely transition to 3 S. later today or tomorrow once a bed becomes available. Patient did develop a hematoma postsurgical had pressure applied and bleeding has appeared to stop. Will monitor closely for any further bleeding and recommend lying flat for now. 06/06/2024 Patient is seen in follow-up continues in the ICU although is a downgrade once 3 S. bed comes available. Patient being followed by cardiology reports no further episodes of chest pain and reports to doing well. Patient has not been up out of bed much other than getting to the bathroom. Hematomas present on the right groin although no worsening and hemoglobin remained stable. Continue monitoring for any further signs of bleeding or worsening. Continue telemetry monitoring and will discuss further with cardiology regarding discharge planning in the next 24 to 48 hours. Patient is afebrile with no reports of chest pain or shortness of breath. Patient has been tolerating diet although reports not much of an appetite as the food here is not that desirable. Review of systems: Constitutional: No reports of fatigue, fever, or chills Cardiovascular: No reports of chest pain or palpitations Respiratory: No reports of shortness of breath or cough GI: No reports of nausea, vomiting, or diarrhea : No reports of dysuria or retention Neurovascular: No reports of weakness or numbness All medications have been reviewed The rest of the 14-point review of systems is negative. PHYSICAL EXAMINATION: GENERAL: The patient is alert and oriented x3, not in any acute distress. Well developed, well nourished. Elderly appearing, morbidly obese HEENT: Pupils are round and equally reacting to light. EOMI. No scleral icterus. No conjunctival pallor. Normocephalic, atraumatic. No pharyngeal erythema. No thyromegaly. CARDIOVASCULAR: S1 and S2 muffled PULMONARY: Diminished breath sounds bilaterally otherwise chest is clear to auscultation, no wheezing or crackles. ABDOMEN: Soft, obese, nontender, nondistended, normoactive bowel sounds. No palpable organomegaly. MUSCULOSKELETAL: No joint swelling or deformity. EXTREMITIES: No cyanosis, clubbing, or pedal edema. NEUROLOGICAL: Gross neurological examination did not reveal any focal deficits. SKIN: No rashes. Assessment: Chest pain, STEMI status post stenting of the SVG to OM1 Postoperative hematoma right groin at catheterization site History of coronary artery disease with previous CABG and quadruple bypass Recent urinary tract infection outpatient was being treated with cefuroxime by primary care provider History of diabetes mellitus Hyperlipidemia Hypertension History of mitral valve prolapse Sleep apnea Hypothyroidism History of depression Morbid obesity with a BMI of 41.4 GI prophylaxis DVT prophylaxis Full code Plan: Patient was admitted as a STEMI went to cardiac catheterization noted to have 100% occlusion and is status post PCI stenting of the SVG to OM1 Patient developed a right groin hematoma and bleeding has appeared to stop and hemoglobin is stable. With no further bleeding noted. Will monitor closely Patient will likely transfer out of the ICU later today or tomorrow once a bed on 3 S. is available continue telemetry monitoring Home medications reviewed and resumed as appropriate. Patient will continue 2 days of ceftriaxone as patient was taking Ceftin outpatient for urinary tract infection by her primary care provider Follow-up on repeat labs Continue monitoring Accu-Cheks before meals and at bedtime and will add sliding scale and monitor closely. Continue heart healthy diabetic diet Will discuss with cardiology regarding discharge planning in the next few days. The impression and plan of care has been dictated by Evelia Mcmillan, Nurse Practitioner as directed. Dr. Kvng MD I have performed a history and examination and MDM of this patient, discussed the same with the dictator, and agree with the dictator's assessment and plan as written ,documented as a scribe. Based on total visit time, I have performed more than 50% of the visit. Objective - Vital Signs Vital signs: Vital Signs Temp 98.2 F 06/07/24 04:00 Pulse 78 06/07/24 04:00 Resp 16 06/07/24 04:00 BP 134/74 06/07/24 04:00 Pulse Ox 96 06/07/24 04:00 FiO2 Intake & Output 06/06/24 06/06/24 06/07/24 06:59 18:59 06:59 Intake Total 150 850 250 Output Total 0 Balance 150 850 250 Weight 85.7 kg 85.7 kg 84.7 kg Intake: IV 50 cefTRIAXone 2 gm In 50 Sodium Chloride 0.9% 50 ml @ 100 mls/hr IVPB Q24HR [facility] Rx#:[id number] Oral 150 800 250 Output: Urine 0 Other: Voiding Method Toilet Toilet Toilet Bedside Commode Bedside Commode # Voids 0 0 1 - Labs CBC & Chem 7: 06/06/24 05:38 06/06/24 05:38 Labs: Abnormal Lab Results - Last 24 Hours (Table) 06/06/24 06/06/24 06/06/24 Range/Units 05:38 05:38 06:57 RBC 3.62 L (3.80-5.40) m/uL POC Glucose (mg/dL) 133 H (70-110) mg/dL Hemoglobin A1c 6.7 H (<=6.0) % 06/06/24 06/06/24 Range/Units 16:13 20:04 RBC (3.80-5.40) m/uL POC Glucose (mg/dL) 117 H 157 H (70-110) mg/dL Hemoglobin A1c (<=6.0) %
[2024-06-07 06:14] LABS: African American GFR (CKD) 69 (>60 ml/min/1.73 sqM); Anion Gap 1 mmol/L; Blood Urea Nitrogen 15 mg/dL (7-17); Carbon Dioxide 29 mmol/L (22-30); Chloride 108 mmol/L (98-107); Glucose 125 mg/dL (74-99); Non-African American GFR(CKD) 60 (>60 ml/min/1.73 sqM); Potassium 4.3 mmol/L (3.5-5.1); Sodium 138 mmol/L (137-145)
[2024-06-07 06:49] LABS: Glucose,Whole Blood 122 mg/dL (70-110)
--- NOTE | 2024-06-07 09:50 | P.PN ---
Subjective Progress Note Date: 06/07/24 The patient is an 84-year-old female who presented to the emergency room with new onset of chest pain. She underwent coronary angiogram where she had arthrectomy and stenting of her SVG to OM1. Patient developed postoperative hematoma in her right groin, with stable hemoglobin over the last 24 hours. Ec hocardiogram reveals preserved LV function with mild to moderate mitral regurgitation. Patient states she is feeling well currently resting in bed. She was up in the chair most of yesterday. She has also been ambulating around her room. She has been weaned from her oxygen. No chest pain or chest pressure. No difficulty breathing. She does have tenderness in her right groin to palpation. GENERAL: Well-appearing, well-nourished and in no acute distress. NECK: Supple without JVD or thyromegaly. LUNGS: Breath sounds clear to auscultation bilaterally. Respiration equal and unlabored. No wheezes, rales or rhonchi. HEART: Regular rate and rhythm without murmurs, rubs or gallops. S1 and S2 heard. EXTREMITIES: Normal range of motion, no edema. No clubbing or cyanosis. Peripheral pulses intact and strong. Hematoma noted in right groin, extending into her pelvis. Soft to touch. TELEMETRY: Sinus rhythm IMPRESSION: Lateral ST elevated myocardial infarction Status post stenting and arthrectomy of SVG to OM1 History of multivessel coronary artery disease, status post CABG x 4 in 2012 Mild to moderate mitral regurgitation PLAN: Increase beta-rose Continue dual antiplatelet therapy and TIRSO inhibitor Encourage ambulation Patient pending discharge I am dictating on behalf of Dr Sean Hummel's history/physical and assessment/plan. Objective - Vital Signs Vital signs: Vital Signs Temp 98.2 F 06/07/24 04:00 Pulse 78 06/07/24 04:00 Resp 16 06/07/24 04:00 BP 134/74 06/07/24 04:00 Pulse Ox 96 06/07/24 04:00 FiO2 Intake & Output 06/06/24 06/07/24 06/07/24 18:59 06:59 18:59 Intake Total 850 450 Balance 850 450 Weight 85.7 kg 84.7 kg Intake: IV 50 cefTRIAXone 2 gm In 50 Sodium Chloride 0.9% 50 ml @ 100 mls/hr IVPB Q24HR [facility] Rx#:[id number] Oral 800 450 Other: Voiding Method Toilet Toilet Bedside Commode # Voids 0 2 - Labs CBC & Chem 7: 06/07/24 05:35 06/07/24 05:35 Labs: Abnormal Lab Results - Last 24 Hours (Table) 06/06/24 06/06/24 06/07/24 Range/Units 16:13 20:04 05:35 RBC 3.31 L (3.80-5.40) m/uL Hgb 10.7 L (11.4-16.0) gm/dL Hct 31.8 L (34.0-46.0) % Chloride (98-107) mmol/L Glucose (74-99) mg/dL POC Glucose (mg/dL) 117 H 157 H (70-110) mg/dL 06/07/24 06/07/24 Range/Units 05:35 06:48 RBC (3.80-5.40) m/uL Hgb (11.4-16.0) gm/dL Hct (34.0-46.0) % Chloride 108 H (98-107) mmol/L Glucose 125 H (74-99) mg/dL POC Glucose (mg/dL) 122 H (70-110) mg/dL
[2024-06-07 10:31] VITALS: RESP 18; TEMP 98
[2024-06-07 11:25] LABS: Glucose,Whole Blood 135 mg/dL (70-110)
--- NOTE | 2024-06-07 12:39 | XR ---
EXAMINATION TYPE: XR chest 1V portable DATE OF EXAM: 06/07/2024 12:33 PM COMPARISON: Chest radiographs from 06/05/2024, CTA chest 04/06/2022 TECHNIQUE: XR chest 1V portable Portable AP radiograph of the chest. CLINICAL INDICATION:Female, 84 years old with history of shortness of breath; FINDINGS: Patient is rotated which limits evaluation. Lungs/Pleura: There is no evidence of pleural effusion, focal consolidation, or pneumothorax. Pulmonary vascularity: Unremarkable. Heart/mediastinum: Cardiomediastinal silhouette is prominent in size. Atherosclerotic calcifications are seen in the aorta. Musculoskeletal: No acute osseous pathology. Midline sternotomy wires are noted and stable. IMPRESSION: 1. No acute cardiopulmonary disease/process. 2. Post-CABG changes. [facility], , 06/07/2024 12:36 PM
[2024-06-07] MEDS: METOPROLOL TARTRATE 25 MG TAB PO STA (12:54)
[2024-06-07 13:11] VITALS: BP 141/68; PULSE 90
[2024-06-07] MEDS ORDERED: METOPROLOL TARTRATE 50 MG TAB PO SCH (21:00)
--- NOTE | 2024-06-09 11:23 | P.DS ---
Providers Date of admission: 06/05/24 00:32 Expected date of discharge: 06/07/24 Attending physician: Radha Rodriguez Consults: 06/05/24 00:18 Consult Physician Stat Consulting Provider: Evan Mo Consult Reason/Comments: STEMI Do you want consulting provider notified?: Already Contacted 06/05/24 02:05 Consult Physician Routine Consulting Provider: Cardiology Lilly Consult Reason/Comments: Post Interventional Patient Do you want consulting provider notified?: Already Contacted Primary care physician: Vidal Erickson Hospital Course: Final diagnosis Chest pain, secondary to STEMI status post stenting of the SVG to OM1 Postoperative hematoma right groin at catheterization site History of coronary artery disease with previous CABG and quadruple bypass Recent urinary tract infection outpatient was being treated with cefuroxime by primary care provider History of diabetes mellitus Hyperlipidemia Hypertension History of mitral valve prolapse Sleep apnea Hypothyroidism History of depression Morbid obesity with a BMI of 41.4 GI prophylaxis DVT prophylaxis Full code Discharge disposition Patient is being discharged in a stable condition with guarded prognosis to home. Patient will follow-up with Dr. Erickson in the outpatient setting upon discharge. Patient is to continue with current medications and close outpatient follow-up with cardiology. Patient reports she follows with cardiology Dr. Christopher Campoverde and will follow-up with him as scheduled. Total time taken is greater than 35 minutes. Hospital course This is a 84-year-old female who was recently admitted with chest pain found to have STEMI and is status post stenting of the SVG to OM1 with cardiology. Patient maintained in the ICU being closely monitored also developed a right groin hematoma at the catheter site which has improved and patient has been cleared for discharge. Patient to follow-up with her primary auto glass technician outpatient this week. Please refer to other consultation notes for further HPI. Currently no reports of chest pain, shortness of breath, or palpitations. Patient is afebrile. No reports of nausea or vomiting and patient is tolerating diet. Patient will be discharged home today. Physical exam: Gen: This is a 84-year-old female who is awake, alert and oriented x 3, well- developed, well-nourished, elderly appearing, obese HEENT: Head is atraumatic, normocephalic. Pupils equal, round. Sclerae is anicteric. NECK: Supple. No JVD. No lymphadenopathy. No thyromegaly. LUNGS: Diminished breath sounds bilaterally otherwise clear to auscultation. No wheezes or rhonchi. No intercostal retractions. HEART: S1, S2 are muffled ABDOMEN: Soft. Bowel sounds are present. No masses. No tenderness. EXTREMITIES: No pedal edema. No calf tenderness. Right groin bruising noted that is soft and minimally tender, no active bleeding noted NEUROLOGICAL: Patient is awake, alert and oriented x3. Cranial nerves 2 through 12 are grossly intact. Please refer to medication reconciliation sheet for a list of medications. The impression and plan of care has been dictated by Evelia Mcmillan, Nurse Practitioner as directed. Dr. Kvng MD I have performed a history and examination and MDM of this patient, discussed the same with the dictator, and agree with the dictator's assessment and plan as written ,documented as a scribe. Based on total visit time, I have performed more than 50% of the visit. Patient Condition at Discharge: Stable Plan - Discharge Summary Discharge Rx Participant: No New Discharge Prescriptions: New Ticagrelor [Brilinta] 90 mg PO BID #60 tab Atorvastatin [Lipitor] 80 mg PO HS #30 tab Metoprolol Tartrate [Lopressor] 50 mg PO BID #60 tab Acetaminophen Tab [Tylenol] 325 mg PO Q6HR PRN tab PRN Reason: Fever And/ Or Pain Nitroglycerin Sl Tabs [Nitrostat] 0.4 mg SUBLINGUAL Q5M PRN #20 tab PRN Reason: Chest Pain Continue Levothyroxine Sodium [Synthroid] 100 mcg PO DAILY Fenofibrate Nanocrystallized [Fenofibrate] 145 mg PO HS lisinopriL [Zestril] 5 mg PO HS Ergocalciferol (Vitamin D2) [Drisdol (50,000 Iu)] 1,250 mcg PO TU Cranberry Fruit Extract [Cranberry] 500 mg PO DAILY diphenhydrAMINE HCL [Benadryl] 25 mg PO BID Latanoprost [Latanoprost 0.005%] 1 drop BOTH EYES HS Docusate [Colace] 100 mg PO BID metFORMIN HCL 500 mg PO DAILY Changed Aspirin 81 mg PO DAILY #0 Discontinued Rosuvastatin [Crestor] 5 mg PO Q2D@2100 Rosuvastatin [Crestor] 10 mg PO Q2D@2100 Metoprolol Succinate (ER) [Toprol XL] 50 mg PO BID cefuroxime axetiL [Ceftin] 500 mg PO BID Discharge Medication List Levothyroxine Sodium [Synthroid] 100 mcg PO DAILY 07/13/19 [History] Fenofibrate Nanocrystallized [Fenofibrate] 145 mg PO HS 03/24/20 [History] Ergocalciferol (Vitamin D2) [Drisdol (50,000 Iu)] 1,250 mcg PO TU 07/09/21 [History] lisinopriL [Zestril] 5 mg PO HS 07/09/21 [History] Cranberry Fruit Extract [Cranberry] 500 mg PO DAILY 06/05/24 [History] Docusate [Colace] 100 mg PO BID 06/05/24 [History] Latanoprost [Latanoprost 0.005%] 1 drop BOTH EYES HS 06/05/24 [History] diphenhydrAMINE HCL [Benadryl] 25 mg PO BID 06/05/24 [History] metFORMIN HCL 500 mg PO DAILY 06/05/24 [History] Acetaminophen Tab [Tylenol] 325 mg PO Q6HR PRN tab 06/07/24 [Rx] Aspirin 81 mg PO DAILY #0 06/07/24 [Rx] Atorvastatin [Lipitor] 80 mg PO HS #30 tab 06/07/24 [Rx] Metoprolol Tartrate [Lopressor] 50 mg PO BID #60 tab 06/07/24 [Rx] Nitroglycerin Sl Tabs [Nitrostat] 0.4 mg SUBLINGUAL Q5M PRN #20 tab 06/07/24 [Rx] Ticagrelor [Brilinta] 90 mg PO BID #60 tab 06/07/24 [Rx] Follow up Appointment(s)/Referral(s): Evan Mo MD [Medical Doctor] - 1 Week (Office will call with Date and Time of appointment.) Vidal Erickson MD [Primary Care Provider] - 06/12/24 11:00 am Patient Instructions/Handouts: Heart Attack (DC) Activity/Diet/Wound Care/Special Instructions: Activity limited until follow-up Follow-up with your primary care provider as well as primary auto glass technician this week Continue taking medications as prescribed Monitor your right groin area for any worsening signs of bleeding and notify your primary care provider/auto glass technician if you do notice any bleeding Continue heart healthy diabetic diet Discharge Disposition: HOME SELF-CARE
== END 2024-06-07 15:25 | disposition home or self-care (01) | DRG 322 ==
LOC: EC 00:12 → 2SICU 00:32
PROVIDERS: ADMIT Hospitalist; ATTEND Hospitalist
PROC: 027034Z Dilation of Coronary Artery, One Artery with Drug-eluting Intraluminal Device, Percutaneous Approach (ICD-10-PCS; principal; 2024-06-05 00:26)
PROC: 02C03ZZ Extirpation of Matter from Coronary Artery, One Artery, Percutaneous Approach (ICD-10-PCS; principal; 2024-06-05 00:26)
PROC: B2121ZZ Fluoroscopy of Single Coronary Artery Bypass Graft using Low Osmolar Contrast (ICD-10-PCS; 2024-06-05 00:26)
PROC: B2181ZZ Fluoroscopy of Left Internal Mammary Bypass Graft using Low Osmolar Contrast (ICD-10-PCS; 2024-06-05 00:26)
PROC: 4A023N7 Measurement of Cardiac Sampling and Pressure, Left Heart, Percutaneous Approach (ICD-10-PCS; 2024-06-05 00:26)
PROC: B2111ZZ Fluoroscopy of Multiple Coronary Arteries using Low Osmolar Contrast (ICD-10-PCS; 2024-06-05 00:26)
DX: I21.29 ST elevation (STEMI) myocardial infarction involving other sites (principal); I25.810 Atherosclerosis of coronary artery bypass graft(s) without angina pectoris; I97.630 Postprocedural hematoma of a circulatory system organ or structure following a cardiac catheterization; Z68.41 Body mass index [BMI] 40.0-44.9, adult; F32.A Depression, unspecified; I25.10 Atherosclerotic heart disease of native coronary artery without angina pectoris; E66.01 Morbid (severe) obesity due to excess calories; E03.9 Hypothyroidism, unspecified; I10 Essential (primary) hypertension; E11.9 Type 2 diabetes mellitus without complications; I25.2 Old myocardial infarction; I34.0 Nonrheumatic mitral (valve) insufficiency; I34.1 Nonrheumatic mitral (valve) prolapse; G47.30 Sleep apnea, unspecified; E78.5 Hyperlipidemia, unspecified; G43.909 Migraine, unspecified, not intractable, without status migrainosus; M19.90 Unspecified osteoarthritis, unspecified site; Z79.84 Long term (current) use of oral hypoglycemic drugs; Z79.82 Long term (current) use of aspirin; Z79.890 Hormone replacement therapy; Z87.442 Personal history of urinary calculi; Z90.49 Acquired absence of other specified parts of digestive tract
CPT/HCPCS: 36415; 71045; 80048; 80053; 82565; 83036; 83735; 84484; 85025; 85027; 85610; 85730; 92973; 93005; 93306; 93459; 96374; 96375; 99291

== ENCOUNTER 2024-07-04 19:47 | Outpatient (CLI) | payer MEDICARE, BC ==
--- NOTE | 2024-07-05 12:25 | P.PCN ---
Description of Procedure: CLINICAL: Titration with positive air pressure has been done for correction of respiratory abnormalities during sleep. DESCRIPTION OF PROCEDURE: The standard montage for clinical polysomnography included the electroencephalogram, the electrocardiogram, the mentalis surface electromyography and Lead II cardiography. The respiratory battery consisted of measurements of nasal /buccal air flow, pressure transducer measurements from the nose, thoracic and /or abdominal effort and intercostal surface electromyography. Video monitoring has been done to check for any parasomnia events. Nocturnal oxyhemoglobin saturations were obtained by finger oximetry. Step-lang titration with positive airway pressure was utilized to control respiratory events. Raw data of sleep recording has been reviewed and is adequate. RESULTS: Sleep efficiency was decreased to 73.7%. Latency to sleep onset was significantly prolonged to 51.0 minutes.]. Sleep architecture showed stage N1 was short 2.9%, Delta sleep was practically absent 0.1%, REM sleep was significantly increased to 35.7%. Heart rate was minimum 61 BPM, maximum 79 BPM, average 70 BPM. EMG showed 0 periodic limb movements per hour with 0 micriarousals per hour. PAP titration have been done with CPAP up to the pressure 11 cm H2O. The best results were at the pressure 11 cm H2O. Apnea hypopnea index reduced to 0. IMPRESSION: 1. Obstructive sleep apnea hypopnea syndrome on controle with PAP treatment. 2. No significant periodic limb movements have been documented. Please see other impressions from consultation. PLAN: 1. The patient will have treatment with positive air pressure equipment with the level of pressure [] cm H2O and should use it every night for the whole night. 2. Watching and losing weight. 3. Sleep hygiene with regular time in bed for at least 8 hours. 4. No driving if feeling any sleepiness. 5. I will see the patient for follow up visit to explain the results of the test, recommendations, check compliance with treatment and make any necessary adjustment related to mask fitting, pressure and humidification. Thank you very much for allowing me to participate in the management of your patient. Sincerely, Jose Campbell MD, PhD, FAASM Diplomat of [place] [employer] Sleep Medicine Board of [place] [employer] [facility] [place] cc: Vidal Erickson MD
== END 2024-07-05 06:00 | disposition home or self-care (01) ==
LOC: 3 N SLEEP 19:47
PROVIDERS: ATTEND Internal Medicine
DX: G47.33 Obstructive sleep apnea (adult) (pediatric) (principal); Z88.2 Allergy status to sulfonamides; Z88.0 Allergy status to penicillin; Z88.1 Allergy status to other antibiotic agents
CPT/HCPCS: 95811

== ENCOUNTER → 2024-07-06 | Outpatient (CLI) | payer MEDICARE, BC ==
--- NOTE | 2024-07-06 14:32 | MR ---
EXAMINATION TYPE: MR lumbar spine wo con DATE OF EXAM: 07/06/2024 11:09 AM COMPARISON: None. CLINICAL INDICATION: Female, 84 years old with history of M54.50 LUMBAR PAIN, low back pain, pain and weakness in both legs TECHNIQUE: Multiplanar, multisequence images of the lumbar spine were acquired without IV contrast. FINDINGS: There is a transitional lumbosacral segment is noted as a sacralized L5. Mild multilevel disc disease with desiccation and bulging disks throughout. 4 moderate to severe dege nerative disc disease at T11-T12 with desiccation, narrowing, and bulging disc. Some associated Modic type II fatty change here. No large focal disc herniation or significant spinal canal stenosis. There is some ligamentum flavum thickening in the mid to lower lumbar spine with severe hypertrophic facet arthropathy. Grade 1 anterolisthesis L4-L5. Trace grade 1 retrolisthesis T11-T12 and T12-L1. Vertebral body heights are preserved. Conus medullaris is normal. There is no significant neuroforaminal narrowing identified on either side. No prevertebral or paravertebral soft tissue abnormality. IMPRESSION: 1. 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 2. Severe hypertrophic facet arthropathy mid to lower lumbar spine along with ligamentum flavum thick ening. Degenerative grade 1 anterolisthesis L4-L5. Trace grade 1 retrolisthesis T11-T12 and T12-L1. 3. Mild multilevel degenerative disc disease, more moderate to severe at T11-T12. No large focal disc herniation or significant spinal canal stenosis. 4. No significant neuroforaminal stenosis identified. [facility], , 07/06/2024 2:30 PM
== END | disposition home or self-care (01) ==
LOC: RADMRIMAIN 09:56
PROVIDERS: ATTEND Internal Medicine Cardiovascular Disease
DX: M51.35 Other intervertebral disc degeneration, thoracolumbar region (principal); M47.816 Spondylosis without myelopathy or radiculopathy, lumbar region; M43.15 Spondylolisthesis, thoracolumbar region
CPT/HCPCS: 72148

== ENCOUNTER 2024-12-03 11:28 | Emergency (ER) | payer MEDICARE, BC ==
[2024-12-03 11:38] VITALS: BP 126/77; PULSE 76; RESP 18; TEMP 97.6
--- NOTE | 2024-12-03 11:50 | ED ---
General Adult HPI - General Chief complaint: Extremity Problem,Nontraumatic Stated complaint: Right arm pain, heart issues Time Seen by Provider: 12/03/24 11:40 Source: patient, family, RN notes reviewed Mode of arrival: ambulatory Limitations: no limitations - History of Present Illness Initial comments: Patient is an 84-year-old female present to the emergency department with concerns with right upper arm discomfort. Onset was last night while watching TV. Symptoms lasted 2 to 3 hours then resolved. Patient has some discomfort this morning however is mild. Discomfort is above the elbow on the right. Does not seem to involve the shoulder. No chest pain. No history of similar symptoms previously. Patient does have history of cardiac disease however symptoms are not similar to this. No trauma to the area. No swelling. No weakness. Patient does have history of chronic neck discomfort. - Related Data Home Medications Medication Instructions Recorded Confirmed Levothyroxine Sodium [Synthroid] 100 mcg PO DAILY 07/13/19 06/05/24 Fenofibrate Nanocrystallized 145 mg PO HS 03/24/20 06/05/24 [Fenofibrate] Ergocalciferol (Vitamin D2) 1,250 mcg PO TU 07/09/21 06/05/24 [Drisdol (50,000 Iu)] lisinopriL [Zestril] 5 mg PO HS 07/09/21 06/05/24 Cranberry Fruit Extract [Cranberry] 500 mg PO DAILY 06/05/24 06/05/24 Docusate [Colace] 100 mg PO BID 06/05/24 06/05/24 Latanoprost [Latanoprost 0.005%] 1 drop BOTH EYES HS 06/05/24 06/05/24 diphenhydrAMINE HCL [Benadryl] 25 mg PO BID 06/05/24 06/05/24 metFORMIN HCL 500 mg PO DAILY 06/05/24 06/05/24 Previous Rx's Medication Instructions Recorded Acetaminophen Tab [Tylenol] 325 mg PO Q6HR PRN tab 06/07/24 Aspirin 81 mg PO DAILY #0 06/07/24 Atorvastatin [Lipitor] 80 mg PO HS #30 tab 06/07/24 Metoprolol Tartrate [Lopressor] 50 mg PO BID #60 tab 06/07/24 Nitroglycerin Sl Tabs [Nitrostat] 0.4 mg SUBLINGUAL Q5M PRN #20 tab 06/07/24 Ticagrelor [Brilinta] 90 mg PO BID #60 tab 06/07/24 Allergies Allergy/AdvReac Type Severity Reaction Status Date / Time Sulfa (Sulfonamide Allergy SWELLING Verified 12/03/24 11:39 Antibiotics) AND BAD HEADACHE amoxicillin [From Augmentin] AdvReac Nausea Verified 12/03/24 11:39 clavulanic acid AdvReac Nausea Verified 12/03/24 11:39 [From Augmentin] Review of Systems ROS Statement: Those systems with pertinent positive or pertinent negative responses have been documented in the HPI. ROS Other: All systems not noted in ROS Statement are negative. Constitutional: Denies: fever Eyes: Denies: eye pain ENT: Denies: throat pain Respiratory: Denies: dyspnea Cardiovascular: Denies: chest pain Gastrointestinal: Denies: abdominal pain Musculoskeletal: Reports: as per HPI. Denies: back pain Past Medical History Past Medical History: Coronary Artery Disease (CAD), Chest Pain / Angina, Diabetes Mellitus, Hyperlipidemia, Hypertension, Mitral Valve Prolapse (MVP), Sleep Apnea/CPAP/BIPAP, Thyroid Disorder Additional Past Medical History / Comment(s): diverticulitis, ddd, arthritis, UTI'S, KIDNEY STONES,INCONT OF URINE, arthritis,MIGRAINEs, ANGINA, HEART PROBLEMS, ARTHRITIS, ABDOMINAL/AORTIC ANEURYSM. Last Myocardial Infarction Date:: 06/05/24 History of Any Multi-Drug Resistant Organisms: None Reported Past Surgical History: Appendectomy, Bowel Resection, Breast Surgery, Section, Coronary Bypass/CABG, Heart Catheterization, Hysterectomy Additional Past Surgical History / Comment(s): BOWEL RESECTION D/T DIVERTICULITIS, QUAD BYPASS in 2008 at [facility], Breast biopsy, 7 exploratory abd sx. Past Anesthesia/Blood Transfusion Reactions: No Reported Reaction Date of Last Stent Placement:: 06/05/24 Past Psychological History: Depression Smoking Status: Never smoker Past Alcohol Use History: Occasional Past Drug Use History: None Reported - Past Family History Father Family Medical History: Coronary Artery Disease (CAD), Hyperlipidemia, Hypertension Additional Family Medical History / Comment(s): Atherosclerosis Mother Family Medical History: Cancer, Coronary Artery Disease (CAD), Myocardial I nfarction (NH) Additional Family Medical History / Comment(s): ovarian cancer Brother(s) Family Medical History: Coronary Artery Disease (CAD) Additional Family Medical History / Comment(s): Brother had CABG; grandmother had ascending aortic aneurysm Son(s) History Unknown: Yes Family Medical History: Myocardial Infarction (NH) General Exam Limitations: no limitations General appearance: alert, in no apparent distress Head exam: Present: normocephalic Eye exam: Present: normal appearance Neck exam: Present: normal inspection, tenderness (Mild diffuse tenderness) Respiratory exam: Present: normal lung sounds bilaterally Cardiovascular Exam: Present: regular rate, normal rhythm Expanded Peripheral pulses: 2+: Radial (R) GI/Abdominal exam: Present: soft. Absent: tenderness Extremities exam: Present: normal inspection. Absent: tenderness (Specifically no significant tenderness right upper arm), calf tenderness Neurological exam: Present: alert. Absent: motor sensory deficit Expanded Motor strength exam: RUE: 5, LUE: 5 Psychiatric exam: Present: normal affect, normal mood Skin exam: Present: normal color Course Vital Signs 12/03/24 11:34 Temperature 97.6 F Pulse Rate 76 Respiratory 18 Rate Blood Pressure 126/77 O2 Sat by Pulse 95 Oximetry EKG Findings - EKG Results: EKG: interpreted by ERMD (Left axis. PVC present. Nonspecific T waves.), sinus rhythm, normal QRS Medical Decision Making - Medical Decision Making Was pt. sent in by a medical professional or institution ([facility], REFUND SPECIALIST, urgent care, hospital, or half-way...) When possible be specific @ -No Did you speak to anyone other than the patient for history (EMS, parent, family, police, friend...)? What history was obtained from this source @ -No Did you review nursing and triage notes (agree or disagree)? Why? @ -I reviewed and agree with nursing and triage notes Were old charts reviewed (outside hosp., previous admission, EMS record, old EKG, old radiological studies, urgent care reports/EKG's, half-way records)? Report findings @ -No old charts were reviewed Differential Diagnosis (chest pain, altered mental status, abdominal pain women, abdominal pain men, vaginal bleeding, weakness, fever, dyspnea, syncope, headache, dizziness, GI bleed, back pain, seizure, CVA, palpatations, mental health, musculoskeletal)? @ -Differential Musculoskeletal Muscular strain, contusion, ligament sprain, fracture, arthritis, septic arthritis, bursitis, cellulitis, muscle spasm, nerve compression, DVT, arterial occlusion, herpes zoster, electrolyte abnormality, tumor.... This is not meant to be in all inclusive list differential Chest Pain: Stable Angina, Unstable Angina, STEMI, NSTEMI Aortic Dissection, Pneumothorax, Musculoskeletal, Esophageal Spasm GERD, Cholecystitis, Pancreatitis, Zoster, this is not meant to be an all-inclusive list. EKG interpreted by me (3pts min.). @ -As above X-rays interpreted by me (1pt min.). @ -Chest x-ray shows no acute process. Cervical x-ray shows degenerative changes CT interpreted by me (1pt min.). @ -None done U/S interpreted by me (1pt. min.). @ -Ultrasound right upper extremity negative for DVT What testing was considered but not performed or refused? (CT, X-rays, U/S, labs)? Why? @ -None What meds were considered but not given or refused? Why? @ -None Did you discuss the management of the patient with other professionals (professionals i.e. , PA, REFUND SPECIALIST, lab, RT, psych nurse, social security assessor, line manager, teacher, airfield engineer officer, case management rn)? Give summary @ -No Was smoking cessation discussed for >3mins.? @ -No Was critical care preformed (if so, how long)? @ -No Were there social determinants of health that impacted care today? How? (Ho melessness, low income, unemployed, alcoholism, drug addiction, transportation, low edu. Level, literacy, decrease access to med. care, group home, rehab)? @ -No Was there de-escalation of care discussed even if they declined (Discuss DNR or withdrawal of care, Hospice)? DNR status @ -No What co-morbidities impacted this encounter? (DM, HTN, Smoking, COPD, CAD, Cancer, CVA, ARF, Chemo, Hep., AIDS, mental health diagnosis, sleep apnea, morbid obesity)? @ -None Was patient admitted / discharged? Hospital course, mention meds given and route, prescriptions, significant lab abnormalities, going to OR and other pertinent info. @ -Patient presents with right arm discomfort. Evaluation unremarkable. Patient only has mild symptoms even on reevaluation. Patient twice offered medication and refuses. Patient states she can take aspirin or Tylenol at home. Patient and family are updated on results and need for follow-up Undiagnosed new problem with uncertain prognosis? @ -No Drug Therapy requiring intensive monitoring for toxicity (Heparin, Nitro, Insulin, Cardizem)? @ -No Were any procedures done? @ -No Diagnosis/symptom? @ -Arm pain Acute, or Chronic, or Acute on Chronic? @ -Acute Uncomplicated (without systemic symptoms) or Complicated (systemic symptoms)? @ -Default Side effects of treatment? @ -No Exacerbation, Progression, or Severe Exacerbation? @ -No Poses a threat to life or bodily function? How? (Chest pain, USA, NH, pneumonia, PE, COPD, DKA, ARF, appy, cholecystitis, CVA, Diverticulitis, Homicidal, Suicidal, threat to staff... and all critical care pts) @ -No - Lab Data Result diagrams: 12/03/24 11:47 12/03/24 11:47 Lab Results 12/03/24 12/03/24 12/03/24 Range/Units 11:47 11:47 11:47 WBC 7.13 (4.50-10.00) 10*3/uL RBC 5.13 (4.10-5.20) 10*6/uL Hgb 15.7 H (12.0-15.0) g/dL Hct 47.4 H (37.2-46.3) % MCV 92.4 (80.0-97.0) fL MCH 30.6 (27.0-32.0) pg MCHC 33.1 (32.0-37.0) g/dL Plt Count 270 (140-440) 10*3/uL MPV 10.4 (9.5-12.2) fL Immature Gran % (Auto) 0.1 % Neutrophils % 56.8 % Lymphocytes % 30.0 % Monocytes % 10.4 % Eosinophils % 2.0 % Basophils % 0.7 % Immature Gran # 0.01 (0.00-0.04) 10*3/uL Neutrophils # 4.05 (1.80-7.70) 10*3/uL Lymphocytes # 2.14 (0.90-5.00) 10*3/uL Monocytes # 0.74 (0.20-1.00) 10*3/uL Eosinophils # 0.14 (0.04-0.35) 10*3/uL Basophils # 0.05 (0.00-0.10) 10*3/uL PT 11.0 (10.0-12.5) sec INR 1.0 (<1.2) APTT 25.1 (22.0-30.0) sec D-Dimer 0.23 (<0.60) mg/L FEU Sodium 138 (137-145) mmol/L Potassium 4.2 (3.5-5.1) mmol/L Chloride 102 (98-107) mmol/L Carbon Dioxide 26 (22-30) mmol/L Anion Gap 10 mmol/L BUN 29 H (7-17) mg/dL Creatinine 0.93 (0.52-1.04) mg/dL Est GFR (CKD-EPI)AfAm 67 (>60 ml/min/1.73 sqM) Est GFR (CKD-EPI)NonAf 58 (>60 ml/min/1.73 sqM) Glucose 99 (74-99) mg/dL Calcium 10.3 H (8.4-10.2) mg/dL Magnesium 2.4 H (1.6-2.3) mg/dL Total Bilirubin 0.6 (0.2-1.3) mg/dL AST 31 (14-36) U/L ALT 23 (4-34) U/L Alkaline Phosphatase 45 (38-126) U/L Troponin I (0.000-0.034) ng/mL Total Protein 7.1 (6.3-8.2) g/dL Albumin 4.4 (3.5-5.0) g/dL 12/03/24 Range/Units 11:47 WBC (4.50-10.00) 10*3/uL RBC (4.10-5.20) 10*6/uL Hgb (12.0-15.0) g/dL Hct (37.2-46.3) % MCV (80.0-97.0) fL MCH (27.0-32.0) pg MCHC (32.0-37.0) g/dL Plt Count (140-440) 10*3/uL MPV (9.5-12.2) fL Immature Gran % (Auto) % Neutrophils % % Lymphocytes % % Monocytes % % Eosinophils % % Basophils % % Immature Gran # (0.00-0.04) 10*3/uL Neutrophils # (1.80-7.70) 10*3/uL Lymphocytes # (0.90-5.00) 10*3/uL Monocytes # (0.20-1.00) 10*3/uL Eosinophils # (0.04-0.35) 10*3/uL Basophils # (0.00-0.10) 10*3/uL PT (10.0-12.5) sec INR (<1.2) APTT (22.0-30.0) sec D-Dimer (<0.60) mg/L FEU Sodium (137-145) mmol/L Potassium (3.5-5.1) mmol/L Chloride (98-107) mmol/L Carbon Dioxide (22-30) mmol/L Anion Gap mmol/L BUN (7-17) mg/dL Creatinine (0.52-1.04) mg/dL Est GFR (CKD-EPI)AfAm (>60 ml/min/1.73 sqM) Est GFR (CKD-EPI)NonAf (>60 ml/min/1.73 sqM) Glucose (74-99) mg/dL Calcium (8.4-10.2) mg/dL Magnesium (1.6-2.3) mg/dL Total Bilirubin (0.2-1.3) mg/dL AST (14-36) U/L ALT (4-34) U/L Alkaline Phosphatase (38-126) U/L Troponin I <0.012 (0.000-0.034) ng/mL Total Protein (6.3-8.2) g/dL Albumin (3.5-5.0) g/dL Disposition Clinical Impression: Arm pain Disposition: HOME SELF-CARE Condition: Stable Instructions (If sedation given, give patient instructions): Arm Pain (ED) Additional Instructions: [id number] Tylenol or Motrin or aspirin as needed. Please do follow-up with your primary care physician in the next couple days for recheck. Return for increased pain, swelling, chest discomfort, shortness of breath, worsening or change in symptoms or other concerns. Is patient prescribed a controlled substance at d/c from ED?: No Referrals: Vidal Erickson MD [Primary Care Provider] - 1-2 days Time of Disposition: 14:45
[2024-12-03] MEDS: ASPIRIN 81 MG PO STA (12:29)
[2024-12-03 12:37] LABS: Basophils # (A) 0.05 10*3/uL (0.00-0.10); Basophils % (A) 0.7 %; Eosinophils # (A) 0.14 10*3/uL (0.04-0.35); HCT 47.4 % (37.2-46.3); HGB 15.7 g/dL (12.0-15.0); Lymphocytes # (A) 2.14 10*3/uL (0.90-5.00); MCH 30.6 pg (27.0-32.0); MCHC 33.1 g/dL (32.0-37.0); MCV 92.4 fL (80.0-97.0); Mean Platelet Volume 10.4 fL (9.5-12.2); Monocytes # (A) 0.74 10*3/uL (0.20-1.00); Monocytes % (A) 10.4 %; Neutrophils # (A) 4.05 10*3/uL (1.80-7.70); Neutrophils % (A) 56.8 %; Platelet Count 270 10*3/uL (140-440); RBC 5.13 10*6/uL (4.10-5.20); RDW 14.7 % (11.5-14.5); WBC 7.13 10*3/uL (4.50-10.00)
[2024-12-03 12:47] LABS: ALT 23 U/L (4-34); AST 31 U/L (14-36); African American GFR (CKD) 67 (>60 ml/min/1.73 sqM); Albumin 4.4 g/dL (3.5-5.0); Alkaline Phosphatase 45 U/L (38-126); Anion Gap 10 mmol/L; Blood Urea Nitrogen 29 mg/dL (7-17); Calcium 10.3 mg/dL (8.4-10.2); Carbon Dioxide 26 mmol/L (22-30); Chloride 102 mmol/L (98-107); Glucose 99 mg/dL (74-99); Magnesium 2.4 mg/dL (1.6-2.3); Non-African American GFR(CKD) 58 (>60 ml/min/1.73 sqM); Potassium 4.2 mmol/L (3.5-5.1); Sodium 138 mmol/L (137-145); Total Bilirubin 0.6 mg/dL (0.2-1.3); Total Protein 7.1 g/dL (6.3-8.2)
[2024-12-03 12:51] LABS: Partial Thromboplastin Time 25.1 sec (22.0-30.0)
--- NOTE | 2024-12-03 13:01 | XR ---
EXAMINATION TYPE: XR chest 2V DATE OF EXAM: 12/03/2024 12:40 PM COMPARISON: 06/07/2024 CLINICAL INDICATION: Female, 84 years old with history of Pain, TECHNIQUE: XR chest 2V view(s) obtained. FINDINGS: The heart size is normal. The pulmonary vasculature is normal. The lungs are clear. Sternotomy wires are in the midline IMPRESSION: 1. No acute pulmonary process. [facility], , 12/03/2024 12:59 PM
--- NOTE | 2024-12-03 13:04 | XR ---
EXAMINATION TYPE: XR cervical spine comp DATE OF EXAM: 12/03/2024 12:40 PM COMPARISON: 01/16/2014 CLINICAL INDICATION: Female, 84 years old with history of pain, pain TECHNIQUE: 5 view(s) obtained. FINDINGS: Prevertebral space is normal. Posterior spinal lamellar line is intact. There is narrowing of the dis c height C4-5 C5-6 C6-7. Anterior vertebral body spurring is present at C4-6 levels. Foraminal narrowing is present at C4-5 C5-6 on the right and C3-4 through C5-6 on the left. Submental vertex view has a normal-appearing dens. Note is made of calcification of the bilateral carotid bifurcation regions. Some facet hypertrophy is likely present. IMPRESSION: 1. No acute osseous abnormality cervical spine. 2. Degenerative disc changes and some foraminal narrowing present within the mid cervical spine. #3 t here may be some slight progression from the comparison study. [facility], , 12/03/2024 1:01 PM
--- NOTE | 2024-12-03 14:20 | US ---
EXAMINATION TYPE: US venous doppler duplex UE RT DATE OF EXAM: 12/03/2024 COMPARISON: NONE CLINICAL INDICATION: Female, 84 years old with history of pain; bicep pain that feels better when arm is elevated, no swelling, h/o PE years ago but nothing recent. on thinners. TECHNIQUE: Grayscale, color Doppler and spectral Doppler imaging of the upper extremity. SIDE PERFORMED: Right VESSELS IMAGED: IJV Subclavian Vein Axilla Vein Brachial Vein(s) Radial Paired Veins Ulnar Paired Veins Cephalic Vein* Basilic Vein* (*superficial vessels) FINDINGS: Right Arm: Negative for DVT Grayscale, color doppler, spectral doppler imaging performed of the deep veins of the upper extremiti es. IMPRESSION: Right upper extremity ultrasound negative for deep venous thrombosis. [facility], , 12/03/2024 2:17 PM
== END 2024-12-03 15:13 | disposition home or self-care (01) ==
LOC: EC 11:28
DX: M79.601 Pain in right arm (principal); M47.892 Other spondylosis, cervical region; Z88.0 Allergy status to penicillin; Z88.1 Allergy status to other antibiotic agents; Z88.2 Allergy status to sulfonamides
CPT/HCPCS: 36415; 71046; 72050; 80053; 83735; 84484; 85025; 85379; 85610; 85730; 93005; 99284

== ENCOUNTER 2025-01-08 00:25 | Emergency (ER) | payer MEDICARE, BC ==
[2025-01-08 00:44] VITALS: TEMP 97.7
--- NOTE | 2025-01-08 00:50 | ED ---
General Adult HPI - General Chief complaint: Neck Pain/Injury Stated complaint: neck and arm pain Time Seen by Provider: 01/08/25 00:42 Source: patient, RN notes reviewed Mode of arrival: ambulatory Limitations: no limitations - History of Present Illness Initial comments: This is an 84-year-old female with history including AMI, CAD, DM, hypertension lipidemia and hypertension presenting for right arm/neck pain x 1.5 hours. Patient describes sudden onset pain as aching/throbbing (5/10). Denies recent trauma, dizziness, mid chest pain, dyspnea, diaphoresis, nausea/vomiting. Onset/Timin -: hour(s) Location: neck, right, upper extremity Severity scale (1-10): 5 Quality: aching Consistency: constant - Related Data Home Medications Medication Instructions Recorded Confirmed Levothyroxine Sodium [Synthroid] 100 mcg PO DAILY 07/13/19 06/05/24 Fenofibrate Nanocrystallized 145 mg PO HS 03/24/20 06/05/24 [Fenofibrate] Ergocalciferol (Vitamin D2) 1,250 mcg PO TU 07/09/21 06/05/24 [Drisdol (50,000 Iu)] lisinopriL [Zestril] 5 mg PO HS 07/09/21 06/05/24 Cranberry Fruit Extract [Cranberry] 500 mg PO DAILY 06/05/24 06/05/24 Docusate [Colace] 100 mg PO BID 06/05/24 06/05/24 Latanoprost [Latanoprost 0.005%] 1 drop BOTH EYES HS 06/05/24 06/05/24 diphenhydrAMINE HCL [Benadryl] 25 mg PO BID 06/05/24 06/05/24 metFORMIN HCL 500 mg PO DAILY 06/05/24 06/05/24 Previous Rx's Medication Instructions Recorded Acetaminophen Tab [Tylenol] 325 mg PO Q6HR PRN tab 06/07/24 Aspirin 81 mg PO DAILY #0 06/07/24 Atorvastatin [Lipitor] 80 mg PO HS #30 tab 06/07/24 Metoprolol Tartrate [Lopressor] 50 mg PO BID #60 tab 06/07/24 Nitroglycerin Sl Tabs [Nitrostat] 0.4 mg SUBLINGUAL Q5M PRN #20 tab 06/07/24 Ticagrelor [Brilinta] 90 mg PO BID #60 tab 06/07/24 Allergies Allergy/AdvReac Type Severity Reaction Status Date / Time Sulfa (Sulfonamide Allergy SWELLING Verified 01/08/25 00:44 Antibiotics) AND BAD HEADACHE amoxicillin [From Augmentin] AdvReac Nausea Verified 01/08/25 00:44 clavulanic acid AdvReac Nausea Verified 01/08/25 00:44 [From Augmentin] Review of Systems ROS Statement: Those systems with pertinent positive or pertinent negative responses have been documented in the HPI. ROS Other: All systems not noted in ROS Statement are negative. Past Medical History Past Medical History: Coronary Artery Disease (CAD), Chest Pain / Angina, Diabetes Mellitus, Hyperlipidemia, Hypertension, Mitral Valve Prolapse (MVP), Sleep Apnea/CPAP/BIPAP, Thyroid Disorder Additional Past Medical History / Comment(s): diverticulitis, ddd, arthritis, UTI'S, KIDNEY STONES,INCONT OF URINE, arthritis,MIGRAINEs, ANGINA, HEART PROBLEMS, ARTHRITIS, ABDOMINAL/AORTIC ANEURYSM. Last Myocardial Infarction Date:: 06/05/24 History of Any Multi-Drug Resistant Organisms: None Reported Past Surgical History: Appendectomy, Bowel Resection, Breast Surgery, Section, Coronary Bypass/CABG, Heart Catheterization, Hysterectomy Additional Past Surgical History / Comment(s): BOWEL RESECTION D/T DIVERTICULITIS, QUAD BYPASS in 2008 at [facility], Breast biopsy, 7 exploratory abd sx. Past Anesthesia/Blood Transfusion Reactions: No Reported Reaction Date of Last Stent Placement:: 06/05/24 Past Psychological History: Depression Smoking Status: Never smoker Past Alcohol Use History: Occasional Past Drug Use History: None Reported - Past Family History Father Family Medical History: Coronary Artery Disease (CAD), Hyperlipidemia, Hypertension Additional Family Medical History / Comment(s): Atherosclerosis Mother Family Medical History: Cancer, Coronary Artery Disease (CAD), Myocardial Infarction (CA) Additional Family Medical History / Comment(s): ovarian cancer Brother(s) Family Medical History: Coronary Artery Disease (CAD) Additional Family Medical History / Comment(s): Brother had CABG; grandmother had ascending aortic aneurysm Son(s) History Unknown: Yes Family Medical History: Myocardial Infarction (CA) General Exam Limitations: no limitations General appearance: alert, in no apparent distress Head exam: Present: atraumatic, normocephalic, normal inspection Eye exam: Present: normal appearance, PERRL, EOMI. Absent: scleral icterus, conjunctival injection, periorbital swelling ENT exam: Present: normal exam, mucous membranes moist Neck exam: Present: normal inspection. Absent: tenderness, meningismus, lymphadenopathy Respiratory exam: Present: normal lung sounds bilaterally. Absent: respiratory distress, wheezes, rales, rhonchi, stridor, accessory muscle use, decreased breath sounds, prolonged expiratory Cardiovascular Exam: Present: regular rate, normal rhythm, normal heart sounds. Absent: systolic murmur, diastolic murmur, rubs, gallop, clicks GI/Abdominal exam: Present: soft, normal bowel sounds. Absent: distended, tenderness, guarding, rebound, rigid Extremities exam: Present: normal inspection, full ROM, normal capillary refill. Absent: tenderness, pedal edema, joint swelling, calf tenderness Back exam: Present: full ROM, muscle spasm, paraspinal tenderness. Absent: vertebral tenderness Neurological exam: Present: alert, oriented X3, CN II-XII intact Psychiatric exam: Present: normal affect, normal mood Skin exam: Present: warm, dry, intact, normal color. Absent: rash Course Vital Signs 01/08/25 01/08/25 01/08/25 00:41 01:57 03:48 Temperature 97.7 F Pulse Rate 76 76 71 Respiratory 18 18 17 Rate Blood Pressure 116/74 133/76 118/81 O2 Sat by Pulse 95 95 Oximetry Medical Decision Making - Medical Decision Making Was pt. sent in by a medical professional or institution (, PA, DISTANCE EDUCATION FACULTY LIAISON, urgent care, hospital, or longterm...) When possible be specific @ -No Did you speak to anyone other than the patient for history (EMS, parent, family, police, friend...)? What history was obtained from this source @ -No Did you review nursing and triage notes (agree or disagree)? Why? @ -I reviewed and agree with nursing and triage notes Were old charts reviewed (outside hosp., previous admission, EMS record, old EKG, old radiological studies, urgent care reports/EKG's, longterm records)? Report findings @ -No old charts were reviewed Differential Diagnosis (chest pain, altered mental status, abdominal pain women, abdominal pain men, vaginal bleeding, weakness, fever, dyspnea, syncope, headache, dizziness, GI bleed, back pain, seizure, CVA, palpatations, mental health, musculoskeletal)? @ -Differential Chest Pain: Stable Angina, Unstable Angina, STEMI, NSTEMI Aortic Dissection, Pneumothorax, Musculoskeletal, Esophageal Spasm GERD, Cholecystitis, Pancreatitis, Zoster, this is not meant to be an all-inclusive list. Differential Musculoskeletal Muscular strain, contusion, ligament sprain, fracture, arthritis, septic arthritis, bursitis, cellulitis, muscle spasm, nerve compression, DVT, arterial occlusion, herpes zoster, electrolyte abnormality, tumor.... This is not meant to be in all inclusive list EKG interpreted by me (3pts min.). @ - EKG shows sinus rhythm with solitary PVC and no ST deviation or T wave inversion. Ventricular rate 76 bpm, SALVADOR 175 ms, QRS 104 ms, QTc 401 ms. X-rays interpreted by me (1pt min.). @ -CXR shows no acute cardiopulmonary process. CT interpreted by me (1pt min.). @ -None done U/S interpreted by me (1pt. min.). @ -None done What testing was considered but not performed or refused? (CT, X-rays, U/S, labs)? Why? @ -None What meds were considered but not given or refused? Why? @ -None Did you discuss the management of the patient with other professionals (yenifer mar i.e. , PA, DISTANCE EDUCATION FACULTY LIAISON, lab, RT, psych nurse, social work job titles, vice president payer, teacher, security public safety officer, complex case manager)? Give summary @ -No Was smoking cessation discussed for >3mins.? @ -No Was critical care preformed (if so, how long)? @ -No Were there social determinants of health that impacted care today? How? (Homelessness, low income, unemployed, alcoholism, drug addiction, transportation, low edu. Level, literacy, decrease access to med. care, [facility], rehab)? @ -No Was there de-escalation of care discussed even if they declined (Discuss DNR or withdrawal of care, Hospice)? DNR status @ -No What co-morbidities impacted this encounter? (DM, HTN, Smoking, COPD, CAD, Cancer, CVA, ARF, Chemo, Hep., AIDS, mental health diagnosis, sleep apnea, morbid obesity)? @ -None Was patient admitted / discharged? Hospital course, mention meds given and route, prescriptions, significant lab abnormalities, going to OR and other pertinent info. @ -Lab work notable for BUN 28, glucose 126. Troponin negative. CXR shows no acute cardiopulmonary process. Patient provided p.o. Tylenol for suspected musculoskeletal etiology. Advised follow-up with PCP for ongoing management of cervical spine radiculopathy. Discussed patient with Dr. Duarte. Undiagnosed new problem with uncertain prognosis? @ -No Drug Therapy requiring intensive monitoring for toxicity (Heparin, Nitro, Insulin, Cardizem)? @ -No Were any procedures done? @ -No Diagnosis/symptom? @ -Cervical neck strain, radiculopathy Acute, or Chronic, or Acute on Chronic? @ -Acute Uncomplicated (without systemic symptoms) or Complicated (systemic symptoms)? @ -Uncomplicated Side effects of treatment? @ -No Exacerbation, Progression, or Severe Exacerbation? @ -No Poses a threat to life or bodily function? How? (Chest pain, USA, CA, pneumonia, PE, COPD, DKA, ARF, appy, cholecystitis, CVA, Diverticulitis, Homicidal, Suic idal, threat to staff... and all critical care pts) @ -No - Lab Data Result diagrams: 01/08/25 01:15 01/08/25 01:15 Lab Results 01/08/25 01/08/25 01/08/25 Range/Units 01:15 01:15 01:15 WBC 10.80 H (4.50-10.00) 10*3/uL RBC 5.11 (4.10-5.20) 10*6/uL Hgb 15.7 H (12.0-15.0) g/dL Hct 47.8 H (37.2-46.3) % MCV 93.5 (80.0-97.0) fL MCH 30.7 (27.0-32.0) pg MCHC 32.8 (32.0-37.0) g/dL Plt Count 288 (140-440) 10*3/uL MPV 10.4 (9.5-12.2) fL Immature Gran % (Auto) 0.3 % Neutrophils % 62.3 % Lymphocytes % 24.0 % Monocytes % 11.7 % Eosinophils % 1.1 % Basophils % 0.6 % Immature Gran # 0.03 (0.00-0.04) 10*3/uL Neutrophils # 6.74 (1.80-7.70) 10*3/uL Lymphocytes # 2.59 (0.90-5.00) 10*3/uL Monocytes # 1.26 H (0.20-1.00) 10*3/uL Eosinophils # 0.12 (0.04-0.35) 10*3/uL Basophils # 0.06 (0.00-0.10) 10*3/uL PT 11.0 (10.0-12.5) sec INR 1.0 (<1.2) APTT 25.3 (22.0-30.0) sec Sodium 138 (137-145) mmol/L Potassium 4.2 (3.5-5.1) mmol/L Chloride 102 (98-107) mmol/L Carbon Dioxide 27 (22-30) mmol/L Anion Gap 9 mmol/L BUN 28 H (7-17) mg/dL Creatinine 0.80 (0.52-1.04) mg/dL Est GFR (CKD-EPI)AfAm 80 (>60 ml/min/1.73 sqM) Est GFR (CKD-EPI)NonAf 69 (>60 ml/min/1.73 sqM) Glucose 126 H (74-99) mg/dL Calcium 10.3 H (8.4-10.2) mg/dL Magnesium 2.1 (1.6-2.3) mg/dL Total Bilirubin 0.3 (0.2-1.3) mg/dL AST 36 (14-36) U/L ALT 27 (4-34) U/L Alkaline Phosphatase 80 (38-126) U/L Troponin I (0.000-0.034) ng/mL Total Protein 6.8 (6.3-8.2) g/dL Albumin 4.3 (3.5-5.0) g/dL 01/08/25 Range/Units 01:15 WBC (4.50-10.00) 10*3/uL RBC (4.10-5.20) 10*6/uL Hgb (12.0-15.0) g/dL Hct (37.2-46.3) % MCV (80.0-97.0) fL MCH (27.0-32.0) pg MCHC (32.0-37.0) g/dL Plt Count (140-440) 10*3/uL MPV (9.5-12.2) fL Immature Gran % (Auto) % Neutrophils % % Lymphocytes % % Monocytes % % Eosinophils % % Basophils % % Immature Gran # (0.00-0.04) 10*3/uL Neutrophils # (1.80-7.70) 10*3/uL Lymphocytes # (0.90-5.00) 10*3/uL Monocytes # (0.20-1.00) 10*3/uL Eosinophils # (0.04-0.35) 10*3/uL Basophils # (0.00-0.10) 10*3/uL PT (10.0-12.5) sec INR (<1.2) APTT (22.0-30.0) sec Sodium (137-145) mmol/L Potassium (3.5-5.1) mmol/L Chloride (98-107) mmol/L Carbon Dioxide (22-30) mmol/L Anion Gap mmol/L BUN (7-17) mg/dL Creatinine (0.52-1.04) mg/dL Est GFR (CKD-EPI)AfAm (>60 ml/min/1.73 sqM) Est GFR (CKD-EPI)NonAf (>60 ml/min/1.73 sqM) Glucose (74-99) mg/dL Calcium (8.4-10.2) mg/dL Magnesium (1.6-2.3) mg/dL Total Bilirubin (0.2-1.3) mg/dL AST (14-36) U/L ALT (4-34) U/L Alkaline Phosphatase (38-126) U/L Troponin I <0.012 (0.000-0.034) ng/mL Total Protein (6.3-8.2) g/dL Albumin (3.5-5.0) g/dL Disposition Clinical Impression: Strain of neck muscle, Cervical radiculopathy Disposition: HOME SELF-CARE Condition: Fair Instructions (If sedation given, give patient instructions): Cervical Strain (ED) Additional Instructions: Tylenol every 4-6 hours as needed for pain. Cold compress for 10 minutes up to 4 times daily. Follow-up with PCP for ongoing management of neck/upper extremity pain Is patient prescribed a controlled substance at d/c from ED?: No Referrals: Vidal Erickson MD [Primary Care Provider] - 1-2 days Time of Disposition: 04:00
--- NOTE | 2025-01-08 01:22 | XR ---
EXAM: XR Chest, 2 Views CLINICAL HISTORY: ITS.REASON XR Reason: Chest Pain TECHNIQUE: Frontal and lateral views of the chest. COMPARISON: No relevant prior studies available. FINDINGS: Lungs: Unremarkable. No consolidation. Pleural space: Unremarkable. No pneumothorax. Heart: Cardiomegaly. Mediastinum: Unremarkable. Bones/joints: Sternotomy wires. IMPRESSION: No acute findings in the chest.
[2025-01-08 01:49] LABS: Basophils # (A) 0.06 10*3/uL (0.00-0.10); Basophils % (A) 0.6 %; Eosinophils # (A) 0.12 10*3/uL (0.04-0.35); Eosinophils % (A) 1.1 %; HCT 47.8 % (37.2-46.3); HGB 15.7 g/dL (12.0-15.0); Lymphocytes # (A) 2.59 10*3/uL (0.90-5.00); Lymphocytes % (A) 24.0 %; MCH 30.7 pg (27.0-32.0); MCHC 32.8 g/dL (32.0-37.0); MCV 93.5 fL (80.0-97.0); Monocytes # (A) 1.26 10*3/uL (0.20-1.00); Monocytes % (A) 11.7 %; Neutrophils # (A) 6.74 10*3/uL (1.80-7.70); Neutrophils % (A) 62.3 %; Platelet Count 288 10*3/uL (140-440); RBC 5.11 10*6/uL (4.10-5.20); RDW 14.7 % (11.5-14.5); WBC 10.80 10*3/uL (4.50-10.00)
[2025-01-08 02:05] LABS: INR 1.0 (<1.2); Partial Thromboplastin Time 25.3 sec (22.0-30.0); Prothrombin Time 11.0 sec (10.0-12.5)
[2025-01-08 02:12] LABS: ALT 27 U/L (4-34); AST 36 U/L (14-36); African American GFR (CKD) 80 (>60 ml/min/1.73 sqM); Albumin 4.3 g/dL (3.5-5.0); Alkaline Phosphatase 80 U/L (38-126); Anion Gap 9 mmol/L; Blood Urea Nitrogen 28 mg/dL (7-17); Calcium 10.3 mg/dL (8.4-10.2); Carbon Dioxide 27 mmol/L (22-30); Chloride 102 mmol/L (98-107); Glucose 126 mg/dL (74-99); Magnesium 2.1 mg/dL (1.6-2.3); Non-African American GFR(CKD) 69 (>60 ml/min/1.73 sqM); Potassium 4.2 mmol/L (3.5-5.1); Sodium 138 mmol/L (137-145); Total Protein 6.8 g/dL (6.3-8.2)
[2025-01-08] MEDS: ACETAMINOPHEN TAB 500 MG TAB PO STA (02:57)
[2025-01-08 03:53] VITALS: BP 118/81; PULSE 71; RESP 17
== END 2025-01-08 03:54 | disposition home or self-care (01) ==
LOC: EC 00:25
DX: S16.1XXA Strain of muscle, fascia and tendon at neck level, initial encounter (principal); M54.12 Radiculopathy, cervical region; Z88.1 Allergy status to other antibiotic agents; Z88.2 Allergy status to sulfonamides; Z88.0 Allergy status to penicillin; X58.XXXA Exposure to other specified factors, initial encounter
CPT/HCPCS: 36415; 71046; 80053; 83735; 84484; 85025; 85610; 85730; 93005; 99284